=== PATIENT | female | born 1935 | race Caucasian/White ===

== ENCOUNTER → 2019-08-18 15:20 | Outpatient (CLI) | payer MEDICARE, SELFPAY ==
--- NOTE | ~2019-08-18 | XR_ITS ---
EXAMINATION: XR abdomen/kub 1V INDICATION: Left upper quadrant pain, history of cholecystectomy TECHNIQUE: Supine views of the abdomen were obtained on 2 radiographs. COMPARISON: 04/13/2016 FINDINGS: There is a moderate volume of left-sided colonic stool. No dilated loops of bowel are seen. There is dextrocurvature of the lumbar spine with moderate to severe lumbar spondylosis. Cholecystec monika clips are noted in the right upper quadrant. The visualized lung bases are clear. Internal stabi lization screws are present in the left femoral neck. IMPRESSION: 1. Constipation. Reviewed, dictated and finalized at location A. ASTRUCTURE DESIGN ENGINEER IMPRESSION: 1. Constipation.
== END ==
PROVIDERS: PCP Family Medicine; Visit Provider Physician Assistant
DX: R10.12 Left upper quadrant pain (principal); K59.00 Constipation, unspecified
CPT/HCPCS: 74018

== ENCOUNTER 2019-12-30 15:32 | Observation (INO) | payer MEDICARE, SELFPAY ==
--- NOTE | ~2019-12-30 | CT_ITS ---
EXAMINATION: CTA chest PE protocol EXAM DATE: 12/31/2019 17:15 INDICATION: Dyspnea on exertion. Shortness of breath, left anterior chest pain. TECHNIQUE: Spiral CTA of the chest (pulmonary arteries) was performed with 100 cc Omnipaque 350 intr avenous contrast injection. Images were acquired during the pulmonary arterial phase. Coronal maxi mum intensity projection 3D-reconstructions were created by the technologist on dedicated workstation . Axial, coronal and sagittal reformatted images were reviewed. The dose-length product (DLP) for t his examination was 144.86 mGy-cm. The exposure was tailored according to patient size (auto mA exp osure control), and iterative reconstruction (ASIR) was used as additional dose reduction technique. Comparison is made to prior examination from 03/27/2019. FINDINGS: Pulmonary arteries are well opacified and without intraluminal filling defects. No thora cic aortic dissection. Small amount of post infectious residua again noted in the right middle lobe medially. Stable 4 mm right lower lobe pleural-based nodule just below this. Some additional small po st infectious residua in the right middle lobe inferiorly with calcification. The lungs are otherwise clear. There is mild hyperinflation and emphysema. There are no pleural or pericardial effusions. Tracheob ronchial tree is patent. There is no mediastinal, hilar or axillary lymphadenopathy. There is no pneumothorax. Heart normal in size. There is mild to moderate coronary arterial calcification, ar terial sclerosis, mostly in the circumflex artery. There is moderate sliding gastroesophageal hiatal hernia. There is moderate thoracic spondylosis without osteoblastic or osteolytic lesions identified . Left shoulder replacement. IMPRESSION: 1. No pulmonary emboli or acute findings. 2. Scattered right-sided postinfectious residua. 3. Emphysema and hyperinflation. 4. Moderate hiatal hernia. Reviewed, dictated and finalized at location A.
--- NOTE | ~2019-12-30 | XR_ITS ---
EXAMINATION: XR chest 2V DATE: 12/30/2019 17:04 INDICATION: Shortness of breath, left anterior chest pain TECHNIQUE: PA and lateral views of the chest are obtained. COMPARISON: 10/14/2018 FINDINGS: The lungs are free of acute opacities. There is no pleural effusion or pneumothorax. The he art size is normal. There is a moderate-sized hiatal hernia. There is severe thoracic spondylosis. Th ere are changes of left total shoulder arthroplasty. There is an old fracture of the left eighth rib. Surgical clips in the right upper quadrant are likely from prior cholecystectomy. IMPRESSION: 1. No acute cardiopulmonary abnormality. 2. Moderate size hiatal hernia. Reviewed, dictated and finalized at location A.
[2019-12-30 15:41] VITALS: BP 148/90; PULSE 109; RESP 20; TEMP 36.1; O2SAT 90
--- NOTE | 2019-12-30 15:44 | ECG_ITS ---
Measurements Intervals [place] Rate: 80 P: 34 SD: 280 QRS: 59 QRSD: 79 T: 56 QT: 346 QTc: 400 Interpretive Statements SINUS RHYTHM WITH FIRST DEGREE AV BLOCK DELAYED PRECORDIAL R/S TRANSITION BASELINE ARTIFACT- I, III, AVL, AVF, V2 ABNORMAL ECG Electronically Signed On 12-30-2019 16:09:54 CDT by Bret Laughlin D.O.
[2019-12-30 15:52] LABS: Basophils Absolute Auto 0.1 K/mm3 (0.0-0.1); Basophils Percent Auto 0.8 % (0.2-1.2); Eosinophils Absolute Auto 0.1 K/mm3 (0-0.3); Eosinophils Percent Auto 1.8 % (0-4.4); Hematocrit 32.8 % (37.0-47.0); Hemoglobin 10.4 g/dL (12.0-15.0); Immature Granulocyte Absolute 0.02 K/mm3 (0.00-0.031); Immature Granulocyte Percent A 0.3 % (0-0.5); Lymphocytes Absolute Auto 1.11 K/mm3 (0.9-3.2); Lymphocytes Percent Auto 17.9 % (18.3-44.2); Mean Corpuscular HGB Conc 31.7 g/dl (32-36); Mean Corpuscular Hemoglobin 28.6 pg (26-34); Mean Corpuscular Volume 90.1 fl (80-100); Mean Platelet Volume 10.1 fl (7.4-10.4); Monocytes Absolute Auto 0.6 K/mm3 (0.1-0.6); Monocytes Percent Auto 9.8 % (2.6-8.5); Neutrophils Absolute Auto 4.3 K/mm3 (1.3-6.7); Neutrophils Percent Auto 69.4 % (45.5-73.1); Platelet Count Result 283 k/mm3 (150-375); Red Blood Count 3.64 M/mm3 (4.2-5.4); Red Cell Distribution Width 13.7 % (11.5-14.5); White Blood Count 6.2 K/mm3 (4.5-10.0)
[2019-12-30 16:03] LABS: Prothrombin Time 12.8 Seconds (11.1-14.7)
[2019-12-30 16:04] LABS: Partial Thromboplastin Time 26.6 SECONDS (22.3-36.8)
[2019-12-30 16:05] VITALS: PULSE 86
[2019-12-30 16:05] LABS: Blood Urea Nitrogen 38 mg/dL (7-17); Calcium 9.1 mg/dL (8.4-10.2); Carbon Dioxide 23 mmol/L (22-30); Chloride 103 mmol/L (98-107); Estimated Glomerular Filt Rate 48; Glucose 89 mg/dL (65-105); Potassium 4.4 mmol/L (3.4-5.0); Sodium 135 mmol/L (137-145)
[2019-12-30 16:16] LABS: Troponin I < 0.012 ng/mL (0.000-0.034)
--- NOTE | 2019-12-30 16:59 | ED.SOB ---
HPI - SOB/Dyspnea General Chief Complaint: Shortness of Breath/Dyspnea Stated Complaint: chest pain from pcp Time Seen by Provider: 12/30/19 16:04 Source: patient Mode of arrival: ambulatory Limitations: no limitations History of Present Illness HPI Narrative: This patient is a 84 year old female with multiple medical problems who presents for evaluation of chest pain and shortness of breath with exertion. Over the past 1 week, she noticed she developed pressure left chest , nonradiating with sob whenever she walks around. She denies diaphoresis, cough, fever, nausea or vomiting. She was seen in her PCP office today and she was referred to ER for suspected angina. She has been having intermittent left chest pain since April and she had a negative stress test at that time. Related Data Home Medications Medication Instructions Recorded Confirmed diltiazem HCl [Cartia XT] 180 mg PO DAILY 12/30/19 losartan 10 mg PO DAILY 12/30/19 paroxetine HCl 20 mg PO QAM 12/30/19 pravastatin 20 mg PO HS 12/30/19 Allergies Allergy/AdvReac Type Severity Reaction Status Date / Time clonidine Allergy Unknown GI upset Verified 09/23/19 10:22 codeine Allergy Unknown Vomiting Verified 09/23/19 10:22 morphine Allergy Unknown Vomiting Verified 09/23/19 10:22 Review of Systems Review of Systems: All systems reviewed & are unremarkable except as noted in HPI and below Constitutional: Constitutional: Denies chills, Denies fever(s) and Denies weakness Cardiovascular: Cardiovascular: Reports chest pain, Denies rapid heart rate and Denies radiating jaw, neck or arm pain Respiratory: Respiratory: Denies cough, Reports dyspnea and Denies wheezing PMFSH Social History Social History Smoking packs per day: 1 Smoking cigarettes per day: 20.0 Years smoked: 10 Smoking pack-years: 10.00 Smoking status: Former smoker Tobacco type: cigarettes Second hand tobacco smoke exposure: No Smoking end date: 07/09/1959 Alcohol intake: never Substance use: never Substance use type: does not use Gender identity (if verbalized by the patient): Female Exam Narrative: Exam Narrative: GENERAL: Well-appearing, well-nourished, and in no acute distress. HEAD: Normocephalic, atraumatic EYES: PERRLA and EOMI, conjunctiva clear without discharge THROAT:Mucous membranes moist, NECK: Supple, RESPIRATORY: No respiratory distress, Airway patent, Respirations non-labored, Clear to auscultation without rales, rhonchi or wheeze HEART: Regular rate and rhythm. No murmur heard. Normal peripheral pulses. ABDOMEN: Soft, nontender, nondistended, normal active bowel sounds. No masses. No rebound or guarding, No organomegaly. EXTREMITIES: No edema, normal strength with full range of motion. SKIN: Warm, dry, normal color without rash NEURO: Alert and oriented x3. CN 2-12 grossly intact. No focal deficits. PSYCH: Normal mood and affect. Course Consultations Consultation #1: I discussed case with Dr. Egan who agrees to consult with patient admitted to hospitalist Date: 12/30/19 Time: 17:46 Consultation #2: I Discussed case with Shoshana who accepts patient to hospitalist service Date: 12/30/19 Time: 18:06 Vital Signs Vital signs: Vital Signs Temperature 97.0 F L 12/30/19 15:41 Pulse Rate 109 H 12/30/19 15:41 Respiratory Rate 20 12/30/19 15:41 Blood Pressure 148/90 H 12/30/19 15:41 Pulse Oximetry 90 12/30/19 15:41 Temperature 97.0 F L 12/30/19 15:41 Pulse Rate 82 12/30/19 18:23 Respiratory Rate 17 12/30/19 18:23 Blood Pressure 158/78 H 12/30/19 17:13 Pulse Oximetry 96 12/30/19 18:23 MDM - SOB/Dyspnea Lab Data Attestation: I reviewed the patient's lab results. Result diagrams: 12/30/19 15:46 12/30/19 15:46 Labs: Lab Results 12/30/19 12/30/19 12/30/19 Range/Units 15:46 15:46 15:46 WBC 6.2 (4.5-10
[2019-12-30] MEDS: ASPIRIN 81 MG CHEWABLE TABLET 324 MG PO (17:12)
[2019-12-30 17:13] VITALS: BP 158/78; PULSE 81; RESP 20; O2SAT 100
[2019-12-30 18:23] VITALS: PULSE 82; RESP 17; O2SAT 96
[2019-12-30 19:04] LABS: Troponin I < 0.012 ng/mL (0.000-0.034)
[2019-12-30 20:00] VITALS: BP 122/82; PULSE 65; RESP 20; TEMP 36.6; O2SAT 96
--- NOTE | 2019-12-30 20:07 | ADMGEN ---
This patient, Selena Lua, was admitted to IMU Room 206-01. Patient/family oriented to hospital policies and general routines including ID bracelet, bed and alarms, visiting hours, pain management, procedures, bathroom and other care routines, personal items, smoking policy, room service/diet, and visiting hours. Valuables list has been completed. Information on how to activate the Rapid Response Team has been discussed. Patient/Family are encouraged to report perceived risks to care and to ask questions if they do not understand what they are told or what they should do.
[2019-12-30 20:10] VITALS: BMI 27.8
[2019-12-30 22:00] VITALS: PULSE 66
[2019-12-30 22:17] LABS: Troponin I < 0.012 ng/mL (0.000-0.034)
--- NOTE | 2019-12-30 22:25 | PM.IMHP ---
H&P: HPI History of Present Illness Chief complaint: angina/chest pain Narrative: Selena Lua is a 84 year old female who states that she has been having angina for several weeks now. She does have a history of having asthma and has been using her inhalers. She does not hear herself wheeze though. She has never been to a atmospheric drier tender. She has been to the heart care group in the past. But does not routinely see a cardiac cath lab manager. The patient had an exercise stress test on 03/25/2019 that she reports is negative. And also she has had a previous are cardiac catheterization a couple years ago that she states was negative. The patient stated that she gets short of breath and has chest pain upon exertion. When your she walks she does have chest pain and is short of breath. She said she does not have a pulse ox at home and has not been monitoring it. Sitting and resting resolves the discomfort. She has not had any history of congestive heart failure. She has no edema no fever no chills no cough. She has had intermittent chest pain on and off since April. Cardiac enzymes are negative tonight. 10.4 and 32.8 but she does have a history of chronic anemia. Acute cardiopulmonary abnormality and moderate size hiatal hernia. Was given aspirin in the emergency room. Date of service is 12/30/2019 she is not currently having any chest pain. She is being admitted for chest pain rule out acute coronary syndrome. Angina stable. Review of Systems Review of Systems: All systems reviewed & are unremarkable except as noted in HPI and below Constitutional: Constitutional: Reports as per HPI and Reports no additional constitutional complaints Eyes: Eyes: Reports as per HPI and Reports no additional eye complaints ENT: Reports system reviewed and no additional complaints, except as documented and Reports Normal hearing present Cardiovascular: Cardiovascular: Reports no additional cardiovascular complaints Respiratory: Respiratory: Reports no additional respiratory complaints and Reports no additional respiratory complaints Gastrointestinal: Gastrointestinal: Reports as per HPI and Reports no additional gastrointestinal complaints Musculoskeletal: Musculoskeletal: Reports no additional musculoskeletal complaints Integumentary/Breasts: Skin/Breast: Reports system reviewed and no additional complaints, except as docu and Reports as per HPI Neurologic: Reports system reviewed and no additional complaints, except as documented, Reports as per HPI and Reports Normal hearing present Psychiatric: Psychiatric: Reports no additional psychiatric complaints and Reports as per HPI Endocrine: Endocrine: Reports no additional endocrine complaints Hematologic/Lymphatic: Hematologic/Lymphatic: Reports no additional hematologic/lymphatic complaints Allergic/Immunologic: Allergic/Immunologic: Reports no additional allergic/immunologic complaints PMFSH Past Medical History Medical History (Updated 12/30/19 @ 22:44 by Shoshana Ander NP) Asthma Benign essential hypertension Chronic GERD Fracture of left hip requiring operative repair HTN (hypertension) with goal to be determined Hx of temporal arteritis Hyperlipidemia Surgical History Surgical History (Updated 12/30/19 @ 22:40 by Shoshana Andre NP) History of appendectomy History of carpal tunnel release Bilaterally History of cataract Bilateral History of cholecystectomy History of tonsillectomy History of total bilateral knee replacement History of total replacement of left shoulder joint Presence of left artificial knee joint Family History Family History Mother Hypertension Family history of cardiovascular disease Carcinoma of colon, Onset Age: 86 Acute myocardial infarction Family history of heart disease in male family member before age 55, Onset Age: 86 Patient's mother is , Onset Age: 86 Father Decea
[2019-12-30] MEDS: PRAVASTATIN SODIUM 20 MG TABLET PO (23:49)
[2019-12-31] VITALS (16 sets, daily range): BP systolic 95–155; BP diastolic 49–70; PULSE 54–88; RESP 16–20; TEMP 36.1–36.7; O2SAT 96–100
--- NOTE | 2019-12-31 | ECHO_ITS ---
Patient Info Name: Selena Lua Age: 84 years : 1935 Gender: Female Ht: 58 in Wt: 133 lbs BSA: 1.59 m2 HR: 62 bpm BP: 143 / 58 mmHg Heart Rhythm: Sinus Rhythm Technical Quality: Good Exam Date: 12/31/2019 10:07 AM Exam Location: [facility] Patient Status: Inpatient Admit Date: 12/30/2019 Staff Ordering Physician: Shoshana Andre NP Tool Lapper Hand: Alex Negrete RDCS Attending Provider: El Wang MD Referring Physician: Thai REYES; Exam Type: CA echo doppler color flow Study Info Indications R07.9 - Chest pain, unspecified Complete two-dimensional, color flow and Doppler transthoracic echocardiogram is performed. Strain analysis performed. History/Risk Factors Chest pain; shortness of breath, HTN, anemia. Summary 1. Normal left ventricular size with moderate concentric hypertrophy. Left ventricular systolic function is of lower end of normal, estimated ejection fraction 50-55%. Global longitudinal strain is -17%, mildly decreased, consistent with mild systolic dysfunction. She has grade 2 diastolic dysfunction present. 2. Left atrial chamber dimension is severely enlarged. 3. There is mild tricuspid valve regurgitation. 4. No pulmonary hypertension, estimated pulmonary arterial systolic pressure is 35 mmHg. 5. Normal sinus rhythm. Left Ventricle Left ventricular chamber dimension is normal. Left ventricular systolic function is normal, estimated at 50-55%. There is moderately increased left ventricular wall thickness. Left ventricular septal wall motion is normal. The left ventricular diastolic function is grade II diastolic dysfunction. Global longitudinal strain is mildly elevated at 17 %. Right Ventricle Right ventricular chamber dimension is normal. Right ventricular systolic function is normal. Left Atria Left atrial chamber dimension is severely enlarged. Right Atria Right atrial chamber dimension is normal. Aortic Valve The aortic valve is trileaflet. There is mild aortic valve sclerosis. There is no aortic valve stenosis. There is no aortic valve regurgitation. Pulmonic Valve The pulmonic valve is normal. There is no pulmonic valve stenosis. There is trace pulmonic regurgitation. Mitral Valve The mitral valve has calcified annulus. There is no mitral valve stenosis. There is no mitral valve regurgitation. Tricuspid Valve The tricuspid valve leaflets are normal. There is no significant tricuspid valve stenosis. There is mild tricuspid valve regurgitation. No pulmonary hypertension, estimated pulmonary arterial systolic pressure is 35 mmHg. Pericardium/Pleural The pericardium appears normal. There is no pericardial effusion. Inferior Vena Cava Normal inferior vena cava with >50% collapse upon inspiration consistent with Empty right atrial pressure, 5 mmHg. Aorta The aortic root size at the sinus of Valsalva is normal. The prox ascending aorta size is normal. Left Ventricular Outflow Tract Name Value Normal LVOT 2D LVOT Diameter 1.9 cm LVOT Doppler LVOT Peak Gradient 5 mmHg
[2019-12-31 05:19] LABS: Basophils Absolute Auto 0.1 K/mm3 (0.0-0.1); Basophils Percent Auto 1.1 % (0.2-1.2); Eosinophils Absolute Auto 0.2 K/mm3 (0-0.3); Eosinophils Percent Auto 4.6 % (0-4.4); Hematocrit 31.2 % (37.0-47.0); Immature Granulocyte Absolute 0.01 K/mm3 (0.00-0.031); Immature Granulocyte Percent A 0.2 % (0-0.5); Lymphocytes Absolute Auto 1.12 K/mm3 (0.9-3.2); Lymphocytes Percent Auto 24.8 % (18.3-44.2); Mean Corpuscular HGB Conc 32.1 g/dl (32-36); Mean Corpuscular Hemoglobin 28.4 pg (26-34); Mean Corpuscular Volume 88.6 fl (80-100); Monocytes Absolute Auto 0.5 K/mm3 (0.1-0.6); Monocytes Percent Auto 10.8 % (2.6-8.5); Neutrophils Absolute Auto 2.6 K/mm3 (1.3-6.7); Neutrophils Percent Auto 58.5 % (45.5-73.1); Platelet Count Result 266 k/mm3 (150-375); Red Blood Count 3.52 M/mm3 (4.2-5.4); Red Cell Distribution Width 13.6 % (11.5-14.5); White Blood Count 4.5 K/mm3 (4.5-10.0)
[2019-12-31 05:36] LABS: Alanine Aminotransferase 17 U/L (4-35); Albumin Level 3.6 g/dL (3.5-5.1); Alkaline Phosphatase 70 U/L (38-126); Aspartate Amino Transferase 27 U/L (14-36); Bilirubin,Total 0.2 mg/dL (0.2-1.3); Blood Urea Nitrogen 30 mg/dL (7-17); CRP < 0.5 mg/dL (<1.0); Calcium 8.9 mg/dL (8.4-10.2); Carbon Dioxide 26 mmol/L (22-30); Chloride 106 mmol/L (98-107); Estimated Glomerular Filt Rate 60; Glucose 85 mg/dL (65-105); Magnesium 2.3 mg/dL (1.6-2.3); Potassium 4.3 mmol/L (3.4-5.0); Sodium 136 mmol/L (137-145)
[2019-12-31] MEDS: PANTOPRAZOLE SOD SESQUIHYDRATE 20 MG TAB PO ×2 (08:31→17:10)
[2019-12-31] MEDS: PAROXETINE 20 MG TABLET PO (08:31)
[2019-12-31] MEDS: ASPIRIN 81 MG ENTERIC TABLET PO (08:31)
[2019-12-31] MEDS: LOSARTAN POTASSIUM 25 MG TABLET PO (08:31)
--- NOTE | 2019-12-31 08:40 | WPDCN ---
Assessment and Plan Assessment and plan (1) Chest pain: Code(s): R07.9 - Chest pain, unspecified Status: Acute Assessment and Plan: Has stable though frequent and progressive exertional anginal-type chest pain, negative stress test April 2019. I think she would benefit from cardiac catheterization for further evaluation. Already taking diltiazem an aspirin as well as a statin. Also has iron deficiency anemia which may represent occult GI bleeding could be a problem if the patient undergoes stenting requiring dual anti-platelet therapy for 12 months. Recommend medical therapy for CAD for now by changing diltiazem to metoprolol and adding a nitrate, GI evaluation hopefully tomorrow, perhaps cardiac catheterization on Sunday or as an outpatient next week depending on results of GI evaluation. (2) Iron deficiency anemia: Code(s): D50.9 - Iron deficiency anemia, unspecified Status: Acute Assessment and Plan: Anemia, low iron levels noted last year. Recheck iron levels Consider GI evaluation (3) Hypertension: Code(s): I10 - Essential (primary) hypertension Status: Acute Assessment and Plan: Blood pressure running mildly elevated (4) Hyperlipidemia: Code(s): E78.5 - Hyperlipidemia, unspecified Status: Chronic Assessment and Plan: Taking pravastatin. Check lipids in a.m.. HPI Data of Consult Date/Time: 12/31/19 08:40 Requesting Physician: El Wang MD Primary Care Provider: Easton Paulino MD Consult Narrative Narrative: Date of service: 12/31/2019 Selena Lua is a 84 year old female whom we were asked to see at the request of the hospitalist for advice and opinion regarding her chest discomfort in consultation. The patient has been having some exertional chest discomfort since last fall. She had a Lexiscan stress test done 04/2019 which showed normal perfusion, EF 72%. The chest discomfort has gradually progressed such that she has had chest discomfort daily when she walks her dog, does housework, makes her bed etc. she saw Dr. Paulino yesterday who recommended she go to the ER for evaluation. She describes this as ?just a pain? in the area under her left breast associated with shortness of breath. A couple of times when she was walking her dog it was intense and she had to bend over. It is nonpleuritic, non positional and nontender. She denies any nausea or radiation. No wheezing. In 2016 she had endoscopy by Dr. Ko for nausea which showed diverticulosis and internal hemorrhoids. She had an iron deficiency anemia with a low iron level noted in 2019. No obvious GI bleeding. She remains mildly anemic. Review of Systems Constitutional: Constitutional: Reports no additional constitutional complaints Eyes: Eyes: Reports no additional eye complaints ENT: Denies epistaxis Cardiovascular: Cardiovascular: Reports chest pain, Denies pedal edema, Denies leg edema, Denies lightheadedness and Denies palpitations Respiratory: Respiratory: Denies cough, Reports dyspnea on exertion and Denies wheezing Gastrointestinal: Gastrointestinal: Denies abdominal pain, Denies hematochezia, Denies heartburn, Denies nausea and Denies hematemesis Genitourinary: Genitourinary: Denies hematuria Musculoskeletal: Musculoskeletal: Reports arthralgias Integumentary/Breasts: Skin/Breast: Denies rash Neurologic: Denies confusion Psychiatric: Psychiatric: Denies anxiety and Denies depression [facility] Past Medical History Medical History Asthma Benign essential hypertension Chronic GERD Fracture of left hip requiring operative repair HTN (hypertension) with goal to be determined Hx of temporal arteritis Hyperlipidemia Surgical History Surgica
[2019-12-31] MEDS: METOPROLOL TARTRATE 25 MG TABLET PO ×2 (09:19→21:43)
--- NOTE | 2019-12-31 12:09 | WPDGICN ---
Assessment and Plan Assessment and plan (1) Anemia: Code(s): D64.9 - Anemia, unspecified Status: Acute Assessment and Plan: Patient has anemia for some time etiology unclear. No obvious GI blood loss described. Iron indices are somewhat uncertain. Her iron of 83, TIBC 367, 23% saturation with a ferritin 19. She had iron studies a year ago with an elevated ferritin. Current hemoglobin 10 macro 31 with an MCV of 88. There is some concern over etiology of anemia plan therefore is to for GI endoscopy prior to anticipated cardiac workup and catheterization of Sunday. Stool Hemoccult is advised in the interim. hematology is found followed patient in the past in has considered early myelodysplastic syndrome and ultimate follow up with their service may be required. (2) Chest pain: Code(s): R07.9 - Chest pain, unspecified Status: Acute Assessment and Plan: Patient has exertional chest pain suspicious for angina. Cardiology service is following at this time period is possible that anemia may contribute to this continue monitor hemoglobin closely. Currently felt to be stable hemoglobin. (3) [place] (dyspnea on exertion): Code(s): R06.00 - Dyspnea, unspecified Status: Acute GI Consult Note Consult date/time: 12/31/19 12:09 HPI: Selena Lua is a 84 year old female seen in evaluation at the request of Dr. Ramirez on cardiology service. Patient has a history of dyspnea on exertion with chest pain with exertion as well. She has a long history of anemia and because of anemia some concern over this contributing to her chest pain. Cardiology is service is recommended GI endoscopy to exclude organic disease of the GI tract prior to cardiac catheterization. Patient denies any obvious blood in her stools. She denies any nose bleeds or bruises. She has had anemia for some time. Seen by Dr. Katz in July and felt to potentially have early myelodysplastic syndrome. No obvious GI blood loss has been described. Review of Systems Review of Systems: All systems reviewed & are unremarkable except as noted in HPI and below PMFSH Past Medical History Medical History Asthma Benign essential hypertension Chronic GERD Fracture of left hip requiring operative repair HTN (hypertension) with goal to be determined Hx of temporal arteritis Hyperlipidemia Surgical History Surgical History History of appendectomy History of carpal tunnel release Bilaterally History of cataract Bilateral History of cholecystectomy History of tonsillectomy History of total bilateral knee replacement History of total replacement of left shoulder joint Presence of left artificial knee joint Family History Family History Mother Hypertension Family history of cardiovascular disease Carcinoma of colon, Onset Age: 86 Acute myocardial infarction Family history of heart disease in male family member before age 55, Onset Age: 86 Patient's mother is , Onset Age: 86 Father Family history of lung cancer, Onset Age: 78 Patient's father is , Onset Age: 78 Other Family history of arthritis Family history of malignant neoplasm Social History Social History Social History: Patient lives with her who has short-term memory problems due to the Parkinson's. The coming up on their 60th anniversary. They have 2 sons and 2 daughters together. Her 2 daughters are durable power deputy county attorney for healthcare. The patient desires to be a full code. 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 She smoked many years ago. No alcohol marijuana or illicit drugs. Smoking packs per day: 1 Smoking cigarettes per day: 20.0 Years smoked: 10 Smoking pack-years: 10.00 Smoking status: Form
--- NOTE | 2019-12-31 14:43 | PM.IMPN ---
Progress Note: A&P Assessment and Plan (1) Chest pain: Code(s): R07.9 - Chest pain, unspecified Status: Acute Assessment and Plan: Stable angina. Patient gets chest pain with exertion. She has had a negative cardiac catheterization and negative cardiac stress test in the past. Cardiology consulted ? cardiac catherization on sunday (2) HTN (hypertension) with goal to be determined: Code(s): I10 - Essential (primary) hypertension Status: Chronic Assessment and Plan: Continue with with losartan and Cardizem (3) HARDWICK (dyspnea on exertion): Code(s): R06.00 - Dyspnea, unspecified Status: Acute Assessment and Plan: Could be related to her asthma restarted on inhalers (4) Asthma: Code(s): J45.909 - Unspecified asthma, uncomplicated Status: Chronic Assessment and Plan: Continue with her albuterol and Symbicort inhaler. Patient may need to follow-up outpatient [employer] and have a PF T or of sleep apnea study. (5) Hyperlipidemia: Code(s): E78.5 - Hyperlipidemia, unspecified Status: Chronic Assessment and Plan: Continue with pravastatin (6) Chronic GERD: Code(s): K21.9 - Gastro-esophageal reflux disease without esophagitis Status: Acute Assessment and Plan: Continue pantoprazole (7) Depression: Code(s): F32.9 - Major depressive disorder, single episode, unspecified Status: Chronic Assessment and Plan: Continue with Paxil. (8) Raynaud's disease without gangrene: Code(s): I73.00 - Raynaud's syndrome without gangrene Status: Chronic (9) Osteopenia: Code(s): M85.80 - Other specified disorders of bone density and structure, unspecified site Status: Chronic Assessment and Plan: Continue with Fosamax. (10) Anemia: Code(s): D64.9 - Anemia, unspecified Status: Acute Assessment and Plan: Pt for EGD under GI for iron deficiency anaemia v chronic disease ? may be contributing to her SOB Subjective Date/time seen: 12/31/19 14:43 Interval history: 84 year old female who states that she has been having angina for several weeks now. She does have a history of having asthma and has been using her inhalers. Pt states she had a negative stress test last year. Complains of chest pain on exertion. Exam Const: General: cooperative, healthy appearing, comfortable, no acute distress, well developed, alert, awake and Physically active Nutritional Appearance: average body habitus and well nourished Orientation/consciousness: oriented to person, oriented to place, oriented to time and patient oriented x3 Limitations: no limitations Resp: Effort & Inspection: normal respiratory effort Auscultation: clear to auscultation bilaterally Percussion: percussion normal Cardio: Palpation: normal PMI Rate: regular rate Rhythm: regular rhythm Heart sounds: S1 normal heart sound present and S2 normal heart sound present Peripheral pulses: Peripheral pulses 2+ throughout Neuro: General: oriented to person, oriented to place, oriented to time and patient oriented x3 Cranial nerves: Yes Equal, round and reactive pupils present and Yes Normal hearing present Cognition (Neuro): normal cognition Speech: normal speech Gait exam (Neuro): Normal gait present Motor exam (neuro): 5/5 motor strength present throughout Sensory Exam: normal sensation Extrem: General: normal to inspection Right upper extremity: normal to inspection and shoulder/upper arm Left upper extremity: normal to inspection and shoulder/upper arm Right lower extremity: normal to inspection Left lower extremity: normal to inspection Objective Data Vital Signs Vital Signs: Vital Signs - 24 hr 12/30/19 15:41 12/30/19 16:05 12/30/19 17:13 Temperature 36.1 C L Pulse Rate 109 H 86 81 Respiratory Rate 20 20 Blood Pressure 148/90 H 158/78 H Pulse Oximetry 90 100 12/30/19 18:23 12/30/19
[2019-12-31] MEDS: PEG (High)/E-LYTE SOLN 4,000 ML BTL 4000 ML PO (14:46)
[2019-12-31] MEDS: PRAVASTATIN SODIUM 20 MG TABLET PO (21:43)
[2019-12-31] MEDS: ONDANSETRON INJ 4 MG/2 ML VIAL IV PUSH (21:48)
[2020-01-01] VITALS (19 sets, daily range): BP systolic 102–187; BP diastolic 55–105; PULSE 54–84; RESP 12–20; TEMP 35.9–36.9; O2SAT 97–100
[2020-01-01] MEDS: WITCH HAZEL 40 PADS 1 PAD TOPICAL (00:46)
[2020-01-01 05:22] LABS: Hematocrit 36.6 % (37.0-47.0); Hemoglobin 11.8 g/dL (12.0-15.0); Mean Corpuscular HGB Conc 32.2 g/dl (32-36); Mean Corpuscular Hemoglobin 28.5 pg (26-34); Mean Corpuscular Volume 88.4 fl (80-100); Platelet Count Result 299 k/mm3 (150-375); Red Blood Count 4.14 M/mm3 (4.2-5.4); Red Cell Distribution Width 13.4 % (11.5-14.5); White Blood Count 6.5 K/mm3 (4.5-10.0)
[2020-01-01 05:33] LABS: Blood Urea Nitrogen 26 mg/dL (7-17); Calcium 9.1 mg/dL (8.4-10.2); Carbon Dioxide 29 mmol/L (22-30); Chloride 99 mmol/L (98-107); Estimated Glomerular Filt Rate > 60; Glucose 90 mg/dL (65-105); Potassium 4.1 mmol/L (3.4-5.0); Sodium 132 mmol/L (137-145)
--- NOTE | 2020-01-01 08:31 | WPDANESEPPF ---
Anes - Initial Pre Proc Eval Procedure: Operation Date: 01/01/20 11:00 Proposed Procedures p Esophagogastroduodenoscopy & Colonoscopy - Domingo Ko MD Date/Time: 01/01/20 08:31 Surgeon: El Wang MD Pre Op Diagnosis: angina/chest pain Patient Data Age: 84 Gender: F Height: 1.47 m Weight: 60 kg Last Vital Signs Temp 36.7 C 01/01/20 08:00 Pulse 58 L 01/01/20 08:00 Resp 16 01/01/20 08:00 BP 148/80 H 01/01/20 08:00 Pulse Ox 98 01/01/20 08:00 Allergies Allergy/AdvReac Type Severity Reaction Status Date / Time clonidine Allergy Unknown GI upset Verified 09/23/19 10:22 codeine Allergy Unknown Vomiting Verified 09/23/19 10:22 morphine Allergy Unknown Vomiting Verified 09/23/19 10:22 Home Medications Medication Instructions Recorded Confirmed Type omeprazole 20 mg capsule,delayed 20 mg PO BID #180 cap 07/29/19 12/30/19 Rx release alendronate 70 mg tablet 70 mg PO WEEKLY #12 tablet 08/12/19 12/30/19 Rx aspirin 81 mg tablet,delayed 81 mg PO DAILY #1 tablet 08/12/19 12/30/19 Rx release Symbicort 160 mcg-4.5 See Rx Instructions .ROUTE 12/16/19 12/30/19 Rx mcg/actuation HFA aerosol inhaler .COMPLEX #22 gm NS albuterol sulfate 90 mcg/actuation See Rx Instructions .ROUTE 12/25/19 12/30/19 Rx aerosol inhaler .COMPLEX #18 gm diltiazem HCl [Cartia XT] 180 mg PO DAILY 12/30/19 12/30/19 History losartan 25 mg PO DAILY 12/30/19 12/30/19 History paroxetine HCl 20 mg PO QAM 12/30/19 12/30/19 History pravastatin 20 mg PO HS 12/30/19 12/30/19 History Laboratory Tests 01/01/20 01/01/20 04:48 04:48 WBC 6.5 K/mm3 K/mm3 (4.5-10.0) RBC 4.14 M/mm3 L M/mm3 (4.2-5.4) Hgb 11.8 g/dL L g/dL (12.0-15.0) Hct 36.6 % L % (37.0-47.0) MCV 88.4 fl fl (80-100) MCH 28.5 pg pg (26-34) MCHC 32.2 g/dl g/dl (32-36) RDW 13.4 % % (11.5-14.5) Plt Count 299 k/mm3 k/mm3 (150-375) MPV 10.0 fl fl (7.4-10.4) Sodium 132 mmol/L L mmol/L (137-145) Potassium 4.1 mmol/L mmol/L (3.4-5.0) Chloride 99 mmol/L mmol/L (98-107) Carbon Dioxide 29 mmol/L mmol/L (22-30) BUN 26 mg/dL H mg/dL (7-17) Creatinine 0.80 mg/dL mg/dL (0.7-1.0) Estim Creat Clear Calc Not Reportable Estimated GFR > 60 (59 - ) Glucose 90 mg/dL mg/dL (65-105) Calcium 9.1 mg/dL mg/dL (8.4-10.2) ECG: NSR rate 80, first-degree AV block, no acute ischemic changes Other Studies: CT showed emphysema, hyperinflation, moderate hiatal hernia Patient hx anesthesia problems: none Family hx anesthesia problems: none [facility] Past Medical History Medical History (Updated 01/01/20 @ 10:23 by Britton Yun MD) Anemia Asthma Benign essential hypertension Chronic GERD COPD (chronic obstructive pulmonary disease) Depression Fracture of left hip requiring operative repair HTN (hypertension) with goal to be determined Hx of temporal arteritis Hyperlipidemia Hypertension Lung mass Mild intermittent asthma without complication Osteopenia Pre-diabetes Surgical History Surgical History History of appendectomy History of carpal tunnel release Bilaterally History of cataract Bilateral History of cholecystectomy History of tonsillectomy History of total bilateral knee replacement History of total replacement of left shoulder joint Presence of left artificial knee joint Family History Family History Mother Hypertension Family history of cardiovascular disease Carcinoma of colon, Onset Age: 86 Acute myocardial infarction Family history of heart disease in male family member before age 55, Onset Age: 86 Patient's mother is , Onset Age: 86 Father Family history of lung cancer, Onset Age: 78 Patient's father is , Onset Age: 7
[2020-01-01] MEDS: METOPROLOL TARTRATE 25 MG TABLET PO ×2 (09:28→21:21)
[2020-01-01] MEDS: PAROXETINE 20 MG TABLET PO (09:29)
[2020-01-01] MEDS: ASPIRIN 81 MG ENTERIC TABLET PO (09:29)
[2020-01-01] MEDS: LOSARTAN POTASSIUM 25 MG TABLET PO (09:29)
[2020-01-01] MEDS: PANTOPRAZOLE SOD SESQUIHYDRATE 20 MG TAB PO ×2 (09:29→17:24)
[2020-01-01] MEDS: LACTATED RINGERS 1,000 ML 150 ML IV CONT (11:40)
--- NOTE | 2020-01-01 11:42 | PC.NURSE ---
1015- to GI lab via stretcher accompanied by TORSTEN
--- NOTE | 2020-01-01 12:47 | PC.NURSE ---
Returned to room egd/colonoscopy completed
--- NOTE | 2020-01-01 17:06 | PM.IMPN ---
Progress Note: A&P Assessment and Plan (1) Chest pain: Code(s): R07.9 - Chest pain, unspecified Status: Acute Assessment and Plan: Stable angina. Patient gets chest pain with exertion. She has had a negative cardiac catheterization and negative cardiac stress test in the past. Cardiology consulted ? cardiac catherization on sunday (2) HTN (hypertension) with goal to be determined: Code(s): I10 - Essential (primary) hypertension Status: Chronic Assessment and Plan: Continue with with losartan and Cardizem (3) HARDWICK (dyspnea on exertion): Code(s): R06.00 - Dyspnea, unspecified Status: Acute Assessment and Plan: Could be related to her asthma restarted on inhalers (4) Asthma: Code(s): J45.909 - Unspecified asthma, uncomplicated Status: Chronic Assessment and Plan: Continue with her albuterol and Symbicort inhaler. 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 (5) Hyperlipidemia: Code(s): E78.5 - Hyperlipidemia, unspecified Status: Chronic Assessment and Plan: Continue with pravastatin (6) Chronic GERD: Code(s): K21.9 - Gastro-esophageal reflux disease without esophagitis Status: Acute Assessment and Plan: Continue pantoprazole (7) Depression: Code(s): F32.9 - Major depressive disorder, single episode, unspecified Status: Chronic Assessment and Plan: Continue with Paxil. (8) Raynaud's disease without gangrene: Code(s): I73.00 - Raynaud's syndrome without gangrene Status: Chronic (9) Osteopenia: Code(s): M85.80 - Other specified disorders of bone density and structure, unspecified site Status: Chronic Assessment and Plan: Continue with Fosamax. (10) Anemia: Code(s): D64.9 - Anemia, unspecified Status: Acute Assessment and Plan: Sp scopes see results int hemorrhoids and diverticulosis without bleeding Subjective Date/time seen: 01/01/20 17:06 Interval history: 84 year old female who states that she has been having angina for several weeks now. She does have a history of having asthma and has been using her inhalers. Pt states she had a negative stress test last year. Complains of chest pain on exertion. Review of Systems Review of Systems: All systems reviewed & are unremarkable except as noted in HPI and below Constitutional: Constitutional: Reports as per HPI and Reports no additional constitutional complaints Eyes: Eyes: Reports as per HPI and Reports no additional eye complaints ENT: Reports system reviewed and no additional complaints, except as documented and Reports Normal hearing present Cardiovascular: Cardiovascular: Reports no additional cardiovascular complaints Respiratory: Respiratory: Reports no additional respiratory complaints and Reports no additional respiratory complaints Gastrointestinal: Gastrointestinal: Reports as per HPI and Reports no additional gastrointestinal complaints Musculoskeletal: Musculoskeletal: Reports no additional musculoskeletal complaints Integumentary/Breasts: Skin/Breast: Reports system reviewed and no additional complaints, except as docu and Reports as per HPI Neurologic: Reports system reviewed and no additional complaints, except as documented, Reports as per HPI and Reports Normal hearing present Psychiatric: Psychiatric: Reports no additional psychiatric complaints and Reports as per HPI Endocrine: Endocrine: Reports no additional endocrine complaints Hematologic/Lymphatic: Hematologic/Lymphatic: Reports no additional hematologic/lymphatic complaints Allergic/Immunologic: Allergic/Immunologic: Reports no additional allergic/immunologic complaints Exam Const: General: cooperative, healthy appearing, comfortable, no acute distress, well developed, alert, awake and Physically active Nutritional Appearance: average body [place]
--- NOTE | 2020-01-01 18:28 | PM.PNCARD ---
Progress Note: A&P Assessment and Plan (1) Chest pain: Code(s): R07.9 - Chest pain, unspecified Status: Acute Assessment and Plan: Pt has stable though frequent and progressive exertional anginal-type chest pain, which limits the patient's activity significantly. Negative stress test April 2019. I think she would benefit from cardiac catheterization for further evaluation. Already taking a statin and ASA. Diltiazem was changed to metoprolol and Imdur added. Reviewed cardiac catheterization, possible stenting, need for [facility]. Patient is eager to proceed. Will schedule for Sunday. (2) HARDWICK (dyspnea on exertion): Code(s): R06.00 - Dyspnea, unspecified Status: Acute Assessment and Plan: Associated with exertional chest tightness (3) Hypertension: Code(s): I10 - Essential (primary) hypertension Status: Acute Assessment and Plan: Improved (4) Anemia: Code(s): D64.9 - Anemia, unspecified Status: Acute Assessment and Plan: Mild, Stable, no active bleeding, cleared for DAPT if indicated Subjective Date/time seen: Follow-up for exertional chest pain 01/01/20 18:28 Date of service: 01/01/2020 Patient's GI evaluation showed diverticulosis and hemorrhoids, hiatal hernia, but no active bleeding, Dr. Ko feels she is okay for anticoagulation or DAPT. Patient is feeling well with no chest tightness or discomfort today, breathing okay with minor activity. Review of Systems Constitutional: Constitutional: Denies fatigue and Denies weakness Eyes: Eyes: Reports no additional eye complaints ENT: Denies dysphagia Cardiovascular: Cardiovascular: Denies chest pain, Denies pedal edema, Denies lightheadedness and Denies palpitations Respiratory: Respiratory: Denies chest congestion and Reports dyspnea on exertion Gastrointestinal: Gastrointestinal: Denies abdominal pain, Denies melena and Denies hematochezia Genitourinary: Genitourinary: Denies hematuria Musculoskeletal: Musculoskeletal: Reports no additional musculoskeletal complaints Neurologic: Denies confusion Psychiatric: Psychiatric: Denies confusion Exam Const: General: comfortable and no acute distress HENMT: Mouth: Yes moist mucous membranes Eyes: EOM: EOMs intact bilaterally Neck: Neck: supple and no JVD Resp: Effort & Inspection: normal respiratory effort Auscultation: clear to auscultation bilaterally Cardio: Rate: regular rate Rhythm: regular rhythm Heart sounds: no murmurs GI: Inspection: non-distended Neuro: Speech: normal speech Motor exam (neuro): Normal motor muscle tone present throughout Extrem: Right lower extremity: no edema Left lower extremity: no edema Psych: Mental Status: mental status grossly normal Affect: normal affect Objective Data Vital Signs Vital Signs: Vital Signs - 24 hr 12/31/19 20:00 12/31/19 20:05 12/31/19 20:57 Temperature 97.5 F L Pulse Rate 60 62 Respiratory Rate 16 Blood Pressure 151/70 H Pulse Oximetry 100 98 12/31/19 22:00 12/31/19 23:59 01/01/20 01:42 Temperature 97 F L Pulse Rate 57 L 61 68 Respiratory Rate 20 Blood Pressure 95/49 L Pulse Oximetry 100 01/01/20 04:00 01/01/20 04:25 01/01/20 05:44 Temperature 96.7 F L Pulse Rate 84 66 80 Respiratory Rate 16 Blood Pressure 187/62 H Pulse Oximetry 100 01/01/20 08:00 01/01/20 09:28 01/01/20 10:31 Temperature 98.1 F 98.5 F Pulse Rate 67 70 63 Respiratory Rate 16 20 Blood Pressure 148/80 H 160/105 H Pulse Oximetry 98 100 01/01/20 10:35 01/01/20 12:11 01/01/20 12:21 Temperature Pulse Rate 56 L 54 L Respiratory Rate 19 19 Blood Pressure 150/62 H 145/69 H 139/69 Pulse Oximetry 100 98 01/01/20 12:31 01/01/20 12:49 01/01/20 12:51 Temperature 97.7 F Pulse Rate 58 L 60 60 Respiratory Rate 12 16 Blood Pressure 150/69 H 167/60 H Pulse Oximetry 98 01/01/20 14:30 01/01/20 16:00 01/01/20 16
[2020-01-01] MEDS: PRAVASTATIN SODIUM 20 MG TABLET PO (21:21)
[2020-01-02] VITALS (19 sets, daily range): BP systolic 130–188; BP diastolic 53–80; PULSE 54–67; RESP 12–20; TEMP 35.9–36.6; O2SAT 91–100
[2020-01-02] MEDS: SODIUM CHLORIDE 0.9% IV 500 ML 100 ML IV CONT (08:02)
[2020-01-02] MEDS: LOSARTAN POTASSIUM 25 MG TABLET PO ×2 (08:02→14:57)
[2020-01-02] MEDS: ASPIRIN 81 MG ENTERIC TABLET PO (08:02)
[2020-01-02] MEDS: PAROXETINE 20 MG TABLET PO (08:02)
[2020-01-02] MEDS: METOPROLOL TARTRATE 25 MG TABLET PO (08:02)
[2020-01-02] MEDS: PANTOPRAZOLE SOD SESQUIHYDRATE 20 MG TAB PO (08:03)
--- NOTE | 2020-01-02 08:41 | WPDANESPN ---
Anes - Prog Note Post-Op Date/Time: 01/02/20 08:41 Cardiovascular status: normal Respiratory status: normal Airway patency: baseline Mental status: baseline Post-Op hydration status: normal Vital Signs: Last Vital Signs Temp 97 F L 01/02/20 08:00 Pulse 62 01/02/20 08:02 Resp 16 01/02/20 08:00 BP 162/59 H 01/02/20 08:00 Pulse Ox 99 01/02/20 08:00 I/O: Intake & Output 01/01/20 01/02/20 01/02/20 23:59 07:59 15:59 Intake Total 1080 500 Output Total 3 Balance 1080 497 Laboratory Tests 01/01/20 04:48 01/01/20 04:48 Post-procedural complaints: none Patient Feedback: Patient satisfied with anesthetic care.
--- NOTE | 2020-01-02 12:38 | WPDMODSED ---
Moderate Sedation Note-Pt Data Patient Data Allergies Allergy/AdvReac Type Severity Reaction Status Date / Time clonidine Allergy Unknown GI upset Verified 01/01/20 10:26 codeine Allergy Unknown Vomiting Verified 01/01/20 10:26 morphine Allergy Unknown Vomiting Verified 01/01/20 10:26 Home Medications Medication Instructions Recorded Confirmed Type omeprazole 20 mg capsule,delayed 20 mg PO BID #180 cap 07/29/19 12/30/19 Rx release alendronate 70 mg tablet 70 mg PO WEEKLY #12 tablet 08/12/19 12/30/19 Rx aspirin 81 mg tablet,delayed 81 mg PO DAILY #1 tablet 08/12/19 12/30/19 Rx release Symbicort 160 mcg-4.5 See Rx Instructions .ROUTE 12/16/19 12/30/19 Rx mcg/actuation HFA aerosol inhaler .COMPLEX #22 gm NS albuterol sulfate 90 mcg/actuation See Rx Instructions .ROUTE 12/25/19 12/30/19 Rx aerosol inhaler .COMPLEX #18 gm diltiazem HCl [Cartia XT] 180 mg PO DAILY 12/30/19 12/30/19 History losartan 25 mg PO DAILY 12/30/19 12/30/19 History paroxetine HCl 20 mg PO QAM 12/30/19 12/30/19 History pravastatin 20 mg PO HS 12/30/19 12/30/19 History Current Medications: Active Medications Albuterol (Proventil Hfa) 2 puff INHALATION Q4-6H PRN PRN Reason: Wheezing Alendronate Sodium (Fosamax) 70 mg PO Sa@0900 [facility] Aspirin (Aspirin Chewable) 81 mg PO DAILY@0800 [facility] Last Admin: 01/02/20 07:54 Dose: Not Given Documented by: Aspirin (Aspirin Ec) 81 mg PO DAILY [facility] Last Admin: 01/02/20 08:02 Dose: 81 mg Documented by: Budesonide/Formoterol Fumarate (Symbicort 160-4.5 Mcg (*Sp) Inhaler) 2 puff INHALATION Q12HRT [facility] Last Admin: 01/02/20 07:53 Dose: 2 puff Documented by: Hydrocortisone (Proctocream-Hc 2.5%) 1 applic RECTAL Q12HR [facility] Last Admin: 01/02/20 08:03 Dose: Not Given Documented by: Sodium Chloride (Normal Saline Iv) 500 mls @ 100 mls/hr IV CONT .Q5H [facility] Last Admin: 01/02/20 08:02 Dose: 100 mls/hr Documented by: Losartan Potassium (Cozaar) 25 mg PO DAILY [facility] Last Admin: 01/02/20 08:02 Dose: 25 mg Documented by: Metoprolol Tartrate (Lopressor) 25 mg PO Q12HR [facility] Last Admin: 01/02/20 08:02 Dose: 25 mg Documented by: Ondansetron HCl (Zofran Inj) 4 mg IV PUSH Q4H PRN PRN Reason: Nausea Last Admin: 12/31/19 21:48 Dose: 4 mg Documented by: Pantoprazole Sodium (Protonix) 20 mg PO BID [facility] Stop: 01/30/20 09:01 Last Admin: 01/02/20 08:03 Dose: 20 mg Documented by: Paroxetine HCl (Paxil) 20 mg PO QAM [facility] Last Admin: 01/02/20 08:02 Dose: 20 mg Documented by: Pravastatin Sodium (Pravastatin Sodium) 20 mg PO HS [facility] Last Admin: 01/01/20 21:21 Dose: 20 mg Documented by: Belia Sylvester (Tucks Pads) 1 pad TOPICAL PRN PRN PRN Reason: Perineal Discomfort Last Admin: 01/01/20 00:46 Dose: 1 pad Documented by: Sedation/Anesthesia: No previous sedation/anesthesia problems (including family history). [facility] Past Medical History Medical History Anemia Asthma Benign essential hypertension Chronic GERD COPD (chronic obstructive pulmonary disease) Depression Fracture of left hip requiring operative repair HTN (hypertension) with goal to be determined Hx of temporal arteritis Hyperlipidemia Hypertension Internal hemorrhoids Lung mass Mild intermittent asthma without complication Osteopenia Pre-diabetes Surgical History Surgical History History of appendectomy History of carpal tunnel release Bilaterally History of cataract Bilateral History of cholecystectomy History of tonsillectomy History of total bilateral knee replacement History of total replacement of left shoulder joint Presence of left artificial knee joint Family History Family History Mother Hypertension Family history of cardiovascular disease Carcinoma of colon, Onset Age: 86 Acute myocardial infarction Family history of heart
--- NOTE | 2020-01-02 12:39 | WPDHPUPDATE1 ---
History and Physical Update Update Date/Time: 01/02/20 12:39 History and Physical has been reviewed, including an updated exam of the patient. There are NO changes in the patient's condition. Risks, benefits, and alternatives have been discussed and questions answered. Patient agrees to proceed with procedure.
--- NOTE | 2020-01-02 12:39 | WPDCARDPROC ---
Cardiac Cath Procedure Note Date of procedure:: 01/02/20 Performing physician:: Joana Owusu MD Date of service: 01/02/2020 Indication:: chest pain Brief clinical history:: this is a 84-year-old female with past history of hypertension, anemia who was admitted to the hospital and was complaining of chest pain. She did have previous the a negative stress test for ischemia. The chest pain is exertional and due to continuing symptoms she was brought into [facility] laboratory assistant to define coronary anatomy. Procedure Procedure performed:: 1-Moderate sedation that started at 12:18 p.m.and ended at 12:35 p.m. for total duration 17 minutes using 2mg of Versed and 25mcg fentanyl. The registered nurse was minerva cosme. 2-Selective left and right coronary angiogram. 3-Left heart catheterization with measurement of LVEDP and measurement of gradient across aortic valve. 4-Right common femoral arterial angiogram. 5-Deployment of 6 Croatian Angio-Seal. Sedation/Medication given:: Moderate sedation. Access site:: Right common femoral artery. Estimated blood loss:: 10cc Procedure note:: After informed consent patient was brought in to [facility] analysis laboratory assistant with the was draped and prepped in usual manner. Moderate sedation was given and the right groin was infiltrated using 1% lidocaine. Five Croatian sheath was obtained using micropuncture needle and the modified Seldinger technique. Selective left coronary angiogram was done using JL4 catheter with the tip of the catheter placed in the left main coronary artery. Selective right coronary angiogram was done using JR4 catheter with the tip of the catheter placed to the right coronary artery. After that 5 Croatian pigtail catheter was advanced across the aortic valve into the left ventricle with measurement of LVEDP and measurement of gradient across aortic valve. Right common femoral arterial angiogram was done. Findings:: 1- left coronary artery is a large artery that divides into large LAD, large circumflex artery and large ramus. Left main is free of disease. 2- left anterior descending artery is a large artery that runs and wraps around the apex. It is large proximally however after it gives rise to the diagonal branch it is relatively small in caliber. the diagonal branch is larger and larger than the LAD and free of disease. Lad itself is free of disease. 3- left circumflex artery is a large artery have free of disease. Distally small OM branch. 4- right coronary artery is large artery and dominant and free of disease. 5- LVEDP was 15 mm Hg and no gradient across aortic valve. 6- opening arterial pressure was 160/80 and closing pressure [id number]. 7- right femoral artery angiogram shows no significant disease in the right common femoral artery. Conclusion:: 1- no coronary artery disease Assessment and Plan Additional Plan Continue risk factor modification for CAD.
--- NOTE | 2020-01-02 12:47 | SUR.PHASEII ---
BEGIN PHASE II RECOVERY. RETURNS VIA STRETCHER TO [facility] S/P [facility] W/ DR. MENDEZ. DENIES CP OR SOB. REVIEWED BEDREST ACTIVITY RESTRICTIONS W/ PT. R. GROIN SITE SOFT, NONTENDER. NO S/S BLEEDING OR HEMATOMA. ANGIOSEAL TO PUNCTURE SITE. WILL MONITOR.
--- NOTE | 2020-01-02 14:05 | SUR.PHASEII ---
HAS TOLERATED BEDREST WELL. R. GROIN SITE REMAINS UNCHANGED. BP HAS BEEN ELEVATED. DR. MENDEZ HERE AND NOTIFIED OF BP READINGS. ORDERS RECEIVED FOR MED.
--- NOTE | 2020-01-02 14:30 | SUR.PHASEII ---
REPORT CALLED TO CORA SARMIENTO IN IMU.
--- NOTE | 2020-01-02 14:35 | SUR.PHASEII ---
END PHASE II RECOVERY. RETURNED TO IMU 206 VIA STRETCHER. VOICES NO C/O. R. GROIN SITE REMAINS C/D/I. SITE IS SOFT, NONTENDER OR S/S BLEEDING OR HEMATOMA NOTED.
--- NOTE | 2020-01-02 14:41 | PM.DS ---
DS: Admitting Diagnosis Admitting Diagnosis Admitting Diagnosis: Chest pain, unspecified DS: Discharge Diagnosis Discharge Diagnosis (1) Chest pain: Code(s): R07.9 - Chest pain, unspecified Status: Acute Assessment and Plan: Stable angina. Patient gets chest pain with exertion. She has had a negative cardiac catheterization and negative cardiac stress test in the past. Pt had heart cath test here which was negative. (2) HTN (hypertension) with goal to be determined: Code(s): I10 - Essential (primary) hypertension Status: Chronic Assessment and Plan: Continue with with losartan and Cardizem (3) HARDWICK (dyspnea on exertion): Code(s): R06.00 - Dyspnea, unspecified Status: Acute Assessment and Plan: Could be related to her asthma restarted on inhalers (4) Asthma: Code(s): J45.909 - Unspecified asthma, uncomplicated Status: Chronic Assessment and Plan: Continue with her albuterol and Symbicort inhaler. 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 (5) Hyperlipidemia: Code(s): E78.5 - Hyperlipidemia, unspecified Status: Chronic Assessment and Plan: Continue with pravastatin (6) Chronic GERD: Code(s): K21.9 - Gastro-esophageal reflux disease without esophagitis Status: Acute Assessment and Plan: Continue pantoprazole (7) Depression: Code(s): F32.9 - Major depressive disorder, single episode, unspecified Status: Chronic Assessment and Plan: Continue with Paxil. (8) Raynaud's disease without gangrene: Code(s): I73.00 - Raynaud's syndrome without gangrene Status: Chronic (9) Osteopenia: Code(s): M85.80 - Other specified disorders of bone density and structure, unspecified site Status: Chronic Assessment and Plan: Continue with Fosamax. (10) Anemia: Code(s): D64.9 - Anemia, unspecified Status: Acute Assessment and Plan: Sp scopes see results int hemorrhoids and diverticulosis without bleeding. Pt to continue on rectal cream and tucks pads. DS: Summary Time Spent with Patient Time attestation: Total time spent providing and/or coordinating discharge services:40 minutes on day of discharge. Exam Const: General: cooperative, healthy appearing, comfortable, no acute distress, well developed, alert, awake and Physically active Nutritional Appearance: average body habitus and well nourished Orientation/consciousness: oriented to person, oriented to place, oriented to time and patient oriented x3 Limitations: no limitations Resp: Effort & Inspection: normal respiratory effort Auscultation: clear to auscultation bilaterally Percussion: percussion normal Cardio: Palpation: normal PMI Rate: regular rate Rhythm: regular rhythm Heart sounds: S1 normal heart sound present and S2 normal heart sound present Peripheral pulses: Peripheral pulses 2+ throughout Skin: General skin exam: normal color Lesions: no lesions Rashes: no rashes Trauma: no lacerations or abrasions Wounds: no wounds Hair: normal Nails: normal Neuro: General: oriented to person, oriented to place, oriented to time and patient oriented x3 Cranial nerves: Yes Equal, round and reactive pupils present and Yes Normal hearing present Cognition (Neuro): normal cognition Speech: normal speech Gait exam (Neuro): Normal gait present Motor exam (neuro): 5/5 motor strength present throughout Sensory Exam: normal sensation Extrem: General: normal to inspection Right upper extremity: normal to inspection and shoulder/upper arm Left upper extremity: normal to inspection and shoulder/upper arm Right lower extremity: normal to inspection Left lower extremity: normal to inspection Psych: Appearance: grossly normal Mental Status: mental status grossly normal Speech and movement: Normal speech and movement present Affect: normal aff
--- NOTE | 2020-01-02 16:53 | HOMEO2EVAL ---
Home Oxygen Evaluation RC: Home Oxygen (O2) Evaluation Start: 12/30/19 22:47 Freq: ONCE Status: Active Protocol: RPE Activity Type Activity Date Activity User E-Sign Co-Sign Detail Recorded Client Recorded Date Recorded By Document 01/02/20 16:35 LISANDRO [id number] 01/02/20 16:53 LISANDRO Document 01/02/20 16:40 LISANDRO [id number] 01/02/20 16:53 LISANDRO Document 01/02/20 16:45 LISANDRO [id number] 01/02/20 16:53 LISANDRO 01/02/20 01/02/20 01/02/20 16:35 16:40 16:45 Home O2 Evaluation Test Phase Resting Exercise Resting Oxygen Delivery Room Air Room Air Room Air Pulse Oximetry (90-100 %) 98 91 98 Ambulation Distance (feet) 400 Home Oxygen Evaluation Comments NO HOME O2 NEEDED Treatment Charges O2 Evaluation
--- NOTE | 2020-01-02 16:54 | PCRCNOTE ---
HOME O2 EVAL DONE, NO HOME O2 NEEDED AT THIS TIME, RN NOTIFIED.
== END 2020-01-02 17:31 | disposition home or self-care (01) ==
LOC: ANHED 18:11 → ANHIMU 12-31 10:27
PROVIDERS: Emergency Medicine; Internal Medicine Cardiovascular Disease; Internal Medicine Gastroenterology; Nurse Practitioner; Admitting Provider Family Medicine; Emergency Provider General Practice; PCP Family Medicine; Visit Provider Family Medicine
PROC: 0DJ08ZZ Inspection of Upper Intestinal Tract, Via Natural or Artificial Opening Endoscopic (ICD-10-PCS; CPT 43235; principal; 2020-01-01 11:00)
PROC: 4A023N7 Measurement of Cardiac Sampling and Pressure, Left Heart, Percutaneous Approach (ICD-10-PCS; CPT 93452; principal; 2020-01-02 11:30)
DX: I20.8 Other forms of angina pectoris (principal); D64.9 Anemia, unspecified; K21.9 Gastro-esophageal reflux disease without esophagitis; K44.9 Diaphragmatic hernia without obstruction or gangrene; Z12.11 Encounter for screening for malignant neoplasm of colon; K57.30 Diverticulosis of large intestine without perforation or abscess without bleeding; K64.8 Other hemorrhoids; I10 Essential (primary) hypertension; R06.00 Dyspnea, unspecified; J45.909 Unspecified asthma, uncomplicated; E78.5 Hyperlipidemia, unspecified; F32.9 Major depressive disorder, single episode, unspecified; I73.00 Raynaud's syndrome without gangrene; M85.80 Other specified disorders of bone density and structure, unspecified site; Z79.82 Long term (current) use of aspirin; Z79.899 Other long term (current) drug therapy; Z87.891 Personal history of nicotine dependence; Z96.612 Presence of left artificial shoulder joint; Z96.653 Presence of artificial knee joint, bilateral
CPT/HCPCS: 43235; G0105; 36415; 71046; 71275; 80048; 80053; 83735; 84443; 84484; 85025; 85027; 85610; 85730; 86140; 93005; 93306; 93458; 94618; 94640; 96374; 99285; A9270; C1760; C1887; C1894; G0269; G0378; J1644; J2250; J2405; J2704; J3010; J7040; J7120; Q9967

== ENCOUNTER 2020-01-07 11:25 | Outpatient (CLI) | payer MEDICARE, SELFPAY ==
[2020-01-07 11:47] LABS: Basophils Absolute Auto 0.1 K/mm3 (0.0-0.1); Basophils Percent Auto 0.9 % (0.2-1.2); Eosinophils Absolute Auto 0.2 K/mm3 (0-0.3); Eosinophils Percent Auto 3.1 % (0-4.4); Hemoglobin 10.2 g/dL (12.0-15.0); Immature Granulocyte Absolute 0.02 K/mm3 (0.00-0.031); Immature Granulocyte Percent A 0.3 % (0-0.5); Lymphocytes Absolute Auto 0.91 K/mm3 (0.9-3.2); Lymphocytes Percent Auto 15.8 % (18.3-44.2); Mean Corpuscular HGB Conc 31.9 g/dl (32-36); Mean Corpuscular Hemoglobin 28.9 pg (26-34); Mean Corpuscular Volume 90.7 fl (80-100); Mean Platelet Volume 9.8 fl (7.4-10.4); Monocytes Absolute Auto 0.6 K/mm3 (0.1-0.6); Monocytes Percent Auto 10.2 % (2.6-8.5); Neutrophils Percent Auto 69.7 % (45.5-73.1); Platelet Count Result 261 k/mm3 (150-375); Red Blood Count 3.53 M/mm3 (4.2-5.4); Red Cell Distribution Width 13.5 % (11.5-14.5); White Blood Count 5.8 K/mm3 (4.5-10.0)
[2020-01-07 15:08] LABS: Alanine Aminotransferase 16 U/L (4-35); Albumin Level 3.9 g/dL (3.5-5.1); Alkaline Phosphatase 76 U/L (38-126); Amylase 54 U/L (30-110); Aspartate Amino Transferase 23 U/L (14-36); Bilirubin,Total 0.4 mg/dL (0.2-1.3); Blood Urea Nitrogen 26 mg/dL (7-17); Calcium 8.9 mg/dL (8.4-10.2); Carbon Dioxide 25 mmol/L (22-30); Chloride 97 mmol/L (98-107); Estimated Glomerular Filt Rate 53; Glucose 109 mg/dL (65-105); Lipase 67 U/L (23-300); Potassium 4.3 mmol/L (3.4-5.0); Sodium 131 mmol/L (137-145)
[2020-01-07 15:37] LABS: Erythrocyte Sedimentation Rate 26 mm/hr (0-20)
[2020-01-07 16:24] LABS: Folic Acid > 20.0 ng/mL (2.76->20)
== END 2020-01-07 11:26 | disposition home or self-care (01) ==
PROVIDERS: Physician Assistant; PCP Family Medicine; Visit Provider Internal Medicine Hematology & Oncology
DX: R10.9 Unspecified abdominal pain (principal); R42 Dizziness and giddiness; R51 Headache; R53.83 Other fatigue; D89.1 Cryoglobulinemia
CPT/HCPCS: 36415; 80053; 82150; 82607; 82746; 83690; 85025; 85652

== ENCOUNTER 2020-02-03 06:58 | Day surgery (SDC) | payer MEDICARE, SELFPAY ==
[2020-02-02 15:58] VITALS: BMI 28.0
--- NOTE | ~2020-02-03 | BM_ITS ---
EXAMINATION: CCL bone marrow asp w bx diag DATE: 02/03/2020 09:10 INDICATION: Anemia. TECHNIQUE: A time-out was performed to verify the patient's name, date of , and procedure to b e performed. The procedure including the risks, benefits, and alternatives was discussed with the pat ient. Risks discussed included bleeding and infection. The patient understood the risks and agreed to proceed. The skin overlying the right ilium was prepped and draped in usual sterile fashion. Anest hetic was administered with 1% lidocaine subcutaneously. Moderate sedation was achieved with 1 mg Pastor sed IV and 50 mcg fentanyl IV. An 11 gauge needle was inserted into the ilium with fluoroscopic guid ance. Bone marrow was aspirated. An 8 gauge needle was then inserted into the ilium with fluoroscopic guidance. A core bone marrow biopsy was obtained. There were no immediate complications. Fluoroscopy exposure time was 0.0 minutes. The total number of images was 9. FINDINGS: Real-time fluoroscopy demonstrates a marker overlying the right posterior superior iliac sp ine. IMPRESSION: 1. Fluoro-guided bone marrow aspiration. 2. Fluoro-guided bone marrow core biopsy. Reviewed, dictated and finalized at location A.
[2020-02-03 07:29] LABS: Hematocrit 32.7 % (37.0-47.0); Hemoglobin 10.5 g/dL (12.0-15.0); Mean Corpuscular HGB Conc 32.1 g/dl (32-36); Mean Corpuscular Volume 90.3 fl (80-100); Platelet Count Result 275 k/mm3 (150-375); Red Blood Count 3.62 M/mm3 (4.2-5.4); White Blood Count 5.1 K/mm3 (4.5-10.0)
[2020-02-03 07:36] LABS: Prothrombin Time 13.3 Seconds (11.1-14.7)
[2020-02-03 07:53] VITALS: BP 105/87; PULSE 58; RESP 15; TEMP 35.6; O2SAT 98; BMI 28.0
--- NOTE | 2020-02-03 09:07 | WPDMODSED ---
Moderate Sedation Note-Pt Data Patient Data Diagnosis: Anemia. Present Complaint: Anemia. Procedure to be performed/Plan: Fluoro-guided bone marrow biopsy. Allergies Allergy/AdvReac Type Severity Reaction Status Date / Time clonidine Allergy Unknown GI upset Verified 01/01/20 10:26 codeine Allergy Unknown Vomiting Verified 01/01/20 10:26 morphine Allergy Unknown Vomiting Verified 01/01/20 10:26 Home Medications Medication Instructions Recorded Confirmed Type omeprazole 20 mg capsule,delayed 20 mg PO BID #180 cap 07/29/19 02/02/20 Rx release alendronate 70 mg tablet 70 mg PO WEEKLY #12 tablet 08/12/19 02/02/20 Rx diltiazem HCl [Cartia XT] 180 mg PO DAILY 12/30/19 02/02/20 History losartan 25 mg PO DAILY 12/30/19 02/02/20 History pravastatin 20 mg PO HS 12/30/19 02/02/20 History aspirin [Children's Aspirin] 81 mg PO DAILY@0800 30 Days #30 01/02/20 02/02/20 Rx tablet hydrocortisone 1 applic IA Q12HR #2.5 % 01/02/20 02/02/20 Rx witch kody [Preparation H (Witch 1 pad TOPICAL PRN PRN #30 ea 01/02/20 02/02/20 Rx Kody)] escitalopram oxalate 5 mg tablet 5 mg PO DAILY #30 tablet 01/29/20 02/02/20 Rx metoprolol tartrate 25 mg tablet 25 mg PO Q12HR #60 tablet 01/29/20 02/02/20 Rx albuterol sulfate 2 puff INHALATION Q4-6H PRN 02/02/20 02/02/20 History budesonide-formoterol [Symbicort] 2 puff INHALATION BID 02/02/20 02/02/20 History Sedation/Anesthesia: No previous sedation/anesthesia problems (including family history). [facility] Surgical History Surgical History History of appendectomy History of carpal tunnel release Bilaterally History of cataract Bilateral History of cholecystectomy History of tonsillectomy History of total bilateral knee replacement History of total replacement of left shoulder joint Presence of left artificial knee joint Family History Family History Mother Hypertension Family history of cardiovascular disease Carcinoma of colon, Onset Age: 86 Acute myocardial infarction Family history of heart disease in male family member before age 55, Onset Age: 86 Patient's mother is , Onset Age: 86 Father Family history of lung cancer, Onset Age: 78 Patient's father is , Onset Age: 78 Other Family history of arthritis Family history of malignant neoplasm Social History Social History Social History: Patient lives with her who has short-term memory problems due to the Parkinson's. The coming up on their 60th anniversary. They have 2 sons and 2 daughters together. Her 2 daughters are durable power assistant attorney general for healthcare. The patient desires to be a full code. 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 She smoked many years ago. No alcohol marijuana or illicit drugs. Smoking packs per day: 1 Smoking cigarettes per day: 20.0 Years smoked: 10 Smoking pack-years: 10.00 Smoking status: Never smoker Tobacco type: cigarettes Second hand tobacco smoke exposure: Yes Smoking end date: 07/09/1959 Alcohol intake: never Substance use: never Substance use type: does not use Living arrangements: alone Gender identity (if verbalized by the patient): Female Spiritual care concerns: No Mod Sed Physical Exam Physical Exam Pre Procedural Exam: Normal: Airway (Mallampati class II), Lungs, Heart Rate, Heart Rhythm and Abdomen Hours since solid foods: 12 Hours since liquid intake: 12 Internal Medicine - PN: Obj Da Vital Signs Vital Signs: Vital Signs - 24 hr 02/03/20 07:53 Temperature 35.6 C L Pulse Rate 58 L Respiratory Rate 15 Blood Pressure 105/87 Pulse Oximetry 98 Labs CBC & Chem 7: 02/03/20 07:21 Labs: Laboratory Results - last 24 hr 02/03/20 02/03/20 07:21 07:21 WBC 5.1 RBC 3.62 L Hgb 10.5 L Hct 32.7 L MCV 90.3 MCH 29
[2020-02-03 09:15] VITALS: BP 125/95; PULSE 61; RESP 11; O2SAT 98
[2020-02-03 09:30] VITALS: BP 143/54; PULSE 59; RESP 18; O2SAT 96
[2020-02-03 09:45] VITALS: BP 133/63; PULSE 67; RESP 16; O2SAT 99
[2020-02-03 10:00] VITALS: BP 133/84; PULSE 57; RESP 14; O2SAT 98
== END 2020-02-03 10:10 | disposition home or self-care (01) ==
PROVIDERS: PCP Family Medicine; Referring Provider Internal Medicine Hematology & Oncology; Visit Provider Radiology Diagnostic Radiology
DX: D64.9 Anemia, unspecified (principal); Z79.82 Long term (current) use of aspirin
CPT/HCPCS: 36415; 38222; 85027; 85610; 88184; 88185; 88305; 88311; 88313; 88342; 88365; J2250; J3010; J7040

== ENCOUNTER → 2020-03-16 11:12 | Outpatient (CLI) | payer MEDICARE, SELFPAY ==
--- NOTE | ~2020-03-16 | XR_ITS ---
XR ankle LT min 3V DATE: 03/16/2020 11:33 INDICATION: Left ankle pain following fall TECHNIQUE: 4 views COMPARISON: None FINDINGS: There is diffuse osteopenia. No fracture or dislocation of the ankle or disruption of the a nkle mortise. No periosteal reaction or bone destruction. Mild plantar calcaneal enthesopathy. There are degenerative changes at the tarsal bones. IMPRESSION: No fracture or dislocation of the ankle or disruption of the ankle mortise Osteopenia Degenerative changes Mild plantar calcaneal enthesopathy Reviewed, dictated and finalized at location A.
--- NOTE | ~2020-03-16 | XR_ITS ---
XR elbow RT min 3V DATE: 03/16/2020 11:33 INDICATION: Right elbow pain TECHNIQUE: 4 views COMPARISON: None FINDINGS: No fracture or dislocation, periosteal reaction or bone destruction. No elbow joint effusio n. 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 IMPRESSION: Degenerative change; no fracture or dislocation or joint effusion Reviewed, dictated and finalized at location A.
== END ==
PROVIDERS: PCP Family Medicine; Visit Provider Family Medicine
DX: M85.872 Other specified disorders of bone density and structure, left ankle and foot (principal); M77.32 Calcaneal spur, left foot
CPT/HCPCS: 73080; 73610

== ENCOUNTER 2020-05-05 14:01 | Outpatient (CLI) | payer MEDICARE, SELFPAY ==
[2020-05-05 14:21] LABS: Basophils Percent Auto 0.5 % (0.2-1.2); Eosinophils Absolute Auto 0.1 K/mm3 (0-0.3); Eosinophils Percent Auto 1.6 % (0-4.4); Hematocrit 36.7 % (37.0-47.0); Hemoglobin 11.5 g/dL (12.0-15.0); Immature Granulocyte Absolute 0.03 K/mm3 (0.00-0.031); Immature Granulocyte Percent A 0.4 % (0-0.5); Lymphocytes Absolute Auto 1.37 K/mm3 (0.9-3.2); Lymphocytes Percent Auto 18.2 % (18.3-44.2); Mean Corpuscular HGB Conc 31.3 g/dl (32-36); Mean Corpuscular Hemoglobin 29.3 pg (26-34); Mean Corpuscular Volume 93.6 fl (80-100); Mean Platelet Volume 9.9 fl (7.4-10.4); Monocytes Absolute Auto 0.7 K/mm3 (0.1-0.6); Monocytes Percent Auto 9.3 % (2.6-8.5); Neutrophils Absolute Auto 5.3 K/mm3 (1.3-6.7); Platelet Count Result 287 k/mm3 (150-375); Red Blood Count 3.92 M/mm3 (4.2-5.4); White Blood Count 7.5 K/mm3 (4.5-10.0)
[2020-05-05 16:29] LABS: Iron 148 ug/dL (37-170)
[2020-05-05 16:31] LABS: Anion Gap 9 mmol/L (8-16); Blood Urea Nitrogen 35 mg/dL (7-17); Calcium 10.2 mg/dL (8.4-10.2); Carbon Dioxide 29 mmol/L (22-30); Chloride 98 mmol/L (98-107); Estimated Glomerular Filt Rate 53; Glucose 89 mg/dL (65-105); Potassium 4.6 mmol/L (3.4-5.0); Sodium 136 mmol/L (137-145)
[2020-05-05 16:39] LABS: Percent Iron Saturation 40 % (20-50)
== END 2020-05-05 14:02 | disposition home or self-care (01) ==
LOC: ANHLAB 14:03
PROVIDERS: PCP Family Medicine; Visit Provider Internal Medicine Hematology & Oncology
DX: D64.9 Anemia, unspecified (principal)
CPT/HCPCS: 36415; 80048; 82728; 83540; 83550; 85025

== ENCOUNTER 2020-05-28 19:03 | Observation (INO) | payer MEDICARE, SELFPAY ==
[2020-05-28] VITALS (9 sets, daily range): BP systolic 105–166; BP diastolic 64–97; PULSE 69–83; RESP 13–17; TEMP 36.3–36.8; O2SAT 97–100; BMI 27.6
--- NOTE | ~2020-05-28 | XR_ITS ---
EXAMINATION: XR chest 1V portable DATE: 05/28/2020 19:57 INDICATION: Stroke with thinning with speech and language deficit. TECHNIQUE: frontal view of the chest was obtained. COMPARISON: Chest radiograph dated 12/30/[address] dated 12/31/2019 FINDINGS: The lungs remain clear with no focal airspace opacities, pulmonary edema, pleural effusion or pneumot horax. Gas and fluid within a moderate-sized hiatal hernia. Heart size is normal. Atherosclerotic aor ta. Left total shoulder arthroplasty. Mild thoracolumbar levoscoliosis with severe spondylosis IMPRESSION: 1. No acute cardiopulmonary disease. 2. Moderate-sized hiatal hernia. Reviewed, dictated and finalized at location . 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
--- NOTE | ~2020-05-28 | US_ITS ---
EXAMINATION: US carotid duplex BI DATE: 05/29/2020 13:24 INDICATION: Transient ischemic episode with speech and language deficit. TECHNIQUE: Grayscale, color Doppler, and pulsed Doppler images of the cervical carotid arteries were obtained. The degree of vessel stenosis is placed in one of the following categories: normal, <50%, 5 0-69%, >=70% but less than near-occlusion, near-occlusion, or total occlusion. Note that percent sten osis relative to normal distal artery lumen diameter is indirectly measured from velocity measurement s as described by Pierce, et al. Radiology 2003; 229:340-346. COMPARISON: None. FINDINGS: RIGHT: The right common carotid artery (CCA) peak systolic velocity (PSV) is 77 cm/s. The right internal car otid artery (ICA) PSV is 153 cm/s. The right ICA end-diastolic velocity (EDV) is 36 cm/s. The right I CA/CCA PSV ratio is 2.0. Grayscale and color Doppler images yield an estimate of 50-69% diameter redu ction from plaque in the ICA. The external carotid artery (ECA) PSV is 82 cm/s. There is antegrade fl ow in the right vertebral artery. LEFT: The left CCA PSV is 67 cm/s. The left ICA PSV is 108 cm/s. The left ICA EDV is 27 cm/s. The left ICA/ CCA PSV ratio is 1.6. Grayscale and color Doppler images yield an estimate of <50% diameter reduction from plaque in the ICA. The ECA PSV is 68 cm/s. There is antegrade flow in the left vertebral artery . IMPRESSION: 1. 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 2. <50% stenosis in the left internal carotid artery. Reviewed, dictated and finalized at location . 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
--- NOTE | ~2020-05-28 | MR_ITS ---
EXAMINATION: MR brain/brain stem wo con EXAM DATE: 05/29/2020 07:40 INDICATION: Slurred speech. TECHNIQUE: Magnetic resonance imaging (MRI) of the brain/brain stem obtained without contrast. Sagitt al T1, axial diffusion, gradient echo (T2*), T1, T2, FLAIR sequences obtained. There is no prior st udy for comparison. FINDINGS: There are no areas of restricted diffusion to suggest acute infarction. There is no acute hemorrhage seen on the T2*, a hemosiderin sensitive sequence. No intraparenchymal brain mass lesion. There is moderate periventricular and subcortical T2/FLAIR signal hyperintensity, nonspecific but pr obably related to small vessel ischemic disease (microangiopathy). There is moderate prominence of the sulci and ventricles related to cerebral atrophy. There are no extra-axial collections. Flow v oids are seen in the cerebral arteries on the T2-weighted sequences consistent with their expected pa tency. Patient has had bilateral ocular lens surgery. Soft tissue is unremarkable. IMPRESSION: 1. No acute intracranial findings. 2. Chronic age related findings. Reviewed, dictated and finalized at location A. CHOPPER
--- NOTE | ~2020-05-28 | CT_ITS ---
EXAMINATION: CT brain wo con DATE: 05/28/2020 19:50 INDICATION: Expressive aphasia. Left-sided headache. TECHNIQUE: Computed tomography (CT) of the head was performed without intravenous contrast. Sagittal and coronal reconstructions were performed. The mA was adjusted according to patient size. Iterative reconstruction technique was employed. The dose-length product was 605.33 mGy-cm. COMPARISON: head CT dated 10/03/2018 FINDINGS: No acute intracranial hemorrhage, acute infarction or abnormal extra axial fluid collection. There is moderate scattered white matter hypoattenuation consistent with chronic small vessel ischemic diseas e. Ventricles are normal and symmetric. No mass/mass effect. Changes of bilateral intraocular lens re placement. The orbits, paranasal sinuses and mastoid air cells are normal. IMPRESSION: 1. Stable appearance of moderate scattered white matter hypoattenuation consistent with chronic small vessel ischemic disease. No acute intracranial process. Reviewed, dictated and finalized at [facility]. 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 Stable appearance of moderate scattered white matter hypoattenuation consist ent with chronic small vessel ischemic disease. No acute intracranial process.
--- NOTE | 2020-05-28 19:12 | ECG_ITS ---
Measurements Intervals [place] Rate: 76 P: 69 MA: 222 QRS: 61 QRSD: 88 T: 53 QT: 380 QTc: 429 Interpretive Statements SINUS RHYTHM WITH FIRST DEGREE AV BLOCK MINIMAL Q WAVES- INF/LAT LEADS BASELINE ARTIFACT- V6 ABNORMAL ECG Electronically Signed On 05-29-2020 9:56:53 CORRECTIONAL COUNSELOR by Bret Laughlin D.O.
[2020-05-28 19:19] LABS: Glucose Point of Care 96 (65-105)
[2020-05-28 19:21] LABS: Basophils Absolute Auto 0.1 K/mm3 (0.0-0.1); Basophils Percent Auto 0.7 % (0.2-1.2); Eosinophils Absolute Auto 0.2 K/mm3 (0-0.3); Eosinophils Percent Auto 2.2 % (0-4.4); Hematocrit 35.3 % (37.0-47.0); Hemoglobin 11.5 g/dL (12.0-15.0); Immature Granulocyte Absolute 0.02 K/mm3 (0.00-0.031); Immature Granulocyte Percent A 0.3 % (0-0.5); Lymphocytes Absolute Auto 1.65 K/mm3 (0.9-3.2); Lymphocytes Percent Auto 23.7 % (18.3-44.2); Mean Corpuscular HGB Conc 32.6 g/dl (32-36); Mean Corpuscular Hemoglobin 30.6 pg (26-34); Mean Corpuscular Volume 93.9 fl (80-100); Mean Platelet Volume 9.9 fl (7.4-10.4); Monocytes Absolute Auto 0.9 K/mm3 (0.1-0.6); Monocytes Percent Auto 12.2 % (2.6-8.5); Neutrophils Absolute Auto 4.2 K/mm3 (1.3-6.7); Neutrophils Percent Auto 60.9 % (45.5-73.1); Platelet Count Result 274 k/mm3 (150-375); Red Blood Count 3.76 M/mm3 (4.2-5.4); Red Cell Distribution Width 13.5 % (11.5-14.5)
--- NOTE | 2020-05-28 19:22 | ED.NEUROSD ---
HPI - Neuro Symptoms/Deficit General Chief Complaint: Neuro Symptoms/Deficit Stated Complaint: period of difficulty speaking reinaatrichard 30 min Time Seen by Provider: 05/28/20 19:06 Source: RN notes reviewed History of Present Illness HPI Narrative: Patient presents emergency department from home for difficulty speaking. Patient states that approximately 6:30 PM tonight she was talking to her son when she had difficulty getting the words out that she wanted to say. She states that this episode lasted for approximately 10 minutes. She denies any other neurologic deficits with the symptoms she denies any numbness or tingling in the extremities weakness of the extremities facial droop states she feels back to normal at this time no previous history of TIAs states she is on a baby aspirin daily which she took this morning denies any fevers or chills chest pain shortness of breath Related Data Home Medications Medication Instructions Recorded Confirmed diltiazem HCl [Cartia XT] 180 mg PO DAILY 12/30/19 02/02/20 losartan 25 mg PO DAILY 12/30/19 02/02/20 pravastatin 20 mg PO HS 12/30/19 02/02/20 albuterol sulfate 2 puff INHALATION Q4-6H PRN 02/02/20 02/02/20 budesonide-formoterol [Symbicort] 2 puff INHALATION BID 02/02/20 02/02/20 calcium carbonate 500 mg calcium 500 mg PO DAILY 03/16/20 (1,250 mg) tablet ferrous sulfate 325 mg (65 mg 325 mg PO BID tablet 03/16/20 iron) tablet Allergies Allergy/AdvReac Type Severity Reaction Status Date / Time clonidine Allergy Unknown GI upset Verified 05/28/20 19:06 codeine Allergy Unknown Vomiting Verified 05/28/20 19:06 morphine Allergy Unknown Vomiting Verified 05/28/20 19:06 Review of Systems Review of Systems: Narrative: Gen.: Denies fevers or chills Eyes: Denies eye pain or visual change ENT: Denies congestion Respiratory: Denies shortness of breath or cough CV: Denies chest pain or palpitations GI: Denies abdominal pain nausea, emesis or diarrhea Musculoskeletal: Denies back pain or muscle pain Neuro: See HPI Skin: Denies rash Except as documented, all other systems reviewed and negative [facility] Past Medical History Medical History (Updated 05/28/20 @ 20:19 by Sha Camarena DO) Anemia Asthma Benign essential hypertension Chronic GERD COPD (chronic obstructive pulmonary disease) Depression Fracture of left hip requiring operative repair HTN (hypertension) with goal to be determined Hx of temporal arteritis Hyperlipidemia Hypertension Internal hemorrhoids Lung mass Mild intermittent asthma without complication Osteopenia Pre-diabetes Surgical History Surgical History History of appendectomy History of carpal tunnel release Bilaterally History of cataract Bilateral History of cholecystectomy History of tonsillectomy History of total bilateral knee replacement History of total replacement of left shoulder joint Presence of left artificial knee joint Family History Family History Mother Hypertension Family history of cardiovascular disease Carcinoma of colon, Onset Age: 86 Acute myocardial infarction Family history of heart disease in male family member before age 55, Onset Age: 86 Patient's mother is , Onset Age: 86 Father Family history of lung cancer, Onset Age: 78 Patient's father is , Onset Age: 78 Other Family history of arthritis Family history of malignant neoplasm Social History Social History Social History: Patient lives with her who has short-term memory problems due to the Parkinson's. The coming up on their 60th anniversary. They have 2 sons and 2 daughters together. Her 2 daughters are durable power estate planning attorney for healthcare. The patient desires to be a full code. 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 She smoked many years ag
[2020-05-28 19:31] LABS: INR 0.9; Prothrombin Time 13.2 Seconds (11.1-14.7)
[2020-05-28 19:32] LABS: Partial Thromboplastin Time 27.4 SECONDS (22.3-36.8)
[2020-05-28 19:33] LABS: Anion Gap 7 mmol/L (8-16); Blood Urea Nitrogen 41 mg/dL (7-17); Carbon Dioxide 28 mmol/L (22-30); Chloride 101 mmol/L (98-107); Estimated CRCL calculation 22 ml/min; Estimated Glomerular Filt Rate 36; Glucose 95 mg/dL (65-105); Potassium 4.3 mmol/L (3.4-5.0); Sodium 136 mmol/L (137-145)
[2020-05-28 19:45] LABS: Troponin I < 0.012 ng/mL (0.000-0.034)
[2020-05-28] MEDS: ASPIRIN 81 MG CHEWABLE TABLET 324 MG PO (20:15)
--- NOTE | 2020-05-28 21:00 | ADMGEN ---
This patient, Selena Lua, was admitted to Medical Room 341-01. Patient/family oriented to hospital policies and general routines including ID bracelet, bed and alarms, visiting hours, pain management, procedures, bathroom and other care routines, personal items, smoking policy, room service/diet, and visiting hours. Information on how to activate the Rapid Response Team has been discussed. Patient/Family are encouraged to report perceived risks to care and to ask questions if they do not understand what they are told or what they should do.
--- NOTE | 2020-05-28 21:21 | PM.IMHP ---
H&P: HPI History of Present Illness Date/Time: 05/28/20 21:21 Chief complaint: TIA Narrative: This is a pleasant 85-year-old female with known history of COPD, hyperlipidemia, hypertension who presented to the [facility] with a complaint of about 15 minutes of expressive aphasia. She describes that around 6:30 p.m. she was talking to her son when she was attempting to say the word [place] but simply could not get it out. She then could not get out any other words for approximately 10-15 minutes. Associated symptoms included a mild left frontal headache although she denies any facial droop, difficulty swallowing, seizure-like symptoms, passing out, numbness, tingling, visual disturbances, or focal weakness. After the episode was over she states that she still felt weird although she could speak appropriately. She denies any past history of stroke-like symptoms. She denies any recent fever, chills, nausea, vomiting, headache, blurry vision, double vision, chest pain, shortness of breath, cough, abdominal pain, dysuria, hematuria, diarrhea, rectal bleeding, or leg redness/pain. the patient was evaluated emergency room and CT brain was unremarkable for any acute pathology. Routine labs demonstrated mild acute renal injury. We been asked to admit the patient to the hospital for observation for her stroke-like symptoms and possible TIA. Review of Systems Review of Systems: All systems reviewed & are unremarkable except as noted in HPI and below PMFSH Past Medical History Medical History Anemia Asthma Benign essential hypertension Chronic GERD COPD (chronic obstructive pulmonary disease) Depression Fracture of left hip requiring operative repair HTN (hypertension) with goal to be determined Hx of temporal arteritis Hyperlipidemia Hypertension Internal hemorrhoids Lung mass Mild intermittent asthma without complication Osteopenia Pre-diabetes Surgical History Surgical History History of appendectomy History of carpal tunnel release Bilaterally History of cataract Bilateral History of cholecystectomy History of tonsillectomy History of total bilateral knee replacement History of total replacement of left shoulder joint Presence of left artificial knee joint Family History Family History Mother Hypertension Family history of cardiovascular disease Carcinoma of colon, Onset Age: 86 Acute myocardial infarction Family history of heart disease in male family member before age 55, Onset Age: 86 Patient's mother is , Onset Age: 86 Father Family history of lung cancer, Onset Age: 78 Patient's father is , Onset Age: 78 Other Family history of arthritis Family history of malignant neoplasm Social History Social History Social History: Patient lives with her who has short-term memory problems due to the Parkinson's. The coming up on their 60th anniversary. They have 2 sons and 2 daughters together. Her 2 daughters are durable power employment attorney for healthcare. The patient desires to be a full code. 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 She smoked many years ago. No alcohol marijuana or illicit drugs. Smoking packs per day: 1 Smoking cigarettes per day: 20.0 Years smoked: 10 Smoking pack-years: 10.00 Smoking status: Former smoker Tobacco type: cigarettes Second hand tobacco smoke exposure: Yes Smoking end date: 07/09/1959 Alcohol intake: never Substance use: never Substance use type: does not use Gender identity (if verbalized by the patient): Female Sexual Orientation (if Verbalized by the Patient): Straight or Heterosexual Spiritual care concerns: No Meds Home Medications and Allergies Home Medications Medic
[2020-05-28 23:35] LABS: Troponin I < 0.012 ng/mL (0.000-0.034)
[2020-05-29] VITALS: PULSE 66
--- NOTE | 2020-05-29 | ECHO_ITS ---
Patient Info Name: Selena Lua Age: 85 years : 1935 Gender: Female Ht: 60 in Wt: 141 lbs BSA: 1.67 m2 HR: 73 bpm BP: 140 / 95 mmHg Heart Rhythm: Sinus Rhythm Technical Quality: Good Exam Date: 05/29/2020 9:09 AM Exam Location: [facility] Pulmonary Exam Room: 341 Patient Status: Outpatient Admit Date: 05/28/2020 Staff Ordering Physician: Jaden Rivera MD Box Annealer: Mayra Chavez RDCS Attending Provider: Jaden Rivera MD Referring Physician: Miguel LOPEZ; Exam Type: CA echo doppler w bubble study Study Info Indications - expressive aphasia Complete two-dimensional, color flow and Doppler transthoracic echocardiogram is performed with agitated saline. Contrast/Agitated Saline Contrast/Ag. Saline: Agitated Saline Amount: 20.00 ml History/Risk Factors Coronary Artery Disease (CAD) Yes Congestive Heart Failure (CHF): Hx CHF Prior Interventions CABG: Yes Summary 1. Patient has prior CABG. 2. There is moderate concentric increased left ventricular wall thickness. 3. Left ventricular systolic function is normal, estimated at 60-65%. 4. Left atrial chamber dimension is moderately enlarged. 5. Agitated saline contrast injection demonstrates no evidence of intracardiac shunt. Left Ventricle Left ventricular chamber dimension is normal. Left ventricular systolic function is normal, estimated at 60-65%. There is moderate concentric increased left ventricular wall thickness. The left ventricular diastolic function is grade II diastolic dysfunction. Right Ventricle Right ventricular chamber dimension is normal. Left Atria Left atrial chamber dimension is moderately enlarged. Right Atria Right atrial chamber dimension is normal. Atrial Septum Intact interatrial septum visualized by agitated saline imaging. Aortic Valve The aortic valve is normal. Pulmonic Valve The pulmonic valve is normal. Mitral Valve The mitral valve has normal leaflets. The mitral valve annulus is mildly calcified. Tricuspid Valve The tricuspid valve leaflets are normal. Pericardium/Pleural The pericardium appears normal. Aorta The aortic root size at the sinus of Valsalva is normal. Left Ventricular Outflow Tract Name Value Normal LVOT 2D LVOT Diameter 2.0 cm LVOT Doppler LVOT Peak Gradient 5 mmHg LVOT Mean Gradient 3 mmHg LVOT VTI 26 cm LVOT VTI/AV VTI Ratio 0.8 LVOT Stroke Volume 83 ml LVOT CO 16.4 l/min LVOT CI 9.8 l/min/m2 Pulmonic Valve Name Value Normal PV Doppler PV Peak Gradient 4 mmHg PV Regurgitat
[2020-05-29 02:20] LABS: Basophils Absolute Auto 0.1 K/mm3 (0.0-0.1); Basophils Percent Auto 0.9 % (0.2-1.2); Eosinophils Absolute Auto 0.2 K/mm3 (0-0.3); Eosinophils Percent Auto 3.2 % (0-4.4); Hematocrit 33.2 % (37.0-47.0); Hemoglobin 10.9 g/dL (12.0-15.0); Immature Granulocyte Absolute 0.02 K/mm3 (0.00-0.031); Immature Granulocyte Percent A 0.3 % (0-0.5); Lymphocytes Absolute Auto 1.83 K/mm3 (0.9-3.2); Lymphocytes Percent Auto 27.6 % (18.3-44.2); Mean Corpuscular HGB Conc 32.8 g/dl (32-36); Mean Corpuscular Hemoglobin 30.2 pg (26-34); Mean Platelet Volume 10.1 fl (7.4-10.4); Monocytes Absolute Auto 0.7 K/mm3 (0.1-0.6); Monocytes Percent Auto 10.4 % (2.6-8.5); Neutrophils Absolute Auto 3.8 K/mm3 (1.3-6.7); Neutrophils Percent Auto 57.6 % (45.5-73.1); Platelet Count Result 233 k/mm3 (150-375); Red Blood Count 3.61 M/mm3 (4.2-5.4); Red Cell Distribution Width 13.4 % (11.5-14.5); White Blood Count 6.6 K/mm3 (4.5-10.0)
[2020-05-29 02:32] LABS: Anion Gap 6 mmol/L (8-16); Blood Urea Nitrogen 36 mg/dL (7-17); Carbon Dioxide 27 mmol/L (22-30); Chloride 105 mmol/L (98-107); Cholesterol 181 mg/dL (0-200); Estimated CRCL calculation 29 ml/min; Estimated Glomerular Filt Rate 47; Glucose 94 mg/dL (65-105); HDL Direct 84 mg/dL; Potassium 4.1 mmol/L (3.4-5.0); Sodium 138 mmol/L (137-145); Triglycerides 63 mg/dL (<150)
[2020-05-29 02:43] LABS: LDL Cholesterol Direct 72 mg/dL
[2020-05-29 02:44] LABS: Troponin I < 0.012 ng/mL (0.000-0.034)
[2020-05-29 04:12] VITALS: PULSE 70
[2020-05-29 04:51] VITALS: BP 166/76; PULSE 66; RESP 14; TEMP 36.2; O2SAT 98
--- NOTE | 2020-05-29 07:00 | PC.NURSE ---
Radiology here to transport pt via wheelchair for MRI. Off floor.
[2020-05-29 08:00] VITALS: PULSE 78
[2020-05-29] MEDS: ASPIRIN 325 MG ENTERIC TABLET PO (09:19)
[2020-05-29 09:20] VITALS: PULSE 72
[2020-05-29] MEDS: METOPROLOL TARTRATE 25 MG TABLET PO (09:20)
[2020-05-29] MEDS: LORATADINE 10 MG TABLET PO (09:20)
[2020-05-29] MEDS: FERROUS SULFATE 324 MG TABLET PO (09:20)
[2020-05-29] MEDS: dilTIAZem HCL CD 180 MG CAP.ER.24H PO (09:20)
[2020-05-29] MEDS: ESCITALOPRAM OXALATE 5 MG TABLET PO (09:20)
[2020-05-29] MEDS: ALENDRONATE SODIUM 70 MG TABLET PO (09:20)
[2020-05-29] MEDS: DOCUSATE SODIUM 100 MG CAPSULE PO (09:20)
[2020-05-29] MEDS: LOSARTAN POTASSIUM 25 MG TABLET PO (11:01)
[2020-05-29] MEDS: CALCIUM CARBONATE (OSCAL) 500 MG TABLET PO (11:01)
[2020-05-29 12:00] VITALS: PULSE 86
--- NOTE | 2020-05-29 12:52 | PM.DS ---
DS: Admitting Diagnosis Admitting Diagnosis Admitting Diagnosis: TIA DS: Discharge Diagnosis Discharge Diagnosis (1) Expressive aphasia: Code(s): R47.01 - Aphasia Status: Resolved Assessment and Plan: r/o TIA. ABDC2 score 4 - Intermediate risk. Pt is stable for discharge, see CT head, echo and US carotids reports, nil acute findings. Pt appears better no aphasia back to her self. Requested follow up with neurology pt mentions some pain in her left eye for months ? TIC. Pt to take ASA 325 mg po qdaily. (2) Acute renal insufficiency: Code(s): N28.9 - Disorder of kidney and ureter, unspecified Status: Resolved Assessment and Plan: Resolved with light hydration overnite. (3) COPD (chronic obstructive pulmonary disease): Qualifiers: COPD type: unspecified COPD Qualified Code(s): J44.9 - Chronic obstructive pulmonary disease, unspecified Code(s): J44.9 - Chronic obstructive pulmonary disease, unspecified Status: Chronic Assessment and Plan: Continue bronchodilators. (4) Chronic anemia: Code(s): D64.9 - Anemia, unspecified Status: Chronic Assessment and Plan: Likely anemia of chronic disease. (5) Hypertension: Qualifiers: Hypertension type: unspecified Qualified Code(s): I10 - Essential (primary) hypertension Code(s): I10 - Essential (primary) hypertension Status: Chronic Assessment and Plan: Stable. Continue Bp medications (6) Hyperlipidemia: Qualifiers: Hyperlipidemia type: unspecified Qualified Code(s): E78.5 - Hyperlipidemia, unspecified Code(s): E78.5 - Hyperlipidemia, unspecified Status: Chronic Assessment and Plan: Continue statin therapy. DS: Summary Time Spent with Patient Time attestation: Total time spent providing and/or coordinating discharge services:40 minutes on day of dischrage Exam Const: General: cooperative, healthy appearing, no acute distress, alert and awake Nutritional Appearance: well nourished Orientation/consciousness: patient oriented x3 Resp: Effort & Inspection: normal respiratory effort Auscultation: clear to auscultation bilaterally Cardio: Rate: regular rate Rhythm: regular rhythm Heart sounds: no murmurs GI: Inspection: normal to inspection Auscultation: normal bowel sounds Skin: General skin exam: normal color and no rashes or lesions noted Neuro: General: patient oriented x3 Cranial nerves: Yes CN's II-XII intact bilaterally and Yes Equal, round and reactive pupils present Speech: normal speech Motor exam (neuro): 5/5 motor strength present throughout Sensory Exam: normal sensation Extrem: General: normal to inspection and edema bilateral Psych: Mental Status: mental status grossly normal Affect: normal affect DS: Data Data Completed and Pending Labs on day of discharge: Labs from last 24 hours 05/29/20 05/29/20 05/28/20 02:13 02:13 23:06 WBC 6.6 RBC 3.61 L Hgb 10.9 L Hct 33.2 L MCV 92.0 MCH 30.2 MCHC 32.8 RDW 13.4 Plt Count 233 MPV 10.1 Immature Gran % (Auto) 0.3 Neut % (Auto) 57.6 Lymph % (Auto) 27.6 [place] % (Auto) 10.4 H Eos % (Auto) 3.2 Baso % (Auto) 0.9 Lymph # (Auto) 1.83 [place] # (Auto) 0.7 H Eos # (Auto) 0.2 Baso # (Auto) 0.1 Abs Immat Gran (auto) 0.02 Absolute Neuts (auto) 3.8 Absolute Nucleated RBC 0.0 Nucleated RBC % 0.0 PT INR APTT Sodium 138 Potassium 4.1 Chloride 105 Carbon Dioxide 27 Anion Gap 6 L BUN 36 H Creatinine 1.10 H Estim Creat Clear Calc 29 Estimated GFR 47 L Glucose 94 POC Capillary Glucose Calcium 9.0 Troponin I < 0.012 < 0.012 Triglycerides 63 Cholesterol 181 LDL Cholesterol Direct 72 HDL Direct 84 05/28/20 05/28/20 05/28/20 19:16 19:16 19:16 WBC 7.0 RBC 3.76 L Hgb 11.5 L Hct 35.3 L MCV 93.9
== END 2020-05-29 15:50 | disposition home or self-care (01) ==
LOC: ANHED 20:19 → ANH3MED 05-29 08:22
PROVIDERS: Admitting Provider Family Medicine; Emergency Provider Emergency Medicine; PCP Family Medicine; Visit Provider Family Medicine
DX: R47.01 Aphasia (principal); N28.9 Disorder of kidney and ureter, unspecified; J44.9 Chronic obstructive pulmonary disease, unspecified; E78.5 Hyperlipidemia, unspecified; I10 Essential (primary) hypertension; K21.9 Gastro-esophageal reflux disease without esophagitis; D64.9 Anemia, unspecified; Z96.653 Presence of artificial knee joint, bilateral; Z96.612 Presence of left artificial shoulder joint; Z87.891 Personal history of nicotine dependence; Z95.1 Presence of aortocoronary bypass graft
CPT/HCPCS: 36415; 70450; 70551; 71045; 80048; 80061; 82948; 84484; 85025; 85610; 85730; 93005; 93306; 93880; 96375; 99285; A9270; G0378

== ENCOUNTER 2020-11-08 14:31 | Outpatient (CLI) | payer MEDICARE, SELFPAY ==
[2020-11-08 14:48] LABS: Basophils Absolute Auto 0.1 K/mm3 (0.0-0.1); Basophils Percent Auto 0.7 % (0.2-1.2); Eosinophils Absolute Auto 0.2 K/mm3 (0-0.3); Eosinophils Percent Auto 2.2 % (0-4.4); Hemoglobin 10.4 g/dL (12.0-15.0); Immature Granulocyte Absolute 0.02 K/mm3 (0.00-0.031); Immature Granulocyte Percent A 0.3 % (0-0.5); Lymphocytes Absolute Auto 1.25 K/mm3 (0.9-3.2); Lymphocytes Percent Auto 18.6 % (18.3-44.2); Mean Corpuscular HGB Conc 32.5 g/dl (32-36); Mean Corpuscular Hemoglobin 30.2 pg (26-34); Mean Platelet Volume 9.8 fl (7.4-10.4); Monocytes Absolute Auto 0.7 K/mm3 (0.1-0.6); Monocytes Percent Auto 10.1 % (2.6-8.5); Neutrophils Absolute Auto 4.6 K/mm3 (1.3-6.7); Neutrophils Percent Auto 68.1 % (45.5-73.1); Platelet Count Result 292 k/mm3 (150-375); Red Blood Count 3.44 M/mm3 (4.2-5.4); Red Cell Distribution Width 13.2 % (11.5-14.5); White Blood Count 6.7 K/mm3 (4.5-10.0)
[2020-11-08 16:43] LABS: Anion Gap 2 mmol/L (8-16); Blood Urea Nitrogen 26 mg/dL (7-17); Carbon Dioxide 28 mmol/L (22-30); Chloride 104 mmol/L (98-107); Estimated Glomerular Filt Rate 53; Glucose 86 mg/dL (65-105); Iron 89 ug/dL (37-170); Potassium 4.4 mmol/L (3.4-5.0); Sodium 134 mmol/L (137-145)
[2020-11-08 16:53] LABS: Percent Iron Saturation 31 % (20-50)
== END 2020-11-08 14:32 | disposition home or self-care (01) ==
PROVIDERS: PCP Family Medicine; Visit Provider Internal Medicine Hematology & Oncology
DX: D64.9 Anemia, unspecified (principal)
CPT/HCPCS: 36415; 80048; 82728; 83540; 83550; 85025

== ENCOUNTER 2021-05-23 10:21 | Emergency (ER) | payer MEDICARE, SELFPAY ==
--- NOTE | ~2021-05-23 | CT_ITS ---
EXAMINATION: CT brain wo con EXAM DATE: 05/23/2021 11:43 INDICATION: Fall, head injury. TECHNIQUE: Spiral CT of the head was performed without contrast. Axial, coronal and sagittal images were reviewed. The dose-length product (DLP) for this examination was 605.33 mGy-cm. The exposure w as tailored according to patient size, and iterative reconstruction (ASIR) was used as additional dos e reduction technique. Comparison is made to prior examination from 05/28/2020. FINDINGS: There is tiny focus of acute subarachnoid hemorrhage overlying the right frontal lobe, find ing indicated on axial image 40. Location is consistent with posttraumatic etiology. There is small f rontal scalp contusion without underlying fracture. There is moderate microangiopathy and cerebral at rophy. No brain mass, evidence of acute infarction, extra-axial collection or obstructive hydrocephal us. Mastoid air cells are well aerated. Bilateral cataract surgery. IMPRESSION: 1. Tiny focus right frontal acute posttraumatic subarachnoid hemorrhage. 2. Frontal scalp contusion without underlying fracture. Reviewed, dictated and finalized at location B. RN
--- NOTE | ~2021-05-23 | CT_ITS ---
EXAMINATION: CT facial & cervical spine wo EXAM DATE: 05/23/2021 11:43 INDICATION: Fall. Head injury. TECHNIQUE: Spiral CT of the facial bones was acquired in the axial plane. Coronal reformatted images were also reviewed. Spiral CT of the cervical spine was performed without contrast. Axial images we re reviewed. Coronal and sagittal reformatted images were also reviewed. The dose-length product (DL P) for this examination was 261.80 mGy-cm. The exposure was tailored according to patient size, and iterative reconstruction (ASIR) was used as additional dose reduction technique. Comparison is made t o prior examination from 09/17/2018. FINDINGS: FACIAL CT: There are no displaced acute nasal bone fractures. The mandible, sinuses and orbits are i ntact. The orbits, globes and extraocular muscles are unremarkable. The visualized sinuses and ma stoid air cells are well aerated. Small frontal scalp contusion/hematoma. No underlying fracture. CERVICAL CT: There is no evidence of acute cervical fracture. The odontoid process is intact. Pre-d ens space is normal. Prevertebral soft tissue is normal. There are no soft tissue abnormalities gonzalez ntified. There is no disc space widening or traumatic vertebral body subluxation suspected. Advance d cervical spondylosis. A detailed level by level evaluation of spondylosis can be added as addendum if requested. IMPRESSION: No acute facial or cervical fracture. Small frontal scalp contusion/hematoma. Reviewed, dictated and finalized at location B. RN IMPRESSION: No acute facial or cervical fracture. Small frontal scalp contusion /hematoma.
[2021-05-23 10:30] VITALS: BP 125/83; PULSE 71; RESP 14; TEMP 36.3; O2SAT 100
--- NOTE | 2021-05-23 10:37 | ED.FALL ---
HPI - Fall General Chief Complaint: Fall Stated Complaint: FALL, NOSE DEFORMITY, FACE HEMATOMA Time Seen by Provider: 05/23/21 10:37 Source: patient, EMS and RN notes reviewed Mode of arrival: EMS Limitations: no limitations History of Present Illness HPI Narrative: Patient tripped while walking her dog on the sidewalk and fell flat on her face. No loss of consciousness, complaining of facial pain. Patient on aspirin MD complaint: fall Related Data Home Medications Medication Instructions Recorded Confirmed albuterol sulfate 2 puff INHALATION Q4-6H PRN 02/02/20 04/22/21 calcium carbonate 500 mg calcium 650 mg PO DAILY 03/16/20 04/22/21 (1,250 mg) tablet ferrous sulfate 325 mg (65 mg 325 mg PO BID tablet 03/16/20 04/22/21 iron) tablet cetirizine 10 mg PO DAILY 05/28/20 04/22/21 docusate sodium [Colace] 100 mg PO DAILY 05/28/20 04/22/21 atorvastatin 40 mg tablet 40 mg PO DAILY 09/14/20 04/22/21 Allergies Allergy/AdvReac Type Severity Reaction Status Date / Time clonidine Allergy Unknown GI upset Verified 05/23/21 10:43 codeine Allergy Unknown Vomiting Verified 05/23/21 10:43 morphine Allergy Unknown Vomiting Verified 05/23/21 10:43 Review of Systems Review of Systems: CONSTITUTIONAL: Denies fever, chills, or sweats. EYES: Denies visual changes, redness, or discharge. ENT: Denies rhinorrhea, congestion, sore throat, or otalgia. CARDIOVASCULAR: Denies chest pain, palpitations, or edema. RESPIRATORY: Denies cough or dyspnea. GASTROINTESTINAL: Denies abdominal pain, nausea, vomiting, or diarrhea. GENITOURINARY: Denies dysuria or hematuria. SKIN: Denies rash or itching. MUSCULOSKELETAL: Denies back pain, joint pain, or myalgia. NEUROLOGIC: Denies headache, numbness, or weakness. PSYCHIATRIC: Denies anxiety or depression. [facility] Past Medical History Medical History Anemia Asthma Benign essential hypertension Bilateral hip bursitis Carotid stenosis, right Chronic GERD COPD (chronic obstructive pulmonary disease) Depression Fracture of left hip requiring operative repair HTN (hypertension) with goal to be determined Hx of temporal arteritis Hyperlipidemia Hypertension Internal hemorrhoids Lung mass Mild intermittent asthma without complication Osteopenia Pre-diabetes Surgical History Surgical History History of appendectomy History of carpal tunnel release Bilaterally History of cataract Bilateral History of cholecystectomy History of tonsillectomy History of total bilateral knee replacement History of total replacement of left shoulder joint Presence of left artificial knee joint Total knee replacement status Family History Family History Mother Hypertension Family history of cardiovascular disease Carcinoma of colon, Onset Age: 86 Acute myocardial infarction Family history of heart disease in male family member before age 55, Onset Age: 86 Patient's mother is , Onset Age: 86 Father Family history of lung cancer, Onset Age: 78 Patient's father is , Onset Age: 78 Other Family history of arthritis Family history of malignant neoplasm Social History Social History Social History: Patient lives with her who has short-term memory problems due to the Parkinson's. The coming up on their 60th anniversary. They have 2 sons and 2 daughters together. Her 2 daughters are durable power real estate attorney for healthcare. The patient desires to be a full code. 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 She smoked many years ago. No alcohol marijuana or illicit drugs. Smoking packs per day: 1 Smoking cigarettes per day: 20.0 Years smoked: 10 Smoking pack-years: 10.00 Smoking status: Former smoker Tobacco type: cigarettes Second hand tobacco smoke exposure
--- NOTE | 2021-05-23 11:36 | ECG_ITS ---
Measurements Intervals [place] Rate: 66 P: 75 GA: 222 QRS: 65 QRSD: 86 T: 60 QT: 397 QTc: 417 Interpretive Statements SINUS RHYTHM WITH FIRST DEGREE AV BLOCK LEFT VENTRICULAR HYPERTROPHY AND ST-T CHANGE MINIMAL Q WAVES- ANTEROLAT/INF LEADS BASELINE ARTIFACT- I, II, III, V6 ABNORMAL ECG Electronically Signed On 05-23-2021 12:52:18 WORKFORCE MANAGER by Bret Laughlin D.O.
[2021-05-23 12:00] VITALS: BP 140/80; PULSE 74; RESP 18; O2SAT 100
[2021-05-23 15:00] VITALS: BP 146/69; PULSE 70; RESP 14; O2SAT 94
--- NOTE | 2021-05-23 15:38 | PC.NURSE ---
made contact with [facility] to transfer pt to [facility] per dr. jones do to a brain bleed. [facility] is already on the property and is ready to take pt to [facility]
== END 2021-05-23 15:44 | disposition short-term general hospital (02) ==
PROVIDERS: Emergency Provider Emergency Medicine; PCP Family Medicine
DX: S06.6X0A Traumatic subarachnoid hemorrhage without loss of consciousness, initial encounter (principal); D64.9 Anemia, unspecified; J44.9 Chronic obstructive pulmonary disease, unspecified; I10 Essential (primary) hypertension; I65.21 Occlusion and stenosis of right carotid artery; K21.9 Gastro-esophageal reflux disease without esophagitis; E78.5 Hyperlipidemia, unspecified; J45.20 Mild intermittent asthma, uncomplicated; M85.80 Other specified disorders of bone density and structure, unspecified site; R73.03 Prediabetes; Z98.42 Cataract extraction status, left eye; Z98.41 Cataract extraction status, right eye; Z96.653 Presence of artificial knee joint, bilateral; Z96.612 Presence of left artificial shoulder joint; Z87.891 Personal history of nicotine dependence; I44.0 Atrioventricular block, first degree; I51.7 Cardiomegaly; W01.0XXA Fall on same level from slipping, tripping and stumbling without subsequent striking against object, initial encounter
CPT/HCPCS: 70450; 70486; 72125; 93005; 99291

== ENCOUNTER 2021-06-19 14:02 | Emergency (ER) | payer MEDICARE, SELFPAY ==
--- NOTE | ~2021-06-19 | XR_ITS ---
EXAMINATION: XR lumbar spine 2-3V EXAM DATE: 06/19/2021 17:32 INDICATION: Back pain and sciatica. TECHNIQUE: Lumber spine frontal, lateral, lateral L5-S1 projections for interpretation. There is no prior study for comparison. FINDINGS: Severe disc disease at all lumbar levels. Severe mid and lower lumbar facet arthropathy. T here is moderate lumbar levoscoliosis. Mild diffuse loss of vertebral body height. Evaluation of the sacrum and transverse processes is somewhat limited due to overlying bowel gas. Left hip gamma nails. IMPRESSION: 1. Severe lumbar spondylosis. 2. Moderate levoscoliosis. 3. No acute findings. Reviewed, dictated and finalized at location A. L PRODUCTS II ASSEMBLER
--- NOTE | ~2021-06-19 | XR_ITS ---
EXAMINATION: XR hip RT 2V w AP pelvis EXAM DATE: 06/19/2021 16:42 INDICATION: Fell in may, pain started in rt hip x2wks ago . TECHNIQUE: Right hip frontal, 'frog leg' projections for interpretation. Frontal projection pelvis. Comparison is made to prior examination from 11/03/2020. FINDINGS: Smooth right hip femoral head contour, no radiographic evidence of avascular necrosis. The re are no acute fractures or dislocations identified. There is no subcutaneous gas. Lumbar spondylo sis. Phleboliths. Left hip gamma nails. There is moderate left, mild to moderate right primary osteo arthritis. IMPRESSION: Moderate left, mild to moderate right hip osteoarthritis. No acute findings. Reviewed, dictated and finalized at location A. L BURNISHER
[2021-06-19 14:55] VITALS: BP 152/69; PULSE 69; RESP 16; TEMP 36.4; O2SAT 98
[2021-06-19 17:42] VITALS: BP 140/86; PULSE 72; RESP 15; O2SAT 97
--- NOTE | 2021-06-19 18:30 | ED.BACK ---
HPI - Back Pain/Injury General Chief Complaint: Back Pain/Injury Stated Complaint: hip pain s/p fall 05/23 Time Seen by Provider: 06/19/21 16:22 History of Present Illness HPI Narrative: Patient is an 86-year-old female who presents ER with right-sided back pain. Progressing over the last 2 weeks. Cramping in nature. Worse if she stands up and walks. No pain when she is sitting resting. She has tried ibuprofen 4 mg twice a day last week without improvement. Occasionally radiates into her right anterior leg. No saddle anesthesia or difficulty with urination/defecation. No fevers or chills or sweats. No focal weakness in her legs. Patient recently sustained subdural hemorrhage several weeks ago. She is recovered well from that. Related Data Home Medications Medication Instructions Recorded Confirmed albuterol sulfate 2 puff INHALATION Q4-6H PRN 02/02/20 04/22/21 calcium carbonate 500 mg calcium 650 mg PO DAILY 03/16/20 04/22/21 (1,250 mg) tablet ferrous sulfate 325 mg (65 mg 325 mg PO BID tablet 03/16/20 04/22/21 iron) tablet cetirizine 10 mg PO DAILY 05/28/20 04/22/21 docusate sodium [Colace] 100 mg PO DAILY 05/28/20 04/22/21 atorvastatin 40 mg tablet 40 mg PO DAILY 09/14/20 04/22/21 Allergies Allergy/AdvReac Type Severity Reaction Status Date / Time clonidine Allergy Unknown GI upset Verified 05/23/21 10:43 codeine Allergy Unknown Vomiting Verified 05/23/21 10:43 morphine Allergy Unknown Vomiting Verified 05/23/21 10:43 Review of Systems Review of Systems: All systems reviewed & are unremarkable except as noted in HPI and below Constitutional: Constitutional: Denies chills, Denies fever(s) and Denies weakness Respiratory: Respiratory: Denies cough and Denies dyspnea Gastrointestinal: Gastrointestinal: Denies abdominal pain, Denies constipation, Denies nausea and Denies vomiting Genitourinary: Genitourinary: Denies nocturia, Denies dysuria and Denies urinary incontinence Musculoskeletal: Musculoskeletal: Reports back pain, Denies joint swelling and Denies muscle cramps Neurologic: Denies focal weakness and Denies numbness PMF Past Medical History Medical History Anemia Asthma Benign essential hypertension Bilateral hip bursitis Carotid stenosis, right Chronic GERD COPD (chronic obstructive pulmonary disease) Depression Fracture of left hip requiring operative repair HTN (hypertension) with goal to be determined Hx of temporal arteritis Hyperlipidemia Hypertension Internal hemorrhoids Lung mass Mild intermittent asthma without complication Osteopenia Pre-diabetes Surgical History Surgical History History of appendectomy History of carpal tunnel release Bilaterally History of cataract Bilateral History of cholecystectomy History of tonsillectomy History of total bilateral knee replacement History of total replacement of left shoulder joint Presence of left artificial knee joint Total knee replacement status Family History Family History Mother Hypertension Family history of cardiovascular disease Carcinoma of colon, Onset Age: 86 Acute myocardial infarction Family history of heart disease in male family member before age 55, Onset Age: 86 Patient's mother is , Onset Age: 86 Father Family history of lung cancer, Onset Age: 78 Patient's father is , Onset Age: 78 Other Family history of arthritis Family history of malignant neoplasm Social History Social History Social History: Patient lives with her who has short-term memory problems due to the Parkinson's. The coming up on their 60th anniversary. They have 2 sons and 2 daughters together. Her 2 daughters are durable power subcontracts manager for healthcare. The patient cherrie
== END 2021-06-19 19:21 | disposition home or self-care (01) ==
PROVIDERS: Emergency Provider Emergency Medicine; PCP Family Medicine
DX: S39.012A Strain of muscle, fascia and tendon of lower back, initial encounter (principal); I10 Essential (primary) hypertension; J44.9 Chronic obstructive pulmonary disease, unspecified; J45.20 Mild intermittent asthma, uncomplicated; I65.21 Occlusion and stenosis of right carotid artery; E78.5 Hyperlipidemia, unspecified; M85.80 Other specified disorders of bone density and structure, unspecified site; R73.03 Prediabetes; Z98.42 Cataract extraction status, left eye; Z98.41 Cataract extraction status, right eye; Z96.653 Presence of artificial knee joint, bilateral; Z96.612 Presence of left artificial shoulder joint; Z87.891 Personal history of nicotine dependence; M47.816 Spondylosis without myelopathy or radiculopathy, lumbar region; M16.11 Unilateral primary osteoarthritis, right hip; W19.XXXA Unspecified fall, initial encounter
CPT/HCPCS: 72100; 73502; 99284

== ENCOUNTER 2021-07-12 10:25 | Outpatient (CLI) | payer MEDICARE, SELFPAY ==
[2021-07-12 10:47] LABS: Basophils Absolute Auto 0.1 K/mm3 (0.0-0.1); Basophils Percent Auto 1.2 % (0.2-1.2); Eosinophils Absolute Auto 0.2 K/mm3 (0-0.3); Eosinophils Percent Auto 2.9 % (0-4.4); Hematocrit 36.6 % (37.0-47.0); Hemoglobin 11.3 g/dL (12.0-15.0); Immature Granulocyte Absolute 0.01 K/mm3 (0.00-0.031); Immature Granulocyte Percent A 0.2 % (0-0.5); Lymphocytes Absolute Auto 0.82 K/mm3 (0.9-3.2); Lymphocytes Percent Auto 15.9 % (18.3-44.2); Mean Corpuscular HGB Conc 30.9 g/dl (32-36); Mean Corpuscular Hemoglobin 30.8 pg (26-34); Mean Corpuscular Volume 99.7 fl (80-100); Mean Platelet Volume 10.3 fl (7.4-10.4); Monocytes Absolute Auto 0.6 K/mm3 (0.1-0.6); Monocytes Percent Auto 10.6 % (2.6-8.5); Neutrophils Absolute Auto 3.6 K/mm3 (1.3-6.7); Neutrophils Percent Auto 69.2 % (45.5-73.1); Platelet Count Result 286 k/mm3 (150-375); Red Blood Count 3.67 M/mm3 (4.2-5.4); Red Cell Distribution Width 13.5 % (11.5-14.5); White Blood Count 5.2 K/mm3 (4.5-10.0)
[2021-07-12 10:51] LABS: Blood Urea Nitrogen 25 mg/dL (8-26); Carbon Dioxide 24 mmol/L (22-30); Chloride 106 mmol/L (98-109); Estimated Glomerular Filt Rate 47; Glucose 118 mg/dL (70-105); Potassium 4.3 mmol/L (3.5-4.9); Sodium 139 mmol/L (138-146)
[2021-07-12 12:07] LABS: Iron 95 ug/dL (37-170)
[2021-07-12 12:10] LABS: Alanine Aminotransferase 18 U/L (4-35); Albumin Level 4.4 g/dL (3.5-5.1); Alkaline Phosphatase 79 U/L (38-126); Anion Gap 10 mmol/L (8-16); Aspartate Amino Transferase 30 U/L (14-36); Bilirubin,Total 0.5 mg/dL (0.2-1.3); Blood Urea Nitrogen 24 mg/dL (7-17); Calcium 9.2 mg/dL (8.4-10.2); Carbon Dioxide 22 mmol/L (22-30); Chloride 105 mmol/L (98-107); Estimated Glomerular Filt Rate 47; Glucose 118 mg/dL (65-110); Potassium 4.4 mmol/L (3.4-5.0); Sodium 137 mmol/L (137-145)
[2021-07-12 12:18] LABS: Percent Iron Saturation 33 % (20-50)
== END 2021-07-12 10:26 | disposition home or self-care (01) ==
PROVIDERS: PCP Family Medicine; Visit Provider Internal Medicine Hematology & Oncology
DX: D64.9 Anemia, unspecified (principal)
CPT/HCPCS: 36415; 80053; 82607; 82728; 83540; 83550; 85025

== ENCOUNTER → 2021-07-13 13:39 | Outpatient (CLI) | payer MEDICARE, SELFPAY ==
--- NOTE | ~2021-07-13 | MM_ITS ---
EXAMINATION: MM screening chi BI w [place] HISTORY: Screening mammogram TECHNIQUE: Craniocaudal and mediolateral oblique 3-D tomosynthesis images were obtained and synthetic 2-D images were generated. CAD analysis was submitted and interpreted. COMPARISON: No prior mammogram is available for comparison at this institution. BREAST PARENCHYMAL COMPOSITION: There are scattered areas of fibroglandular density. FINDINGS: RIGHT BREAST: There are grouped calcifications in the posterior third of the upper inner quadrant of the breast 9 cm from the nipple. LEFT BREAST: There are grouped calcifications in the posterior third of the upper outer quadrant of t he breast 9.5 cm from the nipple. IMPRESSION: 1. Bilateral indeterminate calcifications. 2. Magnification views are recommended. BI-RADS Category 0: Incomplete: Needs additional imaging evaluation. Reviewed, dictated and finalized at location A. CH TROUBLE SHOOTER
== END ==
PROVIDERS: PCP Family Medicine; Visit Provider Obstetrics & Gynecology
DX: Z12.31 Encounter for screening mammogram for malignant neoplasm of breast (principal); R92.8 Other abnormal and inconclusive findings on diagnostic imaging of breast
CPT/HCPCS: 77063; 77067

== ENCOUNTER → 2021-08-09 09:52 | Outpatient (CLI) | payer MEDICARE, SELFPAY ==
--- NOTE | ~2021-08-09 | MM_ITS ---
EXAMINATION: MM diagnostic mammo BI HISTORY: Follow-up breast calcifications TECHNIQUE: Additional 3-D tomosynthesis images of the breasts were performed and synthetic 2-D images were generated. CAD analysis was submitted and interpreted. COMPARISON: 07/13/2021 BREAST PARENCHYMAL COMPOSITION: Breast composed of scattered areas of fibroglandular density. FINDINGS: There are clustered calcifications in the upper inner quadrant of the right breast and uppe r outer quadrant of the left breast which are indeterminate. There are no suspicious masses or rené ectural distortion. IMPRESSION: 1. Bilateral clustered indeterminate breast calcifications. 2. Bilateral stereotactic biopsy recommended. BI-RADS category 4, suspicious findings. Reviewed, dictated and finalized at location A. TRIC METER READER
== END ==
PROVIDERS: PCP Family Medicine; Visit Provider Obstetrics & Gynecology
DX: R92.8 Other abnormal and inconclusive findings on diagnostic imaging of breast (principal)
CPT/HCPCS: 77066

== ENCOUNTER 2021-11-23 10:51 | Outpatient (CLI) | payer MEDICARE, SELFPAY ==
--- NOTE | ~2021-11-23 | XR_ITS ---
XR chest 2V 11/23/2021 11:20 Indication: Chronic cough Procedure: 2 view chest Comparison: Comparison to multiple prior studies sequentially, with oldest reviewed study dated 07/2017. Findings: Heart size normal. Large hiatal hernia. There is atherosclerosis of the aorta. No focal air space disease, pulmonary edema, pleural effusion or suspected pneumothorax. There is a left shoulder arthroplasty. Impression: 1: No acute cardiopulmonary disease. 2: Large hiatal hernia. Reviewed, dictated and finalized at location A. Impression: 1: No acute cardiopulmonary disease. 2: Large hiatal hernia.
== END 2021-11-23 10:52 | disposition home or self-care (01) ==
PROVIDERS: PCP Family Medicine; Visit Provider Nurse Practitioner Family
DX: R05.3 Chronic cough (principal); R10.11 Right upper quadrant pain; K44.9 Diaphragmatic hernia without obstruction or gangrene
CPT/HCPCS: 71046

== ENCOUNTER 2021-11-26 10:09 | Emergency (ER) | payer MEDICARE, SELFPAY ==
[2021-11-26] VITALS (19 sets, daily range): BP systolic 144–173; BP diastolic 67–87; PULSE 61–124; RESP 16–18; O2SAT 87–100
--- NOTE | ~2021-11-26 | CT_ITS ---
EXAMINATION: CT abdomen pelvis w con DATE: 11/26/2021 12:18 INDICATION: Right hip and flank pain. TECHNIQUE: Computed tomography (CT) of the abdomen and pelvis was performed with 75 mL Omnipaque-300 intravenous contrast. Automated exposure control and iterative reconstruction technique were employed . The dose-length product was 330.12 mGy-cm. COMPARISON: None FINDINGS: Mild bibasilar atelectasis. Calcified right middle lobe nodules consistent with old granulomatous dis ease. Small fat-containing masslike hernia at the posterior right lung base. Heart size is normal. Ao rtic valve and dense mitral annular calcific location. No pericardial or pleural effusion. Large slid ing-type hiatal hernia. Cholecystectomy clips the gallbladder fossa. Slightly caudal to the cholecyst ectomy clips is a likely dropped gallstone. Liver, spleen, pancreas, bilateral adrenal glands are nor mal. <5 mm low-attenuation cysts at both kidneys. There is moderate colonic diverticulosis with a sig moid predominance. There is no adjacent inflammatory change to suggest diverticulitis. Small bowel a nd appendix are normal. Bladder, atrophic uterus and bilateral adnexa are unremarkable. No free intra peritoneal gas or fluid. No pathologically enlarged abdominal or pelvic lymphadenopathy. Mild lumbar levoscoliosis with severe lumbar and lower thoracic spondylosis. Lag screw fixation of an old healed subcapital fracture of the proximal left femur. Fatty atrophy of the bilateral gluteus medius and min imus muscle bellies suggesting tears of the respective tendons. Moderate left and mild right hip oste oarthritis. IMPRESSION: 1. No acute intra-abdominal/pelvic process. 2. Large sliding-type hiatal hernia. 3. Diverticulosis. Reviewed, dictated and finalized at location A.
--- NOTE | ~2021-11-26 | XR_ITS ---
EXAMINATION: XR hip RT 2V w AP pelvis DATE: 11/26/2021 11:00 INDICATION: Right hip pain TECHNIQUE: Anteroposterior view of the pelvis and anteroposterior and frog-leg lateral views of the r ight hip were obtained. COMPARISON: None. FINDINGS: Old likely subcapital fracture of the proximal left femur which is fixed with 3 cannulated lag screws in near-anatomic alignment. Partially visualized lower portion of a lumbar levoscoliosis with severe spondylosis. No acute fracture. Asymmetric mild to moderate joint space narrowing at the left hip. R ight hip joint space appears relatively preserved. Mild bilateral sacroiliac osteoarthritis. IMPRESSION: 1. No acute osseous abnormality. 2. Old internally fixed left femoral neck fracture with likely secondary mild to moderate left hip os teoarthritis. 3. Severe lumbar spondylosis. Reviewed, dictated and finalized at location A. IMPRESSION: 1. No acute osseous abnormality. 2. Old internally fixed left femoral neck fracture with likely secondary mild t o moderate left hip osteoarthritis. 3. Severe lumbar spondylosis.
[2021-11-26 11:36] LABS: Basophils Percent Auto 0.8 % (0.2-1.2); Eosinophils Absolute Auto 0.1 K/mm3 (0-0.3); Hematocrit 34.5 % (37.0-47.0); Hemoglobin 10.9 g/dL (12.0-15.0); Immature Granulocyte Absolute 0.01 K/mm3 (0.00-0.031); Immature Granulocyte Percent A 0.2 % (0-0.5); Lymphocytes Absolute Auto 0.67 K/mm3 (0.9-3.2); Lymphocytes Percent Auto 13.2 % (18.3-44.2); Mean Corpuscular HGB Conc 31.6 g/dl (32-36); Mean Corpuscular Hemoglobin 30.1 pg (26-34); Mean Corpuscular Volume 95.3 fl (80-100); Monocytes Absolute Auto 0.4 K/mm3 (0.1-0.6); Monocytes Percent Auto 8.3 % (2.6-8.5); Neutrophils Absolute Auto 3.8 K/mm3 (1.3-6.7); Neutrophils Percent Auto 75.5 % (45.5-73.1); Platelet Count Result 247 k/mm3 (150-375); Red Blood Count 3.62 M/mm3 (4.2-5.4); Red Cell Distribution Width 13.5 % (11.5-14.5); White Blood Count 5.1 K/mm3 (4.5-10.0)
[2021-11-26 11:47] LABS: Alanine Aminotransferase 14 U/L (6-35); Albumin Level 3.9 g/dL (3.5-5.1); Alkaline Phosphatase 80 U/L (38-126); Anion Gap 6 mmol/L (8-16); Aspartate Amino Transferase 33 U/L (14-36); Bilirubin,Total 0.4 mg/dL (0.2-1.3); Blood Urea Nitrogen 20 mg/dL (7-17); Calcium 8.8 mg/dL (8.4-10.2); Carbon Dioxide 25 mmol/L (22-30); Chloride 102 mmol/L (98-107); Estimated Glomerular Filt Rate > 60; Glucose 93 mg/dL (65-110); Potassium 4.5 mmol/L (3.4-5.0); Sodium 133 mmol/L (137-145)
[2021-11-26 11:48] LABS: Lactic Acid Reflex 0.9 mmol/L (0.7-2.0)
--- NOTE | 2021-11-26 13:02 | ED.GENADULT ---
HPI - General Adult General Chief complaint: Extremity Injury, Lower Stated complaint: Right Hip Pain Time Seen by Provider: 11/26/21 10:22 Source: patient Mode of arrival: ambulatory Limitations: no limitations History of Present Illness HPI narrative: 86-year-old female presenting to the emergency department for evaluation of right hip pain. Patient denies any falls or injuries. Patient states the pain is improved with rest and is worsened with ambulation. Patient states the right hip pain was similar to her left hip pain when she did have a fracture. Patient denies any pain with urination. Patient denies any nausea vomiting or diarrhea. Related Data Home Medications Medication Instructions Recorded Confirmed calcium carbonate 500 mg calcium 650 mg PO DAILY 03/16/20 11/30/21 (1,250 mg) tablet (Calcium 500) ferrous sulfate 325 mg (65 mg 325 mg PO BID 03/16/20 11/30/21 iron) tablet (Feosol) docusate sodium 100 mg capsule 100 mg PO DAILY 05/28/20 11/30/21 (Colace) atorvastatin 40 mg tablet 40 mg PO DAILY 09/14/20 11/30/21 albuterol sulfate 90 mcg/actuation inhalation 11/26/21 11/30/21 aerosol inhaler omeprazole 40 mg capsule,delayed 40 mg PO DAILY 11/30/21 11/30/21 release Allergies Allergy/AdvReac Type Severity Reaction Status Date / Time clonidine Allergy Unknown GI upset Verified 11/30/21 11:24 codeine Allergy Unknown Vomiting Verified 11/30/21 11:24 morphine Allergy Unknown Vomiting Verified 11/30/21 11:24 Review of Systems Review of Systems: CONSTITUTIONAL: Denies fever, chills, or sweats. EYES: Denies visual changes, redness, or discharge. ENT: Denies rhinorrhea, congestion, sore throat, or otalgia. CARDIOVASCULAR: Denies chest pain, palpitations, or edema. RESPIRATORY: Denies cough or dyspnea. GASTROINTESTINAL: Denies abdominal pain, nausea, vomiting, or diarrhea. GENITOURINARY: Denies dysuria or hematuria. SKIN: Denies rash or itching. MUSCULOSKELETAL: Right hip pain NEUROLOGIC: Denies headache, numbness, or weakness. [facility] Past Medical History Medical History (Updated 11/30/21 @ 12:18 by Judi Rodas PA-C) Anemia Asthma Benign essential hypertension Bilateral hip bursitis Carotid stenosis, right Chronic cough Chronic GERD COPD (chronic obstructive pulmonary disease) Depression Fracture of left hip requiring operative repair HTN (hypertension) with goal to be determined Hx of temporal arteritis Hyperlipidemia Hypertension Internal hemorrhoids Lung mass Mild intermittent asthma without complication Osteopenia Pre-diabetes Surgical History Surgical History History of appendectomy History of carpal tunnel release Bilaterally History of cataract Bilateral History of cholecystectomy History of tonsillectomy History of total bilateral knee replacement History of total replacement of left shoulder joint Presence of left artificial knee joint Total knee replacement status Family History Family History Mother Hypertension Family history of cardiovascular disease Carcinoma of colon, Onset Age: 86 Acute myocardial infarction Family history of heart disease in male family member before age 55, Onset Age: 86 Patient's mother is , Onset Age: 86 Father Family history of lung cancer, Onset Age: 78 Patient's father is , Onset Age: 78 Other Family history of arthritis Family history of malignant neoplasm Social History Social History Social History: Patient lives with her who has short-term memory problems due to the Parkinson's. The coming up on their 60th anniversary. They have 2 sons and 2 daughters together. Her 2 daughters are durable power criminal defense attorney for healthcare. The patient desires to be a full code. 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 She smoked many y
[2021-11-26 13:30] LABS: Appearance Urine Clear (Clear); Bilirubin Urine Negative (Negative); Blood Urine Negative (Negative); Color Urine Yellow (Yellow); Glucose Urine UA Negative (Negative); Ketones Urine Negative (Negative); Leukocyte Esterase Ur Negative LEU/UL (Negative); Nitrate Urine Negative (Negative); Protein Urine Negative (Negative); Urobilinogen Urine 0.2 mg/dL (<2.0)
[2021-11-26 13:37] LABS: Add Urine Microscopic? NO
== END 2021-11-26 13:56 | disposition home or self-care (01) ==
PROVIDERS: Emergency Provider Emergency Medicine; PCP Family Medicine
DX: M25.551 Pain in right hip (principal); I10 Essential (primary) hypertension; J44.9 Chronic obstructive pulmonary disease, unspecified; J45.20 Mild intermittent asthma, uncomplicated; I65.21 Occlusion and stenosis of right carotid artery; E78.5 Hyperlipidemia, unspecified; D64.9 Anemia, unspecified; K21.9 Gastro-esophageal reflux disease without esophagitis; M85.80 Other specified disorders of bone density and structure, unspecified site; R73.03 Prediabetes; Z98.42 Cataract extraction status, left eye; Z98.41 Cataract extraction status, right eye; Z96.653 Presence of artificial knee joint, bilateral; Z96.612 Presence of left artificial shoulder joint; Z87.891 Personal history of nicotine dependence; M47.816 Spondylosis without myelopathy or radiculopathy, lumbar region; K44.9 Diaphragmatic hernia without obstruction or gangrene; K57.90 Diverticulosis of intestine, part unspecified, without perforation or abscess without bleeding
CPT/HCPCS: 36415; 73502; 74177; 80053; 81003; 83605; 85025; 99284; Q9967

== ENCOUNTER 2021-12-10 11:29 | Outpatient (CLI) | payer MEDICARE, SELFPAY ==
--- NOTE | ~2021-12-10 | MR_ITS ---
EXAMINATION: MR hip RT wo con DATE: 12/10/2021 12:46 INDICATION: Right hip pain. TECHNIQUE: Magnetic resonance imaging (MRI) of the right hip was performed without intravenous contra st. COMPARISON: Right hip radiographs 11/26/21, pelvis MRI 05/09/2012 FINDINGS: Bones/cartilage: There is an old healed subcapital fracture of left femoral neck with internal fixation with 2 screws. There is thoracolumbar levoscoliosis and severe spondylosis. There is mild osteoarthritis of the hip s. Labrum: There is a tear of the right acetabular labrum. Fluid: There is a right hip joint effusion. There is moderate bilateral trochanteric bursitis, right worse t martinez left. Soft tissues: There are chronic complete tears of right gluteus minimus and gluteus medius tendons. There are chron ic partial tears of left gluteus minimus and gluteus medius tendons. There is severe fatty atrophy of right gluteus minimus and gluteus medius muscle bellies. There is moderate fatty atrophy of left glu teus minimus and gluteus medius muscle bellies. There are chronic partial tears of the hamstring orig ins bilaterally. The iliopsoas tendons are normal. IMPRESSION: 1. Mild osteoarthritis of the hips. 2. Tear of right acetabular labrum. 3. Right hip joint effusion. 4. Chronic complete tears of right gluteus minimus and gluteus medius tendons with severe fatty atrop hy of the muscle bellies. 5. Moderate bilateral trochanteric bursitis. Reviewed, dictated and finalized at location A. IMPRESSION: 1. Mild osteoarthritis of the hips. 2. Tear of right acetabular labrum. 3. Right hip joint effusion. 4. Chronic complete tears of right gluteus minimus and gluteus medius tendons w ith severe fatty atrophy of the muscle bellies. 5. Moderate bilateral trochanteric bursitis.
== END 2021-12-10 11:30 | disposition home or self-care (01) ==
PROVIDERS: PCP Family Medicine; Visit Provider Nurse Practitioner Family
DX: M16.0 Bilateral primary osteoarthritis of hip (principal); M25.451 Effusion, right hip; M71.551 Other bursitis, not elsewhere classified, right hip
CPT/HCPCS: 73721

== ENCOUNTER 2021-12-26 08:21 | Outpatient (CLI) | payer MEDICARE, SELFPAY ==
--- NOTE | ~2021-12-26 | CT_ITS ---
EXAMINATION: CT diagnostic chest wo con DATE: 12/26/2021 08:43 INDICATION: Chronic cough TECHNIQUE: Computed tomography (CT) of the chest was performed without intravenous contrast. The dose -length product (DLP) was 120.86 mGy-cm. Automated exposure control and iterative reconstruction tech [employer] were employed. COMPARISON: 12/31/2019 FINDINGS: There is mild emphysema. The lungs are free of acute opacities. There is no pleural effusio n or pneumothorax. There are scattered calcified at the noncalcified nodules throughout the lungs whi ch are stable, consistent with old granulomatous disease. There is a large hiatal hernia. The heart s ize is normal. There is calcified coronary artery atherosclerosis. No pathologically enlarged thoraci c lymph nodes are identified. There is a small posterior diaphragmatic hernia on the right containing fat. There is severe thoracic spondylosis. IMPRESSION: 1. Mild emphysema. 2. Large hiatal hernia. Reviewed, dictated and finalized at location A.
--- NOTE | 2021-12-26 13:43 | WPDPFTINT ---
PFT Procedure Performed PFT Procedure Performed Spirometry with Pre/Post Bronchodilator Plethysmography (Lung Vol) Diffusing Cap (DLCO) Flow Vol Loop PFT Interpretation Lung volumes were measured with the body plethysmography method. Lung volumes are unremarkable. Spirometry showed normal expiratory flow rates and a normal FEV1 to FVC ratio of 68%. Following administration of a bronchodilator there was no significant change in the expiratory flow rates. Lung diffusion capacity is mildly reduced at 61% predicted. The flow volume loop is unremarkable. In comparison to previous study in 2018, the post bronchodilator measurements of FVC and FEV1 are now lower by approximately 0.35-0.40 L each. Lung diffusion capacity is also lower by approximately 12%. Impression: Spirometry and lung volumes within normal range. Mild reduction in lung diffusion capacity.
== END 2021-12-26 08:22 | disposition home or self-care (01) ==
PROVIDERS: PCP Family Medicine; Visit Provider Physician Assistant
DX: R05.3 Chronic cough (principal); R06.00 Dyspnea, unspecified; J43.9 Emphysema, unspecified; K44.9 Diaphragmatic hernia without obstruction or gangrene
CPT/HCPCS: 71250; 94060; 94726; 94729

== ENCOUNTER → 2022-01-23 08:02 | Outpatient (CLI) | payer MEDICARE, SELFPAY ==
--- NOTE | ~2022-01-23 | US_ITS ---
US abdomen limited INDICATION: Right upper quadrant pain PROCEDURE: Realtime right upper abdominal ultrasound. COMPARISON: No prior studies for comparison. FINDINGS: The pancreas is normal without focal mass or pancreatic ductal dilation. Liver echotexture is normal without focal mass or intrahepatic biliary dilatation. There is normal directional flow i n the portal vein. Gallbladder is surgically absent. Common bile duct measures 7 mm. No sonographic Velarde's sign. IMPRESSION: 1: Unremarkable limited abdominal ultrasound postcholecystectomy. Reviewed, dictated and finalized at location A.
== END ==
PROVIDERS: PCP Family Medicine; Visit Provider Family Medicine
DX: R10.11 Right upper quadrant pain (principal)
CPT/HCPCS: 76705

== ENCOUNTER 2022-07-23 08:10 | Emergency (ER) | payer MEDICARE, SELFPAY ==
--- NOTE | ~2022-07-23 | XR_ITS ---
XR hip LT 2V w AP pelvis DATE: 07/23/2022 08:55 INDICATION: Fall 2 days ago. Left hip is giving out TECHNIQUE: AP pelvis. AP and lateral views of left hip. COMPARISON: None FINDINGS: Levoscoliosis and multilevel prominent degenerative disc disease of the lumbar spine. The pubic symphysis and sacroiliac joints are intact. No pelvic fracture or bone destruction is detec idris. Surgical there are 3 lag screws extending through the intertrochanteric area and femoral neck into th e femoral head for old left subcapital femoral neck fracture. No recent fracture or dislocation is de tected. IMPRESSION: Status post ORIF left subcapital femoral neck fracture Levoscoliosis and multilevel degenerative disc disease of the lumbar spine Reviewed, dictated and finalized at location A. [facility]
--- NOTE | ~2022-07-23 | XR_ITS ---
XR knee LT 3V DATE: 07/23/2022 08:55 INDICATION: Fall. Left leg pain. TECHNIQUE: [place], AP and lateral views COMPARISON: October 13, 2018 left knee FINDINGS: Status post left knee arthroplasty. No recent fracture or dislocation or joint effusion is detected. There is diffuse osteopenia. IMPRESSION: Left knee arthroplasty No fracture or dislocation is detected Osteopenia Reviewed, dictated and finalized at location A. 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
--- NOTE | 2022-07-23 08:14 | ED.LOWEXIN ---
HPI - Extremity Injury (Lower) General Chief Complaint: Extremity Injury, Lower Stated Complaint: FALL/KNEE/LEG INJURY Time Seen by Provider: 07/23/22 08:15 Source: patient, family and RN notes reviewed History of Present Illness HPI Narrative: Patient is an 87-year-old female who presents to Urgent Care with her son with complaints of left knee and hip pain after a fall on Sunday. Patient states she went down on her left knee while at the grocery store, tripping over the rug. Patient denies hitting her head or any loss of consciousness. States that she has had a bilateral knee replacement. States that the hip did not initially hurt but that is now her main complaint. Patient has been taking ibuprofen. States her pain is exacerbated on ambulation and weight-bearing. Patient denies pain at rest. No other acute complaints. No acute distress noted. Patient aware of the plan of care. Some parts of this dictation were generated by voice recognition software and may contain typographical and/or grammatical inaccuracies. Related Data Home Medications Medication Instructions Recorded Confirmed calcium carbonate 500 mg calcium 650 mg PO DAILY 03/16/20 07/23/22 (1,250 mg) tablet (Calcium 500) ferrous sulfate 325 mg (65 mg 325 mg PO BID 03/16/20 07/23/22 iron) tablet (Feosol) atorvastatin 40 mg tablet 40 mg PO DAILY 09/14/20 07/23/22 albuterol sulfate 90 mcg/actuation 90 mcg inhalation Q4-6H PRN 11/26/21 07/23/22 aerosol inhaler Shortness Of Breath ascorbate calcium (vitamin C) 500 500 mg PO DAILY 07/23/22 07/23/22 mg capsule cholecalciferol (vitamin D3) 25 25 mcg PO DAILY 07/23/22 07/23/22 mcg (1,000 unit) capsule (Vitamin D3) multivitamin with minerals 1 tablet PO DAILY 07/23/22 07/23/22 (Hair,Skin and Nails tablet) sodium di- and 1 tablet PO DAILY 07/23/22 07/23/22 monophosphate-potassium phos monobasic 250 mg tablet (Phosphorous) Allergies Allergy/AdvReac Type Severity Reaction Status Date / Time clonidine Allergy Unknown GI upset Verified 07/23/22 08:20 codeine Allergy Unknown Vomiting Verified 07/23/22 08:20 morphine Allergy Unknown Vomiting Verified 07/23/22 08:20 Review of Systems Review of Systems: CONSTITUTIONAL: Denies fever, chills, or sweats. EYES: Denies visual changes, redness, or discharge. ENT: Denies rhinorrhea, congestion, sore throat, or otalgia. CARDIOVASCULAR: Denies chest pain, palpitations, or edema. RESPIRATORY: Denies cough or dyspnea. GASTROINTESTINAL: Denies abdominal pain, nausea, vomiting, or diarrhea. GENITOURINARY: Denies dysuria or hematuria. SKIN: Denies rash or itching. MUSCULOSKELETAL: Reports of left knee pain and left hip pain NEUROLOGIC: Denies headache, numbness, or weakness. All other systems reviewed are negative, except as documented in HPI. [facility] Past Medical History Medical History Anemia Asthma Benign essential hypertension Bilateral hip bursitis Bursitis of right hip Carotid stenosis, right Chronic cough Chronic GERD COPD (chronic obstructive pulmonary disease) Depression Fracture of left hip requiring operative repair HTN (hypertension) with goal to be determined Hx of temporal arteritis Hyperlipidemia Hypertension 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 Internal hemorrhoids Lung mass Mild intermittent asthma without complication Osteopenia Pre-diabetes Trochanteric bursitis, right hip Surgical History Surgical History History of appendectomy History of carpal tunnel release Bilaterally History of cataract Bilateral History of cholecystectomy History of tonsillectomy History of total bilateral knee replacement History of total replacement of left shoulder joint Presence of left artificial knee joint Total knee replacement status Family History Family History (Reviewed 06/14/22 @ 14:19 by Mark Sears
[2022-07-23 08:55] VITALS: BP 160/76; PULSE 73; RESP 16; O2SAT 100
--- NOTE | 2022-07-23 10:40 | PC.NURSE ---
[id number] pt transferred with standby assist from wheelchair to bathroom-walks with assistance.
== END 2022-07-23 09:37 | disposition home or self-care (01) ==
PROVIDERS: Emergency Provider Nurse Practitioner Family; PCP Family Medicine
DX: M25.552 Pain in left hip (principal); M25.562 Pain in left knee; Z87.891 Personal history of nicotine dependence; J45.909 Unspecified asthma, uncomplicated; I65.21 Occlusion and stenosis of right carotid artery; K21.9 Gastro-esophageal reflux disease without esophagitis; E78.5 Hyperlipidemia, unspecified; M85.80 Other specified disorders of bone density and structure, unspecified site; R73.03 Prediabetes; Z96.653 Presence of artificial knee joint, bilateral; Z96.612 Presence of left artificial shoulder joint; D64.9 Anemia, unspecified
CPT/HCPCS: 73502; 73562; 99214; G0463

== ENCOUNTER → 2022-07-26 11:19 | Outpatient (CLI) | payer MEDICARE, SELFPAY ==
--- NOTE | ~2022-07-26 | MR_ITS ---
MRI of the left hip Clinical history: Pain Technique: Coronal T1-weighted, T2-weighted, and proton-density fat-sat images, and axial T1-weighted and proton-density fat-sat images were acquired through the pelvis. Coronal T2-weighted images and c oronal, axial, and sagittal proton-density fat-sat images were acquired through the left hip. Findings: No acute fracture identified. Orthopedic screws are present traversing the left femoral nec k. Aside from local signal distortion, no significant marrow signal abnormality identified in the pro ximal femora or visualized pelvic bones. Bilateral hip and SI joint spaces are preserved. Right hip j oint effusion present. No significant left hip joint effusion. There is probable degenerative tearing of the anterior and superior aspects of the left acetabular la perico. Visualized musculature about the pelvis and left hip is unremarkable. No muscle atrophy or edema seen . No evidence for bursitis. No soft tissue mass or fluid collection identified. IMPRESSION: No fracture. Degenerative tearing of the anterior superior aspects of the left acetabular labrum. Orthopedic screws traversing the femoral neck. Correlate with surgical history. Reviewed, dictated and finalized at location . 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 Degenerative tearing of the anterior superior aspects of the left acetabular la perico. Orthopedic screws traversing the femoral neck. Correlate with surgical history.
== END ==
PROVIDERS: PCP Family Medicine; Visit Provider Family Medicine
DX: M25.552 Pain in left hip (principal)
CPT/HCPCS: 73721

== ENCOUNTER → 2022-10-03 13:46 | Outpatient (CLI) | payer MEDICARE, SELFPAY ==
--- NOTE | ~2022-10-03 | MR_ITS ---
MRI of the lumbar spine Clinical History: Radiculopathy Technique: Axial T2-weighted images, and sagittal T1-weighted, T2-weighted, and T2 fat-sat images wer e acquired. Findings: There is levoscoliosis of the lumbar spine. No acute fracture seen. 5 mm anterolisthesis of L4 over L5 present. Minimal grade 1 retrolisthesis of L2 over L3, and of L3 over L4 are present. No suspicious bone marrow signal abnormality seen. At L1-L2, there is advanced degenerative disc narrowing with mild disc bulge and facet arthropathy. N o spinal canal stenosis. There is severe right neural foraminal narrowing. Left neural foramen preser luiza. At L2-L3, there is severe degenerative disc narrowing with diffuse disc bulge and mild facet arthropa thy. No brina spinal canal stenosis. There is severe right neural foraminal narrowing and mild left n eural foraminal narrowing. At L3-L4, there is severe degenerative disc narrowing with diffuse disc bulge and facet arthropathy. There is left lateral recess stenosis. There is moderate to severe bilateral neural foraminal narrowi ng. At L4-L5, there is disc bulge and facet arthropathy. No spinal canal stenosis. There is severe left n eural foraminal narrowing. Right neural foramen preserved. At L5-S1, there is disc bulge and facet arthropathy. No brina spinal canal stenosis. There is moderat e to severe bilateral neural foraminal narrowing. Paravertebral soft tissues are unremarkable. Impression: Moderate to severe degenerative spondylosis, as detailed above, with multilevel advanced neural tae inal narrowing. Left lateral recess stenosis present at L3-L4. 5 mm anterolisthesis of L4 over L5. Minimal grade 1 retrolisthesis of L2 over L3, and of L3 over L4. Levoscoliosis. Reviewed, dictated and finalized at [facility]. Impression: Moderate to severe degenerative spondylosis, as detailed above, with multilevel advanced neural foraminal narrowing. Left lateral recess stenosis present at L 3-L4. 5 mm anterolisthesis of L4 over L5. Minimal grade 1 retrolisthesis of L2 over L3, and of L3 over L4. Levoscoliosis.
== END ==
PROVIDERS: PCP Family Medicine; Visit Provider Nurse Practitioner Family
DX: M47.26 Other spondylosis with radiculopathy, lumbar region (principal)
CPT/HCPCS: 72148

== ENCOUNTER → 2023-01-23 10:23 | Outpatient (CLI) | payer MEDICARE, SELFPAY ==
--- NOTE | ~2023-01-23 | CT_ITS ---
EXAMINATION: CT brain wo con DATE: 01/23/2023 10:40 INDICATION: Traumatic injury to head; patient fell approximately 2 weeks ago and struck head.. Expres sive aphasia. History of TIA, subarachnoid hemorrhage. TECHNIQUE: Computed tomography (CT) of the head was performed without intravenous contrast. The mA wa s adjusted according to patient size. Iterative reconstruction technique was employed. Exam dose: 59 9.57 mGy-cm total exam DLP. COMPARISON: 05/23/2021 CT brain 05/29/2020 MRI brain/brainstem 05/28/2020 CT brain FINDINGS: There are prominent bilateral carotid siphon internal carotid artery calcifications. There is nonspecific diminished attenuation of the cerebral white matter, likely due to chronic small vesse l ischemic changes. No intracranial mass lesion or hemorrhage or recent cerebrovascular accident is evident. No midline shift or mass effect. No subdural or epidural hematoma. No fracture or bone destruction of the cranial vault. The mastoid air cells and included paranasal si nuses are normally developed and aerated. IMPRESSION: Cerebral atherosclerosis and chronic small vessel ischemic changes of the cerebral white matter No acute intracranial finding or significant change since recent CT head examinations of 05/23/2021 1 07/28/2019 Reviewed, dictated and finalized at Location A. Reviewed, dictated and finalized at location L. IMPRESSION: Cerebral atherosclerosis and chronic small vessel ischemic changes of the cerebral white matter No acute intracranial finding or significant change since recent CT head examin ations of 05/23/2021 05/28/2020
== END ==
PROVIDERS: PCP Family Medicine; Visit Provider Physician Assistant
DX: I67.2 Cerebral atherosclerosis (principal); R47.01 Aphasia
CPT/HCPCS: 70450

== ENCOUNTER 2023-03-19 10:53 | Observation (INO) | payer MEDICARE, SELFPAY ==
[2023-03-19] VITALS (28 sets, daily range): BP systolic 106–155; BP diastolic 43–94; PULSE 61–72; RESP 11–27; TEMP 36.6–37.1; O2SAT 70–100; BMI 24.9
--- NOTE | ~2023-03-19 | MR_ITS ---
EXAMINATION: MR brain/brain stem wo/w con DATE: 03/20/2023 09:02 INDICATION: Dizziness. Transient ischemic attack. TECHNIQUE: Magnetic resonance imaging (MRI) of the brain and brainstem was performed without and with 11 mL MultiHance intravenous contrast. COMPARISON: Head CT 03/19/2023, brain MRI 05/29/2020 FINDINGS: There are scattered areas of nonspecific increased T2-weighted signal intensity in the cere bral white matter. There is no intracranial hemorrhage, acute infarction, or abnormal intracranial ma ss lesion. The ventricles are normal in size. The paranasal sinuses are clear. There are likely gardner es of ocular lens replacement surgeries. The mastoid air cells are normal. IMPRESSION: 1. Extensive nonspecific cerebral white matter disease, which likely represents chronic small vessel ischemic disease, stable from 05/29/2020. Reviewed, dictated and finalized at location A.
--- NOTE | ~2023-03-19 | CT_ITS ---
EXAMINATION: CT brain wo con DATE: 03/19/2023 14:35 INDICATION: Dizziness. TECHNIQUE: Computed tomography (CT) of the head was performed without intravenous contrast. The mA wa s adjusted according to patient size. Iterative reconstruction technique was employed. The dose-lengt h product was 529.67 mGy-cm. COMPARISON: Head CT 01/23/2023 FINDINGS: There are scattered areas of low attenuation in the cerebral white matter. There is no intr acranial hemorrhage, acute infarction, or abnormal intracranial mass lesion. The ventricles are maggie l in size. The paranasal sinuses are clear. The mastoid air cells are normal. There are likely change s of ocular lens replacement surgeries. IMPRESSION: 1. Stable extensive nonspecific cerebral white matter disease, which likely represents chronic small vessel ischemic disease. Reviewed, dictated and finalized at location A. IMPRESSION: 1. Stable extensive nonspecific cerebral white matter disease, which likely rep resents chronic small vessel ischemic disease.
--- NOTE | ~2023-03-19 | CT_ITS ---
EXAMINATION: CTA brain carotid DATE: 03/19/2023 17:31 INDICATION: CVA TECHNIQUE: Computed tomographic angiography (CTA) of the head and neck was performed withwith 100 mL Omnipaque-350 intravenous contrast. Automated exposure control and iterative reconstruction technique were employed. The dose-length product was 969.83 mGy-cm. Maximum intensity projection and volume re ndered 3D-reconstructions were created by the technologist on a separate workstation. COMPARISON: CT brain, same date. FINDINGS: CTA HEAD: No large vessel occlusion, aneurysm, high flow vascular malformation, nidus or extravasation. Calcifi cation in the bilateral carotid siphons without significant stenosis. CTA NECK: Aortic arch and proximal great vessels: Bovine arch with moderate calcification. Right common carotid, carotid bifurcation, and internal carotid artery: Calcified and noncalcified pl aque at the bifurcation.There is 53% stenosis of the proximal right internal carotid artery relative to normal distal artery lumen diameter (NASCET criteria). Left common carotid, carotid bifurcation, and internal carotid artery: Calcified plaque at the bifurc ation.There is 0% stenosis of the proximal left internal carotid artery relative to normal distal art milton lumen diameter (NASCET criteria). Vertebral arteries: No significant plaque or stenosis. Other findings: Cervical spondylosis. IMPRESSION: No large vessel occlusion. Mild (53%) stenosis at the right carotid bifurcation (NASCET criteria). Aerated secretions in the left sphenoid sinus may represent acute sinusitis in the appropriate clinic al context. Reviewed, dictated and finalized at location K. IMPRESSION: No large vessel occlusion. Mild (53%) stenosis at the right carotid bifurcation (NASCET criteria). Aerated secretions in the left sphenoid sinus may represent acute sinusitis in the appropriate clinical context.
--- NOTE | ~2023-03-19 | XR_ITS ---
EXAMINATION: XR chest 2V DATE: 03/19/2023 14:30 INDICATION: Dizziness. Weakness. TECHNIQUE: Frontal and lateral views of the chest were obtained. COMPARISON: Chest 2 views 11/23/2021, chest CT 12/26/2021 FINDINGS: There is no pneumonia, pleural effusion, or pneumothorax. The heart size is normal. There i s a large hiatal hernia. There is a left shoulder arthroplasty. There is mild chronic anterior wedgin g of multiple vertebral bodies. IMPRESSION: 1. Large hiatal hernia. Reviewed, dictated and finalized at location A. IMPRESSION: 1. Large hiatal hernia.
--- NOTE | 2023-03-19 11:50 | ECG_ITS ---
Measurements Intervals [place] Rate: 60 P: 90 WI: 295 QRS: 68 QRSD: 87 T: 66 QT: 408 QTc: 410 Interpretive Statements SINUS RHYTHM WITH FIRST DEGREE AV BLOCK BASELINE ARTIFACT- I, II, III, AVR, AVL, AVF, V2-V3 BORDERLINE ECG COMPARED TO ECG 05/23/2021 10:33:20 NO SIGNIFICANT CHANGES Electronically Signed On 03-19-2023 13:20:14 CDT by Bret Laughlin D.O.
[2023-03-19 13:29] LABS: Basophils Percent Auto 0.6 % (0.2-1.2); Eosinophils Absolute Auto 0.1 K/mm3 (0-0.3); Eosinophils Percent Auto 2.2 % (0-4.4); Hematocrit 32.1 % (37.0-47.0); Hemoglobin 10.2 g/dL (12.0-15.0); Immature Granulocyte Absolute 0.02 K/mm3 (0.00-0.031); Immature Granulocyte Percent A 0.4 % (0-0.5); Lymphocytes Absolute Auto 0.91 K/mm3 (0.9-3.2); Mean Corpuscular HGB Conc 31.8 g/dl (32-36); Mean Corpuscular Hemoglobin 29.9 pg (26-34); Mean Corpuscular Volume 94.1 fl (80-100); Mean Platelet Volume 10.6 fl (7.4-10.4); Monocytes Absolute Auto 0.6 K/mm3 (0.1-0.6); Monocytes Percent Auto 11.6 % (2.6-8.5); Neutrophils Absolute Auto 3.7 K/mm3 (1.3-6.7); Neutrophils Percent Auto 68.2 % (45.5-73.1); Platelet Count Result 239 k/mm3 (150-375); Red Blood Count 3.41 M/mm3 (4.2-5.4); Red Cell Distribution Width 12.9 % (11.5-14.5); White Blood Count 5.4 K/mm3 (4.5-10.0)
[2023-03-19 13:42] LABS: Alanine Aminotransferase 18 U/L (6-35); Albumin Level 3.7 g/dL (3.5-5.1); Alkaline Phosphatase 76 U/L (38-126); Anion Gap 8 mmol/L (8-16); Aspartate Amino Transferase 24 U/L (14-36); Bilirubin,Total 0.5 mg/dL (0.2-1.3); Blood Urea Nitrogen 37 mg/dL (7-17); Calcium 8.9 mg/dL (8.4-10.2); Carbon Dioxide 24 mmol/L (22-30); Chloride 101 mmol/L (98-107); Estimated Glomerular Filt Rate 47; Glucose 96 mg/dL (65-110); Sodium 133 mmol/L (137-145)
--- NOTE | 2023-03-19 13:56 | ED.DIZZY ---
HPI - Dizziness General Chief Complaint: Dizziness Stated Complaint: dizziness Time Seen by Provider: 03/19/23 13:55 Source: patient and family Mode of arrival: ambulatory Limitations: no limitations History of Present Illness HPI Narrative: 87 years old white female woke up this morning feeling not right, little dizzy without any nausea or vomiting, went to turn her car on and could not figure it out. Patient drive her car daily, today could not start the engine. She denies any numbness, tingling or weakness. Feeling unsteady. She is on aspirin 324 mg once a day. Related Data Home Medications Medication Instructions Recorded Confirmed calcium carbonate 500 mg calcium 650 mg PO DAILY 03/16/20 01/19/23 (1,250 mg) tablet (Calcium 500) ferrous sulfate 325 mg (65 mg 325 mg PO BID 03/16/20 01/19/23 iron) tablet (Feosol) atorvastatin 40 mg tablet 40 mg PO DAILY 09/14/20 01/19/23 ascorbate calcium (vitamin C) 500 500 mg PO DAILY 07/23/22 01/19/23 mg capsule cholecalciferol (vitamin D3) 25 25 mcg PO DAILY 07/23/22 01/19/23 mcg (1,000 unit) capsule (Vitamin D3) multivitamin with minerals 1 tablet PO DAILY 07/23/22 01/19/23 (Hair,Skin and Nails tablet) sodium di- and 1 tablet PO DAILY 07/23/22 01/19/23 monophosphate-potassium phos monobasic 250 mg tablet (Phosphorous) Allergies Allergy/AdvReac Type Severity Reaction Status Date / Time clonidine Allergy Unknown GI upset Verified 01/19/23 16:00 codeine Allergy Unknown Vomiting Verified 01/19/23 16:00 morphine Allergy Unknown Vomiting Verified 01/19/23 16:00 Review of Systems Review of Systems: All systems reviewed & are unremarkable except as noted in HPI and below PMFSH Past Medical History Medical History Anemia Arthritis of left hip Asthma Benign essential hypertension Bilateral hip bursitis Bursitis of right hip Carotid stenosis, right Chronic cough Chronic GERD COPD (chronic obstructive pulmonary disease) Degenerative arthritis of left foot Depression Fracture of left hip requiring operative repair HTN (hypertension) with goal to be determined Hx of temporal arteritis Hyperlipidemia Hypertension 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 Internal hemorrhoids Lumbosacral spondylosis with radiculopathy Lung mass Mild intermittent asthma without complication Osteopenia Pre-diabetes Traumatic arthritis of left hip Trochanteric bursitis, right hip Surgical History Surgical History History of appendectomy History of carpal tunnel release Bilaterally History of cataract Bilateral History of cholecystectomy History of tonsillectomy History of total bilateral knee replacement History of total replacement of left shoulder joint Presence of left artificial knee joint Total knee replacement status Family History Family History Mother Hypertension Family history of cardiovascular disease Carcinoma of colon, Onset Age: 86 Acute myocardial infarction Family history of heart disease in male family member before age 55, Onset Age: 86 Patient's mother is , Onset Age: 86 Father Family history of lung cancer, Onset Age: 78 Patient's father is , Onset Age: 78 Other Family history of arthritis Family history of malignant neoplasm Social History Social History Social History: Patient lives with her who has short-term memory problems due to the Parkinson's. The coming up on their 60th anniversary. They have 2 sons and 2 daughters together. Her 2 daughters are durable power ip attorney for healthcare. The patient desires to be a full code. 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 She smoked many years ago. No alcohol marijuana or illicit drugs. Smoking packs per day: 1 Smoking ciga
[2023-03-19 14:32] LABS: Prothrombin Time 13.8 Seconds (11.1-14.7)
[2023-03-19 14:33] LABS: Partial Thromboplastin Time 26.9 SECONDS (22.3-36.8)
[2023-03-19 14:37] LABS: Troponin I < 0.012 ng/mL (0.000-0.034)
--- NOTE | 2023-03-19 18:15 | PC.NURSE ---
1807-REPORT TO TORSTEN MEDRANO ON [facility].
--- NOTE | 2023-03-19 18:24 | PM.IMHP ---
H&P: HPI History of Present Illness Date/Time: 03/19/23 18:00 Chief Complaint: Dizziness. Narrative: This is a very pleasant 87-year-old female with history of TIA, right carotid artery disease, hypertension, hyperlipidemia, chronic kidney disease, and anemia who presented to the emergency department via private vehicle from home for evaluation of dizziness. The patient provides the following history. She ?just felt off? when she got up this morning. She was a bit dizzy but not significantly so and she has difficulties describing the dizziness. She started doing some chores at the house but she seemed distracted and was frequently forgetting what she was supposed to be doing. Later on in the morning she went out to run an errand and when she sat in the car she could not remember how to turn it on. She then phoned her daughter who brought her in for evaluation. Her symptoms seem to have resolved and she feels just fine. She reports having history of TIA many years ago and thinks she may have had one in January at which time she was having difficulties getting out the words that she wanted to say for brief period of time. She denies vision changes, facial droop, difficulty speaking and swallowing, focal weakness, and paresthesias. She also denies chest pain, palpitations, sensations of racing heart. She has no known history of atrial fibrillation. Blood pressures have been stable since arrival. She is in a sinus rhythm. CTA of the head and neck showed no large vessel occlusion and mild stenosis at the right carotid bifurcation (53%). She is being admitted in this setting for close monitoring and neurology consultation. Review of Systems Review of Systems: Twelve systems were reviewed and are negative except for as per HPI. 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 Internal hemorrhoids Lumbosacral spondylosis with radiculopathy Lung mass Mild intermittent asthma without complication Osteopenia Pre-diabetes Traumatic arthritis of left hip Trochanteric bursitis, right hip Surgical History Surgical History History of appendectomy History of carpal tunnel release Bilaterally History of cataract Bilateral History of cholecystectomy History of tonsillectomy History of total bilateral knee replacement History of total replacement of left shoulder joint Presence of left artificial knee joint Total knee replacement status Family History Family History Mother Hypertension Family history of cardiovascular disease Carcinoma of colon, Onset Age: 86 Acute myocardial infarction Family history of heart disease in male family member before age 55, Onset Age: 86 Patient's mother is , Onset Age: 86 Father Family history of lung cancer, Onset Age: 78 Patient's father is , Onset Age: 78 Other Family history of arthritis Family history of malignant neoplasm Social History Social History (Updated 03/24/23 @ 16:02 by Elin Wisdom PA-C) Social History: Code status: Full code. Smoking packs per day: 1 Smoking cigarettes per day: 20.0 Years smoked: 10 Smoking pack-years: 10.00 Smoking status: Former smoker Tobacco type: cigarettes Second hand tobacco smoke exposure: Yes Alcohol intake: never Substance use: never Substance use type: does not use La
--- NOTE | 2023-03-19 18:43 | ADMGEN ---
This patient, Selena Lua, was admitted to Medical Room 258-01. Patient/family oriented to hospital policies and general routines including ID bracelet, bed and alarms, visiting hours, pain management, procedures, bathroom and other care routines, personal items, smoking policy, room service/diet, and visiting hours. Information on how to activate the Rapid Response Team has been discussed. Patient/Family are encouraged to report perceived risks to care and to ask questions if they do not understand what they are told or what they should do.
[2023-03-20] VITALS (13 sets, daily range): BP systolic 116–183; BP diastolic 56–85; PULSE 57–80; RESP 16–18; TEMP 36.2–36.9; O2SAT 94–100
--- NOTE | 2023-03-20 | ECHO_ITS ---
Patient Info Name: Selena Lua Age: 87 years : 1935 Gender: Female Ht: 59 in Wt: 123 lbs BSA: 1.54 m2 HR: 64 bpm BP: 183 / 76 mmHg Heart Rhythm: Sinus Arrhythmia Technical Quality: Good Exam Date: 03/20/2023 2:23 PM Exam Location: [facility] Patient Status: Outpatient Admit Date: 03/19/2023 Staff Ordering Physician: Elin Wisdom PA-C Architectural Practice Manager: Az Rubio RDCS Attending Provider: Tom Morris MD Referring Physician: Alyx MEEKS; Exam Type: CA echo doppler color flow Study Info Indications - TIA, HTN Complete two-dimensional, color flow and Doppler transthoracic echocardiogram is performed. History/Risk Factors Coronary Artery Disease (CAD) Yes Congestive Heart Failure (CHF): Hx CHF Prior Interventions CABG: Yes Summary 1. Complete two-dimensional, color flow and Doppler transthoracic echocardiogram is performed. 2. Patient has prior CABG. 3. Left ventricular chamber dimension is normal. 4. Left ventricular systolic function is normal, estimated at 60-65%. 5. There is mildly increased left ventricular wall thickness. 6. The left ventricular diastolic function is grade I diastolic dysfunction. 7. Right ventricular chamber dimension is moderately enlarged. 8. Right ventricular systolic function is normal. 9. Left atrial chamber dimension is moderately enlarged. 10. Right atrial chamber dimension is severely enlarged. 11. The mitral valve annulus is severely calcified. 12. The mitral valve has thickened leaflets. 13. There is trace mitral valve regurgitation. 14. There is mild tricuspid valve regurgitation. Left Ventricle Left ventricular chamber dimension is normal. Left ventricular systolic function is normal, estimated at 60-65%. There is mildly increased left ventricular wall thickness. The left ventricular diastolic function is grade I diastolic dysfunction. Right Ventricle Right ventricular chamber dimension is moderately enlarged. Right ventricular systolic function is normal. Left Atria Left atrial chamber dimension is moderately enlarged. Right Atria Right atrial chamber dimension is severely enlarged. Atrial Septum Intact interatrial septum visualized by color flow imaging. Aortic Valve The aortic valve is trileaflet. There is moderate aortic valve sclerosis. There is no aortic valve stenosis. There is no aortic valve regurgitation. Pulmonic Valve The pulmonic valve is not well visualized. There is trace pulmonic regurgitation. Mitral Valve The mitral valve has thickened leaflets. There is trace mitral valve regurgitation. The mitral valve annulus is severely calcified. Tricuspid Valve There is mild tricuspid valve regurgitation. Pericardium/Pleural There is no pericardial effusion. Inferior Vena Cava Normal inferior vena cava with >50% collapse upon inspiration consistent with normal right atrial pressure, 3 mmHg. Aorta The aortic root size at the sinus of Valsalva is normal. Left Ventricular Outflow Tract Name Value Normal LVOT 2D LVOT Diameter 1.9 cm LVOT Doppler LVOT Peak Gradient 7 mmHg LVOT Mean Gradient 5 mmHg LVOT VTI
[2023-03-20 06:09] LABS: Anion Gap 6 mmol/L (8-16); Blood Urea Nitrogen 24 mg/dL (7-17); Carbon Dioxide 25 mmol/L (22-30); Chloride 103 mmol/L (98-107); Cholesterol 178 mg/dL (0-200); Estimated Glomerular Filt Rate > 60; Glucose 84 mg/dL (65-110); HDL Direct 83 mg/dL; Magnesium 2.1 mg/dL (1.6-2.3); Potassium 3.8 mmol/L (3.4-5.0); Sodium 134 mmol/L (137-145); Triglycerides 52 mg/dL (<150)
[2023-03-20 06:20] LABS: LDL Cholesterol Direct 69 mg/dL
[2023-03-20] MEDS: FLUTICASONE/SALMETEROL 115-21 MCG INHALER 1 PUFF 2 PUFF INHALATION ×2 (08:09→19:38)
[2023-03-20] MEDS: POTASSIUM PHOS/SODIUM PHOS 250 MG TABLET PO (10:03)
[2023-03-20] MEDS: ASPIRIN 325 MG ENTERIC TABLET PO (10:04)
[2023-03-20] MEDS: LOSARTAN POTASSIUM 25 MG TABLET PO (10:04)
[2023-03-20] MEDS: FERROUS SULFATE 325 MG TABLET DR BY MOUTH ×2 (10:04→17:46)
[2023-03-20] MEDS: THERAPEUTIC MULTIVITAMINS/MINERALS TAB (*BKC) 1 TABLET PO (10:04)
[2023-03-20] MEDS: ESCITALOPRAM OXALATE 5 MG TABLET PO (10:04)
[2023-03-20] MEDS: ATORVASTATIN 40 MG TABLET PO (10:05)
[2023-03-20] MEDS: CALCIUM CARBONATE (OSCAL) 500 MG TABLET PO (10:05)
[2023-03-20] MEDS: ASCORBIC ACID 500 MG TABLET PO (10:05)
[2023-03-20] MEDS: dilTIAZem HCL CD 180 MG CAP.24HR PO (10:05)
[2023-03-20] MEDS: CHOLECALCIFEROL 1,000 UNITS TABLET 1000 UNITS PO (10:05)
--- NOTE | 2023-03-20 11:02 | PM.IMPN ---
Progress Note: A&P Assessment and Plan (1) Transient ischemic attack: Code(s): G45.9 - Transient cerebral ischemic attack, unspecified Status: Acute (2) Right-sided carotid artery disease: Code(s): I77.9 - Disorder of arteries and arterioles, unspecified Status: Acute (3) Hypertension: Qualifiers: Hypertension type: unspecified Qualified Code(s): I10 - Essential (primary) hypertension Code(s): I10 - Essential (primary) hypertension Status: Chronic (4) Hyperlipidemia: Qualifiers: Hyperlipidemia type: unspecified Qualified Code(s): E78.5 - Hyperlipidemia, unspecified Code(s): E78.5 - Hyperlipidemia, unspecified Status: Chronic Plan The patient presented to the emergency department for evaluation of several symptoms which concern her for possible stroke including dizziness and forgetting how to do daily activities as per HPI. Labs, imaging, EKG, and all reports were personally reviewed. Brain CT and CT of the head and neck did not show any acute findings. Mild stenosis (53%) noted at the right carotid bifurcation. She is on atorvastatin 40 mg daily as well as aspirin 324 mg daily. She denies palpitations and irregular heart rate and has no known history of atrial fibrillation. However she will be monitor on telemetry and it may be prudent to send her home on event monitor given the fact that this will be her 3rd TIA, and 2nd in less than 3 months. Continue neurologic checks. Echocardiogram ordered. Neurology was consulted by the ED physician and their input is appreciated. Blood pressures have been stable. Her antihypertensives will be resumed. The rest of her home medications will be reviewed and resumed as appropriate. Subjective Date/time seen: 03/20/23 11:02 Interval history: no new complaints no neuro issues this am Exam Narrative: General: Well-developed elderly female appearing a bit younger than her stated age sitting up in bed. Weight: 56 kg. BMI: 24.9. HEENT: Wearing corrective lenses. PERRL, EOMI. Sclera anicteric. Oral mucosa moist. Oropharynx clear. Neck: Supple. No obvious carotid bruits. Respiratory: Lungs are clear to auscultation bilaterally. Cardiovascular: Regular rate and rhythm with S1-S2. Occasional ectopy. Gastrointestinal: Abdomen is soft, nontender, and nondistended with positive bowel sounds. Skin: Warm and dry. No rash or lesions on limited exam. Extremities: No cyanosis, clubbing, or edema. Radial and pedal pulses intact. Neurological: Alert and oriented. Cranial nerves 2-12 are grossly intact. Speech is clear. No facial asymmetry. No pronator drift. Normal [id number] and rapid alternating movements. Strength 5/5 in upper and lower extremities. Hand cribbing setter and foot pushes equal bilaterally. Psychiatric: Pleasant and cooperative with normal mood and affect. Judgment and insight intact. Objective Data Vital Signs Vital Signs: Vital Signs - 24 hr 03/19/23 11:45 03/19/23 14:42 03/19/23 14:47 Temperature 97.9 F Pulse Rate 61 61 63 Respiratory Rate 17 14 Blood Pressure 147/65 H 114/94 H Pulse Oximetry 100 100 Oxygen Delivery Room Air 03/19/23 14:48 03/19/23 14:50 03/19/23 14:52 Temperature Pulse Rate 63 68 69 Respiratory Rate 18 16 12 Blood Pressure 133/71 124/90 140/65 Pulse Oximetry 100 90 100 Oxygen Delivery 03/19/23 14:40 03/19/23 14:41 03/19/23 14:45 Temperature Pulse Rate 64 63 65 Respiratory Rate 18 16 14 Blood Pressure 114/94 H Pulse Oximetry 99 100 98 Oxygen Delivery 03/19/23 14:49 03/19/23 14:50 03/19/23 14:52 Temperature Pulse Rate 66 68 69 Respiratory Rate 18 16 11 L Blood Pressure 133/71 124/90 140/65 Pulse Oximetry 82 L 100 Oxygen Delivery 03/19/23 15:00 03/19/23 15:01 03/19/23 15:15 Temperature Pulse Rate 62 63 61 Respiratory Rate 13 27 H 16 Blood Pressure 122/78 Pulse Oximetry 87 L 94 Oxygen Delivery 03/19/23 15
--- NOTE | 2023-03-20 11:59 | WPDNEURCNPN ---
Assessment and Plan Assessment and plan (1) Brain TIA: Code(s): G45.9 - Transient cerebral ischemic attack, unspecified Status: Acute Plan 1 question TIA versus transient global amnesia or the early precursor of dementia. Plan is to obtain the EEG surface echocardiogram and B12 folate level further recommendations according Consult date: 03/20/23 HPI: Selena Lua is a 87 year old female admitted to the hospital through the emergency room with information that she woke up in the morning feeling not right and somewhat dizzy she went to turn her car on and could not figure it out though she drives her car daily but she was unable to start the engine she did not have any other associated symptomatology she has been taking aspirin 324 mg daily in addition to atorvastatin 40 mg daily and she is allergic to clonidine codeine and morphine, in the past she has ongoing history of hypertension, right-sided carotid stenosis, COPD, depression, history of temporal arteritis, she has history of years smoked 10 but never alcohol intake initial exam in the emergency room was grossly nonfocal, and vital signs were normal, initial lab CBC was normal with hemoglobin 10.2 her BUN was 37 with creatinine 1.10 otherwise labs was normal she was found to have large hiatal hernia on x-ray of the chest but EKG was normal without any atrial fibrillation she was admitted to the hospital stroke scale of 1 subsequently MRI of the brain was done which revealed extensive nonspecific cerebral white matter disease but no hydrocephalus no bleed on initial CT scan of the head also CTA documented only mild stenosis of the right carotid bifurcation. 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 Internal hemorrhoids Lumbosacral spondylosis with radiculopathy Lung mass Mild intermittent asthma without complication Osteopenia Pre-diabetes Traumatic arthritis of left hip Trochanteric bursitis, right hip Surgical History Surgical History History of appendectomy History of carpal tunnel release Bilaterally History of cataract Bilateral History of cholecystectomy History of tonsillectomy History of total bilateral knee replacement History of total replacement of left shoulder joint Presence of left artificial knee joint Total knee replacement status Family History Family History Mother Hypertension Family history of cardiovascular disease Carcinoma of colon, Onset Age: 86 Acute myocardial infarction Family history of heart disease in male family member before age 55, Onset Age: 86 Patient's mother is , Onset Age: 86 Father Family history of lung cancer, Onset Age: 78 Patient's father is , Onset Age: 78 Other Family history of arthritis Family history of malignant neoplasm Social History Social History Social History: Patient lives with her who has short-term memory problems due to the Parkinson's. The coming up on their 60th anniversary. They have 2 sons and 2 daughters together. Her 2 daughters are durable power carton machine operator for healthcare. The patient desires to be a full code. 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 She smoked many years ago. No alcohol marijuana
--- NOTE | 2023-03-20 13:12 | PC.NURSE ---
On 03/20/23, the student, [Salima Mena], provided care and completed [facility] documentation on this patient. I have reviewed the student's documentation and agree with the findings.
[2023-03-20 13:45] LABS: Folic Acid 18.8 ng/mL (2.76->20)
[2023-03-21] VITALS: PULSE 74
[2023-03-21 04:00] VITALS: PULSE 58
[2023-03-21 05:14] VITALS: BP 142/62; PULSE 65; RESP 18; TEMP 36.3; O2SAT 100
[2023-03-21 08:00] VITALS: PULSE 72
[2023-03-21 09:15] VITALS: BP 138/57; PULSE 78; O2SAT 99
[2023-03-21] MEDS: ASCORBIC ACID 500 MG TABLET PO (09:18)
[2023-03-21] MEDS: POTASSIUM PHOS/SODIUM PHOS 250 MG TABLET PO (09:18)
[2023-03-21] MEDS: LOSARTAN POTASSIUM 25 MG TABLET PO (09:18)
[2023-03-21] MEDS: ASPIRIN 325 MG ENTERIC TABLET PO (09:19)
[2023-03-21] MEDS: ATORVASTATIN 40 MG TABLET PO (09:19)
[2023-03-21] MEDS: ESCITALOPRAM OXALATE 5 MG TABLET PO (09:19)
[2023-03-21] MEDS: dilTIAZem HCL CD 180 MG CAP.24HR PO (09:19)
[2023-03-21] MEDS: CHOLECALCIFEROL 1,000 UNITS TABLET 1000 UNITS PO (09:19)
[2023-03-21] MEDS: CALCIUM CARBONATE (OSCAL) 500 MG TABLET PO (09:19)
[2023-03-21] MEDS: FERROUS SULFATE 325 MG TABLET DR BY MOUTH (09:20)
[2023-03-21] MEDS: THERAPEUTIC MULTIVITAMINS/MINERALS TAB (*BKC) 1 TABLET PO (09:20)
--- NOTE | 2023-03-21 10:21 | PM.DS ---
DS: Admitting Diagnosis Discharge Date 03/21/2023 Admitting Diagnosis TIA DS: Discharge Diagnosis Discharge Diagnosis (1) Transient ischemic attack: Code(s): G45.9 - Transient cerebral ischemic attack, unspecified Status: Acute DS: Summary Hospital Course Hospital Course: Patient admitted with TIA. Symptoms resolved. Brain MRI negative for any acute findings. Echocardiogram:? 1. Complete two-dimensional, color flow and Doppler transthoracic echocardiogram is performed. ? 2. Patient has prior CABG. ? 3. Left ventricular chamber dimension is normal. ? 4. Left ventricular systolic function is normal, estimated at 60-65%. ? 5. There is mildly increased left ventricular wall thickness. ? 6. The left ventricular diastolic function is grade I diastolic dysfunction. ? 7. Right ventricular chamber dimension is moderately enlarged. ? 8. Right ventricular systolic function is normal. ? 9. Left atrial chamber dimension is moderately enlarged. ? 10. Right atrial chamber dimension is severely enlarged. ? 11. The mitral valve annulus is severely calcified. ? 12. The mitral valve has thickened leaflets. ? 13. There is trace mitral valve regurgitation. ? 14. There is mild tricuspid valve regurgitation. Neurology was consulted. Patient underwent EGD. Currently asymptomatic and is being discharged home Time Spent with Patient Time attestation: Total time spent providing and/or coordinating discharge services: DS: Data Data Completed and Pending Labs on day of discharge: Labs from last 24 hours 03/20/23 05:21 Vitamin B12 419.0 Folate 18.8 Discharge Plan Discharge Consulting providers: Emily Hutchins Discharging Clinician: Duglas Sifuentes Anticipated Discharge Date/Time: 03/21/23 10:19 Patient Disposition: Home, Self-Care Activity: no preference Diet: heart healthy Patient Instructions: Antibiotic Form, Transient Ischemic Attack (DC), Pain Management (DC), Carotid Artery Disease (DC) Stand Alone Forms: General Discharge Information Follow-up/Referrals: Easton Paulino MD [Primary Care Provider] - Discharge Medications: Continued Phosphorous 250 mg Tablet 1 tablet PO DAILY Hair,Skin and Nails Tablet 1 tablet PO DAILY cholecalciferol (vitamin D3) [Vitamin D3] 25 mcg (1,000 unit) Capsule 25 mcg PO DAILY ascorbate calcium (vitamin C) 500 mg Capsule 282 mg PO DAILY atorvastatin 40 mg tablet 40 mg PO DAILY ferrous sulfate [Feosol] 325 mg (65 mg iron) tablet 325 mg PO BID calcium carbonate [Calcium 500] 500 mg calcium (1,250 mg) tablet 500 mg PO DAILY (DME) inhalational spacing device Spacer See Rx Instructions .Route Qty: 1 0RF Rx Instructions: As directed losartan 25 mg tablet 25 mg PO DAILY escitalopram oxalate 5 mg tablet 5 mg PO DAILY aspirin 325 mg Tablet,Delayed Release (Dr/Ec) 325 mg PO QAM Qty: 60 0RF diltiazem HCl [Cartia XT] 180 mg capsule,extended release 24hr 180 mg PO DAILY Qty: 90 1RF Rx Instructions: Take 1 capsule by mouth once daily budesonide-formoterol [Symbicort] 160-4.5 mcg/actuation HFA aerosol inhaler See Rx Instructions .ROUTE .COMPLEX Qty: 22 2RF Dose Instruction: INHALE 2 PUFFS BY MOUTH TWICE DAILY IN THE MORNING AND IN THE EVENING Rx Instructions: INHALE 2 PUFFS BY MOUTH TWICE DAILY IN THE MORNING AND IN THE EVENING albuterol sulfate 90 mcg/actuation HFA aerosol inhaler 90 mcg INHALATION Q4-6H PRN (Reason: Shortness Of Breath) Qty: 8.5 3RF Other Ambulatory Orders: CA cardiac event monitor (Routine) Timeframe: 1 Month Location: Determined by Patient Ordered By: Duglas Sifuentes Date of admission: 03/19/23 16:38 Primary Care Provider: Easton Paulino Admitting Provider: Tom Morris Attending physician on admission: Duglas Sifuentes Condition: Stable
[2023-03-21 10:41] VITALS: PULSE 70; RESP 18
[2023-03-21] MEDS: FLUTICASONE/SALMETEROL 115-21 MCG INHALER 1 PUFF 2 PUFF INHALATION (10:41)
--- NOTE | 2023-03-21 11:57 | P.NEURO_ITS ---
Neurology EEG Report General Information Date of Study: 03/21/23 TEST eeg DIAGNOSIS Transient amnesia rule out the possibility of seizures CONDITION OF RECORDING awake drowsy and sleep EEG NUMBER [id number] CLINICAL HISTORY history of transient amnesia with no other focal neurological deficit EEG DESCRIPTION basic resting occipital frequency consists of low-voltage to medium voltage 8 to 9 hertz per 2nd alpha mixed with low voltage 15 to 18 hertz per 2nd beta. Low-voltage beta activity seen diffusely admixed with waxing and waning posterior alpha rhythm. Normal wagner posterior gradient is noted. Bilateral symmetrical sleep activity seen with symmetrical sleep spindles as well. Multiple movement artifacts are noted intermittently. Hyperventilation not done. Photic stimulation not done. Non paroxysmal. Nonfocal. Nonlateralizi ng. IMPRESSION Normal record
== END 2023-03-21 11:50 | disposition home or self-care (01) ==
LOC: ANHED 16:35 → ANH2MED 17:28
PROVIDERS: Emergency Medicine; Physician Assistant; Psychiatry & Neurology Neurology; Admitting Provider Internal Medicine; Emergency Provider Emergency Medicine; PCP Family Medicine; Visit Provider Hospitalist
DX: G45.9 Transient cerebral ischemic attack, unspecified (principal); I77.9 Disorder of arteries and arterioles, unspecified; I12.9 Hypertensive chronic kidney disease with stage 1 through stage 4 chronic kidney disease, or unspecified chronic kidney disease; N18.9 Chronic kidney disease, unspecified; D63.1 Anemia in chronic kidney disease; K21.9 Gastro-esophageal reflux disease without esophagitis; F32.A Depression, unspecified; E78.5 Hyperlipidemia, unspecified; I25.10 Atherosclerotic heart disease of native coronary artery without angina pectoris; I07.1 Rheumatic tricuspid insufficiency; Z95.1 Presence of aortocoronary bypass graft; R73.03 Prediabetes; I44.0 Atrioventricular block, first degree; K44.9 Diaphragmatic hernia without obstruction or gangrene; R90.82 White matter disease, unspecified; J44.9 Chronic obstructive pulmonary disease, unspecified; M85.80 Other specified disorders of bone density and structure, unspecified site; Z96.653 Presence of artificial knee joint, bilateral; Z86.73 Personal history of transient ischemic attack (TIA), and cerebral infarction without residual deficits; Z87.891 Personal history of nicotine dependence; Z79.51 Long term (current) use of inhaled steroids; Z79.82 Long term (current) use of aspirin; Z79.899 Other long term (current) drug therapy; Z82.49 Family history of ischemic heart disease and other diseases of the circulatory system; Z82.61 Family history of arthritis; R79.89 Other specified abnormal findings of blood chemistry
CPT/HCPCS: 36415; 70450; 70496; 70498; 70553; 71046; 80048; 80053; 80061; 82607; 82746; 83735; 84484; 85025; 85610; 85730; 93005; 93306; 94640; 99285; A9270; A9577; G0378; Q9967

== ENCOUNTER → 2023-04-18 09:42 | Outpatient (CLI) | payer MEDICARE, SELFPAY ==
--- NOTE | ~2023-04-18 | US_ITS ---
US abdomen limited INDICATION: Right upper quadrant pain. PROCEDURE: Realtime right upper abdominal ultrasound. COMPARISON: Ultrasound dated 01/23/2022 FINDINGS: The pancreas is normal without focal mass or pancreatic ductal dilation. There is hepatomeg jose. No focal hepatic mass. There is normal directional flow in the portal vein. Gallbladder is surgically absent. Common bile duct measures 3 mm. No sonographic Velarde's sign. IMPRESSION: 1: Hepatomegaly. Reviewed, dictated and finalized at location B. IMPRESSION: 1: Hepatomegaly.
== END ==
PROVIDERS: PCP Family Medicine; Visit Provider Physician Assistant
DX: R16.0 Hepatomegaly, not elsewhere classified (principal); R10.11 Right upper quadrant pain
CPT/HCPCS: 76705

== ENCOUNTER 2023-05-09 12:35 | Outpatient (CLI) | payer MEDICARE, SELFPAY ==
--- NOTE | 2023-05-09 17:40 | WPDSIXMINUTE ---
Six Minute Walk Procedure Procedure Performed Pulmonary Stress Test (6 min walk) Six Minute Walk Six Minute Walk: This is a 6 minute walk test. The test was performed and interpreted in accordance with the 2014 ERS/ATS task force guidelines. Of note the patient walked with a walking aid for her hip. Findings: The patient's resting room air oxygen saturation measured by pulse oximetry was 97% and heart rate was 70 bpm. Patient ambulated for 183 meters and oxygen saturation remained 95 to 98%. Heart rate at the end of the study was 92 bpm. The patient did not qualify for supplemental oxygen at rest or with ambulation. There are no prior studies for comparison.
== END 2023-05-09 12:36 | disposition home or self-care (01) ==
PROVIDERS: PCP Family Medicine; Visit Provider Internal Medicine Critical Care Medicine
DX: J44.9 Chronic obstructive pulmonary disease, unspecified (principal)
CPT/HCPCS: 94618

== ENCOUNTER 2023-06-19 06:16 | Outpatient (CLI) | payer MEDICARE, SELFPAY ==
--- NOTE | 2023-07-16 11:41 | WPDSLEEPSTUD ---
Sleep Study Date of Study: 06/19/23 Ordering Provider: Lilliam Mares MD Interpreting Physician: Lilliam Mares MD Sleep Study Type: Polysomnogram Height: 1.5 m Weight: 56.699 kg Body Mass Index: 25.2 Neck Circumference (inches): 13 Pandora: 2 Reason for Sleep Study Right ventricular enlargement Sleep History Selena Lua is an 88-year-old woman with right ventricular enlargement on echocardiogram. She frequently has trouble sleeping when she has a cold. She never wakes up gasping for breath during the night. She never has breathing problems at night. She never sweats excessively at night. She never notices her heart pounding or beating irregularly during the night. She rarely falls asleep during the day. She rarely falls asleep involuntarily, never falls asleep while driving. She never experiences loss of muscle tone with strong emotion. She never feels paralyzed on waking or falling asleep. She never experiences vivid dreams upon waking or falling asleep. She never feels afraid of going to sleep. She occasionally has nightmares. She frequently recalls her dreams. She never has thoughts racing through her mind. She occasionally feels sad or depressed. She rarely feels anxiety. She never notices parts of her body jerk. She never kicks during the night. She never feels crawling or aching feelings in her legs. She never feels leg pain at night. She never has morning jaw pain, and never grinds her teeth at night. She frequently feels bothered by pain during the day, is never awakened by pain during the night. She frequently wakes up feeling stiff in the morning, rarely wakes feeling sore or achy in the morning. She frequently awakens with pain in her neck, spine, or joints. Normal bedtime is between 9:00 p.m. and 10:00 p.m., falling asleep in a very short period of time, waking 3-4 times at night just long enough to go to the bathroom and then returns to sleep easily. This occurs every 2-3 hours. She wakes in the morning between 5:00 a.m. and 6:00 a.m..She reports getting 8-9 of sleep per night. Habits:??Tobacco: never smoker Caffeine: 2 diet Cokes and 1 tea per day. Alcohol: none Recreational substances: none [facility] Past Medical History Medical History Anemia Arthritis of left hip Asthma Benign essential hypertension Bilateral hip bursitis Bursitis of right hip Carotid stenosis, right Chronic cough Chronic GERD COPD (chronic obstructive pulmonary disease) Degenerative arthritis of left foot Depression Fracture of left hip requiring operative repair HTN (hypertension) with goal to be determined Hx of temporal arteritis Hyperlipidemia Hypertension 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 Internal hemorrhoids Lumbosacral spondylosis with radiculopathy Lung mass Mild intermittent asthma without complication Osteopenia Pre-diabetes Traumatic arthritis of left hip Trochanteric bursitis, right hip Surgical History Surgical History History of appendectomy History of carpal tunnel release Bilaterally History of cataract Bilateral History of cholecystectomy History of tonsillectomy History of total bilateral knee replacement History of total replacement of left shoulder joint Presence of left artificial knee joint Total knee replacement status Family History Family History Mother Hypertension Family history of cardiovascular disease Carcinoma of colon, Onset Age: 88 Acute myocardial infarction Family history of heart disease in male family member before age 55, Onset Age: 86 Patient's mother is , Onset Age: 86 Father Family history of lung cancer, Onset Age: 78 Patient's father is , Onset Age: 78 Other Family history of arthritis Family history of malignant neoplasm S
[2023-07-16 11:50] VITALS: BMI 25.2
== END 2023-06-20 08:25 | disposition home or self-care (01) ==
LOC: ANHCSM 06:16
PROVIDERS: PCP Family Medicine; Visit Provider Internal Medicine Critical Care Medicine
DX: J44.89 Other specified chronic obstructive pulmonary disease (principal); I51.7 Cardiomegaly; R06.83 Snoring
CPT/HCPCS: 95810

== ENCOUNTER 2023-07-01 00:01 | Emergency (ER) | payer MEDICARE, SELFPAY ==
[2023-06-30 23:59] VITALS: BP 142/61; PULSE 77; RESP 14; TEMP 36.7; O2SAT 99
[2023-07-01] VITALS (39 sets, daily range): BP systolic 111–142; BP diastolic 57–98; PULSE 72–102; RESP 10–24; O2SAT 93–99
--- NOTE | ~2023-07-01 | CT_ITS ---
EXAMINATION: CT cervical spine wo con DATE: 07/01/2023 01:32 INDICATION: Fall. Struck head. Left forehead contusion. Dizziness. Neck pain. Headache for 3 weeks. TECHNIQUE: Computed tomography (CT) of the cervical spine was performed without intravenous contrast. Automated exposure control and iterative reconstruction technique were employed. Exam dose: 605.33 mGy-cm total exam DLP. COMPARISON: 05/23/2021 CT facial bones and cervical spine FINDINGS: There is chronic reversal of cervical curvature, also present on 05/23/2021. There is chron ic approximately 3 mm anterolisthesis at C3-4. Again noted is severe degenerative disc disease at C4-5 and C5-6 with mild associated C5-6 retrolisth esis.. Moderately severe degenerative disc disease and mild anterolisthesis is again noted at C6-7 and C7-T1 . There is fusion at the C3-4 apophyseal joints and severe degenerative change at the remainder of the cervical apophyseal joints. IMPRESSION: Chronic reversal of cervical curvature and severe cervical spondylosis No fracture or dislocation or locked facet No significant change since 05/23/2021 Reviewed, dictated and finalized at [facility]. Reviewed, dictated and finalized at location A. Y GRINDER IMPRESSION: Chronic reversal of cervical curvature and severe cervical spondyl osis No fracture or dislocation or locked facet No significant change since 05/23/2021
--- NOTE | ~2023-07-01 | CT_ITS ---
EXAMINATION: CT brain wo con DATE: 07/01/2023 01:32 INDICATION: Fall, dizziness. Struck head. Left forehead contusion. Neck pain. Headache for 3 weeks. TECHNIQUE: Computed tomography (CT) of the paranasal sinuses was performed without contrast. Iterativ e reconstruction technique was employed. Exam dose: 605.33 mGy-cm total exam DLP. COMPARISON: 03/20/2023 MR brain 03/19/2023 CTA brain and carotid 03/19/2023 CT brain FINDINGS: Prominent bilateral carotid siphon internal carotid artery calcifications. Patchy nonspecific diminished attenuation cerebral white matter, likely due to chronic small vessel i schemic changes. Moderate cerebral and cerebellar atrophy. No intracranial mass lesion or hemorrhage, midline shift or mass effect is detected. No subdural or e pidural hematoma is detected. The paranasal sinuses and mastoid air cells are normally developed and aerated. No fracture or bone destruction of the cranial vault. IMPRESSION: No skull fracture or acute intracranial finding Cerebral atherosclerosis, chronic small vessel ischemic changes Reviewed, dictated and finalized at [facility]. Reviewed, dictated and finalized at location A. CARGO MOVER
--- NOTE | ~2023-07-01 | XR_ITS ---
XR chest 1V portable DATE: 07/01/2023 05:46 INDICATION: Syncope TECHNIQUE: Portable AP chest on 06/27/2023 at 0459 hours COMPARISON: 03/19/2023 PA and lateral chest FINDINGS: Cardiomegaly. Thoracic aortic calcification. Bilateral hyperinflation. Minimal atelectasis is suggested at the lung bases. The lungs otherwise dangelo ear clear. No pleural effusion or pulmonary vascular congestion or pneumothorax is detected. Left glenohumeral joint replacement. Diffuse osteopenia. Mild thoracic scoliosis, degenerative spurri ng of the thoracic spine. IMPRESSION: Cardiomegaly, aortic atherosclerosis Minimal atelectasis at the lung bases Reviewed, dictated and finalized at location A. TCH BOX TENDER
--- NOTE | 2023-07-01 03:53 | ECG_ITS ---
Measurements Intervals [place] Rate: 81 P: 99 MI: 235 QRS: 71 QRSD: 84 T: 71 QT: 367 QTc: 427 Interpretive Statements SINUS RHYTHM WITH FIRST DEGREE AV BLOCK COMPARED TO ECG 03/19/2023 11:54:25 NO SIGNIFICANT CHANGES Electronically Signed On 07-01-2023 17:04:25 RADIO MAINTAINER by Autumn Egan M.D.
[2023-07-01 04:24] LABS: Basophils Absolute Auto 0.1 K/mm3 (0.0-0.1); Basophils Percent Auto 0.6 % (0.2-1.2); Eosinophils Absolute Auto 0.1 K/mm3 (0-0.3); Eosinophils Percent Auto 1.2 % (0-4.4); Hematocrit 36.3 % (37.0-47.0); Hemoglobin 11.2 g/dL (12.0-15.0); Immature Granulocyte Absolute 0.06 K/mm3 (0.00-0.031); Immature Granulocyte Percent A 0.6 % (0-0.5); Lymphocytes Absolute Auto 0.83 K/mm3 (0.9-3.2); Lymphocytes Percent Auto 7.6 % (18.3-44.2); Mean Corpuscular HGB Conc 30.9 g/dl (32-36); Mean Corpuscular Hemoglobin 29.6 pg (26-34); Mean Corpuscular Volume 95.8 fl (80-100); Mean Platelet Volume 11.2 fl (7.4-10.4); Monocytes Absolute Auto 0.8 K/mm3 (0.1-0.6); Monocytes Percent Auto 7.5 % (2.6-8.5); Neutrophils Percent Auto 82.5 % (45.5-73.1); Platelet Count Result 268 k/mm3 (150-375); Red Blood Count 3.79 M/mm3 (4.2-5.4); Red Cell Distribution Width 12.9 % (11.5-14.5); White Blood Count 10.9 K/mm3 (4.5-10.0)
--- NOTE | 2023-07-01 04:27 | ED.GENADULT ---
HPI - General Adult General Chief complaint: Dizziness Stated complaint: DIZZINESS, FALL, HEAD PAIN Time Seen by Provider: 07/01/23 04:25 History of Present Illness HPI narrative: Patient is an 88-year-old female who presents emergency department this evening status post a fall at home. Patient states that overnight she has been having some nausea and diarrhea causing her to go to the bathroom multiple times. She also complains of a headache for the past 2-3 days. Patient states that she was sitting in the toilet and when she got up she got lightheaded and ended up falling and hitting the left side of her head against the bathtub. Patient denies any loss of consciousness and states that she remembers the event. She was able to get back up but didn't want to get back up since she was lightheaded so she crawled to the bedroom. patient denies any dizziness or room spinning sensation. Patient denies any chest pain, shortness of breath, nausea, vomiting, abdominal pain, dysuria, hematuria, constipation, diarrhea, melena, hematochezia, fevers or chills. Patient also denies blurry visions, focal weakness, numbness and or tingling. There are no other modifying, alleviating, or precipitating factors at this time. Related Data Home Medications Medication Instructions Recorded Confirmed calcium carbonate 500 mg calcium 500 mg PO DAILY 03/16/20 06/04/23 (1,250 mg) tablet (Calcium 500) ferrous sulfate 325 mg (65 mg 325 mg PO BID 03/16/20 06/04/23 iron) tablet (Feosol) atorvastatin 40 mg tablet 40 mg PO DAILY 09/14/20 06/04/23 ascorbate calcium (vitamin C) 500 282 mg PO DAILY 07/23/22 06/04/23 mg capsule cholecalciferol (vitamin D3) 25 25 mcg PO DAILY 07/23/22 06/04/23 mcg (1,000 unit) capsule (Vitamin D3) multivitamin with minerals 1 tablet PO DAILY 07/23/22 06/04/23 (Hair,Skin and Nails tablet) sodium di- and 1 tablet PO DAILY 07/23/22 06/04/23 monophosphate-potassium phos monobasic 250 mg tablet (Phosphorous) losartan 25 mg tablet 25 mg PO DAILY 03/19/23 06/04/23 Allergies Allergy/AdvReac Type Severity Reaction Status Date / Time clonidine Allergy Unknown GI upset Verified 06/04/23 14:55 codeine Allergy Unknown Vomiting Verified 06/04/23 14:55 morphine Allergy Unknown Vomiting Verified 06/04/23 14:55 Review of Systems Review of Systems: All systems are reviewed and are negative unless stated otherwise in the HPI. [facility] Past Medical History Medical History Anemia Arthritis of left hip Asthma Benign essential hypertension Bilateral hip bursitis Bursitis of right hip Carotid stenosis, right Chronic cough Chronic GERD COPD (chronic obstructive pulmonary disease) Degenerative arthritis of left foot Depression Fracture of left hip requiring operative repair HTN (hypertension) with goal to be determined Hx of temporal arteritis Hyperlipidemia Hypertension 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 Internal hemorrhoids Lumbosacral spondylosis with radiculopathy Lung mass Mild intermittent asthma without complication Osteopenia Pre-diabetes Traumatic arthritis of left hip Trochanteric bursitis, right hip Surgical History Surgical History History of appendectomy History of carpal tunnel release Bilaterally History of cataract Bilateral History of cholecystectomy History of tonsillectomy History of total bilateral knee replacement History of total replacement of left shoulder joint Presence of left artificial knee joint Total knee replacement status Family History Family History Mother Hypertension Family history of cardiovascular disease Carcinoma of colon, Onset Age: 88 Acute myocardial infarction Family history of heart disease in male family member before age 55, Onset Age: 88 Patient's m
[2023-07-01 04:31] LABS: Alanine Aminotransferase 19 U/L (6-35); Albumin Level 4.1 g/dL (3.5-5.1); Alkaline Phosphatase 87 U/L (38-126); Anion Gap 12 mmol/L (8-16); Aspartate Amino Transferase 28 U/L (14-36); Bilirubin,Total 0.5 mg/dL (0.2-1.3); Blood Urea Nitrogen 27 mg/dL (7-17); Calcium 9.4 mg/dL (8.4-10.2); Carbon Dioxide 21 mmol/L (22-30); Chloride 99 mmol/L (98-107); Estimated Glomerular Filt Rate 59; Glucose 118 mg/dL (65-110); Potassium 3.8 mmol/L (3.4-5.0); Sodium 132 mmol/L (137-145)
[2023-07-01 04:43] LABS: Magnesium 2.1 mg/dL (1.6-2.3)
[2023-07-01 04:56] LABS: Troponin I < 0.012 ng/mL (0.000-0.034)
[2023-07-01 06:06] LABS: Appearance Urine Clear (Clear); Bilirubin Urine Negative (Negative); Blood Urine Negative (Negative); Color Urine Yellow (Yellow); Glucose Urine UA Negative (Negative); Ketones Urine Trace mg/dL (Negative); Leukocyte Esterase Ur Negative LEU/UL (Negative); Nitrate Urine Negative (Negative); Protein Urine Negative (Negative); Specific Grav Ur 1.015 (1.001-1.035)
[2023-07-01 06:32] LABS: Add Urine Microscopic? NO
[2023-07-01 06:36] LABS: Influenza A QL RT-PCR Negative (Negative); Influenza B QL RT-PCR Negative (Negative); SARS-CoV-2 RNA PCR Negative (Negative)
[2023-07-01] MEDS: SODIUM CHLORIDE 0.9% IV 1,000 ML 500 ML IV CONT (06:47)
== END 2023-07-01 08:58 | disposition home or self-care (01) ==
PROVIDERS: Emergency Provider Emergency Medicine; PCP Family Medicine
DX: E86.0 Dehydration (principal); R19.7 Diarrhea, unspecified; W18.30XA Fall on same level, unspecified, initial encounter; I10 Essential (primary) hypertension; E78.5 Hyperlipidemia, unspecified; Z87.891 Personal history of nicotine dependence; Z20.822 Contact with and (suspected) exposure to COVID-19
CPT/HCPCS: 36415; 70450; 71045; 72125; 80053; 81003; 83735; 84484; 85025; 87636; 93005; 96360; 96361; 99284; J7030

== ENCOUNTER 2023-11-13 09:05 | Outpatient (CLI) | payer MEDICARE, SELFPAY ==
--- NOTE | ~2023-11-13 | XR_ITS ---
Clinical Indication: Cough PA and lateral views of the chest: Comparison: 07/01/2023 Findings: The lungs are clear, without evidence of focal consolidation or pleural effusion. Cardiome diastinal silhouette is within normal limits. Stable left shoulder arthroplasty. Moderate to large hi atal hernia present. Impression: Clear lungs. Possible COPD. Moderate to large hiatal hernia. Reviewed, dictated and finalized at location . Impression: Clear lungs. Possible COPD. Moderate to large hiatal hernia.
== END 2023-11-13 09:06 ==
LOC: MICIMG 09:07
PROVIDERS: PCP Family Medicine; Visit Provider Physician Assistant
DX: K44.9 Diaphragmatic hernia without obstruction or gangrene (principal); R05.9 Cough, unspecified
CPT/HCPCS: 71046

== ENCOUNTER 2024-01-30 14:28 | Emergency (ER) | payer MEDICARE, SELFPAY ==
--- NOTE | ~2024-01-30 | CT_ITS ---
EXAMINATION: CT brain wo con DATE: 01/30/2024 14:59 INDICATION: Dizziness TECHNIQUE: Computed tomography (CT) of the head was performed without intravenous contrast. The dose- length product was 529.67 mGy-cm. Automated exposure control and iterative reconstruction technique w ere employed. COMPARISON: None FINDINGS: Generalized atrophy. There are scattered moderate periventricular and subcortical white mat ter changes, most likely related to small vessel ischemic disease (microangiopathy). No acute intracr anial hemorrhage, infarction, mass or mass effect. No ventriculomegaly or midline shift. Basilar cist erns are patent. IMPRESSION: 1. No acute intracranial abnormality. Reviewed, dictated and finalized at location B.
[2024-01-30 14:26] VITALS: BP 125/57; PULSE 64; RESP 18; TEMP 36.6; O2SAT 94
--- NOTE | 2024-01-30 14:28 | ECG_ITS ---
Test Date: 2024-01-30 14:28:46 Measurements Intervals [place] Rate: 65 P: 102 NH: 265 QRS: 65 QRSD: 91 T: 92 QT: 407 QTc: 425 Interpretive Statements SINUS RHYTHM WITH FIRST DEGREE AV BLOCK MINIMAL Q WAVES- INF/LAT LEADS ST-T WAVE ABNORMALITY IN HIGH LATERAL LEADS- CONSIDER ISCHEMIA BASELINE ARTIFACT- I, II, III, AVR, AVL, AVF, V1 ABNORMAL ECG No previous ECG available for comparison Electronically Signed On 01-31-2024 13:00:31 CDT by Bret Laughlin D.O.
[2024-01-30 14:30] VITALS: BP 125/57; PULSE 65; RESP 17; O2SAT 94
--- NOTE | 2024-01-30 14:42 | PC.NURSE ---
1420 - STEMI over head paged 1420 - Niharika 1421 - Dr Figueroa notified left 1429 - Stemi Cancelled
[2024-01-30] MEDS: MECLIZINE HCL 25 MG TABLET PO (14:44)
[2024-01-30 14:45] VITALS: BP 123/53; PULSE 62; RESP 18; O2SAT 97
[2024-01-30 14:50] LABS: Basophils Percent Auto 0.7 % (0.2-1.2); Eosinophils Absolute Auto 0.2 K/mm3 (0-0.3); Eosinophils Percent Auto 3.5 % (0-4.4); Hematocrit 31.9 % (37.0-47.0); Hemoglobin 10.4 g/dL (12.0-15.0); Immature Granulocyte Absolute 0.02 K/mm3 (0.00-0.031); Immature Granulocyte Percent A 0.4 % (0-0.5); Lymphocytes Absolute Auto 1.34 K/mm3 (0.9-3.2); Mean Corpuscular HGB Conc 32.6 g/dl (32-36); Mean Corpuscular Volume 95.2 fl (80-100); Mean Platelet Volume 10.1 fl (7.4-10.4); Monocytes Absolute Auto 0.6 K/mm3 (0.1-0.6); Neutrophils Absolute Auto 3.2 K/mm3 (1.3-6.7); Neutrophils Percent Auto 59.4 % (45.5-73.1); Platelet Count Result 231 k/mm3 (150-375); Red Blood Count 3.35 M/mm3 (4.2-5.4); Red Cell Distribution Width 13.6 % (11.5-14.5); White Blood Count 5.4 K/mm3 (4.5-10.0)
[2024-01-30 14:59] LABS: Prothrombin Time 13.4 Seconds (11.1-14.7)
[2024-01-30 15:00] LABS: Partial Thromboplastin Time 24.3 Seconds (22.3-36.8)
[2024-01-30 15:08] LABS: Alanine Aminotransferase 16 U/L (6-35); Albumin Level 3.9 g/dL (3.5-5.1); Alkaline Phosphatase 65 U/L (38-126); Anion Gap 8 mmol/L (4-12); Aspartate Amino Transferase 22 U/L (14-36); Bilirubin,Total 0.6 mg/dL (0.2-1.3); Blood Urea Nitrogen 28 mg/dL (7-17); Calcium 9.3 mg/dL (8.4-10.2); Carbon Dioxide 24 mmol/L (22-30); Chloride 96 mmol/L (98-107); Estimated Glomerular Filt Rate 53; Glucose 117 mg/dL (65-110); Potassium 3.8 mmol/L (3.4-5.0); Sodium 128 mmol/L (137-145)
--- NOTE | 2024-01-30 15:55 | ED.DIZZY ---
HPI - Dizziness General Chief Complaint: Dizziness Stated Complaint: STEMI Time Seen by Provider: 01/30/24 14:34 History of Present Illness HPI Narrative: Pt presents with complaint of dizziness and nausea since early this morning. Pt has no HERNANDEZ or focal neuro symptoms. Pt says she is more dizzy when she moves her head and it resolves when she is still. Pt denies CP or SOB. Related Data Home Medications Medication Instructions Recorded Confirmed calcium carbonate (Calcium 500) 500 mg PO DAILY 03/16/20 01/15/24 ferrous sulfate 325 mg (65 mg 325 mg PO BID 03/16/20 01/15/24 iron) tablet (Feosol) atorvastatin 40 mg tablet 40 mg PO DAILY 09/14/20 01/15/24 ascorbate calcium (vitamin C) 500 282 mg PO DAILY 07/23/22 01/15/24 mg capsule cholecalciferol (vitamin D3) 25 25 mcg PO DAILY 07/23/22 01/15/24 mcg (1,000 unit) capsule (Vitamin D3) multivitamin with minerals 1 tablet PO DAILY 07/23/22 01/15/24 (Hair,Skin and Nails tablet) sodium di- and 1 tablet PO DAILY 07/23/22 01/15/24 monophosphate-potassium phos monobasic 250 mg tablet (Phosphorous) aspirin 81 mg chewable tablet 81 mg PO DAILY 01/15/24 01/15/24 Allergies Allergy/AdvReac Type Severity Reaction Status Date / Time clonidine Allergy Unknown GI upset Verified 01/15/24 11:27 codeine Allergy Unknown Vomiting Verified 01/15/24 11:27 morphine Allergy Unknown Vomiting Verified 01/15/24 11:27 Review of Systems Review of Systems: All systems reviewed & are unremarkable except as noted in HPI and below PMFSH Past Medical History Medical History (Updated 01/30/24 @ 16:21 by Deondre Coleman III, DO) Anemia Arthritis of left hip Asthma Benign essential hypertension Bilateral hip bursitis Bursitis of right hip Carotid stenosis, right Chronic cough Chronic GERD COPD (chronic obstructive pulmonary disease) Degenerative arthritis of left foot Depression DJD of shoulder Fracture of left hip requiring operative repair HTN (hypertension) with goal to be determined Hx of temporal arteritis Hyperlipidemia Hypertension 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 Internal hemorrhoids Lumbosacral spondylosis with radiculopathy Lung mass Mild intermittent asthma without complication Osteopenia Pre-diabetes Right shoulder pain Traumatic arthritis of left hip Trochanteric bursitis, left hip Trochanteric bursitis, right hip Surgical History Surgical History History of appendectomy History of carpal tunnel release Bilaterally History of cataract Bilateral History of cholecystectomy History of tonsillectomy History of total bilateral knee replacement History of total replacement of left shoulder joint Presence of left artificial knee joint Total knee replacement status Family History Family History Mother Hypertension Family history of cardiovascular disease Carcinoma of colon, Onset Age: 88 Acute myocardial infarction Family history of heart disease in male family member before age 55, Onset Age: 86 Patient's mother is , Onset Age: 86 Father Family history of lung cancer, Onset Age: 78 Patient's father is , Onset Age: 78 Other Family history of arthritis Family history of malignant neoplasm Social History Social History Social History: Code status: Full code. Smoking packs per day: 1 Smoking cigarettes per day: 20.0 Years smoked: 10 Smoking pack-years: 10.00 Smoking status: Former smoker Tobacco type: cigarettes Second hand tobacco smoke exposure: Yes Alcohol intake: never Substance use: never Substance use type: does not use Lack of Transportation: No Lack of Food: Never True Current Housing: I Have Housing Concerned About Future Housing: No Difficulty Paying Gas/Electric Bills: No
[2024-01-30 16:00] VITALS: BP 116/63; PULSE 65; RESP 18; O2SAT 97
[2024-01-30] MEDS: ONDANSETRON INJ 4 MG/2 ML VIAL IV PUSH (16:29)
[2024-01-30 17:00] VITALS: BP 125/66; PULSE 83; RESP 19; TEMP 36.6; O2SAT 100
== END 2024-01-30 17:07 | disposition home or self-care (01) ==
PROVIDERS: Emergency Provider Emergency Medicine; PCP Family Medicine
DX: R42 Dizziness and giddiness (principal); I10 Essential (primary) hypertension; J45.20 Mild intermittent asthma, uncomplicated; J44.9 Chronic obstructive pulmonary disease, unspecified; R73.03 Prediabetes; E78.5 Hyperlipidemia, unspecified; D64.9 Anemia, unspecified; K21.9 Gastro-esophageal reflux disease without esophagitis; M19.072 Primary osteoarthritis, left ankle and foot; M19.019 Primary osteoarthritis, unspecified shoulder; M16.12 Unilateral primary osteoarthritis, left hip; M85.80 Other specified disorders of bone density and structure, unspecified site; Z96.653 Presence of artificial knee joint, bilateral; Z96.612 Presence of left artificial shoulder joint; Z87.891 Personal history of nicotine dependence; Z98.42 Cataract extraction status, left eye; Z98.41 Cataract extraction status, right eye; Z90.49 Acquired absence of other specified parts of digestive tract; Z79.82 Long term (current) use of aspirin; Z79.899 Other long term (current) drug therapy
CPT/HCPCS: 36415; 70450; 80053; 85025; 85610; 85730; 93005; 96374; 99284; A9270; J1644; J2405

== ENCOUNTER 2024-03-19 14:24 | Outpatient (CLI) | payer MEDICARE, SELFPAY ==
--- NOTE | ~2024-03-19 | XR_ITS ---
XR foot LT 2V Ordering provider: Tameka Gomez PA-C History: . M79.672 - Pain in left foot . Comparison: August 23, 2022 FINDINGS: BONES: No acute fracture or dislocation. Calcaneus spur. JOINT SPACES: Narrowing of the distal interphalangeal joints. Narrowing of the joints between the miguel icular bone and the cuneiform bones. No tarsal coalition. SOFT TISSUES: Normal. IMPRESSION: No acute osseous abnormality left foot. Osteoarthritic changes multiple joints. Reviewed, dictated and finalized at location A.
== END 2024-03-19 14:25 | disposition home or self-care (01) ==
PROVIDERS: PCP Orthopaedic Surgery; Visit Provider Family Medicine
DX: M19.072 Primary osteoarthritis, left ankle and foot (principal)
CPT/HCPCS: 73620

== ENCOUNTER 2024-08-27 10:43 | Outpatient (CLI) | payer MEDICARE, SELFPAY ==
--- NOTE | ~2024-08-27 | CT_ITS ---
CT head without contrast Indication: Dizziness and giddiness COMPARISON: 01/30/2024 Technique: Serial scans were obtained through the brain without the administration of contrast. Dose reduction technique was used on this scan by utilizing automated exposure control and iterative recon struction technique. The dose-length product (DLP) was 529.67 mGy-cm. Findings: There is no evidence of intracranial hemorrhage, mass lesion, or acute infarct. The ventri cles and subarachnoid spaces are dilated, consistent with mild to moderate atrophy. Low attenuation regions are seen within the periventricular white matter bilaterally, likely representing changes fro m chronic microvascular ischemic disease. There is no evidence of edema, mass effect or midline shif t. The visualized paranasal sinuses and mastoid air cells are clear. Impression: No intracranial hemorrhage, mass, or acute infarct. Atrophy and chronic white matter changes, as above. Reviewed, dictated and finalized at location . TING WORKER Impression: No intracranial hemorrhage, mass, or acute infarct. Atrophy and chronic white matter changes, as above.
--- OUTSIDE RECORDS SUMMARY | 2024-08-27 10:54 | XMS_ITS | Encounter Summary ---
Author Organization [facility] Address 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
--- OUTSIDE RECORDS SUMMARY | 2024-08-27 10:54 | XMS_ITS | Patient Health Summary ---
Author Organization [facility] Address [address] [place] [address] Care Team Providers Care Clay Structure Builder And Servicer Name Role Phone Easton Paulino MD Primary Care Provider [phone] Note from [facility],non-owned Affiliates and Associated Physician Practices is amultiple site organization consisting of ambulatory clinics and hospital sitesin [place], [place], [place] and [place]. This disclosure is being madepursuant to the Care Everywhere program and may not contain all information available regarding this patient. Last updated 18.[facility] Allergies * Clonidine(Vomiting) * Codeine(Vomiting) * Morphine(Vomiting) Social History Tobacco Use Types Packs/Day Years Used Date Smoking Tobacco: Former Smokeless Tobacco: Never Alcohol Use Standard Drinks/Week Comments Not Currently 0 (1 standard drink = 0.6 oz pur e alcohol) Sex and Gender Information Value Date Recorded Sex Assigned at Not on file Gender Identity Not on file Sexual Orientation Not on file Last Filed Vital Signs Vital Sign Reading Time Taken Comments Blood Pressure 167/84 05/23/2021 4:43 PM ISSUING OPERATOR Pulse 79 05/23/2021 4:43 PM ISSUING OPERATOR Temperature 37.2 C (98.9 F) 05/23/2021 4:43 PM ISSUING OPERATOR Respiratory Rate 13 05/23/2021 4:43 PM ISSUING OPERATOR Oxygen Saturation 98% 05/23/2021 4:43 PM ISSUING OPERATOR Inhaled Oxygen Concentration - - Weight 63 kg (138 lb 14.2 oz) 05/23/2021 4:43 PM ISSUING OPERATOR Height 147.3 cm (4' 10 ) 05/23/2021 4:43 PM ISSUING OPERATOR Body Mass Index 29.03 05/23/2021 4:43 PM ISSUING OPERATOR Procedures * CT HEAD WO CONTRAST(Performed 05/23/2021) Performed for SAH (subarachnoid hemorrhage) (HCC) * BASIC METABOLIC PANEL (CALCIUM TOTAL)(Performed 05/23/2021) * PTT [facility](Performed 05/23/2021) * PT-INR [facility](Performed 05/23/2021) * CBC W AUTO DIFFERENTIAL(Performed 05/23/2021) * FLOW CYTOMETRY BONE MARROW(Performed 02/03/2020) Performed for Anemia, unspecified * BONE MARROW BIOPSY (STL)(Performed 02/03/2020) Performed for Illness, unspecified Results * CT HEAD NON CONTRAST - intracranial hemorrhage (05/23/2021 7:40 PM ISSUING OPERATOR) Anatomical Region Laterality Modality Head Computed Tomogra phy 05/24/2021 7:54 AM ISSUING OPERATOR Impressions 05/24/2021 6:12 PM ISSUING OPERATOR IMPRESSION: 1.Trace subarachnoid hemorrhage in the right precentral sulcus, grossly unchanged from prior. 2.No evidence mass effect or midline shift. 3.Frontal scalp/forehead soft tissue swelling. Dictated by Donavon Landers D.O. ([employer]) This report was approved by Donavon Landers on 05/24/2021 2:16 PM . I, Dr. SALOME HENDERSON have personally reviewed and interpreted this examination/study. This report was electronically signed by SALOME HENDERSON on 05/24/2021 6:12 PM . Narrative 05/24/2021 6:[address] HEAD WO CONTRAST EXAMINATION: Computed tomography (CT) of the head without contrast DATE: 05/23/2021 7:40 PM HISTORY: I60.9: SAH (subarachnoid hemorrhage) TECHNIQUE: CT of the head was performed without contrast according to standard protocol. COMPARISON: Comparison is made with an outside institution, [facility] from 05/23/2021 at 11:30 AM FINDINGS: There is trace subarachnoid hemorrhage in the right precentral sulcus, (series 7, image 32; series 4, image 11), grossly unchanged from prior. There is mild cerebral and cerebellar volume loss with associated ex vacuo ventricular dilatation. The basilar cisterns are patent. No mass effect or midline shift is seen. The liriano-white matter differentiation is normal. Periventricular white matter hypoattenuation is indicative of chronic small vessel ischemic disease. There is vascular calcification of the carotid siphons. Other than bilateral cataract extractions, the orbits appear normal. There is mild mucosal thickening in the ethmoid air cells. The mastoid air cells are clear. Small soft tissue swelling/hematoma along the anterior frontal scalp and forehead. Age-indeterminate fracture deformity of the nasal septum. The nasal septum is deviated to the right with a septal spur in contact with the bases of the left inferior turbinate. Procedure Note Salome Henderson MD - 05/24/2021 CT HEAD WO CONTRAST EXAMINATION: Computed tomography (CT) of the head without contrast DATE: 05/23/2021 7:40 PM HISTORY: I60.9: SAH (subarachnoid hemorrhage) TECHNIQUE: CT of the head was performed without contrast according to standard protocol. COMPARISON: Comparison is made with an outside institution, [facility] from 05/23/2021 at 11:30 AM FINDINGS: There is trace subarachnoid hemorrhage in the right precentral sulcus, (series 7, image 32; series 4, image 11), grossly unchanged from prior. There is mild cerebral and cerebellar volume loss with associated exvacuo ventricular dilatation. The basilar cisterns are patent. No mass effector midline shift is seen. The liriano-white matter differentiation is normal. Periventricular white matter hypoattenuation is indicative of chronic small vessel ischemic disease. There is vascular calcification of the carotid siphons. Other than bilateral cataract extractions, the orbits appear normal. There is mild mucosal thickening in the ethmoid aircells. The mastoid air cells are clear. Small soft tissue swelling/hematomaalong the anterior frontal scalp and forehead. Age-indeterminate fracture deformity of the nasal septum. The nasal septum is deviated to the right with a septal spur in contact with the bases of the left inferior turbinate. IMPRESSION: 1.Trace subarachnoid hemorrhage in the right precentral sulcus, grossly unchanged from prior. 2.No evidence mass effect or midline shift. 3.Frontal scalp/forehead soft tissue swelling. Dictated by Donavon Landers D.O. ([employer]) This report was approved by Donavon Landers on 05/24/2021 2:16 PM . I, Dr. SALOME HENDERSON have personally reviewed and interpreted this examination/study. This report was electronically signed by SALOME HENDERSON on 05/24/2021 6:12 PM . Gigi Do MD CT ORDERABLES * PTT [facility] (05/23/2021 6:13 PM ISSUING OPERATOR) APTT 26.9 23.0 - 38.4 Seconds 05/23/2021 6:34 PM ISSUING OPERATOR [facility] [employer] Comment:Suggested therapeuti c range for full dose I.V. unfractionated heparin therapy for venous thromboembolism is 71 to 109 seconds. Blood BLOOD SPECIMEN / Unknown Venipuncture / Unknown 05/23/2021 6:13 PM ISSUING OPERATOR 05/23/2021 6:17 PM ISSUING OPERATOR Gigi Do MD LAB - COAGULATION ORDERABLES Performing Organization Address City/[facility]/ZIP Co de Phone Number [address] [address], [facility] [phone] * PT-INR [facility] (05/23/2021 6:13 PM ISSUING OPERATOR) PT 13.4 12.1 - 14.8 Seconds 05/23/2021 6:33 PM ISSUING OPERATOR [facility] INR 1.1 See Comment 05/23/2021 6:33 PM ISSUING OPERATOR [facility] Comment:The suggested therap eutic range for standard coumadin (warfarin) therapy is an INR of 2.0-3.0. For high-risk patients (Mechanical Mitral Valve Prosthesis, etc.), the suggested prophylactic therapeutic range is an INR of 2.5-3.5. Blood BLOOD SPECIMEN / Unknown Venipuncture / Unknown 05/23/2021 6:13 PM ISSUING OPERATOR 05/23/2021 6:17 PM ISSUING OPERATOR Gigi Do MD LAB - COAGULATION ORDERABLES Performing Organization Address City/[facility]/ZIP Co de Phone Number [address] [address], [place] [phone] * (ABNORMAL) CBC W AUTO DIFFERENTIAL (05/23/2021 6:13 PM [facility]) WBC 6.3 3.5 - 10.5 10 3/uL 05/23/2021 6:33 PM [facility] RBC 3.59(L) 3.80 - 5.20 10 6/uL 05/23/2021 6:33 PM [facility] Hemoglobin 10.8(L) 12.0 - 15.6 g/dL 05/23/2021 6:33 PM [facility] Hematocrit 33.5(L) 35.0 - 45.0 % 05/23/2021 6:33 PM [facility] MCV 93.3 80.7 - 98.3 fL 05/23/2021 6:33 PM [facility] MCH 30.1 26.7 - 34.0 pg 05/23/2021 6:33 PM [facility] MCHC 32.2 30.8 - 35.9 g/dL 05/23/2021 6:33 PM [facility] Platelet Count 258 150 - 400 10 3/uL 05/23/2021 6:33 PM [facility] RDW-SD 45.9 36.0 - 50.0 fL 05/23/2021 6:33 PM [facility] RDW-CV 13.3 11.2 - 14.8 % 05/23/2021 6:33 PM [facility] MPV 10.4 9.4 - 12.9 fL 05/23/2021 6:33 PM [facility] nRBC Absolute 0.00 0 10 3/uL 05/23/2021 6:33 PM [facility] nRBC Auto 0.0 0 /100 WBC 05/23/2021 6:33 PM [facility] Neutrophils % 71.8(H) 35.0 - 70.0 % 05/23/2021 6:33 PM [facility] Lymphocytes % 16.4(L) 20.0 - 43.0 % 05/23/2021 6:33 PM [facility] Monocytes % 9.3 5.0 - 13.0 % 05/23/2021 6:33 PM [facility] Eosinophils % 1.7 0.0 - 6.0 % 05/23/2021 6:33 PM [facility] Basophil % 0.5 0.0 - 2.0 % 05/23/2021 6:33 PM [facility] Neutrophils Absolute 4.6 1.6 - 7.0 10 3/uL 05/23/2021 6:33 PM [facility] Lymphocyte Absolute 1.0(L) 1.1 - 3.9 10 3/uL 05/23/2021 6:33 PM [facility] Monocytes Absolute 0.59 0.26 - 1.07 10 3/uL 05/23/2021 6:33 PM [facility] Eosinophils Absolute 0.11 0.00 - 0.47 10 3/uL 05/23/2021 6:33 PM [facility] Basophils Absolute 0.03 0.00 - 0.08 10 3/uL 05/23/2021 6:33 PM [facility] Immature Granulocytes % 0.3 0.0 - 1.0 % 05/23/2021 6:33 PM [facility] Immature Granulocytes Absolute 0.02 05/23/2021 6:33 PM [facility] Blood BLOOD SPECIMEN / Unknown Venipuncture / Unknown 05/23/2021 6:13 PM ISSUING OPERATOR 05/23/2021 6:24 PM [facility] Gigi Do MD LAB - HEMATOLOGY ORDERABLES Performing Organization Address City/State/RUST Co de Phone Number [facility] [address] [place] [address], [facility] [phone] * (ABNORMAL) BASIC METABOLIC PANEL (CALCIUM TOTAL) (05/23/2021 6:13 PM ISSUING OPERATOR) BUN 18 7 - 26 mg/dL 05/23/2021 6:51 PM [facility] Creatinine 0.87 0.56 - 0.96 mg/dL 05/23/2021 6:51 PM [facility] Sodium 144 136 - 145 mmol/L 05/23/2021 6:51 PM [facility] Potassium 4.1 3.5 - 4.5 mmol/L 05/23/2021 6:51 PM [facility] Chloride 110(H) 98 - 107 mmol/L 05/23/2021 6:51 PM [facility] CO2 23 22 - 29 mmol/L 05/23/2021 6:51 PM [facility] Glucose 86 70 - 115 mg/dL 05/23/2021 6:51 PM [facility] Calcium 9.4 8.4 - 10.2 mg/dL 05/23/2021 6:51 PM [facility] Anion Gap 15 8 - 18 05/23/2021 6:51 PM [facility] BUN/Creatinine Ratio 21 7 - 23 05/23/2021 6:51 PM [facility] Osmolality Calculated 299 270 - 300 mOsm/kg 05/23/2021 6:51 PM [facility] eGFR by CKD-EPI 61(L) >=90 mL/min/1.7 3 m2 05/23/2021 6:51 PM [facility] Blood BLOOD SPECIMEN / Unknown Venipuncture / Unknown 05/23/2021 6:13 PM ISSUING OPERATOR 05/23/2021 6:24 PM ISSUING OPERATOR Gigi Do MD LAB - CHEMISTRY O RDERABLES [facility] [address] [place] [address], [facility] [phone] * FLOW CYTOMETRY BONE MARROW (02/03/2020 9:00 AM CDT) Case Report Flow Cytometry Case: [id number] Authorizing Provider: Alex Iniguez MD Collected: 02/03/2020 09:00 AM Ordering Location: [facility] Care Pathology Lab Received: 02/03/2020 11:33 AM Pathologist: Tracey Hopper Mai, DO Specimen: Bone Marrow 02/03/2020 5:50 PM CDT [facility] Final Diagnosis Bone marrow, flow cytometric immunophenotypic analysis: - Small population of myeloid blasts (0.4%) and immature monocytes (1.6%). - Small population of immature B cells (0.7%). - See interpretation. 02/03/2020 5:50 PM CDT [facility] Flow Cytometry Interpretation The bone marrow specimen has a viability of 100%. The lymphocyte, dim CD45, monocyte, and granulocyte steel are normal in relative proportion. Within the lymphocyte gate, there is no monotypic B-cell population identified (kappa: lambda ratio = 1.2:1). There is no expanded T-cell population seen. By CD33/34, 0.4% of all events analyzed are myeloid blasts. Additionally, the monocyte gate demonstrates a CD34 population that comprises 1.6% of events suggestive of an immature monocyte population. Further study of myeloid markers on this monocyte population demonstrate there is progression to maturity. A population of immature B cells expressing CD19/CD34 are also present comprising 0.7% of events. A bone marrow aspirate smear prepared from the flow cytometry specimen is reviewed for quality control purposes. The bone marrow aspirate specimen shows no evidence of involvement by non-Hodgkin lymphoma but there are populations of immature cells (both myeloid and lymphoid) warranting correlation with morphologic findings on the bone marrow biopsy and relevant cytogenetic/molecu lar studies for further classification. 02/03/2020 5:50 PM [facility] Flow Cytometry Results Differential Result Comment Flow Cell Count /uL 69,000 Total Viability % 100.0 Lymphocytes % 17 Dim CD45 Region % 3 Monocytes % 12 Granulocytes % 67 02/03/2020 5:50 PM [facility] Reason for test Anemia, unspecified 285.9 history of diabetes, cryoglobulinemia and normocytic normochromic anemia. 02/03/2020 5:50 PM [facility] Client Specimen ID # [id number] 02/03/2020 5:50 PM [facility] Number of markers 19 were performed. A-2 Flow CD10 A-3 Flow CD13 A-5 Flow CD20 A-11 Flow CD2 A-13 Flow CD14 A-16 Flow CD117 A-17 Flow CD11b A-18 Flow CD11c A-1 Flow CD5 A-4 Flow CD19 A-6 Flow CD33 A-7 Flow CD34 A-8 Flow CD45 A-12 Flow CD7 A-14 Flow CD56 A-15 Flow CD64 A-9 [place]+CD19+ A-10 Lambda+CD19+ A-19 Flow HLA-DR 02/03/2020 5:50 PM [facility] Disclaimer Test performed at [facility], [address] [place], [place], [address]. *The established laboratory minimum viability is 70%. Values below the minimum may result in the failure to find an abnormal population of cells. This test was developed and its performance characteristics determined by the Flow Cytometry Laboratory. It has not been cleared by the [place] Food and Drug Administration (FDA). The FDA has determined that such clearance or approval is not necessary. This test is used for clinical purposes. It should not be regarded as investigational or for research. This laboratory is regulated under the Clinical Laboratory Improvement Amendments of 1998 (CLIA) as a qualified to perform high complexity clinical testing. 02/03/2020 5:50 PM CDT [facility] Embedded Images 0 5:50 PM CDT [facility] Pathology/Cytolo gy BONE MARROW SPECIMEN / Unknown 02/03/2020 9:00 AM CDT 02/03/2020 11:33 AM CDT Alex Iniguez MD LAB - PATHOLOGY/CYTO LOGY ORDERABLES [facility]. [address] [phone] * BONE MARROW BIOPSY (STL) (02/03/2020 8:30 AM CDT) Case Report Bone Marrow Patholog y Report Case: [id number] Authorizing Provider: Alex Iniguez MD Collected: 02/03/2020 08:30 AM Ordering Location: [facility] Pathology Lab Received: 02/05/2020 08:26 AM Pathologist: Tracey Hopper Mai, DO Specimens: A) - Bone Marrow Clot, OSC: [id number] B) - Bone Marrow Core, OSC: [id number] 02/07/2020 3:57 PM CDT [facility] Final Diagnosis Bone marrow, aspirate, clot section, and core biopsy: - Normocellular marrow with maturing trilineage hematopoiesis. - No morphologic evidence of lymphoma or high-grade myeloid neoplasm. - See description. 02/07/2020 3:57 PM CDT [facility] Comment Overall, the bone marrow specimen is normocellular for age with maturing trilineage hematopoiesis and no morphologic evidence of lymphoma, a high-grade myeloid neoplasm, or significant dyspoiesis. Concurrent flow cytometry ([id number]) shows a small population of myeloid blasts (0.4%), immature monocytes (1.6%) and a small population of immature B cells (0.7%). While these low-level values are not significant in isolation, all three together raise the question of a left-shift in bone marrow maturation. The normocellular nature of the core biopsy argues against a myeloproliferative or myeloproliferative/my elodysplastic process. The aspirates are suboptimal for morphologic evaluation but do not show overt dysplasia. To identify a reactive cause stimulating the marrow, immunoperoxidase and in situ hybridization studies for CMV, HSV and EBV were performed; all are negative. CD34, TDT and PAX-5 immunostains do not show increased immaturity. The findings are nonspecific but there is no morphologic evidence of a high-grade myeloid neoplasm, lymphoma or marrow effacing process. Correlation with clinical findings and relevant cytogenetic/molecular testing is required. 02/07/2020 3:57 PM [facility] Bone Marrow Aspirate Differential count (200 cells): 0% blasts, 76.5% maturing myeloid precursors, 9% erythroid progenitors, 2.5% monocytes, 1% eosinophils, 11% lymphocytes, 0% plasma cells. Specimen quality: suboptimal, aspiculate and hemodilute. Spicules: absent. Trilineage Hematopoiesis: erythroids and myeloids present; rare smudged nuclei which might represent stripped megakaryocyte nuclei. Myeloid:Erythroid ratio: 8.9:1, however this may not be financial representative due to the hemodilute nature of the sample. Myeloid Maturation: normal. Erythroid Maturation: few to assess, but appears normal. Megakaryocyte morphology: too few to adequately assess. Storage iron (by special stain): not evaluable due to lack of spicules. Sideroblastic iron (by special stain): no ring sideroblasts but this may not be financial representative due to the paucity of erythroid precursors. 02/07/2020 3:57 PM [facility] Bone Marrow Core Biopsy and Clot Section Description Specimen quality: adequate. Cellularity: patchy, 20-40% Trilineage Hematopoiesis: present. Myeloid to Erythroid ratio: normal. Myeloid maturation and localization: normal. Erythroid maturation and localization: normal. Megakaryocyte number: normal. Megakaryocyte distribution: normal. Lymphoid aggregates: absent. Bone trabeculae: normal. Blood vessels: normal. Core storage iron (by special stain): absent (decalcified). Clot section marrow particles: rare, minute. Clot section morphology: predominantly blood with some admixed marrow elements Immunohistochemical stains and in situ hybridization are performed on the core biopsy in the [facility] Department of Pathology, with appropriately reactive controls, and demonstrate the following: CD34: no increase in blasts (less than 5% of marrow cellularity). CD117: highlights scattered mast cells. E-cadherin: highlights focal immature erythroid precursors. PAX5 and Tdt: negative. CMV: negative. HSV1/2: negative. NARCISO by THOMAS: negative 02/07/2020 3:57 PM [facility] Flow Cytometry Summary Concurrent flow cytometry ([id number]) shows small population of myeloid blasts (0.4%), immature monocytes (1.6%) and a small population of immature B cells (0.7%). 02/07/2020 3:57 PM [facility] Clinical History 02/07/2020 3:57 PM [facility] Materials Received Received are 3 blocks (A1, A2, B1) and 16 slide(s) labeled [id number] along with a copy of the outside pathology report. [place] [address]. All original materials are returned to the referring institution, along with a copy of our final report. 02/07/2020 3:57 PM [facility] Disclaimer The performance characteristics of all immunohistochemical and indirect immunofluorescence stains (if any) cited in this report were determined by the Histopathology Laboratory of [facility] [place] [facility]. Some of these tests were developed by our own laboratory and have not been cleared or approved by the US Food and Drug Administration. The FDA does not require this test to go through premarket FDA review. These tests are used for clinical purposes. They should not be regarded as investigational or for research. This laboratory is certified under the Clinical Laboratory Improvement Amendments (CLIA) as qualified to perform high complexity clinical laboratory testing. This case has been personally reviewed and interpreted by the attending (teaching) pathologist. 02/07/2020 3:57 PM CDT [facility] Embedded Images 02/07/2020 3:57 PM CDT [facility] Pathology/Cytology BONE MARROW SPECIMEN / Unknown 02/03/2020 8:30 AM CDT 02/05/2020 8:26 AM CDT Miscellaneous samples (specimen) BONE MARROW SPECIMEN / Unknown 02/03/2020 8:30 AM CDT 02/05/2020 8:28 AM CDT Alex Iniguez MD LAB - PATHOLOGY/CYTO LOGY ORDERABLES Performing Organization Address [facility]/State/[place] Co de Phone Number [facility] [address] [phone] Care Teams Clay Structure Builder And Servicer Relationship Specialty Start Date End Date Easton Paulino MD [address] [place] [address] PCP - General 09/27/18
--- OUTSIDE RECORDS SUMMARY | 2024-08-27 10:54 | XMS_ITS | Encounter Summary ---
Author Organization [facility] Address 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
--- OUTSIDE RECORDS SUMMARY | 2024-08-27 10:54 | XMS_ITS | Encounter Summary ---
Author Organization [facility] Address 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
--- OUTSIDE RECORDS SUMMARY | 2024-08-27 10:54 | XMS_ITS | Encounter Summary ---
Author Organization [facility] Address 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
--- OUTSIDE RECORDS SUMMARY | 2024-08-27 10:54 | XMS_ITS | Clinical Summary ---
Author Organization [facility] Address [address] [place] [address] Care Team Providers Care Negative Stripper Name Role Phone Easton Paulino MD Primary Care Provider [phone] Source Comments [facility],non-owned Affiliates and Associated Physician Practices is amultiple site organization consisting of ambulatory clinics and hospital sitesin [place], [place], [place] and [place]. This disclosure is being madepursuant to the Care Everywhere program and may not contain all information available regarding this patient. Last updated 18.[facility] [employer] Allergies Active Allergy Reactions Criticality Noted Date Comments Clonidine Vomiting 05/23/2021 Codeine Vomiting 05/23/2021 Morphine Vomiting 05/23/2021 Social History Tobacco Use Types Packs/Day Years [...] Comments Blood Pressure 167/84 05/23/2021 4:43 PM CLINICAL REVIEWER Pulse 79 05/23/2021 4:43 PM CLINICAL REVIEWER Temperature 37.2 C (98.9 F) 05/23/2021 4:43 PM CLINICAL REVIEWER Respiratory Rate 13 05/23/2021 4:43 PM CLINICAL REVIEWER Oxygen Saturation 98% 05/23/2021 4:43 PM CLINICAL REVIEWER Inhaled Oxygen Concentration - - Weight 63 kg (138 lb 14.2 oz) 05/23/2021 4:43 PM CLINICAL REVIEWER Height 147.3 cm (4' 10 ) 05/23/2021 4:43 PM CLINICAL REVIEWER Body Mass Index 29.03 05/23/2021 4:43 PM CLINICAL REVIEWER Plan of Treatment Health Maintenance Due Date Last Done Comments BONE DENSITY TESTING 1937 DTAP/TDAP/TD VACCINES (1 - Tdap) 1956 PNEUMOCOCCAL VACCINE 50+ (1 of 1 - PCV) 1987 ZOSTER VACCINE (1 of 2) 1987 Respiratory Syncytial Virus (RSV) Vaccine Pt: or over 60 yrs (1 - 1-dose 75+ series) 2012 COVID-19 VACCINE (1 - 2023-2 5 season) 2024 INFLUENZA VACCINE (#1) 2024 DEPRESSION SCREENING 07/09/2024 MEDICARE AWV CALENDAR YEAR 2024 HEPATITIS B VACCINE Aged Out No longe r eligible based on patient's age to complete this topic HIB VACCINE Aged Out No longer eligi ble based on patient's age to complete this topic HPV VACCINE Aged Out No longer eligi ble based on patient's age to complete this topic MENINGOCOCCAL (Group B) VACCINE Aged Out No longer eligible based on patient's age to complete this topic MENINGOCOCCAL VACCINE Aged Out No carin lisa eligible based on patient's age to complete this topic Care Teams Negative Stripper Relationship Specialty Start Date End Date Easton Paulino MD [address] [place], [place] [id number] PCP - General 09/27/18
--- OUTSIDE RECORDS SUMMARY | 2024-08-27 10:54 | XMS_ITS | Encounter Summary ---
Author Organization [facility] Address [address] [place] [address] Care Team Providers Care Environmental Protection Specialist Name Role Phone Easton Paulino MD Primary Care Provider Encounter Details Date Type Department Care Team (Late st Contact Info) Description 12/21/1999 Outpatient Historical [address] [address] Preeti Lopez MD NO ADDRESS ON FILE Social History Tobacco Use Types Packs/Day Years Used Date Smoking Tobacco: Never Assessed Comments Unknown Sex and Gender Information Value Date Recorded Sex Assigned at Not on file Legal Sex Female 3:28 AM HORSE RACE TIMER Gender Identity Not on file Sexual Orientation Not on file documented as of this encounter Plan of Treatment Not on file documented as of this encounter Visit Diagnoses Not on filedocumented in this encounter Care Teams Environmental Protection Specialist Relationship Specialty Start Date End Date Easton Paulino MD [address] [facility] 120 [place] [address] PCP - General Family Practice 12/24/18 documented as of this encounter
--- OUTSIDE RECORDS SUMMARY | 2024-08-27 10:54 | XMS_ITS | Referral Summary ---
Author Organization [facility] Address [address] [place] [address] Care Team Providers Care Oil Well Cable Tool Driller Name Role Phone Easton Paulino MD Primary Care Provider [phone] Source Comments [facility] Affiliates and Associated Physician Practices is amultiple site organization consisting of ambulatory clinics and hospital sitesin [place], [place], [place] and [place]. This disclosure is being madepursuant to the Care Everywhere program and may not contain all informatio navailable regarding this patient. Last updated 18.[facility] [employer] Allergies Active Allergy Reactions Criticality Noted Date [...] Comments Blood Pressure 167/84 05/23/2021 4:43 PM BANANA GRADER Pulse 79 05/23/2021 4:43 PM BANANA GRADER Temperature 37.2 C (98.9 F) 05/23/2021 4:43 PM BANANA GRADER Respiratory Rate 13 05/23/2021 4:43 PM BANANA GRADER Oxygen Saturation 98% 05/23/2021 4:43 PM BANANA GRADER Inhaled Oxygen Concentration - - Weight 63 kg (138 lb 14.2 oz) 05/23/2021 4:43 PM BANANA GRADER Height 147.3 cm (4' 10 ) 05/23/2021 4:43 PM BANANA GRADER Body Mass Index 29.03 05/23/2021 4:43 PM BANANA GRADER Plan of Treatment Not on file Care Teams Oil Well Cable Tool Driller Relationship Specialty Start Date End Date Easton Paulino MD [address] [place] [address] PCP - General 09/27/18
--- OUTSIDE RECORDS SUMMARY | 2024-08-27 10:54 | XMS_ITS | Encounter Summary ---
Author Organization [facility] Address [address] [place] [address] Care Team Providers Care Pneumatic Riveter Name Role Phone Easton Paulino MD Primary Care Provider Encounter Details Date Type Department Care Team (Late st Contact Info) Description 01/10/2006 Outpatient Historical [address] [address] Preeti Lopez MD NO ADDRESS ON FILE Social History Tobacco Use Types Packs/Day Years Used Date Smoking Tobacco: Never Assessed Comments Unknown Sex and Gender Information Value Date Recorded Sex Assigned at Not on file Legal Sex Female 3:28 AM MANAGER ADMINISTRATIVE Gender Identity Not on file Sexual Orientation Not on file documented as of this encounter Plan of Treatment Not on file documented as of this encounter Visit Diagnoses Not on filedocumented in this encounter Care Teams Pneumatic Riveter Relationship Specialty Start Date End Date Easton Paulino MD [address] [facility] 120 [place] [address] PCP - General Family Practice 12/24/18 documented as of this encounter
--- OUTSIDE RECORDS SUMMARY | 2024-08-27 10:54 | XMS_ITS | Encounter Summary ---
Author Organization [facility] Address [address] [place] [address] Care Team Providers Care Surgical Manager Name Role Phone Easton Paulino MD Primary Care Provider Encounter Details Date Type Department Care Team (Late st Contact Info) Description 05/06/2007 Outpatient Historical [address] [address] Preeti Lopez MD NO ADDRESS ON FILE Social History Tobacco Use Types Packs/Day Years Used Date Smoking Tobacco: Never Assessed Comments Unknown Sex and Gender Information Value Date Recorded Sex Assigned at Not on file Legal Sex Female 3:28 AM EQUIPMENT SPECIALIST Gender Identity Not on file Sexual Orientation Not on file documented as of this encounter Plan of Treatment Not on file documented as of this encounter Visit Diagnoses Not on filedocumented in this encounter Care Teams Surgical Manager Relationship Specialty Start Date End Date Easton Paulino MD [address] [facility] [address] [place] [address] PCP - General Family Practice 12/24/18 documented as of this encounter
--- OUTSIDE RECORDS SUMMARY | 2024-08-27 10:55 | XMS_ITS | Encounter Summary ---
Author Organization [facility] Address [address] Attn: Epic Prelude ADT [place] [address] Care Team Providers Care Agriscience Teacher Name Role Phone Easton Paulino MD Primary Care Provider Encounter Details Date Type Department Care Team (Late st Contact Info) Description 06/16/1992 Outpatient Historical Preeti Lopez MD NO ADDRESS ON FILE Social History Tobacco Use Types Packs/Day Years Used Date Smoking Tobacco: Never Assessed Comments Unknown Sex and Gender Information Value Date Recorded Sex Assigned at Not on file Legal Sex Female 3:28 AM MANUFACTURING LABORER Gender Identity Not on file Sexual Orientation Not on file documented as of this encounter Plan of Treatment Not on file documented as of this encounter Visit Diagnoses Not on filedocumented in this encounter Care Teams Agriscience Teacher Relationship Specialty Start Date End Date Easton Paulino MD [address] [place] [address] [place] [address] PCP - General Family Practice 12/24/18 documented as of this encounter
--- OUTSIDE RECORDS SUMMARY | 2024-08-27 10:55 | XMS_ITS | Encounter Summary ---
Author Organization [facility] Address [address] [facility] Attn: Epic Prelude ADT [place] [address] Care Team Providers Care Trimmer Sorter Name Role Phone Easton Paulino MD Primary Care Provider Encounter Details Date Type Department Care Team (Late st Contact Info) Description 11/20/1990 Outpatient Historical Preeti Lopez MD NO ADDRESS ON FILE Social History Tobacco Use Types Packs/Day Years Used Date Smoking Tobacco: Never Assessed Comments Unknown Sex and Gender Information Value Date Recorded Sex Assigned at Not on file Legal Sex Female 3:28 AM MORTGAGE LOAN CLOSER Gender Identity Not on file Sexual Orientation Not on file documented as of this encounter Plan of Treatment Not on file documented as of this encounter Visit Diagnoses Not on filedocumented in this encounter Care Teams Trimmer Sorter Relationship Specialty Start Date End Date Easton Paulino MD [address] [facility] [address] [place] [address] PCP - General Family Practice 12/24/18 documented as of this encounter
--- OUTSIDE RECORDS SUMMARY | 2024-08-27 10:55 | XMS_ITS | Clinical Summary ---
Author Organization [facility] Address [address] [place] [address] Care Team Providers Care Rn Nursery Name Role Phone Easton Paulino MD Primary Care Provider Allergies Active Allergy Reactions Criticality Noted Date Comments Acetaminophen Nausea and Vomiting Medium 07/17/2019 Clonidine Bradycardia,Other (S ee Comments) Medium 06/18/2008 Codeine Nausea and Vomiting Low 06/18/2008 Reaction: Nausea, , Hydrocodone Nausea and Vomiting Low 07/17/2019 Morphine Nausea and Vomiting Low 12/25/2018 Oxycodone Nausea and Vomiting Low 07/17/2019 Tramadol Nausea and Vomiting Low 07/17/2019 Medications ALBUTEROL INHALATION Take by inhalation. Active aspirin (BABY ASPIRIN) 81 mg Oral Chew Take 81 mg by mouth daily. Active losartan potassium (LOSARTAN ORAL) Take 10 mg by mouth. Active multivitamins with minerals (Hair,Skin and Nails) Tablet take 1 tablet by oral route 2 times every day with food 11/07/2011 Active escitalopram oxalate (LEXAPRO) 5 mg tablet Take 5 mg by mouth daily. Active Symbicort 160-4.5 mcg/actuation HFA Aerosol Inhaler INHALE 2 PUFFS BY MOUTH TWICE DAILY IN THE MORNING AND IN THE EVENING 05/05/2020 Active ferrous sulfate 325 mg (65 mg iron) tablet Take by mouth. Active calcium as carbonate 1,625 mg (650 mg elemental) tablet Take 1 Tablet by mouth. Active nystatin (MYCOSTATIN) 100,000 unit/mL suspension 04/22/2021 Active alendronate (FOSAMAX) 70 mg tablet Take 70 mg by mouth every 7 days. empty stomach before other meds,with 8oz of water, stay upright 30 min Active Active Problems Problem Noted Date Diagnosed Date Chronic anemia 07/12/2021 Menopausal and postmenopausal disorder 1 Temporal arteritis Cryoglobulinemia Hypercholesteremia Diabetes mellitus type 2 in nonobese Family History Medical History Relation Name Comments Lung Cancer Father Colon Cancer Mother Heart Attack Mother Relation Name Status Comments Father Mother Social History Tobacco Use Types Packs/Day Years Used Date Smoking Tobacco: Former Cigarettes 0.5 10 0 [birth year]/11/1949 - 08/11/1959 Smokeless Tobacco: Never Alcohol Use Standard Drinks/Week Comments No 0 (1 standard drink = 0.6 oz pur e alcohol) Comments No Sex and Gender Information Value Date Recorded Sex Assigned at Not on file Legal Sex Female 3:28 AM END TRIMMER Gender Identity Not on file Sexual Orientation Not on file Occupation Industry Job Start Date Job End Date Not on file Not on file Not on file Not on file Last Filed Vital Signs Vital Sign Reading Time Taken Comments Blood Pressure 113/65 07/12/2021 11:00 AM END TRIMMER Pulse 80 07/12/2021 11:00 AM END TRIMMER Temperature 36.7 C (98.1 F) 07/12/2021 11:00 AM END TRIMMER Respiratory Rate - - Oxygen Saturation 96% 07/12/2021 11:00 AM END TRIMMER Inhaled Oxygen Concentration - - Weight 61 kg (134 lb 8 oz) 07/12/2021 11:[address] Height 152.4 cm (5') 07/12/2021 11:00 AM END TRIMMER Body Mass Index 26.27 07/12/2021 11:00 AM END TRIMMER Plan of Treatment Health Maintenance Due Date Last Done Comments DIABETES ANNUAL FOOT EXAM 1955 DIABETES ANNUAL RETINAL EXAM 1955 DIABETES HBA1C Q 6 MONTHS 1955 DIABETES MICROALBUMIN ANNUAL SCREEN 1955 LDL CHOLESTEROL ANNUAL 1955 DTAP/TDAP/TD VACCINES (1 - Tdap) 1956 PNEUMOCOCCAL VACCINE 65+ YEA RS (1 of 2 - PCV) 1956 ZOSTER VACCINE (1 of 2) 1987 RSV VACCINE (60+ or ) (1 - 1-dose 75+ series) 2012 INFLUENZA VACCINE (#1) 2024 OSTEOPOROSIS SCREENING Completed 07/23/2008, [address] [place] [address] [facility] [address] [place] [address] [facility] [address] Advance Directives For more information, please contact: [phone] Documents on File Type Date Recorded Patient Upper Cutter Out Expl anation Advance Directive POA 02/13/2019 2:23 PM Ad najera Directive POA Advance Directive Living Will 02/13/2019 2:23 PM Advance Directive Living Will Care Teams Rn Nursery Relationship Specialty Start Date End Date Easton Paulino MD [address] [facility] 120 [place] [address] PCP - General Family Practice 12/24/18
--- OUTSIDE RECORDS SUMMARY | 2024-08-27 10:55 | XMS_ITS | Encounter Summary ---
Author Organization [facility] Address [address] [facility] Attn: Epic Prelude ADT [place] [address] Care Team Providers Care Resident Athletic Trainer Name Role Phone Easton Paulino MD Primary Care Provider Encounter Details Date Type Department Care Team (Late st Contact Info) Description 07/25/1991 Outpatient Historical Preeti Lopez MD NO ADDRESS ON FILE Social History Tobacco Use Types Packs/Day Years Used Date Smoking Tobacco: Never Assessed Comments Unknown Sex and Gender Information Value Date Recorded Sex Assigned at Not on file Legal Sex Female 3:28 AM ACIDIZER HELPER Gender Identity Not on file Sexual Orientation Not on file documented as of this encounter Plan of Treatment Not on file documented as of this encounter Visit Diagnoses Not on filedocumented in this encounter Care Teams Resident Athletic Trainer Relationship Specialty Start Date End Date Easton Paulino MD [address] [facility] [address] [place] [address] PCP - General Family Practice 12/24/18 documented as of this encounter
--- OUTSIDE RECORDS SUMMARY | 2024-08-27 10:55 | XMS_ITS | Encounter Summary ---
Author Organization [facility] Address [address] [place] [address] Care Team Providers Care Clinical Nursing Instructor Name Role Phone Easton Paulino MD Primary Care Provider [phone] Encounter Details Date Type Department Care Team (Late st Contact Info) Description 02/04/1998 Outpatient Historical [address] [address] Preeti Lopez MD NO ADDRESS ON FILE Social History Tobacco Use Types Packs/Day Years Used Date Smoking Tobacco: Never Assessed Comments Unknown Sex and Gender Information Value Date Recorded Sex Assigned at Not on file Legal Sex Female 3:28 AM WORD PROCESSING SUPERVISOR Gender Identity Not on file Sexual Orientation Not on file documented as of this encounter Plan of Treatment Not on file documented as of this encounter Visit Diagnoses Not on filedocumented in this encounter Care Teams Clinical Nursing Instructor Relationship Specialty Start Date End Date Easton Paulino MD [address] [facility] [address] [place] [address] PCP - General Family Practice 12/24/18 documented as of this encounter
--- OUTSIDE RECORDS SUMMARY | 2024-08-27 10:55 | XMS_ITS | Encounter Summary ---
Author Organization [facility] Address [address] [place] [address] Care Team Providers Care Insurance Account Assistant Name Role Phone Easton Paulino MD Primary Care Provider [phone] Encounter Details Date Type Department Care Team (Late st Contact Info) Description 02/05/2020 Lab Requisition [facility] Care Pathology Lab [address] [place] [address] Alex Iniguez MD [address] [address] Illness, unspecified Social History Tobacco Use Types Packs/Day Years Used Date Smoking Tobacco: Never Assessed Sex and Gender Information Value Date Recorded Sex Assigned at Not on file Gender Identity Not on file Sexual Orientation Not on file documented as of this encounter Plan of Treatment Not on file documented as of this encounter Procedures Procedure Name Priority Date/Time Associated Diagnosis Comments BONE MARROW BIOPSY (STL) Routine 02/03/2020 8:30 AM CDT Illness, unspecified documented in this encounter Results * BONE MARROW BIOPSY (STL) (02/03/2020 8:30 AM CDT) Case Report Bone Marrow Patholog y Report Case: [id number] Authorizing Provider: Alex Iniguez MD Collected: 02/03/2020 08:30 AM Ordering Location: [facility] Pathology Lab Received: 02/05/2020 08:26 AM Pathologist: Tracey Hopper Mai, DO Specimens: A) - Bone Marrow Clot, OSC: [id number] B) - Bone Marrow Core, OSC: [id number] 02/07/2020 3:57 PM [facility] PATHOLOGY LAB Final Diagnosis Bone marrow, aspirate, clot section, and core biopsy: - Normocellular marrow with maturing trilineage hematopoiesis. - No morphologic evidence of lymphoma or high-grade myeloid neoplasm. - See description. 02/07/2020 3:57 PM [facility] PATHOLOGY LAB Comment Overall, the bone marrow specimen is normocellular for age with maturing trilineage hematopoiesis and no morphologic evidence of lymphoma, a high-grade myeloid neoplasm, or significant dyspoiesis. Concurrent flow cytometry ([id number]) shows a small population of myeloid blasts [...] cytogenetic/molecular testing is required. 02/07/2020 3:57 PM [facility] PATHOLOGY LAB Bone Marrow Aspirate Differential count (200 cells): 0% blasts, 76.5% maturing myeloid precursors, 9% erythroid progenitors, 2.5% monocytes, 1% eosinophils, 11% lymphocytes, 0% plasma cells. Specimen quality: suboptimal, aspiculate and hemodilute. Spicules: absent. Trilineage Hematopoiesis: erythroids and myeloids present; rare smudged nuclei which might represent stripped megakaryocyte nuclei. Myeloid:Erythroid ratio: 8.9:1, however this may not be business services representative due to the hemodilute nature of the sample. Myeloid Maturation: normal. Erythroid Maturation: few to assess, but appears normal. Megakaryocyte morphology: too few to adequately assess. Storage iron (by special stain): not evaluable due to lack of spicules. Sideroblastic iron (by special stain): no ring sideroblasts but this may not be business services representative due to the paucity of erythroid precursors. 02/07/2020 3:57 PM [facility] PATHOLOGY LAB Bone Marrow Core Biopsy and [...] performed on the core biopsy in the [facility] Department of Pathology, with appropriately reactive controls, and demonstrate the following: CD34: no increase in blasts (less than 5% of marrow cellularity). CD117: highlights scattered mast cells. E-cadherin: highlights focal immature erythroid precursors. PAX5 and Tdt: negative. CMV: negative. HSV1/2: negative. NARCISO by THOMAS: negative 02/07/2020 3:57 PM [facility] PATHOLOGY LAB Flow Cytometry Summary Concurrent flow cytometry ([id number]) shows small population of myeloid blasts (0.4%), immature monocytes (1.6%) and a small population of immature B cells (0.7%). 02/07/2020 3:57 PM [facility] PATHOLOGY LAB Clinical History 02/07/2020 3:57 PM [facility] PATHOLOGY LAB Materials Received Received are 3 blocks (A1, A2, B1) and 16 slide(s) labeled [id number] along with a copy of the outside pathology report. [place] [address]. All original materials are returned to the referring institution, along with a copy of our final report. 02/07/2020 3:57 PM [facility] PATHOLOGY LAB Disclaimer The performance characteristics of all immunohistochemical and indirect immunofluorescence stains (if any) cited in this report were determined by the Histopathology Laboratory of [facility]. Some of these tests were developed by [...] attending (teaching) pathologist. 02/07/2020 3:57 PM CDT [facility] PATHOLOGY LAB Embedded Images 02/07/2020 3:57 PM CDT [facility] PATHOLOGY LAB Pathology/Cytology BONE MARROW SPECIMEN / Unknown 02/03/2020 8:30 AM CDT 02/05/2020 8:26 AM CDT Miscellaneous samples (specimen) BONE MARROW SPECIMEN / Unknown 02/03/2020 8:30 AM CDT 02/05/2020 8:28 AM CDT Alex Iniguez MD LAB - PATHOLOGY/CYTO LOGY ORDERABLES Performing Organization Address City/State/[facility] Co de Phone Number [facility] PATHOLOGY LAB [address] [phone] documented in this encounter Visit Diagnoses Diagnosis Illness, unspecified documented in this encounter Care Teams Insurance Account Assistant Relationship Specialty Start Date End Date Easton Paulino MD [address] [place] [address] PCP - General 09/27/18 documented as of this encounter
--- OUTSIDE RECORDS SUMMARY | 2024-08-27 10:55 | XMS_ITS | Encounter Summary ---
Author Organization [facility] Address [address] [facility] [place] [address] Care Team Providers Care Gut Cleaner Name Role Phone Easton Paulino MD Primary Care Provider [phone] Encounter Details Date Type Department Care Team (Late st Contact Info) Description 02/03/2020 Lab Requisition [facility] Pathology Lab [address] [place] [address] Alex Iniguez MD [address] [address] Anemia, unspecified Social History Tobacco Use Types Packs/Day Years Used Date Smoking Tobacco: Never Assessed Sex and Gender Information Value Date Recorded Sex Assigned at Not on file Gender Identity Not on file Sexual Orientation Not on file documented as of this encounter Plan of Treatment Not on file documented as of this encounter Procedures Procedure Name Priority Date/Time Associated Diagnosis Comments FLOW CYTOMETRY BONE MARROW Routine 02/03/2020 9:00 AM CDT Anemia, unspecified documented in this encounter Results * FLOW CYTOMETRY BONE MARROW (02/03/2020 9:00 AM CDT) Case Report Flow Cytometry Case: [id number] Authorizing Provider: Alex Iniguez MD Collected: 02/03/2020 09:00 AM Ordering Location: [facility] Pathology Lab Received: 02/03/2020 11:33 AM Pathologist: Tracey Hopper Mai, DO Specimen: Bone Marrow 02/03/2020 5:50 PM CDT [facility] PATHOLOGY LAB Final Diagnosis Bone marrow, flow cytometric immunophenotypic analysis: - Small population of myeloid blasts (0.4%) and immature monocytes (1.6%). - Small population of immature B cells (0.7%). - See interpretation. 02/03/2020 5:50 PM [facility] PATHOLOGY LAB Flow Cytometry Interpretation The bone [...] the flow cytometry specimen is reviewed for air quality engineer purposes. The bone marrow aspirate specimen shows no evidence of involvement by non-Hodgkin lymphoma but there are populations of immature cells (both myeloid and lymphoid) warranting correlation with morphologic findings on the bone marrow biopsy and relevant cytogenetic/molecu lar studies for further classification. 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 02/03/2020 5:50 PM [facility] PATHOLOGY LAB Client Specimen ID # [id number] 02/03/2020 5:50 PM [facility] PATHOLOGY LAB Number of markers 19 were performed. A-2 Flow CD10 A-3 Flow CD13 A-5 Flow CD20 A-11 Flow CD2 A-13 Flow CD14 A-16 Flow CD117 A-17 Flow CD11b A-18 Flow CD11c A-1 Flow CD5 A-4 Flow CD19 A-6 Flow CD33 A-7 Flow CD34 A-8 Flow CD45 A-12 Flow CD7 A-14 Flow CD56 A-15 Flow CD64 A-9 [place]+CD19+ A-10 Lambda+CD19+ A-19 Flow HLA-DR 02/03/2020 5:50 PM CDT [facility] PATH[facility] Disclaimer Test performed at [facility], [address] [place], [place], [address]. *The established laboratory minimum viability is 70%. [...] complexity clinical testing. 02/03/2020 5:50 PM CDT [facility] PATH[facility] Embedded Images 0 5:50 PM CDT [facility] Pathology/Cytolo gy BONE MARROW SPECIMEN / Unknown 02/03/2020 9:00 AM CDT 02/03/2020 11:33 AM CDT Alex Iniguez MD LAB - PATHOLOGY/CYTO LOGY ORDERABLES Performing Organization Address City/State/[facility] Co de Phone Number [facility] PATH[facility] [address] [facility] [phone] documented in this encounter Visit Diagnoses Diagnosis Anemia, unspecified documented in this encounter Care Teams Gut Cleaner Relationship Specialty Start Date End Date Easton Paulino MD [address] [place] [address] PCP - General 09/27/18 documented as of this encounter
--- OUTSIDE RECORDS SUMMARY | 2024-08-27 10:55 | XMS_ITS | Clinical Summary ---
Author Organization [facility] Address [address] [place] [address] Care Team Providers Care Foil Operator Name Role Phone Easton Paulino MD Primary Care Provider [phone] Social History Tobacco Use Types Packs/Day Years Used Date Smoking Tobacco: Never Assessed Comments Unknown Sex and Gender Information Value Date Recorded Sex Assigned at Not on file Legal Sex Female 10:36 AM CARD DECORATOR Gender Identity Not on file Sexual Orientation Not on file Plan of Treatment Health Maintenance Due Date Last Done Comments DTaP, Tdap and Td Vaccines ( 1 - Tdap) 1954 Annual Medicare Wellness Visit 2002 RSV Immunization or 60+ Years (1 - 1-dose 75+ series) 2012 Pneumococcal Vaccine: 65+ Years (2 of 2 - PPSV23 or PCV20) 03/26/2019 03/26/2018, 04/01/2017, 03/13/2016 COVID-19 Vaccine (2023-2 5 season) 2024 Influenza Adult (#1) 2024 03/07/2019, 03/26/2018 Zoster Vaccines Completed 08/23/2019, 05/02/2019 Meningococcal B Vaccine Aged Out No l onger eligible based on patient's age to complete this topic Meningococcal Vaccine Aged Out No carin lisa eligible based on patient's age to complete this topic RSV Immunizations Under 20 Months Aged Out No longer eligible b ased on patient's age to [place] [address] [place] [address] [facility] Care Teams Foil Operator Relationship Specialty Start Date End Date Easton Paulino MD [address] [place] [address] PCP - General FAMILY PRACTICE 06/30/20
[2024-08-27 11:40] LABS: Basophils Absolute Auto 0.1 K/mm3 (0.0-0.1); Basophils Percent Auto 0.5 % (0.2-1.2); Eosinophils Absolute Auto 0.1 K/mm3 (0-0.3); Eosinophils Percent Auto 0.6 % (0-4.4); Hematocrit 34.3 % (37.0-47.0); Immature Granulocyte Absolute 0.05 K/mm3 (0.00-0.031); Immature Granulocyte Percent A 0.5 % (0-0.5); Lymphocytes Absolute Auto 0.99 K/mm3 (0.9-3.2); Lymphocytes Percent Auto 10.6 % (18.3-44.2); Mean Corpuscular HGB Conc 32.1 g/dl (32-36); Mean Corpuscular Hemoglobin 30.2 pg (26-34); Mean Corpuscular Volume 94.2 fl (80-100); Mean Platelet Volume 10.5 fl (7.4-10.4); Monocytes Absolute Auto 0.7 K/mm3 (0.1-0.6); Monocytes Percent Auto 7.9 % (2.6-8.5); Neutrophils Absolute Auto 7.5 K/mm3 (1.3-6.7); Neutrophils Percent Auto 79.9 % (45.5-73.1); Platelet Count Result 281 k/mm3 (150-375); Red Blood Count 3.64 M/mm3 (4.2-5.4); Red Cell Distribution Width 12.5 % (11.5-14.5); White Blood Count 9.4 K/mm3 (4.5-10.0)
[2024-08-27 11:47] LABS: Add Urine Microscopic? YES; Appearance Urine Clear (Clear); Bacteria Urine None Seen /hpf; Bilirubin Urine Negative (Negative); Blood Urine Negative (Negative); Color Urine Yellow (Yellow); Glucose Urine UA Negative (Negative); Ketones Urine Negative (Negative); Leukocyte Esterase Ur 2+ LEU/UL (Negative); Nitrate Urine Negative (Negative); Protein Urine Trace mg/dL (Negative); RBC Urine 0-2 /hpf (0-2); Specific Grav Ur 1.013 (1.001-1.035); Squamous Epithelial Cell Urine Occasional /hpf (Few)
[2024-08-27 11:53] LABS: Alanine Aminotransferase 20 U/L (6-35); Albumin Level 4.2 g/dL (3.5-5.1); Alkaline Phosphatase 92 U/L (38-126); Anion Gap 12 mmol/L (4-12); Aspartate Amino Transferase 26 U/L (14-36); Bilirubin,Total 0.8 mg/dL (0.2-1.3); Blood Urea Nitrogen 21 mg/dL (7-17); Calcium 9.5 mg/dL (8.4-10.2); Carbon Dioxide 25 mmol/L (22-30); Chloride 95 mmol/L (98-107); Estimated Glomerular Filt Rate > 60; Glucose 85 mg/dL (65-110); Potassium 4.4 mmol/L (3.4-5.0); Sodium 132 mmol/L (137-145)
== END 2024-08-27 10:44 | disposition home or self-care (01) ==
PROVIDERS: PCP Family Medicine; Visit Provider Family Medicine
DX: N39.0 Urinary tract infection, site not specified (principal); I10 Essential (primary) hypertension; M43.06 Spondylolysis, lumbar region; R42 Dizziness and giddiness
CPT/HCPCS: 36415; 70450; 80053; 81001; 85025; 87086

== ENCOUNTER 2024-11-07 01:07 | Day surgery (SDC) | payer MEDICARE, SELFPAY ==
[2024-11-05 11:09] VITALS: BMI 21.5
--- OUTSIDE RECORDS SUMMARY | 2024-11-07 01:11 | XMS_ITS | Encounter Summary ---
Author Organization [facility] Address [address] [place] [address] Care Team Providers Care Box Order Person Name Role Phone Easton Paulino MD Primary Care Provider Encounter Details Date Type Department Care Team (Late st Contact Info) Description 03/17/1999 Outpatient Historical [address] [address] Preeti Lopez MD NO ADDRESS ON FILE Social History Tobacco Use Types Packs/Day Years Used Date Smoking Tobacco: Never Assessed Comments Unknown Sex and Gender Information Value Date Recorded Sex Assigned at Not on file Legal Sex Female 3:28 AM DREDGE OR BARGE SHORE HAND Gender Identity Not on file Sexual Orientation Not on file documented as of this encounter Plan of Treatment Not on file documented as of this encounter Visit Diagnoses Not on filedocumented in this encounter Care Teams Box Order Person Relationship Specialty Start Date End Date Easton Paulino MD [address] [facility] [address] [place] [address] PCP - General Family Practice 12/24/18 documented as of this encounter
--- OUTSIDE RECORDS SUMMARY | 2024-11-07 01:11 | XMS_ITS | Encounter Summary ---
Author Organization [facility] Address [address] [facility] Attn: Epic Prelude ADT MICHELLE MOLINA [address] Care Team Providers Care Rehabilitation Nurse Name Role Phone Easton Paulino MD Primary Care Provider [phone] Encounter Details Date Type Department Care Team (Late st Contact Info) Description 07/25/1991 Outpatient Historical Preeti Lopez MD NO ADDRESS ON FILE Social History Tobacco Use Types Packs/Day Years Used Date Smoking Tobacco: Never Assessed Comments Unknown Sex and Gender Information Value Date Recorded Sex Assigned at Not on file Legal Sex Female 3:28 AM LICENSING COORDINATOR Gender Identity Not on file Sexual Orientation Not on file documented as of this encounter Plan of Treatment Not on file documented as of this encounter Visit Diagnoses Not on filedocumented in this encounter Care Teams Rehabilitation Nurse Relationship Specialty Start Date End Date Easton Paulino MD [address] [place] [address] [place] [phone] PCP - General Family Practice 12/24/18 documented as of this encounter
--- OUTSIDE RECORDS SUMMARY | 2024-11-07 01:11 | XMS_ITS | Encounter Summary ---
Author Organization [facility] Address [address] [facility] [place] [address] Care Team Providers Care Print Graphic Designer Name Role Phone Easton Paulino MD Primary Care Provider [phone] Encounter Details Date Type Department Care Team (Late st Contact Info) Description 02/05/2020 Lab Requisition [facility] Pathology Lab [address] [place] [address] Alex Iniguez MD [address] [address] Illness, unspecified Social History Tobacco Use Types Packs/Day Years Used Date Smoking Tobacco: Never Assessed Comments Unknown Sex and Gender Information Value Date Recorded Sex Assigned at Not on file Legal Sex Female 5:18 AM AUTH SPECIALIST Gender Identity Not on file Sexual [...] Report Bone Marrow Patholog y Report Case: [id number] Authorizing Provider: Alex Iniguez MD Collected: 02/03/2020 08:30 AM Ordering Location: [facility] Pathology Lab Received: 02/05/2020 08:26 AM Pathologist: Tracey Hopper Mai, DO Specimens: A) - Bone Marrow Clot, OSC: [id number] B) - Bone Marrow Core, OSC: [id number] 02/07/2020 3:57 PM [facility] PATHOLOGY LAB Final Diagnosis Bone marrow, aspirate, clot section, and core biopsy: - Normocellular marrow with maturing trilineage hematopoiesis. - No morphologic evidence of lymphoma or high-grade myeloid neoplasm. - See description. 02/07/2020 3:57 PM [facility] PATHOLOGY LAB Comment Overall, the bone marrow specimen is normocellular for age with maturing trilineage hematopoiesis and no morphologic evidence of lymphoma, a high-grade myeloid neoplasm, or significant dyspoiesis. Concurrent flow cytometry ([id number]) shows a small population of myeloid blasts [...] cytogenetic/molecular testing is required. 02/07/2020 3:57 PM [facility] PATHOLOGY LAB Bone Marrow Aspirate Differential count (200 cells): 0% blasts, 76.5% maturing myeloid precursors, 9% erythroid progenitors, 2.5% monocytes, 1% eosinophils, 11% lymphocytes, 0% plasma cells. Specimen quality: suboptimal, aspiculate and hemodilute. Spicules: absent. Trilineage Hematopoiesis: erythroids and myeloids present; rare smudged nuclei which might represent stripped megakaryocyte nuclei. Myeloid:Erythroid ratio: 8.9:1, however this may not be access services representative due to the hemodilute nature of the sample. Myeloid Maturation: normal. Erythroid Maturation: few to assess, but appears normal. Megakaryocyte morphology: too few to adequately assess. Storage iron (by special stain): not evaluable due to lack of spicules. Sideroblastic iron (by special stain): no ring sideroblasts but this may not be access services representative due to the paucity of erythroid precursors. 02/07/2020 3:57 PM [facility] PATHOLOGY LAB Bone Marrow Core [...] performed on the core biopsy in the [facility] Department of Pathology, with appropriately reactive controls, and demonstrate the following: CD34: no increase in blasts (less than 5% of marrow cellularity). CD117: highlights scattered mast cells. E-cadherin: highlights focal immature erythroid precursors. PAX5 and Tdt: negative. CMV: negative. HSV1/2: negative. NARCISO by THOMAS: negative 02/07/2020 3:57 PM [facility] PATHOLOGY LAB Flow Cytometry Summary Concurrent flow cytometry ([id number]) shows small population of myeloid blasts (0.4%), immature monocytes (1.6%) and a small population of immature B cells (0.7%). 02/07/2020 3:57 PM [facility] PATHOLOGY LAB Clinical History 02/07/2020 3:57 PM [facility] PATHOLOGY LAB Materials Received Received are 3 blocks (A1, A2, B1) and 16 slide(s) labeled [id number] along with a copy of the outside pathology report. [place] [address]. All original materials are returned to the referring institution, along with a copy of our final report. 02/07/2020 3:57 PM [facility] PATHOLOGY LAB Disclaimer The performance characteristics of all immunohistochemical and indirect immunofluorescence stains (if any) cited in this report were determined by the Histopathology Laboratory of [facility]. Some of these tests were developed [...] attending (teaching) pathologist. 02/07/2020 3:57 PM CDT [facility] PATH[facility] Embedded Images 02/07/2020 3:57 PM CDT [facility] PATH[facility] Pathology/Cytology BONE MARROW SPECIMEN / Unknown 02/03/2020 8:30 AM CDT 02/05/2020 8:26 AM CDT Miscellaneous samples (specimen) BONE MARROW SPECIMEN / Unknown 02/03/2020 8:30 AM CDT 02/05/2020 8:28 AM CDT Alex Iniguez MD LAB - PATHOLOGY/CYTOLOGY ORDER ANURAG Final Result [facility] [address] [phone] documented in this encounter Visit Diagnoses Diagnosis Illness, unspecified documented in this encounter Care Teams Print Graphic Designer Relationship Specialty Start Date End Date Easton Paulino MD [address] [place] [address] PCP - General 09/27/18 documented as of this encounter
--- OUTSIDE RECORDS SUMMARY | 2024-11-07 01:11 | XMS_ITS | Encounter Summary ---
Author Organization [facility] Address [address] [place] [address] Care Team Providers Care Mortarman Name Role Phone Easton Paulino MD Primary Care Provider Encounter Details Date Type Department Care Team (Late st Contact Info) Description 01/05/2003 Outpatient Historical [address] [address] Preeti Lopez MD NO ADDRESS ON FILE Social History Tobacco Use Types Packs/Day Years Used Date Smoking Tobacco: Never Assessed Comments Unknown Sex and Gender Information Value Date Recorded Sex Assigned at Not on file Legal Sex Female 3:28 AM UNCLAIMED PROPERTY MANAGER Gender Identity Not on file Sexual Orientation Not on file documented as of this encounter Plan of Treatment Not on file documented as of this encounter Visit Diagnoses Not on filedocumented in this encounter Care Teams Mortarman Relationship Specialty Start Date End Date Easton Paulino MD [address] [facility] [address] [place] [address] PCP - General Family Practice 12/24/18 documented as of this encounter
--- OUTSIDE RECORDS SUMMARY | 2024-11-07 01:11 | XMS_ITS | Encounter Summary ---
Author Organization [facility] Address [address] [place] [address] Care Team Providers Care Django Developer Name Role Phone Easton Paulino MD Primary Care Provider Encounter Details Date Type Department Care Team (Late st Contact Info) Description 05/06/2007 Outpatient Historical [address] [address] Preeti Lopez MD NO ADDRESS ON FILE Social History Tobacco Use Types Packs/Day Years Used Date Smoking Tobacco: Never Assessed Comments Unknown Sex and Gender Information Value Date Recorded Sex Assigned at Not on file Legal Sex Female 3:28 AM MECHANICAL DRAWING TEACHER Gender Identity Not on file Sexual Orientation Not on file documented as of this encounter Plan of Treatment Not on file documented as of this encounter Visit Diagnoses Not on filedocumented in this encounter Care Teams Django Developer Relationship Specialty Start Date End Date Easton Paulino MD [address] [facility] [address] [place] [address] PCP - General Family Practice 12/24/18 documented as of this encounter
--- OUTSIDE RECORDS SUMMARY | 2024-11-07 01:11 | XMS_ITS | Encounter Summary ---
Author Organization [facility] Address [address] [place] [address] Care Team Providers Care Shuttler Name Role Phone Easton Paulino MD Primary Care Provider Encounter Details Date Type Department Care Team (Late st Contact Info) Description 09/02/2001 Outpatient Historical [address] [address] Preeti Lopez MD NO ADDRESS ON FILE Social History Tobacco Use Types Packs/Day Years Used Date Smoking Tobacco: Never Assessed Comments Unknown Sex and Gender Information Value Date Recorded Sex Assigned at Not on file Legal Sex Female 3:28 AM CHIEF EXECUTIVE OR MANAGING DIRECTOR Gender Identity Not on file Sexual Orientation Not on file documented as of this encounter Plan of Treatment Not on file documented as of this encounter Visit Diagnoses Not on filedocumented in this encounter Care Teams Shuttler Relationship Specialty Start Date End Date Easton Paulino MD [address] [facility] [address] [place] [address] PCP - General Family Practice 12/24/18 documented as of this encounter
--- OUTSIDE RECORDS SUMMARY | 2024-11-07 01:11 | XMS_ITS | Encounter Summary ---
Author Organization [facility] Address [address] [facility] [place] [address] Care Team Providers Care Esthetician Makeup Artist Name Role Phone Easton Paulino MD Primary Care Provider [phone] Encounter Details Date Type Department Care Team (Late st Contact Info) Description 02/03/2020 Lab Requisition [facility] [place] [facility] Pathology Lab [address] [place] [address] Alex Iniguez MD [address] [facility] [address] [place] [id number] Anemia, unspecified Social History Tobacco Use Types Packs/Day Years Used Date Smoking Tobacco: Never Assessed Comments Unknown Sex and Gender Information Value Date Recorded Sex Assigned at Not on file Legal Sex Female 5:18 AM TRANSMISSION OPERATOR Gender Identity Not on file Sexual Orientation [...] AM CDT) Case Report Flow Cytometry Case: [id number] Authorizing Provider: Alex Iniguez MD Collected: 02/03/2020 09:00 AM Ordering Location: [facility] [place] [facility] Pathology Lab Received: 02/03/2020 11:33 AM Pathologist: Tracey Hopper Mai, DO Specimen: Bone Marrow 02/03/2020 5:50 PM [facility] Final Diagnosis Bone marrow, flow cytometric immunophenotypic analysis: - Small population of myeloid blasts (0.4%) and immature monocytes (1.6%). - Small population of immature B cells (0.7%). - See interpretation. 02/03/2020 5:50 PM [facility] Flow Cytometry Interpretation The bone [...] the flow cytometry specimen is reviewed for water quality assistant purposes. The bone marrow aspirate specimen shows no evidence of involvement by non-Hodgkin lymphoma but there are populations of immature cells (both myeloid and lymphoid) warranting correlation with morphologic findings on the bone marrow biopsy and relevant cytogenetic/molecu lar studies for further classification. 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 02/03/2020 5:50 PM [facility] Client Specimen ID # [id number] 02/03/2020 5:50 PM [facility] Number of markers 19 were performed. A-2 Flow CD10 A-3 Flow CD13 A-5 Flow CD20 A-11 Flow CD2 A-13 Flow CD14 A-16 Flow CD117 A-17 Flow CD11b A-18 Flow CD11c A-1 Flow CD5 A-4 Flow CD19 A-6 Flow CD33 A-7 Flow CD34 A-8 Flow CD45 A-12 Flow CD7 A-14 Flow CD56 A-15 Flow CD64 A-9 Bancroft+CD19+ A-10 Lambda+CD19+ A-19 Flow HLA-DR 02/03/2020 5:50 PM CDT [facility] Disclaimer Test performed at [facility], [address] [place], [place], [address]. *The established laboratory minimum viability is 70%. [...] complexity clinical testing. 02/03/2020 5:50 PM CDT [facility] Embedded Images 0 5:50 PM CDT [facility] Pathology/Cytolo gy BONE MARROW SPECIMEN / Unknown 02/03/2020 9:00 AM CDT 02/03/2020 11:33 AM CDT us Alex Iniguez MD LAB - PATHOLOGY/CYTOLOGY ORDER ANURAG Final Result [facility]. [address] [phone] documented in this encounter Visit Diagnoses Diagnosis Anemia, unspecified documented in this encounter Care Teams Esthetician Makeup Artist Relationship Specialty Start Date End Date Easton Paulino MD [address] [place] [address] PCP - General 09/27/18 documented as of this encounter
--- OUTSIDE RECORDS SUMMARY | 2024-11-07 01:11 | XMS_ITS | Encounter Summary ---
Author Organization [facility] Address 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
--- OUTSIDE RECORDS SUMMARY | 2024-11-07 01:11 | XMS_ITS | Encounter Summary ---
Author Organization [facility] Address [address] [place] [address] Care Team Providers Care Nursing Services Manager Name Role Phone Easton Paulino MD Primary Care Provider Encounter Details Date Type Department Care Team (Late st Contact Info) Description 11/05/[address] [facility] Medical Group Cardiology [address] [place] [address] Hugo Fan MD [address] [address] Social History Tobacco Use Types Packs/Day Years Used Date Smoking Tobacco: Former Cigarettes Smokeless Tobacco: Never Comments:Smoking History Pac ks/day: 1 Packs Alcohol Use Standard Drinks/Week Comments No 0 (1 standard drink = 0.6 oz pur e alcohol) AUDIT-C Answer Date Recorded Q1: How often do you have a drink containing alc ohol? Never 10/05/2021 Average Number of Drinks Not on file 022 Frequency of Binge Drinking Not on file 09/08 Comments Unknown Sex and Gender Information Value Date Recorded Sex Assigned at Not on file Legal Sex Female 4:57 PM ILLUMINATOR Gender Identity Female 10/31/2023 12:45 PM CDT Sexual Orientation Not on file documented as of this encounter Miscellaneous Notes * Telephone Encounter - Cathie Nolasco MA - 11/05/2024 5:05 PM CDT Patient needs to be seen. LM on pharmacy VM. * Telephone Encounter - Jacqueline Mullen - 11/05/2024 2:56 PM CDT [facility] requesting a refill for atorvastatin (LIPITOR) 40 mg with 90day supply. [facility]. Thank you. Contact: documented in this encounter Plan of Treatment Not on file documented as of this encounter Visit Diagnoses Not on filedocumented in this encounter Care Teams Nursing Services Manager Relationship Specialty Start Date End Date Easton Paulino MD [address] [facility] [address] [place] [address] PCP - General Family Medicine 04/15/19 documented as of this encounter
--- OUTSIDE RECORDS SUMMARY | 2024-11-07 01:11 | XMS_ITS | Encounter Summary ---
Author Organization [facility] Address [address] [place] [address] Care Team Providers Care Fish Grader Name Role Phone Easton Paulino MD Primary Care Provider [phone] Encounter Details Date Type Department Care Team (Late st Contact Info) Description 12/21/1999 Outpatient Historical [address] [address] Preeti Lopez MD NO ADDRESS ON FILE Social History Tobacco Use Types Packs/Day Years Used Date Smoking Tobacco: Never Assessed Comments Unknown Sex and Gender Information Value Date Recorded Sex Assigned at Not on file Legal Sex Female 3:28 AM ELECTRICAL AND RADIO MOCK UP MECHANIC Gender Identity Not on file Sexual Orientation Not on file documented as of this encounter Plan of Treatment Not on file documented as of this encounter Visit Diagnoses Not on filedocumented in this encounter Care Teams Fish Grader Relationship Specialty Start Date End Date Easton Paulino MD [address] [facility] [address] [place] [address] PCP - General Family Practice 12/24/18 documented as of this encounter
--- OUTSIDE RECORDS SUMMARY | 2024-11-07 01:11 | XMS_ITS | Encounter Summary ---
Author Organization [facility] Address [address] [place] [address] Care Team Providers Care Frame Cleaner Name Role Phone Easton Paulino MD Primary Care Provider [phone] Encounter Details Date Type Department Care Team (Late st Contact Info) Description 08/30/2000 Outpatient Historical [address] [address] Preeti Lopez MD NO ADDRESS ON FILE Social History Tobacco Use Types Packs/Day Years Used Date Smoking Tobacco: Never Assessed Comments Unknown Sex and Gender Information Value Date Recorded Sex Assigned at Not on file Legal Sex Female 3:28 AM SOAKER HIDES Gender Identity Not on file Sexual Orientation Not on file documented as of this encounter Plan of Treatment Not on file documented as of this encounter Visit Diagnoses Not on filedocumented in this encounter Care Teams Frame Cleaner Relationship Specialty Start Date End Date Easton Paulino MD [address] [facility] [address] [place] [address] PCP - General Family Practice 12/24/18 documented as of this encounter
--- OUTSIDE RECORDS SUMMARY | 2024-11-07 01:11 | XMS_ITS | Encounter Summary ---
Author Organization [facility] Address 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
--- OUTSIDE RECORDS SUMMARY | 2024-11-07 01:11 | XMS_ITS | Clinical Summary ---
Author Organization [facility] Address [address] [place] [address] Care Team Providers Care Rn Progressive Care Unit Name Role Phone Easton Paulino MD Primary Care Provider [phone] Source Comments [facility] Affiliates and Associated Physician Practices is amultiple site organization consisting of ambulatory clinics and hospital sitesin [place], [place], [place] and [place]. This disclosure is being madepursuant to the Care Everywhere program and may not contain all information available regarding this patient. Last updated 18.[facility] Allergies Active Allergy Reactions Criticality Noted Date Comments Clonidine Vomiting 05/23/2021 Codeine Vomiting 05/23/2021 Morphine Vomiting 05/23/2021 Social History Tobacco Use Types Packs/Day Years Used Date Smoking Tobacco: Former Smokeless Tobacco: Never Alcohol Use Standard Drinks/Week Comments Not Currently 0 (1 standard drink = 0.6 oz pur e alcohol) Comments Unknown Sex and Gender Information Value Date Recorded Sex Assigned at Not on file Legal Sex Female 5:18 AM WASTEWATER TREATMENT OPERATOR Gender Identity Not on file Sexual Orientation Not on file Last Filed Vital Signs Vital Sign Reading Time Taken Comments Blood Pressure 167/84 05/23/2021 4:43 PM WASTEWATER TREATMENT OPERATOR Pulse 79 05/23/2021 4:43 PM WASTEWATER TREATMENT OPERATOR Temperature 37.2 C (98.9 F) 05/23/2021 4:43 PM WASTEWATER TREATMENT OPERATOR Respiratory Rate 13 05/23/2021 4:43 PM WASTEWATER TREATMENT OPERATOR Oxygen Saturation 98% 05/23/2021 4:43 PM WASTEWATER TREATMENT OPERATOR Inhaled Oxygen Concentration - - Weight 63 kg (138 lb 14.2 oz) 05/23/2021 4:43 PM WASTEWATER TREATMENT OPERATOR Height 147.3 cm (4' 10 ) 05/23/2021 4:43 PM WASTEWATER TREATMENT OPERATOR Body Mass Index 29.03 05/23/2021 4:43 PM WASTEWATER TREATMENT OPERATOR Plan of Treatment Health Maintenance Due Date Last Done Comments BONE DENSITY TESTING 1937 DTAP/TDAP/TD VACCINES (1 - Tdap) 1956 PNEUMOCOCCAL VACCINE 50+ (1 of 1 - PCV) 1987 ZOSTER VACCINE (1 of 2) 1987 Respiratory Syncytial Virus (RSV) Vaccine Pt: or over 60 yrs (1 - 1-dose 75+ series) 2012 COVID-19 VACCINE ( - 2023-2 5 season) 2024 DEPRESSION SCREENING 07/09/2024 INFLUENZA VACCINE (Season Ended) 2025 HEPATITIS B VACCINE Aged Out No longe r eligible based on patient's age to complete this topic HIB VACCINE Aged Out No longer eligi ble based on patient's age to complete this topic HPV VACCINE Aged Out No longer eligi ble based on patient's age to complete this topic MENINGOCOCCAL (Group B) VACC INE SHARED DECISION-MAKING Aged Out No longer eligibl e based on patient's age to complete this topic MENINGOCOCCAL GROUPS A/C/Y/W VACCINE Aged Out No longer eligible b ased on patient's age to complete this topic [place] [address] [facility] [place] [phone] [facility] MANAGED MEDICARE ADV Care Teams Rn Progressive Care Unit Relationship Specialty Start Date End Date Easton Paulino MD [address] [place] [address] PCP - General 09/27/18
--- OUTSIDE RECORDS SUMMARY | 2024-11-07 01:11 | XMS_ITS | Encounter Summary ---
Author Organization [facility] Address 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
--- OUTSIDE RECORDS SUMMARY | 2024-11-07 01:11 | XMS_ITS | Encounter Summary ---
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
--- OUTSIDE RECORDS SUMMARY | 2024-11-07 01:11 | XMS_ITS | Encounter Summary ---
Author Organization [facility] Address [address] [place] [address] Care Team Providers Care Tug Master Name Role Phone Easton Paulino MD Primary Care Provider Encounter Details Date Type Department Care Team (Late st Contact Info) Description 01/20/2004 Outpatient Historical [address] [address] Preeti Lopez MD NO ADDRESS ON FILE Social History Tobacco Use Types Packs/Day Years Used Date Smoking Tobacco: Never Assessed Comments Unknown Sex and Gender Information Value Date Recorded Sex Assigned at Not on file Legal Sex Female 3:28 AM SATURATOR OPERATOR Gender Identity Not on file Sexual Orientation Not on file documented as of this encounter Plan of Treatment Not on file documented as of this encounter Visit Diagnoses Not on filedocumented in this encounter Care Teams Tug Master Relationship Specialty Start Date End Date Easton Paulino MD [address] [facility] [address] [place] [address] PCP - General Family Practice 12/24/18 documented as of this encounter
--- OUTSIDE RECORDS SUMMARY | 2024-11-07 01:11 | XMS_ITS | Encounter Summary ---
Author Organization [facility] Address [address] [facility] Attn: Epic Prelude ADT [place]HELLE [place] [address] Care Team Providers Care Pressurised Container Filler Name Role Phone Easton Paulino MD Primary [...] on file Legal Sex Female 3:28 AM AIR ANALYST Gender Identity Not on file Sexual Orientation Not on file documented as of this encounter Plan of Treatment Not on file documented as of this encounter Visit Diagnoses Not on filedocumented in this encounter Care Teams Pressurised Container Filler Relationship Specialty Start Date End Date Easton Paulino MD [address] [place] [address] [place] [address] PCP - General Family Practice 12/24/18 documented as of this encounter
--- OUTSIDE RECORDS SUMMARY | 2024-11-07 01:12 | XMS_ITS | Clinical Summary ---
Author Organization [facility] [address] Address [address] [place] [address] Care Team Providers Care Roof Tile Layer Name Role Phone Easton Paulino MD Primary Care Provider Allergies Active Allergy Reactions Criticality Noted Date Comments Acetaminophen Nausea And Vomiting Low 07/17/2019 Clonidine Other (See comments),Unknown,Vomit ing Medium 06/18/2008 peewee Other reaction(s): Bradycardia Codeine Nausea And Vomiting,Vomiting Low 06/18/2008 Reaction: Nausea, , Hydrocodone Nausea And Vomiting Low 07/17/2019 Morphine Nausea And Vomiting,Vomiting Low 12/25/2018 Oxycodone Nausea And Vomiting Low 07/17/2019 Tramadol Nausea And Vomiting Low 07/17/2019 Medications budesonide-formoterol (SYMBICORT) 160-4.5 mcg/actuation inhaler inhale 2 puff by inhalation route 2 times every day in the morning and evening 0 11/07/19 12 Active albuterol HFA (PROAIR HFA) 90 mcg/actuation inhaler inhale 2 puff by inhalation route every 4 - 6 hours as needed 0 11/07/19 12 Active cetirizine 10 mg capsule Take by mouth Active calcium carbonate (OS-JS) 650 mg calcium (1,625 mg) tablet Take 1 tablet (1,625 mg total) by mouth daily Active ferrous sulfate 325 mg (65 mg of elemental iron) tabletIndications:Iron Deficiency Anemia Take 1 tablet (325 mg total) by mouth daily with dinner Active escitalopram (LEXAPRO) 5 mg tablet Take 1 tablet (5 mg total) by mouth daily 05/05/20 20 Active aspirin 325 mg enteric coated tablet Take 1 tablet (325 mg total) by mouth daily 07/21/19 21 Active ascorbic acid (VITAMIN C ORAL) Take by mouth Active potassium phosphate, monobasic, (K-PHOS) 500 mg (3.6 mmol of phosphorus) tablet Take 1 tablet (500 mg total) by mouth 2 (two) times a day Active omeprazole (PriLOSEC) 40 mg capsule 12/23/19 22 Active cholecalciferol (VITAMIN D-3) 1,000 unit capsule Take 1 capsule (1,000 Units total) by mouth daily Active atorvastatin (LIPITOR) 40 mg tabletIndications:Steno sis of right carotid artery,H/O TIA (transient ischemic attack) and stroke,Pure hypercholesterolemia Take 1 tablet by mouth once daily 90 tablet 3 09/24/19 24 Active methylPREDNISolone (MEDROL DOSEPACK) 4 mg Dosepack 11/06/19 24 Active predniSONE (DELTASONE) 10 mg tablet 11/13/19 24 Active DILT-XR 180 mg 24 hr capsule Take 1 capsule by mouth once daily 90 capsule 09/09/19 25 Active Active Problems Problem Noted Date Diagnosed Date Carotid disease, bilateral 10/29/2023 Overview (10/29/2023): 50-69% right ICA Assessment & Plan (10/29/2023 1:41 PM CDT): Bilateral carotid stenosis less than 50%. Recently patient has had TIA symptoms but has not followed up in the hospital and has no recent CT is of the head and neck. Was seen at [facility] unsure what timeframe. Seen with Dr. Kip Ramos. Plan: Obtain the most recent CT scan of the head and neck at [facility] follow up in the next 2 weeks CTA of the carotids. 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 My concern is she has had multiple episodes confirmed by her son which consist of confusion, disorientation and difficulty with speech. She has never gone to the hospital during any of these events. We discussed at length that if this is a TIA from a symptomatic moderate stenosis in the right carotid this would need intervention. I think best to get an MRI of the brain as well as a consultation with Neurology. We will follow up in the office following this. Assessment & Plan (10/26/2022 12:53 PM CDT): Bilateral enter carotid artery stenosis with no recent unilateral neurological deficits, slurred speech or amaurosis fugax. She remains compliant with medications. Denies any other concerns or complaints. Plan: Follow-up in 1 year with carotid duplex Assessment & Plan (10/05/2022 1:03 PM CDT): Possible moderate right internal carotid artery stenosis. Continue ASA statin therapy in good blood pressure control. Carotid duplex ordered for further evaluation. 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 Assessment & Plan (10/05/2022 1:03 PM CDT): Stable continue Lipitor 40 mg. Neuropathy 11/22/2013 Overview (10/11/2016): Neuropathy Arthralgia 11/22/2013 Overview (10/13/2016): Joint pain Asthma 11/22/2013 Overview (10/13/2016): Asthma Hypoferremia 09/11/2012 Overview (10/11/2016): Low iron Osteopenia 09/11/2012 Overview (10/12/2016): Osteopenia Essential hypertension 09/11/2012 Overview (10/13/2016): Hypertension Assessment & Plan (11/29/2023 1:10 PM CDT): Stable continue diltiazem 180 mg. Assessment & Plan (10/05/2022 1:04 PM CDT): Stable continue losartan 25 mg. Shoulder pain 09/11/2012 Overview (10/14/2016): Left shoulder pain Menopausal and postmenopausal disorder 1 Resolved Problems Problem Noted Date Diagnosed Date Resolved Date Hypercholesteremia 10/04/2022 4 TIA (transient ischemic attack) 07/21/2020 07/21/2020 Encounters Date Type Department Care Team Description 11/05/2024 Telephone [facility] Card[facility] [address] [place] [address] Hugo Fan MD from Last 3 Months Surgical History Surgery Date Site/Laterality Comments TOTAL KNEE ARTHROPLASTY 07/09/2011 - 07/08/2012 right TKR CATARACT EXTRACTION 07/09/2009 - 07/08/2010 Cataract extraction APPENDECTOMY 07/09/1949 - 07/08/1950 Appendectomy TONSILLECTOMY 07/09/1943 - 07/08/1944 tonsillectomy TOTAL SHOULDER REPLACEMENT CARPAL TUNNEL RELEASE OTHER SURGICAL HISTORY 07/09/2014 - 07/08/2015 temporal artery bypass CHOLECYSTECTOMY FEMUR FRACTURE SURGERY 07/09/2018 - 07/08/2019 BREAST BIOPSY 10/05/2021 Right Medical History Medical History Date Comments Hypertension Hypertension Hx Other Medical Diabetes Type I I Hx Other Medical Raynaud's Hx Other Medical Temporal Arteri tis Asthma Asthma Hx Other Medical Coronary Artery Disease (min nonobstructive) Hyperlipidemia Acid indigestion Anemia Cataracts, bilateral Arthritis Diverticulosis Cryoglobulinemia with anemia, Dr Leida Katz Hemorrhoids TIA (transient ischemic attack) 05/2020 Carotid disease, bilateral 10/29/2023 50-69 % right ICA Heart disease Generalized headaches Depression Osteoporosis Family History Medical History Relation Name Comments Lung cancer Father Cancer, lung; C ause of : Cancer, lung/Cancer -lung; Cause of : Cancer -lung Other Grandchild 2 Alive and well; has JRA Colon cancer Mother Cancer, colon; Coronary artery disease Mother Tacho nary artery disease; Cause of : Coronary artery disease Heart attack Mother Myocardial Infa rction; Cause of : Myocardial Infarction Stomach cancer Mother Relation Name Status Comments Father (Age 78) Grandchild 1 Alive Grandchild 2 Mother (Age 84) Social History Tobacco Use Types Packs/Day Years Used Date Smoking Tobacco: Former Cigarettes Smokeless Tobacco: Never Tobacco Cessation:Counseling Given: Not Answered Comments:Smoking History Packs/day: 1 Packs Alcohol Use Standard Drinks/Week Comments [...] on file Legal Sex Female 4:57 PM [employer]N [employer] Gender Identity Female 10/31/2023 12:45 PM CDT Sexual Orientation Not on file Obstetrics History Last Filed Vital Signs Vital Sign Reading Time Taken Comments Blood Pressure 114/50 12/13/2023 10:34 AM CDT Pulse 73 12/13/2023 10:34 AM CDT Temperature - - Respiratory Rate - - Oxygen Saturation 96% 12/13/2023 10:34 AM CDT Inhaled Oxygen Concentration - - Weight 56.7 kg (125 lb) 12/13/2023 10:34 AM CDT Height 149.9 cm (4' 11 ) 12/13/2023 10:34 AM CDT Body Mass Index 25.25 12/13/2023 10:34 AM CDT Plan of Treatment Health Maintenance Due Date Last Done Comments Albumin Creatinine Ratio, Urine 1937 Depression Screening 1937 Fall Risk Assessment 1937 Hemoglobin A1C 1937 Dilated Eye Exam 1937 Foot Exam 1937 DTaP/Tdap/Td Vaccine (1 - Tdap) 1948 Hepatitis B Screening 1955 Zoster Vaccine (1 of 2) 1987 Well Visit 65+ 2002 Pneumococcal vaccine 65+ (2 of 2 - PPSV23) 05/21/2018 03/26/2018, 04/01/2017, 03/13/2016 Lipid Panel 06/17/2022 06/17/2021, 07/27/2020 eGFR 06/17/2022 06/17/2021, 07/27/2020 Influenza Vaccine (Season Ended) 2025 03/07/2019, 03/26/2018, 04/01/2017, Additional history exists Procedures Procedure Name Priority Date/Time Associated Diagnosis Comments COMPREHENSIVE METABOLIC PANEL Routine 06/17/2021 10:31 AM [employer]N [employer]DER LIPID PANEL Routine 06/17/2021 10:31 AM CORN SHREDDER from Last 3 Months or Most Recently Relevant to Health Maintenance Results * Lipid panel (06/17/2021 10:31 AM CORN SHREDDER) Cholesterol 164 100 - 199 mg/dL [facility] - 01 Triglycerides 69 0 - 149 mg/dL [facility] - 01 HDL Cholesterol 83 >39 mg/dL [facility] - 01 VLDL 13 5 - 40 mg/dL [facility] - 01 LDL, calculated 68 0 - 99 mg/dL [facility] - 01 06/17/2021 10:3 1 AM CORN SHREDDER 06/17/2021 Narrative [facility] - 06/19/2021 8:08 AM CORN SHREDDER Performed at: 01 - [address] [id number] Radio Interference Trouble Shooter: Barry Quintanilla PhD, Phone: [phone] us Autumn Egan MD LAB BLOOD ORDERABLES Final Result [facility] - 01 * (ABNORMAL) Comprehensive metabolic panel (06/17/2021 10:31 AM CORN SHREDDER) [facility] Glucose 91 65 - 99 mg/dL [facility] - 01 BUN 24 8 - 27 mg/dL [facility] - 01 Creatinine, Serum 1.10(H) 0.57 - 1.00 mg/dL [facility] - 01 eGFR If NonAfricn Am 46(L) >59 mL/min/1. 73 [facility] - 01 eGFR If Africn Am 53(L) >59 mL/min/1. 73 [facility] - 01 Comment: In accordance with recommendations from the NKF-ASN Task force, [facility] is in the process of updating its eGFR calculation to the 2020 CKD-EPI creatinine equation that estimates kidney function without a race variable. BUN/creat ratio 22 12 - 28 [facility] - 01 Sodium 141 134 - 144 mmol/L [facility] - 01 Potassium, sr 4.7 3.5 - 5.2 mmol/L [facility] - 01 Chloride 106 96 - 106 mmol/L [facility] - 01 CO2 21 20 - 29 mmol/L [facility] - 01 Calcium 9.7 8.7 - 10.3 mg/dL [facility] - 01 Protein, sr 6.2 6.0 - 8.5 g/dL [facility] - 01 Albumin 4.1 3.6 - 4.6 g/dL [facility] - 01 Globulin, Total 2.1 1.5 - 4.5 g/dL [facility] - 01 A/G Ratio 2.0 1.2 - 2.2 [facility] - 01 Bilirubin, Total 0.4 0.0 - 1.2 mg/dL [facility] - 01 Alk phos 81 44 - 121 IU/L [facility] - 01 Comment:Please note refere nce interval change AST 17 0 - 40 IU/L [facility] - 01 ALT 13 0 - 32 IU/L [facility] - 01 06/17/2021 10:3 1 AM [employer]N SH[employer]DER 06/17/2021 Narrative [facility] - 06/19/2021 8:08 AM CORN SHREDDER Performed at: 01 - [facility] [address] [id number] Radio Interference Trouble Shooter: Barry Quintanilla PhD, Phone: [phone] Specimen Comment: A courtesy copy of this report has been sent to Family Practice us Autumn Egan MD LAB BLOOD ORDERABLES Final Result [facility] - 01 from Last 3 Months or Most Recently Relevant to Health Maintenance [place] [address] [facility] Address: [facility] [address] [place] [address] [place] [address] [facility] MEDICARE [employer] [facility] Address: [address] [address] [place] [address] [place] [address] [facility] MEDICARE [employer] [facility] Address: [address] [address] [place] [address] Care Teams Roof Tile Layer Relationship Specialty Start Date End Date Easton Paulino MD [address] [facility] [address] [place] [address] PCP - General Family Medicine 04/15/19
--- OUTSIDE RECORDS SUMMARY | 2024-11-07 01:12 | XMS_ITS | Continuity of Care Document ---
Author Organization [facility] Address [address] [place] [address] [address] [place] [address] Phone Care Team Providers Care System Support Specialist Name Role Phone Alex Rivers PT Unavailable Unavailable Procedures Procedure Date Therapeutic Activities Neuromuscular Re-Ed Therapeutic Activities Neuromuscular Re-Ed Therapeutic Exercise Therapeutic Activities Neuromuscular Re-Ed Therapeutic Exercise Therapeutic Activities Neuromuscular Re-Ed Therapeutic Exercise Doc neg elder mal no plan PT Evaluation Low Complexity Therapeutic Activities Neuromuscular Re-Ed Therapeutic Exercise Neuromuscular Re-Ed Therapeutic Activities Therapeutic Activities Neuromuscular Re-Ed Therapeutic Activities Neuromuscular Re-Ed Therapeutic Activities Neuromuscular Re-Ed Therapeutic Activities Therapeutic Exercise Neuromuscular Re-Ed Therapeutic Exercise Neuromuscular Re-Ed Therapeutic Activities Therapeutic Exercise Neuromuscular Re-Ed Therapeutic Activities Therapeutic Activities Neuromuscular Re-Ed Therapeutic Exercise PT Evaluation Low Complexity Therapeutic Activities Neuromuscular Re-Ed Therapeutic Exercise Therapeutic Activities Neuromuscular Re-Ed Therapeutic Exercise Therapeutic Activities Neuromuscular Re-Ed Therapeutic Exercise Therapeutic Activities Neuromuscular Re-Ed Therapeutic Exercise Therapeutic Activities Neuromuscular Re-Ed Therapeutic Exercise Therapeutic Activities Neuromuscular Re-Ed Therapeutic Exercise Therapeutic Activities Neuromuscular Re-Ed Therapeutic Exercise Therapeutic Activities Neuromuscular Re-Ed Therapeutic Exercise Therapeutic Activities Neuromuscular Re-Ed Therapeutic Exercise Therapeutic Activities Neuromuscular Re-Ed Therapeutic Exercise Therapeutic Activities Neuromuscular Re-Ed Therapeutic Exercise Therapeutic Activities Neuromuscular Re-Ed Therapeutic Exercise Therapeutic Activities Neuromuscular Re-Ed Therapeutic Exercise Therapeutic Activities Neuromuscular Re-Ed Therapeutic Exercise Therapeutic Activities Neuromuscular Re-Ed PT Evaluation High Complexity 9 Therapeutic Activities Neuromuscular Re-Ed Advance Directives Directive Yes / No Effective Date File Name No Information Encounters Encounter Description Practice Location Reason(s) For Visit Diagnoses Date Provider Providers Copied on Encounter [facility] [facility] [address], [place], [place], [address], [place] tel:[phone] [place] No Information 2 Tita Johnson. . Referring Provider: Lito Jerry, [address], [place], [address]. [facility] [facility] [address], [place], [place], [address], [place] tel:[phone] [place] No Information Dec-2 0-202 2 Tita Alex. . Referring Provider: Lito Jerry, [address] [place] [address] [address], [place], [address]. [facility], [address] [facility], [place], [place], [address], [place] tel:[phone] [place] No Information Dec-1 5-202 2 Tita Alex. . Referring Provider: Lito Jerry, [address] [place] [address] [address], [place], [address]. [facility], [address] [facility] [address], [place], [place], [address], [place] tel:[phone] [place] No Information Dec-1 3-202 2 Tita Alex. . Referring Provider: Lito Jerry, [address] [place] [address] [address], [place], [address]. [facility], [address], [place], [place], [address], [place] tel:[phone] [place] No Information Dec-0 8-202 2 Modglin Dallas. . Referring Provider: Lito Jerry, [address] [place] [address] [address], [place], [address]. [facility], [address], [place], [place], [address], [place] tel:[phone] [place] No Information Sawyer-0 4-202 1 Makacacia Luke. . Referring Provider: Lito Jerry, [address] [place] [address] [address], [place], [address]. [facility], [address] [facility], [place], [place], [address], [place] tel:[phone] [place] No Information Sawyer-0 2-202 1 [place] Luke. . Referring Provider: Lito Jerry, [address] [place] [address] [address], [place], [address]. [facility], [address] [facility], [place], [place], [address], [place] tel:[phone] [place] No Information May-2 7-202 1 [place] Luke. . Referring Provider: Lito Jerry, [address] [place] [address] [address], [place], [address]. [facility] [address] [facility] [address], [place], [place], [address], tel:[phone] [place] No Information 1 Makler Luke. . Referring Provider: Lito Jerry, [address] [place] [address] [address], [place], [address]. [facility], [address], [place], [place], [address], [place] tel:[phone] [place] No Information 0 1 Makler Luke. . Referring Provider: Lito Jerry, [address] [place] [address] [address], [place], [address]. [facility] [address] [facility] [address], [place], [place], [address], tel:[phone] [place] No Information 1 Makler Luke. . Referring Provider: Lito Jerry [address] [place] [address] [address], [place], [address]. [facility] [address] [facility] [address], [place], [place], [address], tel:[phone] [place] No Information 1 Makler Luke. . Referring Provider: Lito Jerry [address] [place] [address] [address], [place], [address]. [facility] [address] [facility] [address], [place], [place], [address], tel:[phone] [place] No Information - 1 Makler Luke. . Referring Provider: Lito Jerry [address] [place] [address] [address], [place], [address]. [facility] [address], [place], [place], [address], tel:[phone] [place] No Information 0 6- 1 Makler Luke. . Referring Provider: Lito Jerry [address] [place] [address] [address], [place], [address]. [facility], [address] [facility], [place], [place], [address], [place] tel:[phone] [place] Personal history of (healed) traumatic fracturePrese nce of left artificial knee jointTrochant andrzej bursitis, right hip Sawyer-0 5 9 [place], [place], [place]. Referring Provider: Lito Jerry [address] [place] [address] [address], [place], [address]. [facility], [address] [facility], [place], [place], [address], [place] tel:[phone] [place] Personal history of (healed) traumatic fracturePrese nce of left artificial knee jointTrochant andrzej bursitis, right hip Sawyre-0 3-201 9 [place], [place], [place]. Referring Provider: Lito Jerry [address] [place] [address] [address], [place], [address]. [facility], [address] [facility] [address], [place], [place], [address], [place] tel:[phone] [place] Personal history of (healed) traumatic fracturePrese nce of left artificial knee jointTrochant andrzej bursitis, right hip 9 Sanjuana Watson. . Referring Provider: Liot Jerry [address] [place] [address] [address], [place], [address]. [facility], [address], [place], [place], [address], [place] tel:[phone] [place] Personal history of (healed) traumatic fracturePrese nce of left artificial knee jointTrochant andrzej bursitis, right hip 0 9 Harrison Johnson. [address] [facility], [address], [place], [address], [place]. tel:[phone] Referring Provider: Lito Jerry [address] [place] [address] [address], [place], [address]. [facility], [address] [facility], [place], [place], [address], [place] tel:[phone] [place] Personal history of (healed) traumatic fracturePrese nce of left artificial knee jointTrochant adnrzej bursitis, right hip 9 Harrison Alex. [address] [facility], [address], [place], [address], [place]. tel:[phone] Referring Provider: Lito Jerry [address] [place] [address] [address], [place], [address]. [facility], [address] [facility], [place], [place], [address], tel:[phone] [place] Personal history of (healed) traumatic fracturePrese nce of left artificial knee jointTrochant andrzej bursitis, right hip 9 Sanjuana Watson. . Referring Provider: Lito Jerry [address] [place] [address] [address], [place], [address]. [facility], [address] [facility] [address], [place], [place], [address], tel:[phone] [place] Personal history of (healed) traumatic fracturePrese nce of left artificial knee jointTrochant andrzej bursitis, right hip 9 [place], [place]. Referring Provider: Lito Jerry [address] [place] [address] [address], [place], [address]. [facility], [address] [facility] [address], [place], [place], [address], [place] tel:[phone] [place] Personal history of (healed) traumatic fracturePrese nce of left artificial knee jointTrochant andrzej bursitis, right hip 0 9 [place], [place]. Referring Provider: Lito Jerry [address] [place] [address] [address], [place], [address]. [facility] [address], [place], [place], [address], [place] tel:[phone] [place] Personal history of (healed) traumatic fracturePrese nce of left artificial knee jointTrochant andrzej bursitis, right hip 9 [facility]. [place], [place]. Referring Provider: Lito Jerry [address] [place] [address] [address], [place], [address]. [facility], [address] [facility] [address], [place], [place], [address], tel:[phone] [place] Personal history of (healed) traumatic fracturePrese nce of left artificial knee jointTrochant andrzej bursitis, right hip May-1 6-201 9 Sanjuana Watson. . Referring Provider: Lito Jerry [address] [place] [address] [address], [place], [address]. [facility], [address], [place], [place], [address], tel:[phone] [place] Personal history of (healed) traumatic fracturePrese nce of left artificial knee jointTrochant andrzej bursitis, right hip May-1 3-201 9 [place], [place]. Referring Provider: Lito Jerry [address] [place] [address] [address], [place], [address]. [facility], [address], [place], [place], [address], tel:[phone] [place] Personal history of (healed) traumatic fracturePrese nce of left artificial knee jointTrochant andrzej bursitis, right hip May-1 0-201 9 [place]. Referring Provider: Lito Jerry [address] [place] [address] [address], [place], [address]. [facility], [address], [place], [place], [address], [place] tel:[phone] [place] Personal history of (healed) traumatic fracturePrese nce of left artificial knee jointTrochant andrzej bursitis, right hip May-0 8-201 9 Ayaz Catalan. . Referring Provider: Lito Jerry [address] [place] [address] [address], [place], [address]. [facility], [address] [facility], [place], [place], [address], [place] tel:[phone] [place] Personal history of (healed) traumatic fracturePrese nce of left artificial knee jointTrochant andrzej bursitis, right hip May-0 6-201 9 [place], [place]. Referring Provider: Lito Jerry, [address], [place], [address]. [facility], [address], [place], [place], [address], [place] tel:[phone] [place] Personal history of (healed) traumatic fracturePrese nce of left artificial knee jointTrochant andrzej bursitis, right hip 9 [place], [place]. Referring Provider: Lito Jerry [address], [place], [address]. Family History Family Member Type Diagnosis Age At Onset No Information Payers Payer name Insurance type Covered republican ID Heavena deememe(s) AARP Medicare Complete 16 [id number] Social History Type Description Quantity Date Captured Comments Sex Female Smoking Status No Information Chief Complaint And Reason For Visit No Information Reason For Referral Reason For Referral No Information History Of Present Illness Encounter Date Complaint History Of Prese nt Illness No Information Functional Status Date Functional Assessmen t No Information Instructions Date Instruction Additional Infor mation Giving encouragement to exercise Related to Overweight Giving encouragement to exercise Related to Overweight Giving encouragement to exercise Related to Overweight Giving encouragement to exercise Related to Overweight Assessments Type Assessment Date No Information Patient Care Teams Name Effective Dates (start - stop) Status Members No Information
--- OUTSIDE RECORDS SUMMARY | 2024-11-07 01:12 | XMS_ITS | Clinical Summary ---
Author Organization [facility] Address [address] [place] [address] Care Team Providers Care Metalworker Name Role Phone Easton Paulino MD Primary Care Provider [phone] Social History Tobacco Use Types Packs/Day Years Used Date Smoking Tobacco: Never Assessed Comments Unknown Sex and Gender Information Value Date Recorded Sex Assigned at Not on file Legal Sex Female 10:36 AM DIRECTOR OF OPERATIONS FOR THERAPY Gender Identity Not on file Sexual Orientation Not on file Plan of Treatment Health Maintenance Due Date Last Done Comments DTaP, Tdap and Td Vaccines ( 1 - Tdap) 1954 Annual Medicare Wellness Visit 2002 RSV Immunization or 60+ Years (1 - 1-dose 75+ series) 2012 Pneumococcal Vaccine: 50+ Years (2 of 2 - PPSV23) 03/26/2019 03/26/2018, 04/01/2017, 03/13/2016 COVID-19 Vaccine (2023-2 5 season) 2024 Zoster Vaccines Completed 08/23/2019, 05/02/2019 Meningococcal B Vaccine Aged Out No l onger eligible based on patient's age to complete this topic Meningococcal Vaccine Aged Out No carin lisa eligible based on patient's age to complete this topic RSV Immunizations Under 20 Months Aged Out No longer eligible b ased on patient's age to complete this topic Insurance [facility] Care Teams Metalworker Relationship Specialty Start Date End Date Easton Paulino MD [address] [place] [id number] PCP - General FAMILY PRACTICE 06/30/20
--- OUTSIDE RECORDS SUMMARY | 2024-11-07 01:12 | XMS_ITS | Referral Summary ---
Author Organization [facility] [address] [facility] [address] Address [address] [place] [address] Care Team Providers Care Manager Subway Name Role Phone Easton Paulino MD Primary Care Provider Encounters Date Type Department Care Team Description 11/05/2024 Telephone [facility] Cardiology [address] [place] [address] Hugo Fan MD from Last 3 Months Allergies Active Allergy Reactions Criticality Noted Date [...] the head and neck. Was seen at [facility] unsure what timeframe. Seen with Dr. Kip Ramos. Plan: Obtain the most recent CT scan of the head and neck at [facility] follow up in the next 2 weeks [...] 4 TIA (transient ischemic attack) 07/21/2020 07/21/2020 Social History Tobacco Use Types Packs/Day Years [...] on file Legal Sex Female 4:57 PM GROUP LEADER SEMICONDUCTOR TESTING Gender Identity Female 10/31/2023 12:45 PM CDT Sexual Orientation Not on file Last Filed [...] 12/13/2023 10:34 AM CDT Plan of Treatment Not on file Procedures Procedure Name Priority Date/Time Associated Diagnosis Comments COMPREHENSIVE METABOLIC PANEL Routine 06/17/2021 10:31 AM GROUP LEADER SEMICONDUCTOR TESTING LIPID PANEL Routine 06/17/2021 10:31 AM GROUP LEADER SEMICONDUCTOR TESTING from Last 3 Months or Most Recently Relevant to Health Maintenance Results * Lipid panel (06/17/2021 10:31 AM GROUP LEADER SEMICONDUCTOR TESTING) [facility] Cholesterol 164 100 - 199 mg/dL [facility] - 01 Triglycerides 69 0 - 149 mg/dL [facility] - 01 HDL Cholesterol 83 >39 mg/dL [facility] - 01 VLDL 13 5 - 40 mg/dL [facility] - 01 LDL, calculated 68 0 - 99 mg/dL [facility] - 01 06/17/2021 10:3 1 AM GROUP LEADER SEMICONDUCTOR TESTING 06/17/2021 Narrative [facility] - 06/19/2021 8:08 AM GROUP LEADER SEMICONDUCTOR TESTING Performed at: [address] [place] [address], [place] [id number] Car Installations Supervisor: Barry Quintanilla PhD, Phone: [phone] us Autumn Egan MD LAB BLOOD ORDERABLES Final Result [facility] - * (ABNORMAL) Comprehensive metabolic panel (06/17/2021 10:31 AM GROUP LEADER SEMICONDUCTOR TESTING) Glucose 91 65 - 99 mg/dL [facility] - 01 BUN 24 8 - 27 mg/dL [facility] - 01 Creatinine, Serum 1.10(H) 0.57 - 1.00 mg/dL [facility] - 01 eGFR If NonAfricn Am 46(L) >59 mL/min/1. 73 [facility] - 01 eGFR If Africn Am 53(L) >59 mL/min/1. 73 [facility] - 01 Comment: In accordance with recommendations from the NKF-ASN Task force, [facility] is in the process of updating its [...] [facility] - 01 06/17/2021 10:3 1 AM GROUP LEADER SEMICONDUCTOR TESTING 06/17/2021 Narrative [facility] - 06/19/2021 8:08 AM GROUP LEADER SEMICONDUCTOR TESTING Performed at: 01 - [facility] [address] [id number] Car Installations Supervisor: Barry Quintanilla PhD, Phone: [phone] Specimen Comment: A courtesy copy of this report has been sent to Family Practice us Autumn Egan MD LAB BLOOD ORDERABLES Final Result [facility] - 01 from Last 3 Months or Most Recently Relevant to Health Maintenance [place] [address] [place] [address] [facility] [place] [address] [facility] [place] [address] [facility] [place] [address] Care Teams Manager Subway Relationship Specialty Start Date End Date Easton Paulino MD [address] [facility] [address] [place] [address] PCP - General Family Medicine 04/15/19
--- OUTSIDE RECORDS SUMMARY | 2024-11-07 01:12 | XMS_ITS | Clinical Summary ---
Author Organization [facility] Address [address] [place] [address] Care Team Providers Care Sales And Marketing Specialist Name Role Phone Easton Paulino MD Primary Care Provider [phone] Allergies Active Allergy Reactions Criticality Noted Date [...] on file Legal Sex Female 3:28 AM STUDENT LIFE DEAN Gender Identity Not on file Sexual Orientation Not on file Occupation Industry Job Start Date Job End Date Not on file Not on file Not on file Not on file Last Filed Vital Signs Vital Sign Reading Time Taken Comments Blood Pressure 113/65 07/12/2021 11:00 AM STUDENT LIFE DEAN Pulse 80 07/12/2021 11:00 AM STUDENT LIFE DEAN Temperature 36.7 C (98.1 F) 07/12/2021 11:00 AM STUDENT LIFE DEAN Respiratory Rate - - Oxygen Saturation 96% 07/12/2021 11:00 AM STUDENT LIFE DEAN Inhaled Oxygen Concentration - - Weight 61 kg (134 lb 8 oz) 07/12/2021 11:[address] Height 152.4 cm (5') 07/12/2021 11:00 AM STUDENT LIFE DEAN Body Mass Index 26.27 07/12/2021 11:00 AM STUDENT LIFE DEAN Plan of Treatment Health Maintenance Due Date Last Done Comments DIABETES ANNUAL FOOT EXAM 1955 DIABETES ANNUAL RETINAL EXAM 1955 DIABETES HBA1C Q 6 MONTHS 1955 DIABETES MICROALBUMIN ANNUAL SCREEN 1955 LDL CHOLESTEROL ANNUAL 1955 DTAP/TDAP/TD VACCINES (1 - Tdap) 1956 PNEUMOCOCCAL VACCINE 50+ YEA RS (1 of 2 - PCV) 1956 ZOSTER VACCINE (1 of 2) 1987 RSV VACCINE (60+ or ) (1 - 1-dose 75+ series) 2012 OSTEOPOROSIS SCREENING 07/23/2013 07/23/2008, 2002 INFLUENZA VACCINE (#1) [address] [place] [address] [facility] [id number] [place], [place] [address] [place] [id number] Advance Directives For more information, please contact: [phone] Documents on File Type Date Recorded Patient Senior Sustainability Advisor Expl anation Advance Directive POA 02/13/2019 2:23 PM Ad najera Directive POA Advance Directive Living Will 02/13/2019 2:23 PM Advance Directive Living Will Care Teams Sales And Marketing Specialist Relationship Specialty Start Date End Date Easton Paulino MD [address] [facility] [address] [place] [address] PCP - General Family Practice 12/24/18
--- OUTSIDE RECORDS SUMMARY | 2024-11-07 01:12 | XMS_ITS | Continuity of Care Document ---
Author Organization [facility] Address [address] [place] [address] Phone Care Team Providers Care Lyft Driver Name Role Phone Kingsley Concepcion Unavailable Unavailable Procedures Procedure Date Office/outpatient Visit, [facility] Advance Directives Directive Yes / No Effective Date File Name No Information Encounters Encounter Description Practice Location Reason(s) For Visit Diagnoses Date Provider Providers Copied on Encounter Office/outpat ient Visit, [facility], [address], [place], [place], [address], [place] tel:[phone] [facility] [place] No Information [address] Jamey Wynn. [address], [place], [address], [place]. tel:[phone] Family History Family Member Type Diagnosis Age At Onset No Information Payers Payer name Insurance type Covered libertarian ID Authoriza tion(s) [employer] Mdcr Adv CI [id number] Social History Type Description Quantity Date Captured Comments Sex Female Smoking Status No Information Chief Complaint And Reason For Visit No Information Reason For Referral Reason For Referral No Information History Of Present Illness Encounter Date Complaint History Of Prese nt Illness No Information Functional Status Date Functional Assessmen t No Information Instructions Date Instruction Additional Infor mation No Information Assessments Type Assessment Date No Information Patient Care Teams Name Effective Dates (start - stop) Status Members No Information
--- OUTSIDE RECORDS SUMMARY | 2024-11-07 01:12 | XMS_ITS | CONTINUITY OF CARE DOCUMENT ---
Author Name kirk bradley Address Unknown Organization [facility] Address [address] [facility] [address] [place] [address] Phone [phone] Care Team Providers Care Rn Intake Name Role Phone JENNIFER MARTIN MD Unavailable [phone] INSURANCE PROVIDERS Payer name Policy type / Coverage type [place] red democrat ID UHC MEDICARE COMPLETE HMO Other [id number]
[2024-11-07 09:31] VITALS: BP 135/68; PULSE 75; TEMP 35.9; O2SAT 100
[2024-11-07] MEDS: LACTATED RINGERS 1,000 ML 150 ML IV CONT (09:50)
--- NOTE | 2024-11-07 10:12 | WPDANESEPPF ---
Anes - Initial Pre Proc Eval Procedure: Operation Date: 11/07/24 10:30 Proposed Procedures p Esophagogastroduodenoscopy - Thomas Alejandre MD Date/Time: 11/07/24 10:12 Surgeon: Thomas Alejandre MD Pre Op Diagnosis: Anemia, Epigastric pain Patient Data Age: 89 Gender: F Height: 1.52 m Weight: 50.1 kg Last Vital Signs Temp 96.6 F L 11/07/24 09:31 Pulse 75 11/07/24 09:31 BP 135/68 11/07/24 09:31 Pulse Ox 100 11/07/24 09:31 O2 Del Method Room Air 11/07/24 09:31 Allergies Allergy/AdvReac Type Severity Reaction Status Date / Time clonidine Allergy Unknown GI upset Verified 11/07/24 09:28 codeine Allergy Unknown Vomiting Verified 11/07/24 09:28 morphine Allergy Unknown Vomiting Verified 11/07/24 09:28 Home Medications ?Medication ?Instructions ?Recorded ?Confirmed ?Type calcium carbonate (Calcium 500) 500 mg PO DAILY 03/16/20 11/07/24 History ferrous sulfate 325 mg (65 mg 325 mg PO BID 03/16/20 11/07/24 History iron) tablet (Feosol) diltiazem HCl 180 mg 180 mg PO DAILY #90 caps 08/06/20 11/07/24 Rx capsule,extended release 24 hr (Cartia XT) atorvastatin 40 mg tablet 40 mg PO DAILY 09/14/20 11/07/24 History inhalational spacing device #1 ea 03/14/22 11/05/24 Rx ascorbate calcium (vitamin C) 500 282 mg PO DAILY 07/23/22 11/07/24 History mg capsule cholecalciferol (vitamin D3) 25 25 mcg PO DAILY 07/23/22 11/07/24 History mcg (1,000 unit) capsule (Vitamin D3) multivitamin with minerals 1 tablet PO DAILY 07/23/22 11/07/24 History (Hair,Skin and Nails tablet) aspirin 81 mg chewable tablet 81 mg PO DAILY 01/15/24 11/07/24 History albuterol sulfate 90 mcg/actuation 90 mcg inhalation Q4-6H PRN 07/07/24 11/07/24 Rx aerosol inhaler Shortness Of Breath #8.5 grams escitalopram oxalate 5 mg tablet 5 mg PO DAILY #90 tabs 07/07/24 11/07/24 Rx alendronate 70 mg tablet 70 mg PO WEEKLY #12 tabs 09/24/24 11/05/24 Rx omeprazole 40 mg capsule,delayed 40 mg PO BID 6 weeks #84 caps 10/14/24 11/07/24 Rx release tramadol 50 mg tablet 50 mg PO Q8H PRN pain #30 tabs 10/14/24 11/05/24 Rx Symbicort 160 mcg-4.5 See Rx Instructions .Route 10/19/24 11/07/24 Rx mcg/actuation HFA aerosol inhaler .COMPLEX #11 grams (budesonide-formoterol) Patient hx anesthesia problems: none Family hx anesthesia problems: none Results Review: All pre-operative results and documents have been reviewed as part of the pre-operative evaluation. 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 Arthritis of left hip Trochanteric bursitis, right hip 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 Bursitis of right hip Chronic cough Bilateral hip bursitis Carotid stenosis, right Internal hemorrhoids COPD (chronic obstructive pulmonary disease) Hypertension Anemia HTN (hypertension) with goal to be determined Fracture of left hip requiring operative repair Asthma Hyperlipidemia Benign essential hypertension Depression Chronic GERD Hx of temporal arteritis Lung mass Mild intermittent asthma without complication Osteopenia Pre-diabetes Surgical History Surgical History Total knee replacement status History of appendectomy History of carpal tunnel release Bilaterally History of cataract Bilateral History of tonsillectomy History of cholecystectomy History of total bilateral knee replacement History of total replacement of left shoulder joint Presence of left artificial knee joint Family History Family History Mother Hypertension Family history of cardiovascular disease Carcinoma of colon, Onset Age: 88 Acute myocardial infarction Family history of heart disease in male family member before age 55, Onset Age: 86 Patient's mother is , Onset Age: 86 Father Family history of lung cancer, Onset Age: 78 Patient's father is , Onset Age: 78 Other Family history of arthritis Family history of malignant neoplasm Social History Social History Social History: Code status: Full code. Smoking packs per day: 1 Smoking cigarettes per day: 20.0 Years smoked: 10 Smoking pack-years: 10.00 Smoking status: Never smoker Tobacco type: cigarettes Second hand tobacco smoke exposure: Yes Alcohol intake: never Substance use: never Substance use type: does not use Lack of Transportation: No Lack of Food: Never True Current Housing: I Have Housing Concerned About Future Housing: No Difficulty Paying Gas/Electric Bills: No Difficulty Paying for Meds: No Currently Unemployed: No Education: Don't Know Difficulty w/ Childcare or Family Care: No Living arrangements: alone Occupation/Education: retired Spiritual care concerns: No Anes - Eval Final PreProcedure Day of Procedure 11/07/24 10:12 Patient weight: thin Lungs: normal air movement Airway: Mallampati scale class II Neurological: alert and oriented Last oral intake: >/= 8 hours ASA classification: III Emergent: no Anesthetic plan: proceed Anesthesia type and monitoring: general GIVS and standard monitoring Results Review: All pre-operative results and documents have been reviewed as part of the pre-operative evaluation. Pt w epigastric pain, complicated hx reviewed. Pt overall can walk 1 fos w no cp or sob. Informed Consent: The patient's anesthetic plan and its attendant risks and benefits were discussed with the patient/family/POA. Questions were solicited and answers provided to the satisfaction of the patient/family/POA.
--- NOTE | 2024-11-07 10:32 | P.HP_ITS ---
H&P: HPI History of Present Illness Date/Time: 11/07/24 10:32 Chief Complaint: Epigastric pain-nausea Narrative: the patient has been suffering from nausea for several years, recently exacerbated. She also takes significant amounts of ibuprofen for arthritis. In addition, she suffers from chronic heartburn, currently controlled with high- dose omeprazole, 40 mg b.i.d.. She is now referred for EGD. Review of Systems Review of Systems: All systems reviewed & are unremarkable except as noted in HPI and below PMFSH Past Medical History Medical History Lumbar spondylolysis Left foot pain Lumbar back pain with radiculopathy affecting left lower extremity Trochanteric bursitis, left hip DJD of shoulder Right shoulder pain 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 Arthritis of left hip Trochanteric bursitis, right hip 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 Bursitis of right hip Chronic cough Bilateral hip bursitis Carotid stenosis, right Internal hemorrhoids COPD (chronic obstructive pulmonary disease) Hypertension Anemia HTN (hypertension) with goal to be determined Fracture of left hip requiring operative repair Asthma Hyperlipidemia Benign essential hypertension Depression Chronic GERD Hx of temporal arteritis Lung mass Mild intermittent asthma without complication Osteopenia Pre-diabetes Surgical History Surgical History Total knee replacement status History of appendectomy History of carpal tunnel release Bilaterally History of cataract Bilateral History of tonsillectomy History of cholecystectomy History of total bilateral knee replacement History of total replacement of left shoulder joint Presence of left artificial knee joint Family History Family History Mother Hypertension Family history of cardiovascular disease Carcinoma of colon, Onset Age: 88 Acute myocardial infarction Family history of heart disease in male family member before age 55, Onset Age: 86 Patient's mother is , Onset Age: 86 Father Family history of lung cancer, Onset Age: 78 Patient's father is , Onset Age: 78 Other Family history of arthritis Family history of malignant neoplasm Social History Social History Social History: Code status: Full code. Smoking packs per day: 1 Smoking cigarettes per day: 20.0 Years smoked: 10 Smoking pack-years: 10.00 Smoking status: Never smoker Tobacco type: cigarettes Second hand tobacco smoke exposure: Yes Alcohol intake: never Substance use: never Substance use type: does not use Lack of Transportation: No Lack of Food: Never True Current Housing: I Have Housing Concerned About Future Housing: No Difficulty Paying Gas/Electric Bills: No Difficulty Paying for Meds: No Currently Unemployed: No Education: Don't Know Difficulty w/ Childcare or Family Care: No Living arrangements: alone Occupation/Education: retired Spiritual care concerns: No Meds Home Medications and Allergies Home Medications ?Medication ?Instructions ?Recorded ?Confirmed ?Type calcium carbonate (Calcium 500) 500 mg PO DAILY 03/16/20 11/07/24 History ferrous sulfate 325 mg (65 mg 325 mg PO BID 03/16/20 11/07/24 History iron) tablet (Feosol) diltiazem HCl 180 mg 180 mg PO DAILY #90 caps 08/06/20 11/07/24 Rx capsule,extended release 24 hr (Cartia XT) atorvastatin 40 mg tablet 40 mg PO DAILY 09/14/20 11/07/24 History inhalational spacing device #1 ea 03/14/22 11/05/24 Rx ascorbate calcium (vitamin C) 500 282 mg PO DAILY 07/23/22 11/07/24 History mg capsule cholecalciferol (vitamin D3) 25 25 mcg PO DAILY 07/23/22 11/07/24 History mcg (1,000 unit) capsule (Vitamin D3) multivitamin with minerals 1 tablet PO DAILY 07/23/22 11/07/24 History (Hair,Skin and Nails tablet) aspirin 81 mg chewable tablet 81 mg PO DAILY 01/15/24 11/07/24 History albuterol sulfate 90 mcg/actuation 90 mcg inhalation Q4-6H PRN 07/07/24 11/07/24 Rx aerosol inhaler Shortness Of Breath #8.5 grams escitalopram oxalate 5 mg tablet 5 mg PO DAILY #90 tabs 07/07/24 11/07/24 Rx alendronate 70 mg tablet 70 mg PO WEEKLY #12 tabs 09/24/24 11/05/24 Rx omeprazole 40 mg capsule,delayed 40 mg PO BID 6 weeks #84 caps 10/14/24 11/07/24 Rx release tramadol 50 mg tablet 50 mg PO Q8H PRN pain #30 tabs 10/14/24 11/05/24 Rx Symbicort 160 mcg-4.5 See Rx Instructions .Route 10/19/24 11/07/24 Rx mcg/actuation HFA aerosol inhaler .COMPLEX #11 grams (budesonide-formoterol) Allergies Allergy/AdvReac Type Severity Reaction Status Date / Time clonidine Allergy Unknown GI upset Verified 11/07/24 09:28 codeine Allergy Unknown Vomiting Verified 11/07/24 09:28 morphine Allergy Unknown Vomiting Verified 11/07/24 09:28 Vital Signs Vital Signs - 24 hr 11/07/24 09:31 Temperature 96.6 F L Pulse Rate 75 Blood Pressure 135/68 Pulse Oximetry 100 Oxygen Delivery Room Air Exam Const: General: cooperative and healthy appearing Resp: Effort & Inspection: normal respiratory effort and able to speak in complete sentences Auscultation: clear to auscultation bilaterally Cardio: Rate: regular rate Rhythm: regular rhythm GI: Inspection: normal to inspection GI Palp: No No hepatosplenomegaly present Auscultation: normal bowel sounds Rectal Exam: deferred Skin: General skin exam: normal color Psych: Appearance: grossly normal Mental Status: mental status grossly normal Assessment and Plan Assessment and plan (1) Chronic GERD: Code(s): K21.9 - Gastro-esophageal reflux disease without esophagitis Status: Acute Assessment and Plan: The patient is deemed a good candidate for the procedure. Consent signed. Will proceed.
[2024-11-07 10:54] VITALS: BP 130/71; PULSE 67; RESP 17; O2SAT 100
[2024-11-07 11:04] VITALS: BP 143/70; PULSE 65; RESP 15; O2SAT 100
[2024-11-07 11:14] VITALS: BP 145/69; PULSE 66; RESP 20; O2SAT 100
== END 2024-11-07 11:15 | disposition home or self-care (01) ==
PROVIDERS: PCP Family Medicine; Visit Provider Internal Medicine Gastroenterology
PROC: 0DJ08ZZ Inspection of Upper Intestinal Tract, Via Natural or Artificial Opening Endoscopic (ICD-10-PCS; CPT 43239; principal; 2024-11-07 10:30)
DX: K29.50 Unspecified chronic gastritis without bleeding (principal); K44.9 Diaphragmatic hernia without obstruction or gangrene; K21.9 Gastro-esophageal reflux disease without esophagitis; K31.89 Other diseases of stomach and duodenum; D64.9 Anemia, unspecified; E78.5 Hyperlipidemia, unspecified; I10 Essential (primary) hypertension; R73.03 Prediabetes; J44.9 Chronic obstructive pulmonary disease, unspecified; F32.A Depression, unspecified; M43.06 Spondylolysis, lumbar region; M19.019 Primary osteoarthritis, unspecified shoulder; M19.072 Primary osteoarthritis, left ankle and foot; M16.12 Unilateral primary osteoarthritis, left hip; R05.3 Chronic cough; I65.21 Occlusion and stenosis of right carotid artery; Z79.82 Long term (current) use of aspirin; Z79.51 Long term (current) use of inhaled steroids; Z79.83 Long term (current) use of bisphosphonates; Z79.891 Long term (current) use of opiate analgesic; Z98.890 Other specified postprocedural states; Z90.49 Acquired absence of other specified parts of digestive tract; Z80.0 Family history of malignant neoplasm of digestive organs; Z80.1 Family history of malignant neoplasm of trachea, bronchus and lung; Z82.49 Family history of ischemic heart disease and other diseases of the circulatory system
CPT/HCPCS: 43239; 88305; J2003; J2704; J7120

== ENCOUNTER 2024-12-05 22:26 | Inpatient (IN) | payer MEDICARE, SELFPAY ==
--- NOTE | ~2024-12-05 | MR_ITS ---
MRI of the brain Clinical History: Vertigo Technique: Axial and sagittal T1-weighted images were acquired. These were followed by axial T2-weigh idris, diffusion weighted, gradient, and FLAIR images. Following intravenous administration of 10 cc Mu ltiHance gadolinium, T1-weighted fat-sat imaging was performed in the axial and coronal planes. Findings: No acute infarct, intracranial hemorrhage, or mass lesion seen. There are extensive chronic white matter changes in the periventricular white matter bilaterally. Ventricles and subarachnoid spaces are mildly dilated. Orbits are unremarkable. Paranasal sinuses and mastoid air cells are clear. Major intracranial flow voids are grossly intact. Sagittal midline structures are intact. No abnormal postcontrast enhancement identified. IMPRESSION: No acute infarct, intracranial hemorrhage, or mass lesion. Advanced chronic microvascular ischemic changes and mild generalized atrophy. Reviewed, dictated and finalized at [facility].
--- NOTE | ~2024-12-05 | CT_ITS ---
CT brain wo con Ordering provider: Ila Sarah PA-C History: 89 years Female with . dizzines, n/v, pinto . Comparison: August 27, 2024 Technique: CT of the head without contrast. Radiation reduction technique utilized. The dose-length p roduct was 605.33 mGy-cm. FINDINGS: BRAIN PARENCHYMA AND CSF SPACES: Mild leukoaraiosis and diffuse cortical atrophy. Mild atheromatous d isease. No midline shift, mass effect or hemorrhage. The brain parenchyma and CSF spaces are otherwi se normal. Partial empty sella turcica. VISUALIZED PARANASAL SINUSES: Well aerated. MASTOIDS: Well aerated. BONES: Chronic fracture of the anterior and posterior C1 arch which is unchanged from previous examin ation. Otherwise, The bones appear intact. uNerupted tooth is seen in the right upper jaw. SOFT TISSUES: Visualized nasopharynx is normal. Superficial soft tissues are normal. IMPRESSION: No acute intracranial findings. Chronic fracture of the anterior and posterior arch of C1 unchanged from previous examinations. Reviewed, dictated and finalized at location A. IMPRESSION: No acute intracranial findings. Chronic fracture of the anterior and posterior arch of C1 unchanged from previo us examinations.
--- NOTE | ~2024-12-05 | MR_ITS ---
MRA NECK History: Right ICA stenosis Technique: 3D time of flight MRA of the neck is performed. Findings: Both vertebral arteries are patent and show antegrade flow and appear normal. Right and lef t common carotid arteries and the right and left cervical internal carotid arteries and external antoine tid arteries are patent. Suggestion of approximately 50% stenosis at the proximal right internal antoine tid artery %. The proximal right internal carotid artery demonstrates 50% stenosis relative to the no rmal distal artery lumen diameter. The proximal left internal carotid artery demonstrates 0% stenosis relative to the normal distal artery lumen diameter. Impression: Suggestion of approximately 50% stenosis proximal right internal carotid artery. Reviewed, dictated and finalized at location M. Impression: Suggestion of approximately 50% stenosis proximal right internal carotid artery .
--- NOTE | ~2024-12-05 | MR_ITS ---
MRA HEAD History: Aneurysm Technique: 3D time of flight MRA of the head is performed. Findings: The right and left distal vertebral arteries and the basilar and posterior cerebral arterie s are normal. Right and left distal internal carotid arteries and anterior and middle cerebral arteri es are normal. There is no aneurysm, stenosis, or occlusion. Impression: No occlusion, stenosis, or aneurysm. Reviewed, dictated and finalized at location . Impression: No occlusion, stenosis, or aneurysm.
--- NOTE | ~2024-12-05 | CT_ITS ---
EXAMINATION: CTA brain carotid DATE: 12/06/2024 6:05 CDT INDICATION: Uncontrolled dizziness with hypertension. TECHNIQUE: Computed tomographic angiography (CTA) of the head was performed without and with 100 mL O mnipaque-350 intravenous contrast. CTA of the neck was performed with intravenous contrast. The dose- length product was 751.39 mGy-cm. Maximum intensity projection and volume rendered 3D-reconstructions were created by the technologist on a separate workstation. COMPARISON: CTA brain dated 03/19/2023. FINDINGS: HEAD CTA: No evidence for acute occlusion or significant stenosis. Possible small 2 mm aneurysm versu s infundibulum arising from right paraclinoid internal carotid artery. Vertebral arteries are codomin ant. NECK CTA: Lung apices are unremarkable. There is atherosclerosis of the carotid arteries, more so on the right. Vertebral arteries within normal limits. There is a chronic fracture deformity of the ante rior and posterior arch of C1, without significant change from most recent studies. There is 56% stenosis of the proximal right internal carotid artery relative to normal distal artery lumen diameter (NASCET criteria). There is less than 20% stenosis of the proximal left internal carot id artery relative to normal distal artery lumen diameter. IMPRESSION: 1. 56% stenosis of the proximal right internal carotid artery relative to normal distal artery lumen diameter (NASCET criteria). 2. Less than 20% stenosis of the proximal left internal carotid artery relative to normal distal sherif ry lumen diameter. 3: Possible small 2 mm aneurysm versus infundibulum arising from right paraclinoid ICA. 4: Stable fracture deformities of the anterior and posterior arch of C1, partially visualized on prio r examination dated 08/27/2024. Reviewed, dictated and finalized at location A. IMPRESSION: 1. 56% stenosis of the proximal right internal carotid artery relative to maggie l distal artery lumen diameter (NASCET criteria). 2. Less than 20% stenosis of the proximal left internal carotid artery relative to normal distal artery lumen diameter. 3: Possible small 2 mm aneurysm versus infundibulum arising from right paraclin oid ICA. 4: Stable fracture deformities of the anterior and posterior arch of C1, partia llstacey visualized on prior examination dated 08/27/2024.
--- NOTE | ~2024-12-05 | CT_ITS ---
EXAMINATION: CT abdomen pelvis wo con DATE: 12/06/2024 02:05 INDICATION: Abdomen pain. Persistent nausea and vomiting. TECHNIQUE: Computed tomography (CT) of the abdomen and pelvis was performed with 100 cc Omnipaque 350 intravenous contrast. The dose-length product was 302.20 mGy-cm. Automated exposure control and iter ative reconstruction technique were employed. COMPARISON: CT dated 11/26/2021. FINDINGS: There is left lower lobe airspace disease, consistent with pneumonia. Large hiatal hernia. There is left lower lobe airspace disease, consistent with pneumonia. Eventration of the right diaphr agm posteriorly. The liver, spleen, pancreas, adrenal glands and kidneys are unremarkable. Gallbladde r not identified, likely surgically absent. There is hepatomegaly. Nonobstructive bowel gas pattern. No free air or free fluid. There is atherosclerosis of the aorta without evidence for aneurysm. Sever e lumbar spondylosis. There is levoscoliosis. There are 3 dynamic compression screws transfixing the left femoral neck. IMPRESSION: 1. Left lower lobe pneumonia. 2: Large hiatal hernia. 3: Hepatomegaly. Reviewed, dictated and finalized at location A.
[2024-12-05 22:29] VITALS: BP 154/86; PULSE 71; RESP 17; TEMP 37.2; O2SAT 98
[2024-12-05 22:34] LABS: Glucose Point of Care 278 mg/dl (65-105)
--- OUTSIDE RECORDS SUMMARY | 2024-12-05 22:52 | XMS_ITS | Encounter Summary ---
Author Organization [facility] Address 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
--- OUTSIDE RECORDS SUMMARY | 2024-12-05 22:52 | XMS_ITS | Clinical Summary ---
Author Organization [facility] [address] Address [address] [place] [address] Care Team Providers Care Business Systems Administrator Name Role Phone Easton Paulino MD Primary [...] day in the morning and evening 0 012 Active albuterol HFA (PROAIR HFA) 90 mcg/actuation inhaler inhale 2 puff by inhalation route every 4 - 6 hours as needed 0 012 Active cetirizine 10 mg capsule Take by [...] tablet (5 mg total) by mouth daily 020 Active aspirin 325 mg enteric coated tablet Take 1 tablet (325 mg total) by mouth daily 021 Active ascorbic acid (VITAMIN C ORAL) Take by mouth Active potassium phosphate, monobasic, (K-PHOS) 500 mg (3.6 mmol of phosphorus) tablet Take 1 tablet (500 mg total) by mouth 2 (two) times a day Active omeprazole (PriLOSEC) 40 mg capsule 022 Active cholecalciferol (VITAMIN D-3) 1,000 unit capsule Take 1 capsule (1,000 Units total) by mouth daily Active atorvastatin (LIPITOR) 40 mg tabletIndications:Sten osis of right carotid artery,H/O TIA (transient ischemic attack) and stroke,Pure hypercholesterolemia Take 1 tablet by mouth once daily 90 tablet 3 024 Active methylPREDNISolone (MEDROL DOSEPACK) 4 mg Dosepack 024 Active predniSONE (DELTASONE) 10 mg tablet 024 Active DILT-XR 180 mg 24 hr capsule Take 1 capsule by mouth once daily 90 capsule 025 Active DILT-XR 180 mg 24 hr capsule Take 1 capsule by mouth once daily 90 capsule 025 12/05 Discontinued Active Problems Problem Noted Date Diagnosed Date Carotid disease, bilateral 10/29/2023 Overview (10/29/2023): 50-69% right ICA Assessment & Plan (10/29/2023 1:41 PM CDT): Bilateral carotid stenosis less than 50%. Recently patient has had TIA symptoms but has not followed up in the hospital and has no recent CT is of the head and neck. Was seen at [facility] unsure what timeframe. Seen with Dr. Kip Ramos. Plan: Obtain the most recent CT scan of the head and neck at [facility] follow up in the next 2 [...] Type Department Care Team Description 11/05/2024 Telephone [facility] Cardiology [address] [place] [address] Hugo Fan MD from Last [...] on file Legal Sex Female 4:57 PM BANK VAULT CLERK Gender Identity Female 10/31/2023 12:45 PM CDT [...] 10:34 AM CDT Height 149.9 cm (4' 11) 12/13/2023 10:34 AM CDT Body Mass Index [...] COMPREHENSIVE METABOLIC PANEL Routine 06/17/2021 10:31 AM BANK VAULT CLERK LIPID PANEL Routine 06/17/2021 10:31 AM BANK VAULT CLERK from Last 3 Months or Most Recently Relevant to Health Maintenance Results * Lipid panel (06/17/2021 10:31 AM BANK VAULT CLERK) Cholesterol 164 100 - 199 mg/dL [facility] - 01 Triglycerides 69 0 - 149 mg/dL [facility] - 01 HDL Cholesterol 83 >39 mg/dL [facility] - 01 VLDL 13 5 - 40 mg/dL [facility] - 01 LDL, calculated 68 0 - 99 mg/dL [facility] - 01 06/17/2021 10:3 1 AM BANK VAULT CLERK 06/17/2021 Narrative [facility] - 06/19/2021 8:08 AM BANK VAULT CLERK Performed at: 01 - [address] [id number] Senior Cost Estimator: Barry Quintanilla PhD, Phone: [phone] us Autumn Egan MD LAB BLOOD ORDERABLES Final Result [facility] - 01 * (ABNORMAL) Comprehensive metabolic panel (06/17/2021 10:31 AM BANK VAULT CLERK) Pathologist [facility] Glucose 91 65 - 99 mg/dL [facility] - 01 BUN 24 8 - 27 mg/dL [facility] - 01 Creatinine, Serum 1.10(H) 0.57 - 1.00 mg/dL [facility] - 01 eGFR If NonAfricn Am 46(L) >59 mL/min/1. 73 [facility] - 01 eGFR If Africn Am 53(L) >59 mL/min/1. 73 [facility] - 01 Comment: In accordance with recommendations from the NKF-ASN Task force, [facility] is in the process of updating [...] [facility] - 01 06/17/2021 10:3 1 AM BANK VAULT CLERK 06/17/2021 Narrative [facility] - 06/19/2021 8:08 AM BANK VAULT CLERK Performed at: 01 - [facility] [address] [id number] Senior Cost Estimator: Barry Quintanilla PhD, Phone: [phone] Specimen Comment: A courtesy copy of this report has been sent to Family Practice us Autumn Egan MD LAB BLOOD ORDERABLES Final Result [facility] - 01 from Last 3 Months or Most Recently Relevant to Health Maintenance [place] [address] [facility] [place] [address] [facility] [address] [facility] MEDICARE ADVANTAGE Care Teams Business Systems Administrator Relationship Specialty Start Date End Date Easton Paulino MD [address] [place] [address] [place] [address] PCP - General Family Medicine 04/15/19
--- OUTSIDE RECORDS SUMMARY | 2024-12-05 22:52 | XMS_ITS | Encounter Summary ---
Author Organization [facility] Address [address] [facility] Attn: Epic Prelude ADT MICHELLE MOLINA [address] Care Team Providers Care Mail Forwarding System Markup Clerk Name Role Phone Easton Paulino MD Primary [...] on file Legal Sex Female 3:28 AM LINUX ADMIN Gender Identity Not on file Sexual Orientation Not on file documented as of this encounter Plan of Treatment Not on file documented as of this encounter Visit Diagnoses Not on filedocumented in this encounter Care Teams Mail Forwarding System Markup Clerk Relationship Specialty Start Date End Date Easton Paulino MD [address] [place] [address] [place] [address] PCP - General Family Practice 12/24/18 documented as of this encounter
--- OUTSIDE RECORDS SUMMARY | 2024-12-05 22:52 | XMS_ITS | Referral Summary ---
Author Organization [facility] [address] [facility] [address] Address [address] [place] [address] Care Team Providers Care Track Rider Name Role Phone Easton Paulino MD Primary Care Provider Encounters Date Type Department Care Team Description 11/05/2024 Telephone [facility] Cardiology [address] [place] [address] Hugo Fan MD from Last [...] the head and neck. Was seen at [facility] unsure what timeframe. Seen with Dr. Kip Ramos. Plan: Obtain the most recent CT scan of the head and neck at [facility] follow up in the next 2 [...] on file Legal Sex Female 4:57 PM GOLF RANGE ATTENDANT Gender Identity Female 10/31/2023 12:45 PM CDT [...] COMPREHENSIVE METABOLIC PANEL Routine 06/17/2021 10:31 AM GOLF RANGE ATTENDANT LIPID PANEL Routine 06/17/2021 10:31 AM GOLF RANGE ATTENDANT from Last 3 Months or Most Recently Relevant to Health Maintenance Results * Lipid panel (06/17/2021 10:31 AM GOLF RANGE ATTENDANT) Cholesterol 164 100 - 199 mg/dL [facility] - 01 Triglycerides 69 0 - 149 mg/dL [facility] - 01 HDL Cholesterol 83 >39 mg/dL [facility] - 01 VLDL 13 5 - 40 mg/dL [facility] - 01 LDL, calculated 68 0 - 99 mg/dL [facility] - 01 06/17/2021 10:3 1 AM GOLF RANGE ATTENDANT 06/17/2021 Narrative [facility] - 06/19/2021 8:08 AM GOLF RANGE ATTENDANT Performed at: - [address], [place], [place] [id number] Melt Room Operator: Barry Quintanilla PhD, Phone: [phone] us Autumn Egan MD LAB BLOOD ORDERABLES Final Result [facility] - * (ABNORMAL) Comprehensive metabolic panel (06/17/2021 10:31 AM GOLF RANGE ATTENDANT) [facility] Glucose 91 65 - 99 mg/dL [facility] - 01 BUN 24 8 - 27 mg/dL [facility] - 01 Creatinine, Serum 1.10(H) 0.57 - 1.00 mg/dL [facility] - 01 eGFR If NonAfricn Am 46(L) >59 mL/min/1. 73 [facility] - 01 eGFR If Africn Am 53(L) >59 mL/min/1. 73 [facility] - 01 Comment: In accordance with recommendations from the NKF-ASN Task force, [facility] is in the process of updating [...] [facility] - 01 06/17/2021 10:3 1 AM GOLF RANGE ATTENDANT 06/17/2021 Narrative [facility] - 06/19/2021 8:08 AM GOLF RANGE ATTENDANT Performed at: 01 - [facility] [address] [id number] Melt Room Operator: Barry Quintanilla PhD, Phone: [phone] Specimen Comment: A courtesy copy of this report has been sent to Family Practice us Autumn Egan MD LAB BLOOD ORDERABLES Final Result [facility] - 01 from Last 3 Months or Most Recently Relevant to Health Maintenance [place] [address] [facility] [address] [place] [address] [facility] [place] [address] [facility] MEDICARE ADVANTAGE Care Teams Track Rider Relationship Specialty Start Date End Date Easton Paulino MD [address] [facility] [address] [place] [address] PCP - General Family Medicine 04/15/19
--- OUTSIDE RECORDS SUMMARY | 2024-12-05 22:52 | XMS_ITS | Encounter Summary ---
Author Organization [facility] Address 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
--- OUTSIDE RECORDS SUMMARY | 2024-12-05 22:52 | XMS_ITS | Encounter Summary ---
Author Organization [facility] Address [address] [facility] [place] [address] Care Team Providers Care Supply Coordinator Name Role Phone Easton Paulino MD Primary Care Provider [phone] Encounter Details Date Type Department Care Team (Late st Contact Info) Description 02/05/2020 Lab Requisition [facility] [address] [place] [address] Alex Iniguez MD [address] [address] Illness, unspecified Social History Tobacco Use Types Packs/Day Years Used Date Smoking Tobacco: Never Assessed Comments Unknown Sex and Gender Information Value Date Recorded Sex Assigned at Not on file 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 - No morphologic evidence of lymphoma or high-grade myeloid neoplasm. - See description. 02/07/2020 3:57 PM [facility] at 1557 CDT AP Comment Overall, the bone marrow specimen is normocellular for age with maturing trilineage hematopoiesis and no morphologic evidence of lymphoma, a high-grade myeloid neoplasm, or significant dyspoiesis. Concurrent flow cytometry ([id number]) shows a small population of myeloid blasts [...] cytogenetic/molecular testing is required. 02/07/2020 3:57 PM [facility] Bone Marrow Aspirate Differential count (200 cells): 0% blasts, 76.5% maturing myeloid precursors, 9% erythroid progenitors, 2.5% monocytes, 1% eosinophils, 11% lymphocytes, 0% plasma cells. Specimen quality: suboptimal, aspiculate and hemodilute. Spicules: absent. Trilineage Hematopoiesis: erythroids and myeloids present; rare smudged nuclei which might represent stripped megakaryocyte nuclei. Myeloid:Erythroid ratio: 8.9:1, however this may not be practice representative due to the hemodilute nature of the sample. Myeloid Maturation: normal. Erythroid Maturation: few to assess, but appears normal. Megakaryocyte morphology: too few to adequately assess. Storage iron (by special stain): not evaluable due to lack of spicules. Sideroblastic iron (by special stain): no ring sideroblasts but this may not be practice representative due to the paucity of erythroid precursors. 02/07/2020 3:57 PM [facility] Bone Marrow Core Biopsy [...] performed on the core biopsy in the [facility] Department of Pathology, with appropriately reactive controls, and demonstrate the following: CD34: no increase in blasts (less than 5% of marrow cellularity). CD117: highlights scattered mast cells. E-cadherin: highlights focal immature erythroid precursors. PAX5 and Tdt: negative. CMV: negative. HSV1/2: negative. NARCISO by THOMAS: negative 02/07/2020 3:57 PM [facility] Flow Cytometry Summary Concurrent flow cytometry ([id number]) shows small population of myeloid blasts (0.4%), immature monocytes (1.6%) and a small population of immature B cells (0.7%). 02/07/2020 3:57 PM [facility] Clinical History 02/07/2020 3:57 PM [facility] Materials Received Received are 3 blocks (A1, A2, B1) and 16 slide(s) labeled [id number] along with a copy of the outside pathology report. [place] [address]. All original materials are returned to the referring institution, along with a copy of our final report. 02/07/2020 3:57 PM [facility] Disclaimer The performance characteristics of all immunohistochemical and indirect immunofluorescence stains (if any) cited in this report were determined by the Histopathology Laboratory of [facility]. Some of these tests were developed by [...] attending (teaching) pathologist. 02/07/2020 3:57 PM CDT [facility] Embedded Images 02/07/2020 3:57 PM CDT [facility] Pathology/Cytology BONE MARROW SPECIMEN / Unknown 02/03/2020 8:30 AM CDT 02/05/2020 8:26 AM CDT Miscellaneous samples (specimen) BONE MARROW SPECIMEN / Unknown 02/03/2020 8:30 AM CDT 02/05/2020 8:28 AM CDT Alex Iniguez MD LAB - PATHOLOGY/CYTOLOGY ORDER ANURAG Final Result [facility] [address] [phone] documented in this encounter Visit Diagnoses Diagnosis Illness, unspecified documented in this encounter Care Teams Supply Coordinator Relationship Specialty Start Date End Date Easton Paulino MD [address] [place] [address] PCP - General 09/27/18 documented as of this encounter
--- OUTSIDE RECORDS SUMMARY | 2024-12-05 22:52 | XMS_ITS | Encounter Summary ---
Author Organization [facility] Address 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
--- OUTSIDE RECORDS SUMMARY | 2024-12-05 22:52 | XMS_ITS | Encounter Summary ---
Author Organization [facility] Address [address] 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
--- OUTSIDE RECORDS SUMMARY | 2024-12-05 22:52 | XMS_ITS | Encounter Summary ---
Author Organization [facility] Address 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
--- OUTSIDE RECORDS SUMMARY | 2024-12-05 22:52 | XMS_ITS | Encounter Summary ---
Author Organization [facility] Address 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
--- OUTSIDE RECORDS SUMMARY | 2024-12-05 22:52 | XMS_ITS | Continuity of Care Document ---
Author Organization [facility] Address [address] [place] [address] [address] [place] [address] Phone Care Team Providers Care Manager Mac Name Role Phone Alex Rivers PT Unavailable Unavailable Procedures Procedure Date Therapeutic Activities Neuromuscular Re-Ed Therapeutic Activities Neuromuscular Re-Ed Therapeutic Exercise Therapeutic Activities Neuromuscular Re-Ed Therapeutic Exercise Therapeutic Activities Neuromuscular Re-Ed Therapeutic Exercise Doc neg elder mal no plan PT Evaluation Low Complexity Therapeutic Activities Neuromuscular Re-Ed Therapeutic Exercise Therapeutic Activities Neuromuscular Re-Ed Therapeutic Activities Neuromuscular Re-Ed Therapeutic Activities Neuromuscular Re-Ed Neuromuscular Re-Ed Therapeutic Activities Therapeutic Activities Therapeutic Exercise Neuromuscular Re-Ed Neuromuscular Re-Ed Therapeutic Exercise Therapeutic Activities Therapeutic Exercise Therapeutic Activities Neuromuscular Re-Ed Therapeutic Activities Therapeutic Exercise Neuromuscular Re-Ed PT Evaluation Low Complexity Therapeutic Activities Neuromuscular [...] Activities Neuromuscular Re-Ed PT Evaluation High Complexity Therapeutic Activities Neuromuscular Re-Ed Advance Directives Directive Yes / No Effective Date File Name No Information Encounters Encounter Description Practice Location Reason(s) For Visit Diagnoses Date Provider Providers Copied on Encounter [facility] [facility], [place], [place], [id number], [place] tel:[phone] Lohn No Information 2 Tita Johnson. . Referring Provider: Lito Jerry, [address], [place], [address]. [facility] [facility], [place], [place], [address], [place] tel:[phone] Lohn No Information Dec-2 0-202 2 Tita Alex. . Referring Provider: Lito Jerry, [address] [place] [address] [address], [place], [address]. [facility], [address] [facility] [facility] [address], [place], [place], [address], [place] tel:[phone] Lohn No Information Dec-1 5-202 2 Tita Alex. . Referring Provider: Lito Jerry, [address] [place] [address] [address], [place], [address]. [facility], [address] [facility] [address], [place], [place], [id number], [place] tel:[phone] Lohn No Information Dec-1 3-202 2 Tita Alex. . Referring Provider: Lito Jerry, [address] [place] [address] [address], [place], [address]. [facility], [address], [place], [place], [address], [place] tel:[phone] Lohn No Information Dec-0 8-202 2 Modglin Dallas. . Referring Provider: Lito Jerry, [address] [place] [address] [address], [place], [address]. [facility], [address], [place], [place], [address], [place] tel:[phone] Lohn No Information Sawyer-0 4-202 1 Makacacia Luke. . Referring Provider: Lito Jerry, [address] [place] [address] [address], [place], [address]. [facility], [address] [facility], [place], [place], [address], [place] tel:[phone] Lohn No Information Sawyer-0 2-202 1 Makler Luke. . Referring Provider: Lito Jerry, [address] [place] [address] [address], [place], [address]. [facility], [address] [facility], [place], [place], [address], [place] tel:[phone] Lohn No Information May-2 7-202 1 Makler Luke. . Referring Provider: Lito Jerry, [address] [place] [address] [address], [place], [address]. [facility] [address] [facility] [address], [place], [place], [id number], tel:[phone] Lohn No Information 1 Makler Luke. . Referring Provider: Lito Jerry, [address] [place] [address] [address], [place], [address]. [facility], [address], [place], [place], [address], [place] tel:[phone] Lohn No Information 0 1 Makler Luke. . Referring Provider: Lito Jerry, [address] [place] [address] [address], [place], [address]. [facility] [address] [facility] [address], [place], [place], [id number], tel:[phone] Lohn No Information 1 Makler Luke. . Referring Provider: Lito Jerry [address] [place] [address] [address], [place], [address]. [facility] [address] [facility] [address], [place], [place], [address], tel:[phone] Lohn No Information 1 Makler Luke. . Referring Provider: Lito Jerry [address] [place] [address] [address], [place], [address]. [facility] [address] [facility] [address], [place], [place], [address], tel:[phone] Lohn No Information - 1 Makler Luke. . Referring Provider: Lito Jerry [address] [place] [address] [address], [place], [address]. [facility] [address], [place], [place], [address], tel:[phone] Lohn No Information 0 6- 1 Makler Luke. . Referring Provider: Lito Jerry [address] [place] [address] [address], [place], [address]. [facility], [address] [facility], [place], [place], [address], [place] tel:[phone] Lohn Personal history of (healed) traumatic fracturePrese nce of left artificial knee jointTrochant andrzej bursitis, right hip Sawyer-0 5 9 [place], [place], [place]. Referring Provider: Lito Jerry [address] [place] [address] [address], [place], [address]. [facility], [address] [facility], [place], [place], [address], [place] tel:[phone] Lohn Personal history of (healed) traumatic fracturePrese nce of left artificial knee jointTrochant andrzej bursitis, right hip Sawyer-0 3-201 9 [place], [place], [place]. Referring Provider: Lito Jerry [address] [place] [address] [address], [place], [address]. [facility], [address] [facility] [address], [place], [address], [place] tel:[phone] Lohn Personal history of (healed) traumatic fracturePrese nce of left artificial knee jointTrochant andrzej bursitis, right hip 9 Sanjuana Watson. . Referring Provider: Lito Jerry [address] [place] [address] [address], [place], [address]. [facility], [address], [place], [place], [address], [place] tel:[phone] Lohn Personal history of (healed) traumatic fracturePrese nce of left artificial knee jointTrochant andrzej bursitis, right hip 0 9 Harrison Johnson. [address] [facility], [address], [place], [address], [place]. tel:[phone] Referring Provider: Lito Jerry [address] [place] [address] [address], [place], [address]. [facility], [address] [facility], [place], [address], [place] tel:[phone] Lohn Personal history of (healed) traumatic fracturePrese nce of left artificial knee jointTrochant andrzej bursitis, right hip 9 Harrison Alex. [address] [facility], [address], [place], [address], [place]. tel:[phone] Referring Provider: Lito Jerry [address] [place] [address] [address], [place], [address]. [facility], [address] [facility], [place], [place], [address], tel:[phone] Lohn Personal history of (healed) traumatic fracturePrese nce of left artificial knee jointTrochant andrzej bursitis, right hip 9 Sanjuana Watson. . Referring Provider: Lito Jerry [address] [place] [address] [address], [place], [address]. [facility], [address] [facility] [address], [place], [place], [address], tel:[phone] Lohn Personal history of (healed) traumatic fracturePrese nce of left artificial knee jointTrochant andrzej bursitis, right hip 9 [place], [place]. Referring Provider: Lito Jerry [address] [place] [address] [address], [place], [address]. [facility], [address] [facility], [place], [place], [address], [place] tel:[phone] Lohn Personal history of (healed) traumatic fracturePrese nce of left artificial knee jointTrochant andrzej bursitis, right hip 0 9 [place], [place]. Referring Provider: Lito Jerry [address] [place] [address] [address], [place], [address]. [facility] [facility] [address], [place], [place], [address], [place] tel:[phone] Lohn Personal history of (healed) traumatic fracturePrese nce of left artificial knee jointTrochant andrzej bursitis, right hip 9 [facility]. [place], [place]. Referring Provider: Lito Jerry [address] [place] [address] [address], [place], [address]. [facility], [address] [facility], [place], [place], [address], tel:[phone] Lohn Personal history of (healed) traumatic fracturePrese nce of left artificial knee jointTrochant andrzej bursitis, right hip May-1 6-201 9 Sanjuana Watson. . Referring Provider: Lito Jerry [address] [place] [address] [address], [place], [address]. [facility], [address], [place], [place], [address], tel:[phone] Lohn Personal history of (healed) traumatic fracturePrese nce of left artificial knee jointTrochant andrzej bursitis, right hip May-1 3-201 9 [place], [place]. Referring Provider: Lito Jerry [address] [place] [address] [address], [place], [address]. [facility], [address], [place], [place], [address], tel:[phone] Lohn Personal history of (healed) traumatic fracturePrese nce of left artificial knee jointTrochant andrzej bursitis, right hip May-1 0-201 9 [place], [place]. Referring Provider: Lito Jerry [address] [place] [address] [address], [place], [address]. [facility], [address], [place], [place], [address], [place] tel:[phone] Lohn Personal history of (healed) traumatic fracturePrese nce of left artificial knee jointTrochant andrzej bursitis, right hip May-0 8-201 9 Ayaz Catalan. . Referring Provider: Lito Jerry [address] [place] [address] [address], [place], [address]. [facility], [address] [facility], [place], [place], [address], [place] tel:[phone] Lohn Personal history of (healed) traumatic fracturePrese nce of left artificial knee jointTrochant andrzej bursitis, right hip May-0 6-201 9 [place], [place]. Referring Provider: Lito Jerry, [address], [place], [address]. [facility], [address], [place], [place], [address], [place] tel:[phone] Chelsey Personal history of (healed) traumatic fracturePrese nce of left artificial knee jointTrochant andrzej bursitis, right hip 9 [place], [place]. Referring Provider: Lito Jerry [address], [place], [address]. Family History Family Member Type Diagnosis Age At Onset No Information Payers Payer name Insurance type Covered constitution party ID Heavena deememe(s) AARP Medicare Complete 16 [id number] Social History Type Description Quantity Date Captured [...]
--- OUTSIDE RECORDS SUMMARY | 2024-12-05 22:52 | XMS_ITS | Clinical Summary ---
Author Organization [facility] Address [address] [place] [address] Care Team Providers Care Editorial Assistant Name Role Phone Easton Paulino MD Primary Care Provider [phone] Source Comments [facility] Affiliates and Associated Physician Practices is amultiple site organization consisting of ambulatory clinics and hospital sitesin [place], [place], [place] and [place]. This disclosure is being madepursuant to the Care Everywhere program and may not contain all information available regarding this patient. Last updated 18.[facility] [place] [facility] Allergies Active Allergy Reactions Criticality Noted Date [...] on file Legal Sex Female 5:18 AM DIRECTOR CPG Gender Identity Not on file Sexual Orientation Not on file Last Filed Vital Signs Vital Sign Reading Time Taken Comments Blood Pressure 167/84 05/23/2021 4:43 PM DIRECTOR CPG Pulse 79 05/23/2021 4:43 PM DIRECTOR CPG Temperature 37.2 C (98.9 F) 05/23/2021 4:43 PM DIRECTOR CPG Respiratory Rate 13 05/23/2021 4:43 PM DIRECTOR CPG Oxygen Saturation 98% 05/23/2021 4:43 PM DIRECTOR CPG Inhaled Oxygen Concentration - - Weight 63 kg (138 lb 14.2 oz) 05/23/2021 4:43 PM DIRECTOR CPG Height 147.3 cm (4' 10) 05/23/2021 4:43 PM DIRECTOR CPG Body Mass Index 29.03 05/23/2021 4:43 PM DIRECTOR CPG Plan of Treatment Health Maintenance Due Date Last Done Comments BONE DENSITY TESTING 1937 DTAP/TDAP/TD VACCINES (1 - Tdap) 1956 PNEUMOCOCCAL VACCINE 50+ (1 of 1 - PCV) 1987 ZOSTER VACCINE (1 of 2) 1987 Respiratory Syncytial Virus (RSV) Vaccine Pt: or over 60 yrs (1 - 1-dose 75+ series) 2012 COVID-19 VACCINE ( - 2023-2 5 season) 2024 DEPRESSION SCREENING 07/09/2024 MEDICARE AWV CALENDAR YEAR 2024 INFLUENZA VACCINE (Season Ended) 2025 HEPATITIS B [...] complete this topic Insurance [place] [address] [facility] [place] [address] [facility] MANAGED MEDICARE ADV [facility] MANAGED MEDICARE ADV SELF PAY NO INSURANCE Member Subscriber Plan / Payer (Ef fective for All Dates) Name:Selena Lua Ronda Member ID:Not on file Relation to Subscriber:Not on file Name:SELENA LUA Ronda Subscriber ID:Not on file (Home) Address: [address] [place] [address] [place] [address] Payer ID:Not on file Group ID:Not on file Type:Self Pay Address: [place], [place] Care Teams Editorial Assistant Relationship Specialty Start Date End Date Easton Paulino MD [address] [place] [address] PCP - General 09/27/18
--- OUTSIDE RECORDS SUMMARY | 2024-12-05 22:52 | XMS_ITS | Encounter Summary ---
Author Organization [facility] Address 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
--- OUTSIDE RECORDS SUMMARY | 2024-12-05 22:52 | XMS_ITS | Encounter Summary ---
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
--- OUTSIDE RECORDS SUMMARY | 2024-12-05 22:52 | XMS_ITS | Encounter Summary ---
Author Organization [facility] Address 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
--- OUTSIDE RECORDS SUMMARY | 2024-12-05 22:52 | XMS_ITS | Encounter Summary ---
Author Organization [facility] Address 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
--- OUTSIDE RECORDS SUMMARY | 2024-12-05 22:52 | XMS_ITS | CONTINUITY OF CARE DOCUMENT ---
Author Name kirk bradley Address Unknown Organization [facility] Address [address] [facility] [address] [place] [address] Phone [phone] Care Team Providers Care Meat Processing Center Manager Name Role Phone JENNIFER MARTIN MD Unavailable [phone] INSURANCE PROVIDERS Payer name Policy type / Coverage type [place] red alliance party ID UHC MEDICARE COMPLETE HMO Other [id number]
--- OUTSIDE RECORDS SUMMARY | 2024-12-05 22:52 | XMS_ITS | Encounter Summary ---
Author Organization [facility] Address 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
--- OUTSIDE RECORDS SUMMARY | 2024-12-05 22:52 | XMS_ITS | Continuity of Care Document ---
Author Organization [facility] Address [address] [place] [address] Phone Care Team Providers Care Water Taxi Boat Mate Name Role Phone Kingsley Concepcion Unavailable Unavailable Procedures Procedure Date Office/outpatient Visit, [facility] Advance Directives Directive Yes / No Effective Date File Name No Information Encounters Encounter Description Practice Location Reason(s) For Visit Diagnoses Date Provider Providers Copied on Encounter Office/outpat ient Visit, [facility], [address], [place], [place], [id number], [place] tel:[phone] [facility] [place] No Information [address], [place], [address], [place]. tel:[phone] Family History Family Member Type Diagnosis Age At Onset No Information Payers Payer name Insurance type Covered green party ID Authoriza tion(s) [employer] Mdcr Adv CI [id number] Social History Type Description Quantity Date Captured [...]
--- OUTSIDE RECORDS SUMMARY | 2024-12-05 22:52 | XMS_ITS | Encounter Summary ---
Author Organization [facility] Address 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
--- OUTSIDE RECORDS SUMMARY | 2024-12-05 22:52 | XMS_ITS | Encounter Summary ---
Author Organization [facility] Address [address] [facility] [place] [address] Care Team Providers Care Adjunct Psychology Faculty Member Name Role Phone Easton Paulino MD Primary Care Provider [phone] Encounter Details Date Type Department Care Team (Late st Contact Info) Description 02/03/2020 Lab Requisition [facility] [address] [place] [address] Alex Iniguez MD [address] [address] Anemia, unspecified Social History Tobacco Use Types Packs/Day Years Used Date Smoking Tobacco: Never Assessed Comments Unknown Sex and Gender Information Value Date Recorded Sex Assigned at Not on file Legal Sex Female 5:18 AM RN PATIENT SERVICES Gender Identity Not on file Sexual [...] AM CDT) Case Report Flow Cytometry Case: [id number] Authorizing Provider: Alex Iniguez MD Collected: 02/03/2020 09:00 AM Ordering Location: [facility] Received: 02/03/2020 11:33 AM Pathologist: Tracey Hopper Mai, DO Specimen: Bone Marrow 02/03/2020 5:50 PM [facility] Final Diagnosis Bone marrow, flow cytometric immunophenotypic analysis: - Small population of myeloid blasts (0.4%) and immature monocytes (1.6%). - Small population of immature B cells (0.7%). - See interpretation. 02/03/2020 5:50 PM [facility] at 1750 CDT Flow Cytometry Interpretation The bone marrow specimen [...] flow cytometry specimen is reviewed for quality systems technician purposes. The bone marrow aspirate specimen shows no evidence of involvement by non-Hodgkin lymphoma but there are populations of immature cells (both myeloid and lymphoid) warranting correlation with morphologic findings on the bone marrow biopsy and relevant cytogenetic/molecu lar studies for further classification. 02/03/2020 5:50 PM [facility] Flow Cytometry Results Differential Result Comment Flow Cell Count /uL 69,000 Total Viability % 100.0 Lymphocytes % 17 Dim CD45 Region % 3 Monocytes % 12 Granulocytes % 67 02/03/2020 5:50 PM [facility] Reason for test Anemia, unspecified 285.9 history of diabetes, cryoglobulinemia and normocytic normochromic anemia. [facility] Client Specimen ID # [id number] 02/03/2020 5:50 PM [facility] Number of markers 19 were performed. A-2 Flow CD10 A-3 Flow CD13 A-5 Flow CD20 A-11 Flow CD2 A-13 Flow CD14 A-16 Flow CD117 A-17 Flow CD11b A-18 Flow CD11c A-1 Flow CD5 A-4 Flow CD19 A-6 Flow CD33 A-7 Flow CD34 A-8 Flow CD45 A-12 Flow CD7 A-14 Flow CD56 A-15 Flow CD64 A-9 [place]+CD19+ A-10 Lambda+CD19+ A-19 Flow HLA-DR 02/03/2020 5:50 PM CDT [facility] Disclaimer Test performed at [facility], [address] [place], [place], [address]. *The established laboratory minimum viability is 70%. [...] complexity clinical testing. 02/03/2020 5:50 PM CDT [facility] Embedded Images 0 5:50 PM CDT [facility] Pathology/Cytolo gy BONE MARROW SPECIMEN / Unknown 02/03/2020 9:00 AM CDT 02/03/2020 11:33 AM CDT us Alex Iniguez MD LAB - PATHOLOGY/CYTOLOGY ORDER ANURAG Final Result [facility]. [address] [phone] documented in this encounter Visit Diagnoses Diagnosis Anemia, unspecified documented in this encounter Care Teams Adjunct Psychology Faculty Member Relationship Specialty Start Date End Date Easton Paulino MD [address] [place] [address] PCP - General 09/27/18 documented as of this encounter
--- OUTSIDE RECORDS SUMMARY | 2024-12-05 22:53 | XMS_ITS | Clinical Summary ---
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 Gender Identity Not on file Sexual Orientation Not on file Occupation Industry Job Start Date Job End Date Not on file Not on file Not on file Not on file Last Filed Vital Signs Vital Sign Reading Time Taken Comments Blood Pressure 113/65 07/12/2021 11:00 AM CROSSBAR FRAME WIRER Pulse 80 07/12/2021 11:00 AM CROSSBAR FRAME WIRER Temperature 36.7 C (98.1 F) 07/12/2021 11:00 AM CROSSBAR FRAME WIRER Respiratory Rate - - Oxygen Saturation 96% 07/12/2021 11:00 AM CROSSBAR FRAME WIRER Inhaled Oxygen Concentration - - Weight 61 kg (134 lb 8 oz) 07/12/2021 11:[address] Height 152.4 cm (5') 07/12/2021 11:00 AM CROSSBAR FRAME WIRER Body Mass Index 26.27 07/12/2021 11:00 AM CROSSBAR FRAME WIRER Plan of Treatment Health Maintenance Due Date [...] 2002 INFLUENZA VACCINE (#1) [address] [place] [address] [facility] [id number] [place], [place] [id number] [place] [id number] Advance Directives For more information, please contact: [phone] Documents on File Type Date Recorded Patient Statistical Programmer Expl anation Advance Directive POA 02/13/2019 2:23 PM Ad najera Directive POA Advance Directive Living Will 02/13/2019 2:23 PM Advance Directive Living Will Care Teams Examination Grader Relationship Specialty Start Date End Date Easton Paulino MD [address] [facility] [address] [place] [address] PCP - General Family Practice 12/24/18
--- NOTE | 2024-12-05 23:19 | ECG_ITS ---
Test Date: 2024-12-06 02:33:12 Measurements Intervals [place] Rate: 73 P: 0 [place]: 0 QRS: 77 QRSD: 91 T: 82 QT: 392 QTc: 434 Interpretive Statements ATRIAL FIBRILLATION ABNORMAL RHYTHM ECG Compared to ECG 12/06/2024 00:48:14 NO SIGNIFICANT DIFFERENCE Electronically Signed On 12-06-2024 07:43:14 CDT by [place] M.D.
[2024-12-05] MEDS: ONDANSETRON INJ 4 MG/2 ML VIAL IV PUSH (23:40)
[2024-12-05] MEDS: FAMOTIDINE 20 MG/2 ML VIAL IV PUSH (23:40)
[2024-12-05] MEDS: SODIUM CHLORIDE 0.9% IV 1,000 ML 999 ML IV CONT (23:41)
--- NOTE | 2024-12-05 23:43 | ED_ITS ---
HPI - Nausea/Vomiting/Diarrhea General Chief complaint: Nausea/Vomiting/Diarrhea <VETO Brown Last Filed: 12/06/24 03:08> Stated complaint: N/V since 1500;hypoglycemic <Ila Sarah PA-C - Last Filed: 12/06/24 03:08> Time Seen by Provider: 12/05/24 22:32 <VETO Brown Last Filed: 12/06/24 03:08> Source: patient <VETO Brown Last Filed: 12/06/24 03:08> Mode of arrival: EMS <VETO Brown Last Filed: 12/06/24 03:08> Limitations: no limitations <VETO Brown Last Filed: 12/06/24 03:08> History of Present Illness HPI Narrative: Patient is an 89-year-old female who presents the ED via EMS with report of dizziness, nausea, vomiting. Patient reports she woke up this morning with a headache and dizziness, described as though the room was spinning. States it is worse with movements, bending over. She has had difficulty ambulating due to the dizziness. Has had episodes like this before, but much more mild. She developed nausea and vomiting this afternoon has had multiple episodes of emesis. Has been unable to keep down any food or drink. Does still have headache. Reports mild diffuse abd discomfort. Denies vision changes, focal weakness or numbness, diarrhea, constipation, fevers, slurred speech, confusion. <VETO Brown Last Filed: 12/06/24 03:08> Related Data Home medications: Home Medications ?Medication ?Instructions ?Recorded ?Confirmed ?Last Taken ?Type calcium carbonate (Calcium 500) 500 mg PO DAILY 03/16/20 11/07/24 11/06/24 History ferrous sulfate 325 mg (65 mg 325 mg PO BID 03/16/20 11/07/24 10/30/24 History iron) tablet (Feosol) atorvastatin 40 mg tablet 40 mg PO DAILY 09/14/20 11/07/24 11/06/24 History ascorbate calcium (vitamin C) 500 282 mg PO DAILY 07/23/22 11/07/24 11/06/24 History mg capsule cholecalciferol (vitamin D3) 25 25 mcg PO DAILY 07/23/22 11/07/24 11/06/24 History mcg (1,000 unit) capsule (Vitamin D3) multivitamin with minerals 1 tablet PO DAILY 07/23/22 11/07/24 11/06/24 History (Hair,Skin and Nails tablet) aspirin 81 mg chewable tablet 81 mg PO DAILY 01/15/24 11/07/24 11/06/24 History <Ila Sarah PA-C - Last Filed: 12/06/24 03:08> Allergies/Adverse reactions: Allergies Allergy/AdvReac Type Severity Reaction Status Date / Time clonidine Allergy Unknown GI upset Verified 11/28/24 10:43 codeine Allergy Unknown Vomiting Verified 11/28/24 10:43 morphine Allergy Unknown Vomiting Verified 11/28/24 10:43 <VETO Brown Last Filed: 12/06/24 03:08> [facility] Past Medical History Medical History: Medical History Lumbar spondylolysis Left foot pain Lumbar back pain with radiculopathy affecting left lower extremity Trochanteric bursitis, left hip DJD of shoulder Right shoulder pain 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 Arthritis of left hip Trochanteric bursitis, right hip 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 Bursitis of right hip Chronic cough Bilateral hip bursitis Carotid stenosis, right Internal hemorrhoids COPD (chronic obstructive pulmonary disease) Hypertension Anemia HTN (hypertension) with goal to be determined Fracture of left hip requiring operative repair Asthma Hyperlipidemia Benign essential hypertension Depression Chronic GERD Hx of temporal arteritis Lung mass Mild intermittent asthma without complication Osteopenia Pre-diabetes <VETO Brown Last Filed: 12/06/24 03:08> Surgical History Surgical History: Surgical History Total knee replacement status History of appendectomy History of carpal tunnel release Bilaterally History of cataract Bilateral History of tonsillectomy History of cholecystectomy History of total bilateral knee replacement History of total replacement of left shoulder joint Presence of left artificial knee joint <VETO Brown Last Filed: 12/06/24 03:08> Family History Family History: Family History Mother Hypertension Family history of cardiovascular disease Carcinoma of colon, Onset Age: 86 Acute myocardial infarction Family history of heart disease in male family member before age 55, Onset Age: 86 Patient's mother is , Onset Age: 86 Father Family history of lung cancer, Onset Age: 78 Patient's father is , Onset Age: 78 Other Family history of arthritis Family history of malignant neoplasm <VETO Brown Last Filed: 12/06/24 03:08> Social History Social History: Social History Social History: Code status: Full code. Smoking packs per day: 1 Smoking cigarettes per day: 20.0 Years smoked: 10 Smoking pack-years: 10.00 Smoking status: Never smoker Tobacco type: cigarettes Second hand tobacco smoke exposure: Yes Alcohol intake: never Substance use: never Substance use type: does not use Lack of Transportation: No Lack of Food: Never True Current Housing: I Have Housing Concerned About Future Housing: No Difficulty Paying Gas/Electric Bills: No Difficulty Paying for Meds: No Currently Unemployed: No Education: Don't Know Difficulty w/ Childcare or Family Care: No Living arrangements: alone Occupation/Education: retired Spiritual care concerns: No <VETO Brown Last Filed: 12/06/24 03:08> Exam 2 Narrative: GENERAL: Mildly ill appearing, well-nourished, non-toxic, in no acute distress. HEAD: Normocephalic, atraumatic. EYES: PERRL/EOMI, conjunctivae clear bilaterally. No appreciable nystagmus. No dizziness elicited with eye movements NECK: Supple. No meningeal signs. RESPIRATORY: Airway patent, respirations nonlabored. Clear to auscultation bilaterally, no rales, rhonchi, wheezing. CARDIOVASCULAR: Regular rate and rhythm without murmurs, rubs, or gallops. Peripheral pulses 2+ and equal bilaterally. ABDOMINAL: Soft, mild diffuse tenderness, nondistended. Normoactive BS. MUSCULOSKELETAL: Moves all extremities. No gross deformities. SKIN: Warm, dry, normal color. No rashes. NEURO: A&O X3. Speech clear. Follows commands. CN II-XII intact. Sensation grossly intact. Steady gait. No ataxic movements. Strength 5/5 in upper and lower extremities bilaterally. No pronator drift. 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 [id number] and [id number] testing intact bilaterally. Dizziness elicited with sitting upright and head movements. PSYCHIATRIC: Appropriate mood and affect. Normal interaction. <Ila Sarah PA-C - Last Filed: 12/06/24 03:08> Course Course Emergency Course: Patient care assumed from previous provider. Patient CT scans came back in her CT abdomen pelvis reveals some patchy left lower lobe infiltrate suspicious for aspiration event versus pneumonia as well as a mildly thickened ascending colon suspicious for colitis as well as a large hiatal hernia which likely explains her vomiting. She otherwise has no other intra-abdominal process such as a bowel obstruction to explain her nausea and vomiting. Patient's EKG does appear to have some irregularities such as frequent PACs and sinus arrhythmia with variable P-wave durations but not convincing overall for atrial fibrillation when compared to previous rhythm strips with various prolonged WV segments and ectopy including PACs and PVCs. On review of patient's previous Holter monitor report from several years ago she had several episodes of P-wave irregularities and variable blocks and this feels similar and Cardiology commented on no signs of AFib/flutter. Overall she is already on rate controlling medications including diltiazem and on an aspirin and statin. She has a high has-bled score including previous subarachnoid hemorrhage and advanced age making her a very poor candidate for any other anticoagulation such as a DOAC in the event she actually is having some paroxysmal AFib episodes. Will defer to admitting team. Unlikely related to her symptomatology here today. She was started on antibiotics for coverage of her colitis and aspiration pneumonia and will be admitted to the hospital. Awaiting discussion with the hospitalist at this time. Discussed with the hospitalist Dr. Alexander and we went over patient's imaging studies, EKG findings, clinical exam and assessment and plan of care. Patient is accepted the hospital under telemetry monitored bed. P.r.n. medications admission orders placed and patient and family made aware of the admission plan. <Edy Godinez MD - Last Filed: 12/06/24 04:25> Vital Signs Vital signs: Vital Signs Temperature 37.2 C 12/05/24 22:29 Pulse Rate 71 12/05/24 22:29 Respiratory Rate 17 12/05/24 22:29 Blood Pressure 154/86 H 12/05/24 22:29 Pulse Oximetry 98 12/05/24 22:29 Oxygen Delivery Room Air 12/05/24 22:29 Temperature 37.2 C 12/05/24 22:29 Pulse Rate 84 12/06/24 04:00 Respiratory Rate 17 12/06/24 04:00 Blood Pressure 141/73 H 12/06/24 04:01 Pulse Oximetry 99 12/06/24 03:46 Oxygen Delivery Room Air 12/05/24 22:29 <Ila Sarah PA-C - Last Filed: 12/06/24 03:08> Vital Signs Temperature 37.2 C 12/05/24 22:29 Pulse Rate 71 12/05/24 22:29 Respiratory Rate 17 12/05/24 22:29 Blood Pressure 154/86 H 12/05/24 22:29 Pulse Oximetry 98 12/05/24 22:29 Oxygen Delivery Room Air 12/05/24 22:29 Temperature 37.2 C 12/05/24 22:29 Pulse Rate 84 12/06/24 04:00 Respiratory Rate 17 12/06/24 04:00 Blood Pressure 141/73 H 12/06/24 04:01 Pulse Oximetry 99 12/06/24 03:46 Oxygen Delivery Room Air 12/05/24 22:29 <Edy Godinez MD - Last Filed: 12/06/24 04:25> MDM - Nausea/Vomiting/Diarrhea MDM Narrative Medical decision making narrative: Patient presented to ED with dizziness, nausea, vomiting. Patient's somewhat a poor historian. States symptoms began today. Has had similar dizziness in the past but never this severe. Worse with movement. Seems most consistent with BPPV. Vital signs are stable upon arrival. Patient uncomfortable appearing, actively vomiting. She is neurologically intact. There is no appreciable focal deficits on exam. No cerebellar signs. Fluids and nausea medication initiated. Patient attempted to take meclizine but vomited this up. CT brain noncon was obtained and unremarkable. Initial EKG showing atrial fibrillation. No previous history of AFib. However on closer examination, appears consistent with sinus rhythm with sinus arrhythmia, first- degree AV block. She does have known history of this. Previous EKGs here have shown very prolonged WV interval. Previous records show that patient had a prolonged Holter monitor in the past which showed variable degrees of AV block, with frequent PVCs, but no evidence of AFib at that time. Patient is denying chest pain or shortness breath at this time. Troponin undetectable. Cbc with blood cell count of 15.1. May be in part reactive to vomiting. Anemia consistent with previous records. CMP with mild hyponatremia at 130. Somewhat consistent with previous records. Fluids are ongoing. Magnesium was borderline. Given IV replacement. Electrolytes are otherwise stable. Kidney function is stable. Patient reported ongoing severe dizziness, persistent nausea and vomiting. She was given additional Benadryl and Reglan with some improvement. CTA brain and carotids was obtained to rule out central process of vertigo. 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 However on imaging from 03/2023, this appears very similar and was not noted to be abnormal then. Discussed with STAT RAD radiologist. Awaiting to here back after comparison of imaging. CT of abdomen/pelvis was obtained to rule out intra-abdominal abnormality causing vomiting. Care was signed out to BITA Kinsey at shift change pending STAT RAD imaging. <Ila Sarah PA-C - Last Filed: 12/06/24 03:08> Patient presented to ED with dizziness, nausea, vomiting. Patient's somewhat a poor historian. States symptoms began today. Has had similar dizziness in the past but never this severe. Worse with movement. Seems most consistent with BPPV. Vital signs are stable upon arrival. Patient uncomfortable appearing, actively vomiting. She is neurologically intact. There is no appreciable focal deficits on exam. No cerebellar signs. Fluids and nausea medication initiated. Patient attempted to take meclizine but vomited this up. CT brain noncon was obtained and unremarkable. Initial EKG showing atrial fibrillation. No previous history of AFib. However on closer examination, appears consistent with sinus rhythm with sinus arrhythmia, first- degree AV block. She does have known history of this. Previous EKGs here have shown very prolonged WV interval. Previous records show that patient had a prolonged Holter monitor in the past which showed variable degrees of AV block, with frequent PVCs, but no evidence of AFib at that time. Patient is denying chest pain or shortness breath at this time. Troponin undetectable. Cbc with blood cell count of 15.1. May be in part reactive to vomiting. Anemia consistent with previous records. CMP with mild hyponatremia at 130. Somewhat consistent with previous records. Fluids are ongoing. Magnesium was borderline. Given IV replacement. Electrolytes are otherwise stable. Kidney function is stable. Patient reported ongoing severe dizziness, persistent nausea and vomiting. She was given additional Benadryl and Reglan with some improvement. CTA brain and carotids was obtained to rule out central process of vertigo. 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 However on imaging from 03/2023, this appears very similar and was not noted to be abnormal then. Discussed with STAT RAD radiologist. Confirmed unchanged from prior per radiology's interpretation of old CT as well. CT of abdomen/pelvis was obtained to rule out intra-abdominal abnormality causing vomiting. Care was signed out to BITA Kinsey at shift change pending STAT RAD imaging. <Edy Godinez MD - Last Filed: 12/06/24 04:25> Medical Records Attestation: I reviewed the patient's medical records. <Ila Sarah PA-C - Last Filed: 12/06/24 03:08> Lab Data Attestation: I reviewed the patient's lab results. <Ila Sarah PA-C - Last Filed: 12/06/24 03:08> Result diagrams: 12/06/24 01:00 12/06/24 01:00 <Ila Sarah PA-C - Last Filed: 12/06/24 03:08> Labs: Lab Results 12/05/24 12/06/24 Range/Units 22:31 01:00 WBC 15.1 H (4.5-10.0) K/mm3 RBC 3.67 L (4.2-5.4) M/mm3 Hgb 11.2 L (12.0-15.0) g/dL Hct 34.2 L (37.0-47.0) % MCV 93.2 (80-100) fl MCH 30.5 (26-34) pg MCHC 32.7 (32-36) g/dl RDW 12.6 (11.5-14.5) % Plt Count 280 (150-375) k/mm3 MPV 10.2 (7.4-10.4) fl Immature Gran % (Auto) 0.6 H (0-0.5) % Neut % (Auto) 91.0 H (45.5-73.1) % Lymph % (Auto) 2.8 L (18.3-44.2) % Carson % (Auto) 5.4 (2.6-8.5) % Eos % (Auto) 0.0 (0-4.4) % Baso % (Auto) 0.2 (0.2-1.2) % Lymph # (Auto) 0.42 L (0.9-3.2) K/mm3 Carson # (Auto) 0.8 H (0.1-0.6) K/mm3 Eos # (Auto) 0.0 (0-0.3) K/mm3 Baso # (Auto) 0.0 (0.0-0.1) K/mm3 Abs Immat Gran (auto) 0.09 H (0.00-0.031) K/mm3 Absolute Neuts (auto) 13.7 H (1.3-6.7) K/mm3 Absolute Nucleated RBC 0.000 (0.0-0.012) K/mm3 Nucleated RBC % 0.0 (0.0-0.2) % PT 14.8 H (11.1-14.7) Seconds INR 1.1 APTT 20.6 L (22.3-36.8) Seconds Sodium 130 L (137-145) mmol/L Potassium 3.4 (3.4-5.0) mmol/L Chloride 97 L (98-107) mmol/L Carbon Dioxide 24 (22-30) mmol/L Anion Gap 9 (4-12) mmol/L BUN 26 H (7-17) mg/dL Creatinine 0.71 (0.7-1.0) mg/dL Estim Creat Clear Calc Not Reportable Estimated GFR > 60 (59 - ) Glucose 152 H (65-110) mg/dL POC Capillary Glucose 278 H (65-105) mg/dl Calcium 8.8 (8.4-10.2) mg/dL Magnesium 1.7 (1.6-2.3) mg/dL Total Bilirubin 0.5 (0.2-1.3) mg/dL AST 31 (14-36) U/L ALT 26 (6-35) U/L Alkaline Phosphatase 72 (38-126) U/L Troponin I < 0.012 (0.000-0.034) ng/mL Total Protein 7.0 (6.3-8.2) g/dL Albumin 4.0 (3.5-5.1) g/dL <Ila Sarah PA-C - Last Filed: 12/06/24 03:08> Lab Results 12/05/24 12/06/24 Range/Units 22:31 01:00 WBC 15.1 H (4.5-10.0) K/mm3 RBC 3.67 L (4.2-5.4) M/mm3 Hgb 11.2 L (12.0-15.0) g/dL Hct 34.2 L (37.0-47.0) % MCV 93.2 (80-100) fl MCH 30.5 (26-34) pg MCHC 32.7 (32-36) g/dl RDW 12.6 (11.5-14.5) % Plt Count 280 (150-375) k/mm3 MPV 10.2 (7.4-10.4) fl Immature Gran % (Auto) 0.6 H (0-0.5) % Neut % (Auto) 91.0 H (45.5-73.1) % Lymph % (Auto) 2.8 L (18.3-44.2) % Carson % (Auto) 5.4 (2.6-8.5) % Eos % (Auto) 0.0 (0-4.4) % Baso % (Auto) 0.2 (0.2-1.2) % Lymph # (Auto) 0.42 L (0.9-3.2) K/mm3 Carson # (Auto) 0.8 H (0.1-0.6) K/mm3 Eos # (Auto) 0.0 (0-0.3) K/mm3 Baso # (Auto) 0.0 (0.0-0.1) K/mm3 Abs Immat Gran (auto) 0.09 H (0.00-0.031) K/mm3 Absolute Neuts (auto) 13.7 H (1.3-6.7) K/mm3 Absolute Nucleated RBC 0.000 (0.0-0.012) K/mm3 Nucleated RBC % 0.0 (0.0-0.2) % PT 14.8 H (11.1-14.7) Seconds INR 1.1 APTT 20.6 L (22.3-36.8) Seconds Sodium 130 L (137-145) mmol/L Potassium 3.4 (3.4-5.0) mmol/L Chloride 97 L (98-107) mmol/L Carbon Dioxide 24 (22-30) mmol/L Anion Gap 9 (4-12) mmol/L BUN 26 H (7-17) mg/dL Creatinine 0.71 (0.7-1.0) mg/dL Estim Creat Clear Calc Not Reportable Estimated GFR > 60 (59 - ) Glucose 152 H (65-110) mg/dL POC Capillary Glucose 278 H (65-105) mg/dl Calcium 8.8 (8.4-10.2) mg/dL Magnesium 1.7 (1.6-2.3) mg/dL Total Bilirubin 0.5 (0.2-1.3) mg/dL AST 31 (14-36) U/L ALT 26 (6-35) U/L Alkaline Phosphatase 72 (38-126) U/L Troponin I < 0.012 (0.000-0.034) ng/mL Total Protein 7.0 (6.3-8.2) g/dL Albumin 4.0 (3.5-5.1) g/dL <Edy Godinez MD - Last Filed: 12/06/24 04:25> Imaging Data Attestation: I personally reviewed and interpreted this imaging study as follows: < Ila Sarah PA-C - Last Filed: 12/06/24 03:08> Critical Care Time Critical Care Time Critical Care Time: Yes <Edy Godinez MD - Last Filed: 12/06/24 04:25> Total Critical Care Time: 35 <Edy Godinez MD - Last Filed: 12/06/24 04:25> Discharge Plan Discharge Clinical Impression: Vertigo, Aspiration pneumonia, Colitis, Abnormal WV interval present on electrocardiography, Abnormal ECG Nausea and vomiting Qualifiers: Vomiting type: unspecified Qualified Code(s): R11.2 - Nausea with vomiting, unspecified <Ila Sarah PA-C - Last Filed: 12/06/24 03:08> Patient Disposition: Still a Patient <Ila Sarah PA-C - Last Filed: 12/06/24 03:08> Condition: Stable <VETO Brown Last Filed: 12/06/24 03:08> Patient Language: Serbian <VETO Brown Last Filed: 12/06/24 03:08> Prescriptions: New meclizine 25 mg tablet 25 mg PO TID PRN (Reason: dizziness) Qty: 30 0RF ondansetron 4 mg tablet,disintegrating 4 mg PO Q8H PRN (Reason: nausea and vomiting) Qty: 15 0RF No Action Hair,Skin and Nails Tablet 1 tablet PO DAILY cholecalciferol (vitamin D3) [Vitamin D3] 25 mcg (1,000 unit) Capsule 25 mcg PO DAILY ascorbate calcium (vitamin C) 500 mg Capsule 282 mg PO DAILY atorvastatin 40 mg tablet 40 mg PO DAILY ferrous sulfate [Feosol] 325 mg (65 mg iron) tablet 325 mg PO BID calcium carbonate [Calcium 500] 500 mg calcium (1,250 mg) tablet 500 mg PO DAILY (DME) inhalational spacing device Spacer See Rx Instructions .Route Qty: 1 0RF Rx Instructions: As directed aspirin 81 mg tablet,chewable 81 mg PO DAILY diltiazem HCl [Cartia XT] 180 mg capsule,extended release 24hr 180 mg PO DAILY Qty: 90 1RF Rx Instructions: Take 1 capsule by mouth once daily escitalopram oxalate 5 mg tablet 5 mg PO DAILY Qty: 90 3RF albuterol sulfate 90 mcg/actuation HFA aerosol inhaler 90 mcg INHALATION Q4-6H PRN (Reason: Shortness Of Breath) Qty: 8.5 3RF alendronate 70 mg tablet 70 mg PO WEEKLY Qty: 12 0RF budesonide-formoterol [Symbicort] 160-4.5 mcg/actuation HFA aerosol inhaler See Rx Instructions .ROUTE .COMPLEX Qty: 11 0RF Dose Instruction: INHALE 2 PUFFS BY MOUTH EVERY 12 HOURS Rx Instructions: INHALE 2 PUFFS BY MOUTH EVERY 12 HOURS tramadol 50 mg tablet 50 mg PO Q8H PRN (Reason: pain) Qty: 30 1RF <Ila Sarah PA-C - Last Filed: 12/06/24 03:08> Follow-up/Referrals: Easton Paulino MD [Primary Care Provider] - <Ila Sarah PA-C - Last Filed: 12/06/24 03:08> Time of Disposition: 04:25 <Ila Sarah PA-C - Last Filed: 12/06/24 03:08> 04:25 <Edy Godinez MD - Last Filed: 12/06/24 04:25>
[2024-12-05] MEDS: ACETAMINOPHEN 500 MG TABLET 1000 MG PO (23:46)
[2024-12-05] MEDS: MECLIZINE HCL 25 MG TABLET PO (23:46)
[2024-12-06] VITALS (24 sets, daily range): BP systolic 119–157; BP diastolic 51–95; PULSE 66–94; RESP 14–26; TEMP 36.5–36.8; O2SAT 91–100; BMI 22.8
[2024-12-06 01:08] LABS: Basophils Percent Auto 0.2 % (0.2-1.2); Hematocrit 34.2 % (37.0-47.0); Hemoglobin 11.2 g/dL (12.0-15.0); Immature Granulocyte Absolute 0.09 K/mm3 (0.00-0.031); Immature Granulocyte Percent A 0.6 % (0-0.5); Lymphocytes Absolute Auto 0.42 K/mm3 (0.9-3.2); Lymphocytes Percent Auto 2.8 % (18.3-44.2); Mean Corpuscular HGB Conc 32.7 g/dl (32-36); Mean Corpuscular Hemoglobin 30.5 pg (26-34); Mean Corpuscular Volume 93.2 fl (80-100); Mean Platelet Volume 10.2 fl (7.4-10.4); Monocytes Absolute Auto 0.8 K/mm3 (0.1-0.6); Monocytes Percent Auto 5.4 % (2.6-8.5); Neutrophils Absolute Auto 13.7 K/mm3 (1.3-6.7); Platelet Count Result 280 k/mm3 (150-375); Red Blood Count 3.67 M/mm3 (4.2-5.4); Red Cell Distribution Width 12.6 % (11.5-14.5); White Blood Count 15.1 K/mm3 (4.5-10.0)
[2024-12-06 01:16] LABS: Alanine Aminotransferase 26 U/L (6-35); Alkaline Phosphatase 72 U/L (38-126); Anion Gap 9 mmol/L (4-12); Aspartate Amino Transferase 31 U/L (14-36); Bilirubin,Total 0.5 mg/dL (0.2-1.3); Blood Urea Nitrogen 26 mg/dL (7-17); Calcium 8.8 mg/dL (8.4-10.2); Carbon Dioxide 24 mmol/L (22-30); Chloride 97 mmol/L (98-107); Estimated Glomerular Filt Rate > 60; Glucose 152 mg/dL (65-110); Magnesium 1.7 mg/dL (1.6-2.3); Potassium 3.4 mmol/L (3.4-5.0); Sodium 130 mmol/L (137-145)
[2024-12-06 01:18] LABS: INR 1.1; Prothrombin Time 14.8 Seconds (11.1-14.7)
[2024-12-06 01:19] LABS: Partial Thromboplastin Time 20.6 Seconds (22.3-36.8)
[2024-12-06] MEDS: METOCLOPRAMIDE HCL INJ 10 MG/2 ML VIAL IV PUSH (01:26)
[2024-12-06] MEDS: diphenhydrAMINE HCl INJ 50 MG/ML VIAL 25 MG IV PUSH (01:26)
[2024-12-06] MEDS: MAGNESIUM SULF 2 GM/WATER 50ML 2 GM/50 ML BAG IVPB (01:27)
[2024-12-06 01:28] LABS: Troponin I < 0.012 ng/mL (0.000-0.034)
--- NOTE | 2024-12-06 02:24 | ECG_ITS ---
Test Date: 2024-12-06 00:48:14 Measurements Intervals [place] Rate: 82 P: 0 IL: 0 QRS: 77 QRSD: 92 T: 63 QT: 362 QTc: 425 Interpretive Statements ATRIAL FIBRILLATION NONSPECIFIC ST & T-WAVE ABNORMALITY ABNORMAL RHYTHM ECG Compared to ECG 01/30/2024 14:28:46 ATRIAL FIBRILLATION REPLACES SINUS RHYTHM Electronically Signed On 12-06-2024 07:42:59 CDT by Home Prescott M.D.
[2024-12-06] MEDS: MECLIZINE HCL 25 MG TABLET PO (03:12)
[2024-12-06] MEDS: metroNIDAZOLE 500 MG/ISO 100ML 500 MG/100 ML BAG 100 MG IVPB (05:00)
--- NOTE | 2024-12-06 05:33 | ADMGEN ---
This patient, Selena Lua, was admitted to Medical Room 241-01. Patient/family oriented to hospital policies and general routines including ID bracelet, bed and alarms, visiting hours, pain management, procedures, bathroom and other care routines, personal items, smoking policy, room service/diet, and visiting hours. Information on how to activate the Rapid Response Team has been discussed. Patient/Family are encouraged to report perceived risks to care and to ask questions if they do not understand what they are told or what they should do.
[2024-12-06] MEDS: LACTATED RINGERS 1,000 ML 80 ML IV CONT (05:53)
--- NOTE | 2024-12-06 05:54 | P.HP_ITS ---
H&P: HPI History of Present Illness Date/Time: 12/06/24 05:54 Chief Complaint: Nausea vomiting abdominal pain Narrative: 89-year-old female presenting to [facility] on 12/06/2024 accompanied by her son, complaining of nausea and vomiting and abdominal pain. The patient lives alone, is independent, history of COPD, carotid stenosis, internal hemorrhoids, hypertension, anemia, hypertension, asthma, hyperlipidemia, depression, chronic GERD, pre diabetes, history of hiatal hernia and nausea and vomiting. She reports the nausea and vomiting is accompanied by dizziness when she woke up this morning. The room was also spitting emesis happened before. It is aggravated by turning her head he believes the left and right and standing from a lying position and bending over. In the ER she was given meclizine and she believes that helped greatly. Denies diarrhea, does have constipation. She has generalized abdominal pain which started just before the nausea and vomiting. ER evaluation demonstrated elevated WBC to 15.1, hemoglobin 11.2, sodium 130, magnesium 1.7, liver function panel within normal limits, troponin 0.012, lipase pending, head CT without acute findings, CT abdomen pelvis without contrast demonstrated patchy opacity in the left lower lobe, large hiatal hernia, no bowel obstruction, mildly thickened ascending colon possibly correlating colitis versus underdistention. 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 Arthritis of left hip Trochanteric bursitis, right hip 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 Bursitis of right hip Chronic cough Bilateral hip bursitis Carotid stenosis, right Internal hemorrhoids COPD (chronic obstructive pulmonary disease) Hypertension Anemia HTN (hypertension) with goal to be determined Fracture of left hip requiring operative repair Asthma Hyperlipidemia Benign essential hypertension Depression Chronic GERD Hx of temporal arteritis Lung mass Mild intermittent asthma without complication Osteopenia Pre-diabetes Surgical History Surgical History Total knee replacement status History of appendectomy History of carpal tunnel release Bilaterally History of cataract Bilateral History of tonsillectomy History of cholecystectomy History of total bilateral knee replacement History of total replacement of left shoulder joint Presence of left artificial knee joint Family History Family History Mother Hypertension Family history of cardiovascular disease Carcinoma of colon, Onset Age: 86 Acute myocardial infarction Family history of heart disease in male family member before age 55, Onset Age: 86 Patient's mother is , Onset Age: 86 Father Family history of lung cancer, Onset Age: 78 Patient's father is , Onset Age: 78 Other Family history of arthritis Family history of malignant neoplasm Social History Social History Social History: Code status: Full code. Smoking packs per day: 1 Smoking cigarettes per day: 20.0 Years smoked: 10 Smoking pack-years: 10.00 Smoking status: Never smoker Second hand tobacco smoke exposure: Yes Alcohol intake: never Substance use: never Substance use type: does not use Do You Feel Safe in your Home?: Yes Lack of Transportation: No Lack of Food: Never True Current Housing: I Have Housing Concerned About Future Housing: No Difficulty Paying Gas/Electric Bills: No Difficulty Paying for Meds: No Currently Unemployed: No Education: Bachelor's Degree Difficulty w/ Childcare or Family Care: No Living arrangements: alone Occupation/Education: retired Spiritual care concerns: No Meds Home Medications and Allergies Home Medications ?Medication ?Instructions ?Recorded ?Confirmed ?Type calcium carbonate (Calcium 500) 500 mg PO DAILY 03/16/20 11/07/24 History ferrous sulfate 325 mg (65 mg 325 mg PO BID 03/16/20 11/07/24 History iron) tablet (Feosol) diltiazem HCl 180 mg 180 mg PO DAILY #90 caps 08/06/20 11/07/24 Rx capsule,extended release 24 hr (Cartia XT) atorvastatin 40 mg tablet 40 mg PO DAILY 09/14/20 11/07/24 History inhalational spacing device #1 ea 03/14/22 11/05/24 Rx ascorbate calcium (vitamin C) 500 282 mg PO DAILY 07/23/22 11/07/24 History mg capsule cholecalciferol (vitamin D3) 25 25 mcg PO DAILY 07/23/22 11/07/24 History mcg (1,000 unit) capsule (Vitamin D3) multivitamin with minerals 1 tablet PO DAILY 07/23/22 11/07/24 History (Hair,Skin and Nails tablet) aspirin 81 mg chewable tablet 81 mg PO DAILY 01/15/24 11/07/24 History albuterol sulfate 90 mcg/actuation 90 mcg inhalation Q4-6H PRN 07/07/24 11/07/24 Rx aerosol inhaler Shortness Of Breath #8.5 grams escitalopram oxalate 5 mg tablet 5 mg PO DAILY #90 tabs 07/07/24 11/07/24 Rx alendronate 70 mg tablet 70 mg PO WEEKLY #12 tabs 09/24/24 11/05/24 Rx Symbicort 160 mcg-4.5 See Rx Instructions .Route 10/19/24 11/07/24 Rx mcg/actuation HFA aerosol inhaler .COMPLEX #11 grams (budesonide-formoterol) diltiazem HCl 180 mg 180 mg PO DAILY 12/06/24 12/06/24 History capsule,extended release 24 hr, controlled (DILT-XR) meclizine 25 mg tablet 25 mg PO TID PRN dizziness #30 tabs 12/06/24 Rx omeprazole 40 mg capsule,delayed 40 mg PO DAILY 12/06/24 12/06/24 History release ondansetron 4 mg disintegrating 4 mg PO Q8H PRN nausea and 12/06/24 Rx tablet vomiting #15 tabs Allergies Allergy/AdvReac Type Severity Reaction Status Date / Time clonidine Allergy Unknown GI upset Verified 12/06/24 05:53 codeine Allergy Unknown Vomiting Verified 12/06/24 05:53 morphine Allergy Unknown Vomiting Verified 12/06/24 05:53 Vital Signs Vital Signs - 24 hr 12/05/24 22:29 12/06/24 00:50 12/06/24 02:39 Temperature 98.9 F Pulse Rate 71 91 70 Respiratory Rate 17 18 15 Blood Pressure 154/86 H Pulse Oximetry 98 98 Oxygen Delivery Room Air 12/06/24 02:45 12/06/24 02:46 12/06/24 03:00 Temperature Pulse Rate 73 76 70 Respiratory Rate 16 22 H 17 Blood Pressure 133/73 Pulse Oximetry 100 98 98 Oxygen Delivery 12/06/24 03:02 12/06/24 03:15 12/06/24 03:17 Temperature Pulse Rate 78 84 82 Respiratory Rate 16 23 H 20 Blood Pressure 127/53 L 157/64 H Pulse Oximetry 99 95 Oxygen Delivery 12/06/24 03:30 12/06/24 03:31 12/06/24 03:45 Temperature Pulse Rate 79 76 77 Respiratory Rate 20 16 26 H Blood Pressure 132/95 H Pulse Oximetry 91 97 Oxygen Delivery 12/06/24 03:46 12/06/24 04:00 12/06/24 04:01 Temperature Pulse Rate 87 84 Respiratory Rate 15 17 Blood Pressure 152/70 H 141/73 H Pulse Oximetry 99 Oxygen Delivery 12/06/24 05:43 12/06/24 05:45 Temperature 97.7 F Pulse Rate 71 Respiratory Rate 16 Blood Pressure 134/77 Pulse Oximetry 100 Oxygen Delivery Room Air Exam Const: General: comfortable and no acute distress Other: A&O x3 HENMT: Mouth: Yes moist mucous membranes Eyes: Pupils: Equal, round and reactive pupils present Neck: Neck: supple Resp: Effort & Inspection: normal respiratory effort Auscultation: clear to auscultation bilaterally Cardio: Rate: regular rate Rhythm: regular rhythm GI: GI Palp: Yes Soft to palpation : General: Yes bladder normal to palpation Neuro: Motor exam (neuro): 5/5 motor strength present throughout Extrem: General: no edema H&P: Results Labs Labs: Short CBC 12/06/24 Range/Units 01:00 WBC 15.1 H (4.5-10.0) K/mm3 Hgb 11.2 L (12.0-15.0) g/dL Hct 34.2 L (37.0-47.0) % Plt Count 280 (150-375) k/mm3 [facility] 12/06/24 01:00 Sodium 130 L Potassium 3.4 Chloride 97 L Carbon Dioxide 24 BUN 26 H Creatinine 0.71 Glucose 152 H Calcium 8.8 Cardiac Enzymes 12/06/24 Range/Units 01:00 Troponin I < 0.012 (0.000-0.034) ng/mL Liver Function 12/06/24 Range/Units 01:00 Total Bilirubin 0.5 (0.2-1.3) mg/dL AST 31 (14-36) U/L ALT 26 (6-35) U/L Alkaline Phosphatase 72 (38-126) U/L Albumin 4.0 (3.5-5.1) g/dL Assessment and Plan Assessment and plan (1) Aspiration pneumonia: Code(s): J69.0 - Pneumonitis due to inhalation of food and vomit Status: Acute (2) Nausea and vomiting: Qualifiers: Vomiting type: unspecified Qualified Code(s): R11.2 - Nausea with vomiting, unspecified Code(s): R11.2 - Nausea with vomiting, unspecified Status: Acute (3) Hiatal hernia: Code(s): K44.9 - Diaphragmatic hernia without obstruction or gangrene Status: Acute (4) Colitis: Code(s): K52.9 - Noninfective gastroenteritis and colitis, unspecified Status: Acute Plan Patient feeling better after meclizine. At this time she declines any therapeutic or diagnostic maneuvers. Continue Antivert p.r.n.. Continue lactated Ringer's 80 cc/hour. Receive famotidine. Continue ceftriaxone and metronidazole for aspiration pneumonia possible colitis. Full code. SCDs. Hospitalist [facility] Advance Care Plan I have confirmed that the patient's Advanced Care Plan is present, code status is documented, or surrogate decision maker is listed in patient medical record.: Yes Medication Reconciliation I have utilized all available resources to obtain, update and review the patients current medications (includes all prescriptions, OTC, herbals, cannabi s, and nutritional supplements).: Yes
[2024-12-06 06:50] LABS: Basophils Percent Auto 0.2 % (0.2-1.2); Eosinophils Percent Auto 0.1 % (0-4.4); Hematocrit 33.7 % (37.0-47.0); Hemoglobin 11.1 g/dL (12.0-15.0); Immature Granulocyte Absolute 0.15 K/mm3 (0.00-0.031); Immature Granulocyte Percent A 0.8 % (0-0.5); Lymphocytes Absolute Auto 0.33 K/mm3 (0.9-3.2); Lymphocytes Percent Auto 1.8 % (18.3-44.2); Mean Corpuscular HGB Conc 32.9 g/dl (32-36); Mean Corpuscular Hemoglobin 30.4 pg (26-34); Mean Corpuscular Volume 92.3 fl (80-100); Mean Platelet Volume 10.3 fl (7.4-10.4); Monocytes Absolute Auto 1.2 K/mm3 (0.1-0.6); Monocytes Percent Auto 6.6 % (2.6-8.5); Neutrophils Absolute Auto 16.7 K/mm3 (1.3-6.7); Neutrophils Percent Auto 90.5 % (45.5-73.1); Platelet Count Result 279 k/mm3 (150-375); Red Blood Count 3.65 M/mm3 (4.2-5.4); Red Cell Distribution Width 12.6 % (11.5-14.5); White Blood Count 18.4 K/mm3 (4.5-10.0)
[2024-12-06 07:03] LABS: Alanine Aminotransferase 23 U/L (6-35); Albumin Level 3.7 g/dL (3.5-5.1); Alkaline Phosphatase 68 U/L (38-126); Anion Gap 8 mmol/L (4-12); Aspartate Amino Transferase 32 U/L (14-36); Bilirubin,Total 0.7 mg/dL (0.2-1.3); Blood Urea Nitrogen 21 mg/dL (7-17); Calcium 8.7 mg/dL (8.4-10.2); Carbon Dioxide 25 mmol/L (22-30); Chloride 94 mmol/L (98-107); Estimated Glomerular Filt Rate > 60; Glucose 110 mg/dL (65-110); Lipase 41 U/L (23-300); Magnesium 2.6 mg/dL (1.6-2.3); Potassium 3.5 mmol/L (3.4-5.0); Sodium 127 mmol/L (137-145)
[2024-12-06 07:18] LABS: Procalcitonin 0.1 ng/mL
[2024-12-06] MEDS: MECLIZINE HCL 12.5 MG TABLET PO ×3 (09:33→20:26)
--- NOTE | 2024-12-06 13:08 | PM.IMPN ---
Progress Note: A&P Assessment and Plan (1) Vertigo: Code(s): R42 - Dizziness and giddiness Status: Acute Assessment and Plan: Sudden onset of dizziness/vertigo with vomiting 12/06 Head/Neck CTA 1. 56% stenosis of the proximal right internal carotid artery relative to normal distal artery lumen diameter (NASCET criteria). 2. Less than 20% stenosis of the proximal left internal carotid artery relative to normal distal artery lumen diameter. 3: Possible small 2 mm aneurysm versus infundibulum arising from right paraclinoid ICA. 4: Stable fracture deformities of the anterior and posterior arch of C1, partially visualized on prior examination dated 08/27/2024. --MRI/MRA Brain and neck to evaluate aneurysm and rule out stroke --Neurology consulted since risk for vertebrobasilar insufficiency --Blood pressure at goal for age, but will treat since possible small aneurysm --PT/OT --ASA/Statin --schedule meclizine 12.5mg QID, and 25 BID prn (2) Carotid stenosis, right: Code(s): I65.21 - Occlusion and stenosis of right carotid artery Status: Acute Assessment and Plan: Continue ASA/Statin (3) Hypertension: Qualifiers: Hypertension type: unspecified Qualified Code(s): I10 - Essential (primary) hypertension Code(s): I10 - Essential (primary) hypertension Status: Chronic Assessment and Plan: Blood pressure above goal with possible aneurysm Start amlodipine 2.5mg daily (4) Pneumonia: Code(s): J18.9 - Pneumonia, unspecified organism Status: Acute Assessment and Plan: Pneumonia vs aspiration pneumonitis. Received ceftriaxone and flagyl in the ED --change to Unasyn, covering anaerobes given recent vomiting (5) Nausea and vomiting: Qualifiers: Vomiting type: unspecified Qualified Code(s): R11.2 - Nausea with vomiting, unspecified Code(s): R11.2 - Nausea with vomiting, unspecified Status: Acute Assessment and Plan: Zofran prn (6) Asthma: Code(s): J45.909 - Unspecified asthma, uncomplicated Status: Chronic Assessment and Plan: Hx asthma. No wheezing on exam --Continue symbicort, albuterol prn (7) Hyponatremia: Code(s): E87.1 - Hypo-osmolality and hyponatremia Status: Acute Assessment and Plan: Sodium usually normal. 130 after episodes of vomiting, 127 this morning --Change LR to NS@80/hr Time Spent With Patient Time: 55 minutes Subjective Date/time seen: 12/06/24 13:08 Interval history: Denies recent shortness of breath, cough, or fever. WBC elevated, 18.4 Nausea/vomiting and dizzineess x1 day Reviewed CTA and abd/pelvis CT and infiltrates to LLL visible No diarrhea or abdominal pain Exam Narrative: General - Awake and alert. No acute distress Eyes - PERRLA, EOM intact ENT - No thrush, No erythema Neck - No noticeable or palpable swelling Lymph Nodes - No lymphadenopathy Cardiovascular - RRR no m/r/g, no JVD Lungs: Clear to auscultation, No wheezing, use of accessory muscles, no crackles Skin - Skin warm and dry, no wounds or rashes Abdomen - Normal bowel sounds, abdomen soft and nontender Extremities - No edema, cyanosis or clubbing Musculoskeletal - 5/5 strength, normal range of motion, no swollen or erythematous joints. Neurological ? Alert and oriented x 3, CN 2-12 grossly intact. Psych: Normal mood and affect Objective Data Vital Signs Vital Signs: Vital Signs - 24 hr 12/05/24 22:29 12/06/24 00:50 12/06/24 02:39 Temperature 98.9 F Pulse Rate 71 91 70 Respiratory Rate 17 18 15 Blood Pressure 154/86 H Pulse Oximetry 98 98 Oxygen Delivery Room Air 12/06/24 02:45 12/06/24 02:46 12/06/24 03:00 Temperature Pulse Rate 73 76 70 Respiratory Rate 16 22 H 17 Blood Pressure 133/73 Pulse Oximetry 100 98 98 Oxygen Delivery 12/06/24 03:02 12/06/24 03:15 12/06/24 03:17 Temperature Pulse Rate 78 84 82 Respiratory Rate 16 23 H 20 Blood Pressure 127/53 L 157/64 H Pulse Oximetry 99 95 Oxygen Delivery 12/06/24 03:30 12/06/24 03:31 12/06/24 03:45 Temperature Pulse Rate 79 76 77 Respiratory Rate 20 16 26 H Blood Pressure 132/95 H Pulse Oximetry 91 97 Oxygen Delivery 12/06/24 03:46 12/06/24 04:00 12/06/24 04:01 Temperature Pulse Rate 87 84 Respiratory Rate 15 17 Blood Pressure 152/70 H 141/73 H Pulse Oximetry 99 Oxygen Delivery 12/06/24 05:43 12/06/24 05:45 12/06/24 08:40 Temperature 97.7 F Pulse Rate 71 Respiratory Rate 16 Blood Pressure 134/77 Pulse Oximetry 100 Oxygen Delivery Room Air Room Air Intake/Output Intake/Output: Intake & Output 12/03/24 12/04/24 12/05/24 12/06/24 23:59 23:59 23:59 23:59 Intake Total 1300 Balance 1300 Meds/Results Medications: Active Medications Generic Name Dose Route Start Last Admin Trade Name Freq PRN Reason Stop Dose Admin Acetaminophen 650 mg 12/06/24 04:21 Acetaminophen 325 Mg Tablet PO Q4H PRN Mild Pain (1-3) or Fever Albuterol puff 12/06/24 13:04 Albuterol Sulfate (*Sp) Aerosol 1 Puff INHALATION Q4-6H PRN Shortness Of Breath Aspirin 81 mg 12/07/24 09:00 Aspirin 81 Mg Chewable Tablet PO DAILY [facility] Atorvastatin Calcium 40 mg 12/07/24 09:00 Atorvastatin 40 Mg Tablet PO DAILY GURINDER Calcium Carbonate 500 mg 12/07/24 09:00 Calcium Carbonate (Oscal) 500 Mg Tablet PO DAILY GURINDER Diltiazem HCl 180 mg 12/06/24 13:05 Diltiazem Hcl Cd 180 Mg Cap.24hr PO DAILY GURINDER Escitalopram Oxalate 5 mg 12/07/24 09:00 Escitalopram Oxalate 5 Mg Tablet PO DAILY GURINDER Lactated Ringer's 1,000 mls @ 80 mls/hr 12/06/24 04:25 12/06/24 05:53 Lr - Lactated Ringers Iv IV CONT 80 mls/hr .[id number] GURINDER Administration Meclizine HCl 12.5 mg 12/06/24 05:52 12/06/24 09:33 Meclizine Hcl 12.5 Mg Tablet PO 12.5 mg QID PRN Administration vertigo Non-Formulary Medication 0 puff 12/06/24 13:05 Budesonide-Formoterol [Symbicort] .ROUTE 01/05/25 13:04 .COMPLEX GURINDER Non-Formulary Medication 325 mg 12/07/24 09:00 Ferrous Sulfate [Feosol] PO 01/06/25 08:59 DAILY GUR[facility]ER Non-Formulary Medication 40 mg 12/07/24 09:00 Omeprazole PO 01/06/25 08:59 DAILY [facility] Ondansetron HCl 4 mg 12/06/24 04:21 Ondansetron Inj 4 Mg/2 Ml Vial IV PUSH Q4H PRN Nausea Vitamin D 25 mcg 12/07/24 09:00 Cholecalciferol (Vitamin D3) 25 Mcg (1,000 Units) Tablet PO DAILY [facility] Radiology Results: ITS Impressions Head CT 12/05/24 23:44 IMPRESSION: No acute intracranial findings. Chronic fracture of the anterior and posterior arch of C1 unchanged from previous examinations. Head/Neck CTA 12/06/24 06:01 IMPRESSION: 1. 56% stenosis of the proximal right internal carotid artery relative to normal distal artery lumen diameter (NASCET criteria). 2. Less than 20% stenosis of the proximal left internal carotid artery relative to normal distal artery lumen diameter. 3: Possible small 2 mm aneurysm versus infundibulum arising from right paraclinoid ICA. 4: Stable fracture deformities of the anterior and posterior arch of C1, partially visualized on prior examination dated 08/27/2024. Abdomen/Pelvis CT 12/06/24 06:17 IMPRESSION: 1. Left lower lobe pneumonia. 2: Large hiatal hernia. 3: Hepatomegaly. Labs Labs: Laboratory Results - last 24 hr 12/05/24 12/06/24 12/06/24 22:31 01:00 06:38 WBC 15.1 H 18.4 H RBC 3.67 L 3.65 L Hgb 11.2 L 11.1 L Hct 34.2 L 33.7 L MCV 93.2 92.3 MCH 30.5 30.4 MCHC 32.7 32.9 RDW 12.6 12.6 Plt Count 280 279 MPV 10.2 10.3 Immature Gran % (Auto) 0.6 H 0.8 H Neut % (Auto) 91.0 H 90.5 H Lymph % (Auto) 2.8 L 1.8 L [place] % (Auto) 5.4 6.6 Eos % (Auto) 0.0 0.1 Baso % (Auto) 0.2 0.2 Lymph # (Auto) 0.42 L 0.33 L [place] # (Auto) 0.8 H 1.2 H Eos # (Auto) 0.0 0.0 Baso # (Auto) 0.0 0.0 Abs Immat Gran (auto) 0.09 H 0.15 H Absolute Neuts (auto) 13.7 H 16.7 H Absolute Nucleated RBC 0.000 0.000 Nucleated RBC % 0.0 0.0 PT 14.8 H INR 1.1 APTT 20.6 L Sodium 130 L 127 L Potassium 3.4 3.5 Chloride 97 L 94 L Carbon Dioxide 24 25 Anion Gap 9 8 BUN 26 H 21 H Creatinine 0.71 0.64 L Estim Creat Clear Calc Not Reportable Not Reportable Estimated GFR > 60 > 60 Glucose 152 H 110 POC Capillary Glucose 278 H Calcium 8.8 8.7 Magnesium 1.7 2.6 H Total Bilirubin 0.5 0.7 AST 31 32 ALT 26 23 Alkaline Phosphatase 72 68 Troponin I < 0.012 Total Protein 7.0 6.0 L Albumin 4.0 3.7 Lipase Cancelled Procalcitonin 12/06/24 06:38 WBC RBC Hgb Hct MCV MCH MCHC RDW Plt Count MPV Immature Gran % (Auto) Neut % (Auto) Lymph % (Auto) [place] % (Auto) Eos % (Auto) Baso % (Auto) Lymph # (Auto) [place] # (Auto) Eos # (Auto) Baso # (Auto) Abs Immat Gran (auto) Absolute Neuts (auto) Absolute Nucleated RBC Nucleated RBC % PT INR APTT Sodium Potassium Chloride Carbon Dioxide Anion Gap BUN Creatinine Estim Creat Clear Calc Estimated GFR Glucose POC Capillary Glucose Calcium Magnesium Total Bilirubin AST ALT Alkaline Phosphatase Troponin I Total Protein Albumin Lipase 41 Procalcitonin 0.1 Quality VTE Prophylaxis VTE prophylaxis: pharmacologic ordered Hospitalist [facility] Advance Care Plan I have confirmed that the patient's Advanced Care Plan is present, code status is documented, or surrogate decision maker is listed in patient medical record.: Yes Medication Reconciliation I have utilized all available resources to obtain, update and review the patients current medications (includes all prescriptions, OTC, herbals, cannabis, and nutritional supplements).: Yes
[2024-12-06] MEDS: SODIUM CHLORIDE 0.9% IV 1,000 ML 80 ML IV CONT (17:26)
[2024-12-06] MEDS: dilTIAZem HCL CD 180 MG CAP.24HR PO (17:27)
[2024-12-06] MEDS: amLODIPine BESYLATE 2.5 MG TABLET PO (17:27)
[2024-12-06] MEDS: PANTOPRAZOLE 40 MG TABLET PO (17:27)
[2024-12-06] MEDS: ESCITALOPRAM OXALATE 5 MG TABLET PO (17:27)
[2024-12-06] MEDS: AMPICILLIN SULB 3 GM/NS 100 ML 3 GM/100 ML VIAL IVPB ×2 (17:28→23:41)
[2024-12-06] MEDS: ENOXAPARIN 40 MG/0.4 ML SYRINGE SUB-Q (20:26)
[2024-12-06] MEDS: FLUTICASONE/SALMETEROL 115-21 MCG INHALER 1 PUFF 2 PUFF INHALATION (20:30)
[2024-12-07] VITALS (13 sets, daily range): BP systolic 115–161; BP diastolic 44–101; PULSE 59–80; RESP 14–20; TEMP 36.6–36.8; O2SAT 94–100
[2024-12-07] MEDS: AMPICILLIN SULB 3 GM/NS 100 ML 3 GM/100 ML VIAL IVPB ×3 (05:10→17:21)
--- NOTE | 2024-12-07 07:46 | PM.IMPN ---
Progress Note: A&P Assessment and Plan (1) Vertigo: Code(s): R42 - Dizziness and giddiness Status: Acute Assessment and Plan: Sudden onset of dizziness/vertigo with vomiting 12/06 Head/Neck CTA 1. 56% stenosis of the proximal right internal carotid artery relative to normal distal artery lumen diameter (NASCET criteria). 2. Less than 20% stenosis of the proximal left internal carotid artery relative to normal distal artery lumen diameter. 3: Possible small 2 mm aneurysm versus infundibulum arising from right paraclinoid ICA. 4: Stable fracture deformities of the anterior and posterior arch of C1, partially visualized on prior examination dated 08/27/2024. --MRI/MRA Brain and neck to evaluate aneurysm and rule out stroke --Neurology consulted since risk for vertebrobasilar insufficiency --Blood pressure at goal for age, but will treat since possible small aneurysm --PT/OT --ASA/Statin --schedule meclizine 12.5mg QID, and 25 BID prn (2) Carotid stenosis, right: Code(s): I65.21 - Occlusion and stenosis of right carotid artery Status: Acute Assessment and Plan: Continue ASA/Statin (3) Hypertension: Qualifiers: Hypertension type: unspecified Qualified Code(s): I10 - Essential (primary) hypertension Code(s): I10 - Essential (primary) hypertension Status: Chronic Assessment and Plan: Blood pressure above goal with possible aneurysm Start amlodipine 2.5mg daily (4) Pneumonia: Code(s): J18.9 - Pneumonia, unspecified organism Status: Acute Assessment and Plan: Pneumonia vs aspiration pneumonitis. Received ceftriaxone and flagyl in the ED --change to Unasyn, covering anaerobes given recent vomiting -will deescalate antibiotic to ceftriaxone and doxycycline (5) Nausea and vomiting: Qualifiers: Vomiting type: unspecified Qualified Code(s): R11.2 - Nausea with vomiting, unspecified Code(s): R11.2 - Nausea with vomiting, unspecified Status: Acute Assessment and Plan: Zofran prn (6) Asthma: Code(s): J45.909 - Unspecified asthma, uncomplicated Status: Chronic Assessment and Plan: Hx asthma. No wheezing on exam --Continue symbicort, albuterol prn (7) Hyponatremia: Code(s): E87.1 - Hypo-osmolality and hyponatremia Status: Acute Assessment and Plan: Sodium usually normal. 130 after episodes of vomiting, 127 this morning --Change LR to NS@80/hr Subjective Date/time seen: 12/07/24 07:46 Interval history: Patient HB A1c 5.6. Patient WBC 7.9. Patient antibiotic will be deescalated from Unasyn to ceftriaxone and doxycycline. Pending MRI. Review of Systems Review of Systems: All systems reviewed & are unremarkable except as noted in HPI and below (HPI) Exam Narrative: General - Awake and alert. No acute distress Eyes - PERRLA, EOM intact ENT - No thrush, No erythema Neck - No noticeable or palpable swelling Lymph Nodes - No lymphadenopathy Cardiovascular - RRR no m/r/g, no JVD Lungs: Clear to auscultation, No wheezing, use of accessory muscles, no crackles Skin - Skin warm and dry, no wounds or rashes Abdomen - Normal bowel sounds, abdomen soft and nontender Extremities - No edema, cyanosis or clubbing Musculoskeletal - 5/5 strength, normal range of motion, no swollen or erythematous joints. Neurological ? Alert and oriented x 3, CN 2-12 grossly intact. Psych: Normal mood and affect Const: General: comfortable and no acute distress Other: A&O x3 HENMT: Mouth: Yes moist mucous membranes Eyes: Pupils: Equal, round and reactive pupils present Neck: Neck: supple Resp: Effort & Inspection: normal respiratory effort Auscultation: clear to auscultation bilaterally Cardio: Rate: regular rate Rhythm: regular rhythm : General: Yes bladder normal to palpation Bimanual exam- vagina & uterus: bladder normal to palpation Neuro: Cranial nerves: Yes Equal, round and reactive pupils present Motor exam (neuro): 5/5 motor strength present throughout Extrem: General: no edema Objective Data Vital Signs Vital Signs: Vital Signs - 24 hr 12/06/24 08:00 12/06/24 08:40 12/06/24 12:00 Temperature Pulse Rate 66 94 Respiratory Rate Blood Pressure Pulse Oximetry Oxygen Delivery Room Air Fraction of Inspired Oxygen 12/06/24 14:16 12/06/24 16:00 12/06/24 20:10 Temperature 98.0 F Pulse Rate 92 84 83 Respiratory Rate 16 Blood Pressure 127/61 Pulse Oximetry 98 Oxygen Delivery Fraction of Inspired Oxygen 12/06/24 20:30 12/06/24 20:34 12/06/24 20:35 Temperature Pulse Rate 80 80 80 Respiratory Rate 20 20 20 Blood Pressure Pulse Oximetry 96 96 Oxygen Delivery Room Air Room Air Fraction of Inspired Oxygen 21 21 12/06/24 21:32 12/07/24 00:00 12/07/24 04:00 Temperature 98.2 F Pulse Rate 82 67 59 L Respiratory Rate 14 Blood Pressure 119/51 L Pulse Oximetry 99 Oxygen Delivery Fraction of Inspired Oxygen 12/07/24 06:00 Temperature 98.0 F Pulse Rate 68 Respiratory Rate 14 Blood Pressure 161/68 H Pulse Oximetry 100 Oxygen Delivery Fraction of Inspired Oxygen Intake/Output Intake/Output: Intake & Output 12/04/24 12/05/24 12/06/24 12/07/24 23:59 23:59 23:59 23:59 Intake Total 2500 100 Output Total 500 500 Balance 2000 -400 Meds/Results Medications: Active Medications Generic Name Dose Route Start Last Admin Trade Name Freq PRN Reason Stop Dose Admin Acetaminophen 650 mg 12/06/24 04:21 Acetaminophen 325 Mg Tablet PO Q4H PRN Mild Pain (1-3) or Fever Albuterol 1 puff 12/06/24 13:04 Albuterol Sulfate (*Sp) Aerosol 1 Puff INHALATION Q4-6H PRN Shortness Of Breath Amlodipine Besylate 2.5 mg 12/06/24 16:25 12/06/24 17:27 Amlodipine Besylate 2.5 Mg Tablet PO 2.5 mg QAM GURINDER Administration Aspirin 81 mg 12/07/24 09:00 Aspirin 81 Mg Chewable Tablet PO DAILY [facility] Atorvastatin Calcium 40 mg 12/07/24 09:00 Atorvastatin 40 Mg Tablet PO DAILY [facility] Calcium Carbonate 500 mg 12/07/24 09:00 Calcium Carbonate (Oscal) 500 Mg Tablet PO DAILY GURINDER Diltiazem HCl 180 mg 12/06/24 13:05 12/06/24 17:27 Diltiazem Hcl Cd 180 Mg Cap.24hr PO 180 mg DAILY GURINDER Administration Enoxaparin Sodium 40 mg 12/06/24 21:00 12/06/24 20:26 Enoxaparin 40 Mg/0.4 Ml Syringe SUB-Q 40 mg HS UGRINDER Administration Escitalopram Oxalate 5 mg 12/06/24 14:00 12/06/24 17:27 Escitalopram Oxalate 5 Mg Tablet PO 5 mg DAILY GURINDER Administration Ferrous Sulfate 325 mg 12/07/24 09:00 Ferrous Sulfate [address] BY MOUTH DAILY [facility] Ampicillin Sodium/Sulbactam Sodium 3 gm in 100 mls @ 200 mls/hr 12/06/24 18:00 12/07/24 05:10 Unasyn 3 Gm/Ns 100 Ml IVPB 200 mls/hr Q6HR GURINDER Administration Sodium Chloride 1,000 mls @ 80 mls/hr 12/06/24 16:45 12/06/24 17:26 Normal Saline Iv IV CONT 80 mls/hr .[id number] GURINDER Administration Meclizine HCl 12.5 mg 12/06/24 17:00 12/06/24 20:26 Meclizine Hcl 12.5 Mg Tablet PO 12.5 mg QID GURINDER Administration Meclizine HCl 25 mg 12/06/24 16:38 Meclizine Hcl 25 Mg Tablet PO BID PRN Vertigo Ondansetron HCl 4 mg 12/06/24 04:21 Ondansetron Inj 4 Mg/2 Ml Vial IV PUSH Q4H PRN Nausea Pantoprazole Sodium 40 mg 12/06/24 17:00 12/06/24 17:27 Pantoprazole 40 Mg Tablet PO 40 mg BID GURINDER Administration Fluticasone/Salmeterol 2 puff 12/06/24 20:00 12/06/24 20:30 Fluticasone/Salmeterol 115-21 Mcg Inhaler 1 Puff INHALATION 2 puff Q12HRT GURINDER Administration Vitamin D 25 mcg 12/07/24 09:00 Cholecalciferol (Vitamin D3) 25 Mcg (1,000 Units) Tablet PO DAILY [facility] Radiology Results: ITS Impressions Head CT 12/05/24 23:44 IMPRESSION: No acute intracranial findings. Chronic fracture of the anterior and posterior arch of C1 unchanged from previous examinations. Head/Neck CTA 12/06/24 06:01 IMPRESSION: 1. 56% stenosis of the proximal right internal carotid artery relative to normal distal artery lumen diameter (NASCET criteria). 2. Less than 20% stenosis of the proximal left internal carotid artery relative to normal distal artery lumen diameter. 3: Possible small 2 mm aneurysm versus infundibulum arising from right paraclinoid ICA. 4: Stable fracture deformities of the anterior and posterior arch of C1, partially visualized on prior examination dated 08/27/2024. Abdomen/Pelvis CT 12/06/24 06:17 IMPRESSION: 1. Left lower lobe pneumonia. 2: Large hiatal hernia. 3: Hepatomegaly. Quality VTE Prophylaxis VTE prophylaxis: pharmacologic ordered Hospitalist [facility] Advance Care Plan I have confirmed that the patient's Advanced Care Plan is present, code status is documented, or surrogate decision maker is listed in patient medical record.: Yes Medication Reconciliation I have utilized all available resources to obtain, update and review the patients current medications (includes all prescriptions, OTC, herbals, cannabis, and nutritional supplements).: Yes
[2024-12-07] MEDS: FLUTICASONE/SALMETEROL 115-21 MCG INHALER 1 PUFF 2 PUFF INHALATION ×2 (08:11→20:13)
[2024-12-07 08:45] LABS: Hemoglobin 11.1 g/dL (12.0-15.0); Mean Corpuscular HGB Conc 32.6 g/dl (32-36); Mean Corpuscular Hemoglobin 30.5 pg (26-34); Mean Corpuscular Volume 93.4 fl (80-100); Mean Platelet Volume 10.1 fl (7.4-10.4); Platelet Count Result 267 k/mm3 (150-375); Red Blood Count 3.64 M/mm3 (4.2-5.4); White Blood Count 7.9 K/mm3 (4.5-10.0)
[2024-12-07] MEDS: MECLIZINE HCL 12.5 MG TABLET PO ×4 (08:51→22:19)
[2024-12-07] MEDS: SODIUM CHLORIDE 0.9% IV 1,000 ML 80 ML IV CONT ×2 (08:51→22:22)
[2024-12-07] MEDS: amLODIPine BESYLATE 2.5 MG TABLET PO (08:51)
[2024-12-07] MEDS: FERROUS SULFATE 325 MG TABLET DR BY MOUTH (08:51)
[2024-12-07] MEDS: ATORVASTATIN 40 MG TABLET PO (08:51)
[2024-12-07] MEDS: PANTOPRAZOLE 40 MG TABLET PO ×2 (08:51→17:21)
[2024-12-07] MEDS: dilTIAZem HCL CD 180 MG CAP.24HR PO (08:51)
[2024-12-07] MEDS: CALCIUM CARBONATE (OSCAL) 500 MG TABLET PO (08:51)
[2024-12-07] MEDS: ASPIRIN 81 MG CHEWABLE TABLET PO (08:51)
[2024-12-07] MEDS: ESCITALOPRAM OXALATE 5 MG TABLET PO (08:51)
[2024-12-07] MEDS: CHOLECALCIFEROL (VITAMIN D3) 25 MCG (1,000 UNITS) TABLET PO (08:51)
[2024-12-07 08:56] LABS: Glucose Point of Care 147 mg/dl (65-105)
[2024-12-07 09:01] LABS: Alanine Aminotransferase 20 U/L (6-35); Albumin Level 3.5 g/dL (3.5-5.1); Alkaline Phosphatase 65 U/L (38-126); Anion Gap 4 mmol/L (4-12); Aspartate Amino Transferase 26 U/L (14-36); Bilirubin,Total 0.7 mg/dL (0.2-1.3); Blood Urea Nitrogen 12 mg/dL (7-17); Calcium 8.7 mg/dL (8.4-10.2); Carbon Dioxide 28 mmol/L (22-30); Chloride 99 mmol/L (98-107); Estimated Glomerular Filt Rate > 60; Glucose 135 mg/dL (65-110); Potassium 3.4 mmol/L (3.4-5.0); Sodium 131 mmol/L (137-145)
[2024-12-07 09:12] LABS: Hemoglobin A1C 5.6 % (<5.7)
[2024-12-07 13:07] LABS: Glucose Point of Care 130 mg/dl (65-105)
[2024-12-07 17:04] LABS: Glucose Point of Care 108 mg/dl (65-105)
[2024-12-07] MEDS: DOXYCYCLINE 100 MG/NS 100 ML 100 MG/100 ML BAG IVPB (19:42)
[2024-12-07 19:44] LABS: Glucose Point of Care 143 mg/dl (65-105)
[2024-12-07] MEDS: ENOXAPARIN 40 MG/0.4 ML SYRINGE SUB-Q (22:22)
[2024-12-08] VITALS (12 sets, daily range): BP systolic 116–139; BP diastolic 54–74; PULSE 53–86; RESP 12–20; TEMP 36.8–37.1; O2SAT 95–100; BMI 22.8
--- NOTE | 2024-12-08 | ECHO_ITS ---
Patient Info Name: Selena Lua Age: 89 years : 1935 Gender: Female Ht: 59 in Wt: 113 lbs BSA: 1.47 m2 HR: 88 bpm BP: 116 / 74 mmHg Technical Quality: Good Exam Date: 12/08/2024 1:08 PM Patient Status: I Admit Date: 12/06/2024 Exam Type: CA echo doppler color flow Complete two-dimensional, color flow and Doppler transthoracic echocardiogram is performed. Staff Referring Physician: Roxanne Silverman Electronics System Mechanic: Maria Elena Sun Attending Provider: Roxanne Silverman Summary 1. Complete two-dimensional, color flow and Doppler transthoracic echocardiogram is performed. 2. There is normal biventricular size and systolic function. 3. There are no regional wall motion abnormalities of the left ventricle. 4. The aortic valve is trileaflet and sclerotic but opens well. There is no aortic regurgitation. Left Ventricle The left ventricle is normal in size and systolic function. The left ventricular ejection fraction is visually estimated to be 65-70%. Right Ventricle The right ventricle is normal in size and systolic function. Left Atria The left atrium visually appears mildly dilated. Right Atria The right atrium is normal size. Atrial Septum The atrial septum is visually intact. Aortic Valve The aortic valve is trileaflet and sclerotic but opens well. There is no aortic regurgitation. Pulmonic Valve The pulmonic valve is not well visualized. There is color Doppler evidence of trace pulmonic valve regurgitation. Mitral Valve The mitral valve opens well. There is mitral annular calcification. There is trace mitral regurgitation. Tricuspid Valve The tricuspid valve is normal. There is mild tricuspid regurgitation. Pulmonary Arteries Pulmonary arterial systolic pressure is estimated at 39 mmHg. There is mild pulmonary hypertension. Inferior Vena Cava Normal inferior vena cava with >50% collapse upon inspiration consistent with normal right atrial pressure, 3 mmHg. Aorta The aortic root at the level of the sinus of Valsalva measures 3.0 cm in diameter. Left Ventricular Outflow Tract Name Value Normal LVOT 2D LVOT Diameter 1.9 cm LVOT Doppler LVOT Peak Velocity 125 cm/s LVOT Peak Gradient 6 mmHg LVOT Mean Gradient 3 mmHg LVOT VTI 23 cm LVOT VTI/AV VTI Ratio 0.5 LVOT Stroke Volume 66 ml LVOT CO 5.7 l/min LVOT CI 3.9 l/min/m2 Mitral Valve Name Value Normal MV Diastolic Function MV E Peak Velocity 115 cm/s MV A Peak Velocity 106 cm/s MV E/A 1.1 MV Decel Time (PW) 170 ms MV Annular TDI MV E/e' (Septal) 20.7 MV E/e' (Lateral) 11.3 MV E/e' (Average) 16.0 Tricuspid Valve Name Value Normal TV Regurgitation Doppler TR Peak Velocity 300 cm/s TR Peak Gradient 36 mmHg Estimated PAP/RSVP RA Pressure 3 mmHg <=5 PA Systolic Pressure 39 mmHg <36 RV Systolic Pressure 39 mmHg <36 TV Annular TDI TV Lateral Silvina s' Velocity 17.5 cm/s >=9.5 Aortic Valve Name Value Normal AV 2D/MM AV Area (Planimetry) 2.5 cm2 AV Doppler AV Peak Velocity 207 cm/s AV Peak Gradient 17 mmHg AV Mean Gradient 11 mmHg AV VTI 45 cm AV Area (Cont Eq VTI) 1.5 cm2 >=3.0 AV Area (Cont Eq Lj) 1.7 cm2 AV DI (Lj) 0.61 AV Regurgitation 2D LVOT Area 2.8 cm2 Ventricles Name Value Normal LV Dimensions 2D/MM IVS Diastolic Thickness (2D) 1.0 cm 0.6-1.0 LVID Diastole (2D) 4.1 cm 3.8-5.2 LVIW Diastolic Thickness (2D) 1.0 cm 0.6-0.9 LVID Systole (2D) 2.3 cm 2.2-3.5 LVOT Diameter 1.9 cm LV Mass (2D Cubed) 129.54 g 67.00-162.00 LV Mass Index (2D Cubed) 88 g/m2 43-95 Relative Wall Thickness (2D) 0.47 <=0.42 LV Fractional Shortening/Ejection Fraction 2D/MM LV Fractional Shortening (2D) 42 % 27-45 LV EF (2D Teichholz) 74 % LV Diastolic Volume (4C MOD) 59 ml LV EF (4C MOD) 64 % LV Diastolic Volume (2C MOD) 72 ml LV EF (2C MOD) 69 % LV Diastolic Volume (BP MOD) 67 ml 46-106 LV Diastolic Volume Index (BP MOD) 46 ml/m2 29-61 LV Systolic Volume (BP MOD) 22 ml 14-42 LV Systolic Volume Index (BP MOD) 15 ml/m2 8-24 LV EF (BP MOD) 67 % 54-74 LV Diastolic Length (4C) 7.0 cm LV Systolic Length (4C) 5.7 cm LV Stroke Volume (4C MOD) 38 ml Atria Name Value Normal LA Dimensions LA Volume (4C A-L) 89 ml LA Volume (BP A-L) 74 ml RA Dimensions RA Area (4C) 15.9 cm2 <=18.0 Wall Motion Scoring Wall Motion Scoring Index: 1.00 Report Signatures
[2024-12-08] MEDS: DOXYCYCLINE 100 MG/NS 100 ML 100 MG/100 ML BAG IVPB (06:12)
[2024-12-08 08:13] LABS: Glucose Point of Care 88 mg/dl (65-105)
[2024-12-08] MEDS: FLUTICASONE/SALMETEROL 115-21 MCG INHALER 1 PUFF 2 PUFF INHALATION ×2 (08:43→20:06)
[2024-12-08] MEDS: PANTOPRAZOLE 40 MG TABLET PO ×2 (10:04→16:50)
[2024-12-08] MEDS: FERROUS SULFATE 325 MG TABLET DR BY MOUTH (10:04)
[2024-12-08] MEDS: MECLIZINE HCL 12.5 MG TABLET PO ×4 (10:04→19:57)
[2024-12-08] MEDS: ESCITALOPRAM OXALATE 5 MG TABLET PO (10:04)
[2024-12-08] MEDS: CHOLECALCIFEROL (VITAMIN D3) 25 MCG (1,000 UNITS) TABLET PO (10:04)
[2024-12-08] MEDS: ASPIRIN 81 MG CHEWABLE TABLET PO (10:04)
[2024-12-08] MEDS: ATORVASTATIN 40 MG TABLET PO (10:04)
[2024-12-08] MEDS: CALCIUM CARBONATE (OSCAL) 500 MG TABLET PO (10:04)
--- NOTE | 2024-12-08 10:11 | PM.IMPN ---
Progress Note: A&P Assessment and Plan (1) Vertigo: Code(s): R42 - Dizziness and giddiness Status: Acute Assessment and Plan: Sudden onset of dizziness/vertigo with vomiting 12/06 Head/Neck CTA 1. 56% stenosis of the proximal right internal carotid artery relative to normal distal artery lumen diameter (NASCET criteria). 2. Less than 20% stenosis of the proximal left internal carotid artery relative to normal distal artery lumen diameter. 3: Possible small 2 mm aneurysm versus infundibulum arising from right paraclinoid ICA. 4: Stable fracture deformities of the anterior and posterior arch of C1, partially visualized on prior examination dated 08/27/2024. --MRI/MRA Brain and neck to evaluate aneurysm and rule out stroke --Neurology consulted since risk for vertebrobasilar insufficiency --Blood pressure at goal for age, but will treat since possible small aneurysm --PT/OT --ASA/Statin --schedule meclizine 12.5mg QID, and 25 BID prn (2) Carotid stenosis, right: Code(s): I65.21 - Occlusion and stenosis of right carotid artery Status: Acute Assessment and Plan: Continue ASA/Statin (3) Hypertension: Qualifiers: Hypertension type: unspecified Qualified Code(s): I10 - Essential (primary) hypertension Code(s): I10 - Essential (primary) hypertension Status: Chronic Assessment and Plan: Blood pressure above goal with possible aneurysm Start amlodipine 2.5mg daily (4) Pneumonia: Code(s): J18.9 - Pneumonia, unspecified organism Status: Acute Assessment and Plan: Pneumonia vs aspiration pneumonitis. Received ceftriaxone and flagyl in the ED --change to Unasyn, covering anaerobes given recent vomiting -will deescalate antibiotic to ceftriaxone and doxycycline (5) Nausea and vomiting: Qualifiers: Vomiting type: unspecified Qualified Code(s): R11.2 - Nausea with vomiting, unspecified Code(s): R11.2 - Nausea with vomiting, unspecified Status: Acute Assessment and Plan: Zofran prn (6) Asthma: Code(s): J45.909 - Unspecified asthma, uncomplicated Status: Chronic Assessment and Plan: Hx asthma. No wheezing on exam --Continue symbicort, albuterol prn (7) Hyponatremia: Code(s): E87.1 - Hypo-osmolality and hyponatremia Status: Acute Assessment and Plan: Sodium usually normal. 130 after episodes of vomiting, 127 this morning --Change LR to NS@80/hr Subjective Date/time seen: 12/08/24 10:11 Interval history: Patient agrees to perform a MRI. Pending echocardiogram to rule out aortic stenosis. Advancing the diet. Discussed with Physical therapy to perform vestibular exercise Review of Systems Review of Systems: All systems reviewed & are unremarkable except as noted in HPI and below (HPI) Exam Narrative: General - Awake and alert. No acute distress Eyes - PERRLA, EOM intact ENT - No thrush, No erythema Neck - No noticeable or palpable swelling Lymph Nodes - No lymphadenopathy Cardiovascular - RRR no m/r/g, no JVD Lungs: Clear to auscultation, No wheezing, use of accessory muscles, no crackles Skin - Skin warm and dry, no wounds or rashes Abdomen - Normal bowel sounds, abdomen soft and nontender Extremities - No edema, cyanosis or clubbing Musculoskeletal - 5/5 strength, normal range of motion, no swollen or erythematous joints. Neurological ? Alert and oriented x 3, CN 2-12 grossly intact. Psych: Normal mood and affect Const: General: comfortable and no acute distress Other: A&O x3 HENMT: Mouth: Yes moist mucous membranes Eyes: Pupils: Equal, round and reactive pupils present Neck: Neck: supple Resp: Effort & Inspection: normal respiratory effort Auscultation: clear to auscultation bilaterally Cardio: Rate: regular rate Rhythm: regular rhythm : General: Yes bladder normal to palpation Bimanual exam- vagina & uterus: bladder normal to palpation Neuro: Cranial nerves: Yes Equal, round and reactive pupils present Motor exam (neuro): 5/5 motor strength present throughout Extrem: General: no edema Objective Data Vital Signs Vital Signs: Vital Signs - 24 hr 12/07/24 12:00 12/07/24 14:36 12/07/24 14:36 Temperature 97.8 F 97.8 F Pulse Rate 73 71 71 Respiratory Rate 16 16 Blood Pressure 116/53 L 116/53 L Pulse Oximetry 97 97 Oxygen Delivery Fraction of Inspired Oxygen 12/07/24 14:39 12/07/24 14:44 12/07/24 16:00 Temperature 98.2 F 98.0 F Pulse Rate 71 80 66 Respiratory Rate 16 16 Blood Pressure 140/101 H 115/48 L Pulse Oximetry 98 97 Oxygen Delivery Fraction of Inspired Oxygen 12/07/24 20:00 12/07/24 20:14 12/07/24 20:16 Temperature Pulse Rate 64 74 76 Respiratory Rate 20 20 Blood Pressure Pulse Oximetry 94 Oxygen Delivery Room Air Fraction of Inspired Oxygen 21 12/07/24 21:02 12/07/24 22:14 12/08/24 00:00 Temperature 98.1 F Pulse Rate 65 86 Respiratory Rate 14 Blood Pressure 120/44 L Pulse Oximetry 100 Oxygen Delivery Room Air Fraction of Inspired Oxygen 12/08/24 04:00 12/08/24 06:00 12/08/24 08:26 Temperature 98.2 F Pulse Rate 73 53 L Respiratory Rate 14 Blood Pressure 116/74 Pulse Oximetry 97 Oxygen Delivery Room Air Fraction of Inspired Oxygen 12/08/24 08:43 12/08/24 08:43 12/08/24 09:40 Temperature Pulse Rate 81 Respiratory Rate 20 Blood Pressure Pulse Oximetry 95 Oxygen Delivery Room Air Room Air Fraction of Inspired Oxygen 21 Intake/Output Intake/Output: Intake & Output 12/05/24 12/06/24 12/07/24 12/08/24 23:59 23:59 23:59 23:59 Intake Total 2500 3590 Output Total 500 900 Balance 1999 269 Meds/Results Medications: Active Medications Generic Name Dose Route Start Last Admin Trade Name Freq PRN Reason Stop Dose Admin Acetaminophen 650 mg 12/06/24 04:21 Acetaminophen 325 Mg Tablet PO Q4H PRN Mild Pain (1-3) or Fever Albuterol 1 puff 12/06/24 13:04 Albuterol Sulfate (*Sp) Aerosol 1 Puff INHALATION Q4-6H PRN Shortness Of Breath Amlodipine Besylate 2.5 mg 12/06/24 16:25 12/07/24 08:51 Amlodipine Besylate 2.5 Mg Tablet PO 2.5 mg QAM GURINDER Administration Aspirin 81 mg 12/07/24 09:00 12/08/24 10:04 Aspirin 81 Mg Chewable Tablet PO 81 mg DAILY GURINDER Administration Atorvastatin Calcium 40 mg 12/07/24 09:00 12/08/24 10:04 Atorvastatin 40 Mg Tablet PO 40 mg DAILY GURINDER Administration Calcium Carbonate 500 mg 12/07/24 09:00 12/08/24 10:04 Calcium Carbonate (Oscal) 500 Mg Tablet PO 500 mg DAILY GURINDER Administration Dextrose 12.5 gm 12/07/24 07:52 Dextrose 50% 25 Gm/50 Ml Syringe IV PUSH PRN PRN Hypoglycemia Protocol Diltiazem HCl 180 mg 12/06/24 13:05 12/07/24 08:51 Diltiazem Hcl Cd 180 Mg Cap.24hr PO 180 mg DAILY GURINDER Administration Enoxaparin Sodium 40 mg 12/06/24 21:00 12/07/24 22:22 Enoxaparin 40 Mg/0.4 Ml Syringe SUB-Q 40 mg HS GURINDER Administration Escitalopram Oxalate 5 mg 12/06/24 14:00 12/08/24 10:04 Escitalopram Oxalate 5 Mg Tablet PO 5 mg DAILY GURINDER Administration Ferrous Sulfate 325 mg 12/07/24 09:00 12/08/24 10:04 Ferrous Sulfate [address] BY MOUTH 325 mg DAILY GURINDER Administration Glucagon 1 mg 12/07/24 07:52 Glucagon For Inj 1 Mg Vial IM PRN PRN Hypoglycemia Protocol Glucose 15 gm 12/07/24 07:52 Glucose Oral Gel 15 Gm Of Glucse In 37.5 Gm Tube PO PRN PRN Hypoglycemia Protocol Sodium Chloride 1,000 mls @ 80 mls/hr 12/06/24 16:45 12/07/24 22:22 Normal Saline Iv IV CONT 80 mls/hr .[id number] GURINDER Administration Dextrose 1,000 mls @ 100 mls/hr 12/07/24 07:52 Dextrose 5% 1,000 Ml IVPB PRN PRN Hypoglycemia Protocol Ceftriaxone Sodium 1 gm in 50 mls @ 100 mls/hr 12/07/24 18:00 12/07/24 19:03 Rocephin 1 Gm/Ns 50 Ml IVPB Infused Q24H GURINDER Infusion Doxycycline Hyclate 100 mg in 100 mls @ 100 mls/hr 12/07/24 19:00 12/08/24 06:12 Vibramycin 100 Mg/Ns 100 Ml IVPB 100 mls/hr Q12H GURINDER Administration Insulin Aspart 2 - 5 units 12/07/24 08:00 12/08/24 10:05 Insulin Aspart (*Bkc) 100 Units/Ml SUB-Q Not Given TIDWM GURINDER Protocol Insulin Aspart 1 - 2 units 12/07/24 21:00 12/07/24 22:17 Insulin Aspart (*Bkc) 100 Units/Ml SUB-Q Not Given HS [facility] Protocol Meclizine HCl 12.5 mg 12/06/24 17:00 12/08/24 10:04 Meclizine Hcl 12.5 Mg Tablet PO 12.5 mg QID GURINDER Administration Meclizine HCl 25 mg 12/06/24 16:38 Meclizine Hcl 25 Mg Tablet PO BID PRN Vertigo Ondansetron HCl 4 mg 12/06/24 04:21 Ondansetron Inj 4 Mg/2 Ml Vial IV PUSH Q4H PRN Nausea Pantoprazole Sodium 40 mg 12/06/24 17:00 12/08/24 10:04 Pantoprazole 40 Mg Tablet PO 40 mg BID GURINDER Administration Fluticasone/Salmeterol 2 puff 12/06/24 20:00 12/08/24 08:43 Fluticasone/Salmeterol 115-21 Mcg Inhaler 1 Puff INHALATION 2 puff Q12HRT GURINDER Administration Vitamin D 25 mcg 12/07/24 09:00 12/08/24 10:04 Cholecalciferol (Vitamin D3) 25 Mcg (1,000 Units) Tablet PO 25 mcg DAILY GURINDER Administration Radiology Results: ITS Impressions Head CT 12/05/24 23:44 IMPRESSION: No acute intracranial findings. Chronic fracture of the anterior and posterior arch of C1 unchanged from previous examinations. Head/Neck CTA 12/06/24 06:01 IMPRESSION: 1. 56% stenosis of the proximal right internal carotid artery relative to normal distal artery lumen diameter (NASCET criteria). 2. Less than 20% stenosis of the proximal left internal carotid artery relative to normal distal artery lumen diameter. 3: Possible small 2 mm aneurysm versus infundibulum arising from right paraclinoid ICA. 4: Stable fracture deformities of the anterior and posterior arch of C1, partially visualized on prior examination dated 08/27/2024. Abdomen/Pelvis CT 12/06/24 06:17 IMPRESSION: 1. Left lower lobe pneumonia. 2: Large hiatal hernia. 3: Hepatomegaly. Labs Labs: Laboratory Results - last 24 hr 12/07/24 12/07/24 12/07/24 13:04 16:59 19:41 POC Capillary Glucose 130 H 108 H 143 H 12/08/24 08:10 POC Capillary Glucose 88 Quality VTE Prophylaxis VTE prophylaxis: pharmacologic ordered Hospitalist [facility] Advance Care Plan I have confirmed that the patient's Advanced Care Plan is present, code status is documented, or surrogate decision maker is listed in patient medical record.: Yes Medication Reconciliation I have utilized all available resources to obtain, update and review the patients current medications (includes all prescriptions, OTC, herbals, cannabis, and nutritional supplements).: Yes
[2024-12-08 10:59] LABS: Hemoglobin 10.7 g/dL (12.0-15.0); Mean Corpuscular HGB Conc 32.4 g/dl (32-36); Mean Corpuscular Hemoglobin 30.2 pg (26-34); Mean Corpuscular Volume 93.2 fl (80-100); Platelet Count Result 260 k/mm3 (150-375); Red Blood Count 3.54 M/mm3 (4.2-5.4); Red Cell Distribution Width 12.9 % (11.5-14.5); White Blood Count 6.7 K/mm3 (4.5-10.0)
[2024-12-08 11:09] LABS: Alanine Aminotransferase 17 U/L (6-35); Albumin Level 3.6 g/dL (3.5-5.1); Alkaline Phosphatase 71 U/L (38-126); Anion Gap 6 mmol/L (4-12); Aspartate Amino Transferase 22 U/L (14-36); Bilirubin,Total 0.5 mg/dL (0.2-1.3); Blood Urea Nitrogen 10 mg/dL (7-17); Calcium 8.8 mg/dL (8.4-10.2); Carbon Dioxide 24 mmol/L (22-30); Chloride 103 mmol/L (98-107); Estimated Glomerular Filt Rate > 60; Glucose 100 mg/dL (65-110); Potassium 3.4 mmol/L (3.4-5.0); Sodium 133 mmol/L (137-145)
[2024-12-08 12:10] LABS: Glucose Point of Care 92 mg/dl (65-105)
--- NOTE | 2024-12-08 12:15 | P.CONNEU_ITS ---
Assessment and Plan Assessment and plan (1) Benign paroxysmal positional vertigo: Code(s): H81.10 - Benign paroxysmal vertigo, unspecified ear Status: Acute Assessment and Plan: patient has history of similar attacks in the past however this particular attack was more prolonged and severe which led to the hospitalization. She is back to her normal self. I explained to her about the finding. I would suggest an MRI of the brain however looking at the examination CT angiogram I suspect this is probably not going to show a significant abnormalities of course it may help with this out. This is particularly so because of the history of new onset atrial fibrillation at the time of admission. (2) Carotid artery stenosis: Code(s): I65.29 - Occlusion and stenosis of unspecified carotid artery Status: Acute Assessment and Plan: She was found to have 56% narrowing of the right internal carotid artery less than 50% on the left side. This may be followed up periodically with carotid ultrasound. I do not believe this requires any immediate attention at this time. She is already on aspirin and atorvastatin. (3) Paroxysmal atrial fibrillation: Code(s): I48.0 - Paroxysmal atrial fibrillation Status: Acute Assessment and Plan: The supervisory geographer read the initial EKG as showing atrial fibrillation. Plan She may be offered vestibular therapy. I have explained to her that she can also find some information on the YouTube video about exercises for dizziness such as Jordy maneuver. I have given her my phone number if in case if she needs any help. She could also seek help from ENT or physical therapy to train her with vestibular therapy. To complete the workup from cerebrovascular disease point of view an MRI of the brain and echocardiogram may be performed however her CT angiogram did not show evidence for vertebrobasilar disease. There was also finding or 2 mm possible aneurysm versus infundibulum in right pre clinoid internal carotid artery. This finding was noted in 2022 and does not require any intervention. Symptomatic treatment and vestibular therapy are recommended. Consult date: 12/08/24 HPI: Selena Lua is a 89 year old female presented with dizziness along with nausea vomiting and headache and abdominal pain. She is feeling much better now. She was admitted on 12/05/2024. No loss of consciousness. She has history of occasional dizziness however this particular episode seems to have lasted longer than before. She has had a CT scan of the brain which did not show any acute or new findings. CT angiogram of the head and neck is shows findings similar to 2022 CTA. She has 56% narrowing of the right internal carotid artery and less than 50% the left internal carotid artery. Stable fracture of C1 was also noted. MRI of the brain performed on 03/28/20122022 as shows significant white matter changes. Patient also has had a passing out spell 4 weeks ago for which she did not seek any medical help. The patient lives alone but has a daughter helps her going to doctor's office. Upon admission patient also suspected a possible aspiration pneumonia. There is also atrial fibrillation which I believe was also new onset. These are being addressed by hospitalist team. Patient denies any new significant new symptoms however she does have history of chronic head and neck pain however they are mild and occur occasionally. Review of Systems 2 Review of Systems: No recent febrile illness or trauma reported. 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 Arthritis of left hip Trochanteric bursitis, right hip 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 Bursitis of right hip Chronic cough Bilateral hip bursitis Carotid stenosis, right Internal hemorrhoids COPD (chronic obstructive pulmonary disease) Hypertension Anemia HTN (hypertension) with goal to be determined Fracture of left hip requiring operative repair Asthma Hyperlipidemia Benign essential hypertension Depression Chronic GERD Hx of temporal arteritis Lung mass Mild intermittent asthma without complication Osteopenia Pre-diabetes Surgical History Surgical History Total knee replacement status History of appendectomy History of carpal tunnel release Bilaterally History of cataract Bilateral History of tonsillectomy History of cholecystectomy History of total bilateral knee replacement History of total replacement of left shoulder joint Presence of left artificial knee joint Family History Family History Mother Hypertension Family history of cardiovascular disease Carcinoma of colon, Onset Age: 86 Acute myocardial infarction Family history of heart disease in male family member before age 55, Onset Age: 86 Patient's mother is , Onset Age: 86 Father Family history of lung cancer, Onset Age: 78 Patient's father is , Onset Age: 78 Other Family history of arthritis Family history of malignant neoplasm Social History Social History Social History: Code status: Full code. Smoking packs per day: 1 Smoking cigarettes per day: 20.0 Years smoked: 10 Smoking pack-years: 10.00 Smoking status: Never smoker Second hand tobacco smoke exposure: Yes Alcohol intake: never Substance use: never Substance use type: does not use Do You Feel Safe in your Home?: Yes Lack of Transportation: No Lack of Food: Never True Current Housing: I Have Housing Concerned About Future Housing: No Difficulty Paying Gas/Electric Bills: No Difficulty Paying for Meds: No Currently Unemployed: No Education: Bachelor's Degree Difficulty w/ Childcare or Family Care: No Living arrangements: alone Occupation/Education: retired Spiritual care concerns: No Meds Home Medications and Allergies Home Medications ?Medication ?Instructions ?Recorded ?Confirmed ?Type calcium carbonate (Calcium 500) 500 mg PO DAILY 03/16/20 12/06/24 History ferrous sulfate 325 mg (65 mg 325 mg PO BID 03/16/20 12/06/24 History iron) tablet (Feosol) atorvastatin 40 mg tablet 40 mg PO DAILY 09/14/20 12/06/24 History inhalational spacing device #1 ea 03/14/22 12/06/24 Rx ascorbate calcium (vitamin C) 500 282 mg PO DAILY 07/23/22 12/06/24 History mg capsule cholecalciferol (vitamin D3) 25 25 mcg PO DAILY 07/23/22 12/06/24 History mcg (1,000 unit) capsule (Vitamin D3) multivitamin with minerals 1 tablet PO DAILY 07/23/22 12/06/24 History (Hair,Skin and Nails tablet) aspirin 81 mg chewable tablet 81 mg PO DAILY 01/15/24 12/06/24 History albuterol sulfate 90 mcg/actuation 90 mcg inhalation Q4-6H PRN 07/07/24 12/06/24 Rx aerosol inhaler Shortness Of Breath #8.5 grams escitalopram oxalate 5 mg tablet 5 mg PO DAILY #90 tabs 07/07/24 12/06/24 Rx alendronate 70 mg tablet 70 mg PO WEEKLY #12 tabs 09/24/24 12/06/24 Rx Symbicort 160 mcg-4.5 See Rx Instructions .Route 10/19/24 12/06/24 Rx mcg/actuation HFA aerosol inhaler .COMPLEX #11 grams (budesonide-formoterol) diltiazem HCl 180 mg 180 mg PO DAILY 12/06/24 12/06/24 History capsule,extended release 24 hr, controlled (DILT-XR) meclizine 25 mg tablet 25 mg PO TID PRN dizziness #30 tabs 12/06/24 Rx omeprazole 40 mg capsule,delayed 40 mg PO DAILY 12/06/24 12/06/24 History release ondansetron 4 mg disintegrating 4 mg PO Q8H PRN nausea and 12/06/24 Rx tablet vomiting #15 tabs Allergies Allergy/AdvReac Type Severity Reaction Status Date / Time clonidine Allergy Unknown GI upset Verified 12/06/24 05:53 codeine Allergy Unknown Vomiting Verified 12/06/24 05:53 morphine Allergy Unknown Vomiting Verified 12/06/24 05:53 Vital Signs Vital Signs - 24 hr 12/07/24 14:36 12/07/24 14:36 12/07/24 14:39 Temperature 97.8 F 97.8 F 98.2 F Pulse Rate 71 71 71 Respiratory Rate 16 16 16 Blood Pressure 116/53 L 116/53 L 140/101 H Pulse Oximetry 97 97 98 Oxygen Delivery Fraction of Inspired Oxygen 12/07/24 14:44 12/07/24 16:00 12/07/24 20:00 Temperature 98.0 F Pulse Rate 80 66 64 Respiratory Rate 16 Blood Pressure 115/48 L Pulse Oximetry 97 Oxygen Delivery Fraction of Inspired Oxygen 12/07/24 20:14 12/07/24 20:16 12/07/24 21:02 Temperature 98.1 F Pulse Rate 74 76 65 Respiratory Rate 20 20 14 Blood Pressure 120/44 L Pulse Oximetry 94 100 Oxygen Delivery Room Air Fraction of Inspired Oxygen 21 12/07/24 22:14 12/08/24 00:00 12/08/24 04:00 Temperature Pulse Rate 86 73 Respiratory Rate Blood Pressure Pulse Oximetry Oxygen Delivery Room Air Fraction of Inspired Oxygen 12/08/24 06:00 12/08/24 08:26 12/08/24 08:43 Temperature 98.2 F Pulse Rate 53 L Respiratory Rate 14 Blood Pressure 116/74 Pulse Oximetry 97 95 Oxygen Delivery Room Air Room Air Fraction of Inspired Oxygen 12/08/24 08:43 12/08/24 09:40 12/08/24 10:04 Temperature Pulse Rate 81 81 Respiratory Rate 20 20 Blood Pressure Pulse Oximetry 95 Oxygen Delivery Room Air Room Air Fraction of Inspired Oxygen 12/08/24 10:04 Temperature Pulse Rate 83 Respiratory Rate Blood Pressure Pulse Oximetry Oxygen Delivery Fraction of Inspired Oxygen Exam 2 Const: General: cooperative, well developed and alert O rientation/consciousness: patient oriented x3 HENMT: Head: atraumatic Mouth: Yes oropharynx normal Eyes: Alignment and Position: position normal Pupils: Equal, round and reactive pupils present EOM: EOMs intact bilaterally Neck: Neck: supple Resp: Effort & Inspection: normal respiratory effort Cardio: Other: Ejection systolic murmur noted over precordium. Neuro: General: patient oriented x3 Cranial nerves: Yes CN's II-XII intact bilaterally, Yes facial sensation intact/muscles of mastication intact, Yes Equal, round and reactive pupils present, Yes facial symmetry and Yes Midline tongue present Cognition (Neuro): normal cognition Speech: normal speech Motor exam (neuro): 5/5 motor strength present throughout Sensory Exam: n ormal sensation Coordination: [id number] test normal and Normal rapid alternating movements of the distal upper extremity present (Neuro) Results Labs 12/08/24 10:53 12/08/24 10:53 Labs: Short CBC 12/08/24 Range/Units 10:53 WBC 6.7 (4.5-10.0) K/mm3 Hgb 10.7 L (12.0-15.0) g/dL Hct 33.0 L (37.0-47.0) % Plt Count 260 (150-375) k/mm3 BMP 12/08/24 10:53 Sodium 133 L Potassium 3.4 Chloride 103 Carbon Dioxide 24 BUN 10 Creatinine 0.71 Glucose 100 Calcium 8.8 Liver Function 12/08/24 Range/Units 10:53 Total Bilirubin 0.5 (0.2-1.3) mg/dL AST 22 (14-36) U/L ALT 17 (6-35) U/L Alkaline Phosphatase 71 (38-126) U/L Albumin 3.6 (3.5-5.1) g/dL
[2024-12-08] MEDS: SODIUM CHLORIDE 0.9% IV 1,000 ML 80 ML IV CONT (14:06)
[2024-12-08 17:15] LABS: Glucose Point of Care 101 mg/dl (65-105)
[2024-12-08] MEDS: ENOXAPARIN 40 MG/0.4 ML SYRINGE SUB-Q (19:57)
[2024-12-08 20:38] LABS: Glucose Point of Care 129 mg/dl (65-105)
[2024-12-09] VITALS (8 sets, daily range): BP systolic 138–151; BP diastolic 62–66; PULSE 68–87; RESP 12–14; TEMP 36.5–37; O2SAT 95–99
[2024-12-09 05:24] LABS: Hemoglobin 9.1 g/dL (12.0-15.0); Mean Corpuscular HGB Conc 32.5 g/dl (32-36); Mean Corpuscular Hemoglobin 30.3 pg (26-34); Mean Corpuscular Volume 93.3 fl (80-100); Mean Platelet Volume 10.6 fl (7.4-10.4); Platelet Count Result 248 k/mm3 (150-375); White Blood Count 5.8 K/mm3 (4.5-10.0)
[2024-12-09 05:44] LABS: Alanine Aminotransferase 14 U/L (6-35); Alkaline Phosphatase 57 U/L (38-126); Anion Gap 5 mmol/L (4-12); Aspartate Amino Transferase 18 U/L (14-36); Bilirubin,Total 0.3 mg/dL (0.2-1.3); Blood Urea Nitrogen 11 mg/dL (7-17); Calcium 8.4 mg/dL (8.4-10.2); Carbon Dioxide 24 mmol/L (22-30); Chloride 105 mmol/L (98-107); Estimated Glomerular Filt Rate > 60; Glucose 77 mg/dL (65-110); Potassium 3.5 mmol/L (3.4-5.0); Sodium 134 mmol/L (137-145)
--- NOTE | 2024-12-09 07:45 | PM.DS ---
DS: Admitting Diagnosis Discharge Date 12/09/2024 Admitting Diagnosis Nausea, vomiting DS: Discharge Diagnosis Discharge Diagnosis (1) Vertigo: Code(s): R42 - Dizziness and giddiness Status: Acute Assessment and Plan: Sudden onset of dizziness/vertigo with vomiting 12/09/2024 Brain MRI:No acute infarct, intracranial hemorrhage, or mass lesion. Advanced chronic microvascular ischemic changes and mild generalized atrophy. Neck MRA:Suggestion of approximately 50% stenosis proximal right internal carotid artery. Brain MRA:No occlusion, stenosis, or aneurysm. 12/06 Head/Neck CTA 1. 56% stenosis of the proximal right internal carotid artery relative to normal distal artery lumen diameter (NASCET criteria). 2. Less than 20% stenosis of the proximal left internal carotid artery relative to normal distal artery lumen diameter. 3: Possible small 2 mm aneurysm versus infundibulum arising from right paraclinoid ICA. 4: Stable fracture deformities of the anterior and posterior arch of C1, partially visualized on prior examination dated 08/27/2024. --MRI/MRA Brain and neck to evaluate aneurysm and rule out stroke --Neurology consulted since risk for vertebrobasilar insufficiency --Blood pressure at goal for age, but will treat since possible small aneurysm --PT/OT --ASA/Statin --schedule meclizine 12.5mg QID, and 25 BID prn (2) Carotid stenosis, right: Code(s): I65.21 - Occlusion and stenosis of right carotid artery Status: Acute Assessment and Plan: Continue ASA/Statin (3) Hypertension: Qualifiers: Hypertension type: unspecified Qualified Code(s): I10 - Essential (primary) hypertension Code(s): I10 - Essential (primary) hypertension Status: Chronic Assessment and Plan: Blood pressure above goal with possible aneurysm Start amlodipine 2.5mg daily (4) Pneumonia: Code(s): J18.9 - Pneumonia, unspecified organism Status: Acute Assessment and Plan: Pneumonia vs aspiration pneumonitis. Received ceftriaxone and flagyl in the ED --change to Unasyn, covering anaerobes given recent vomiting -will deescalate antibiotic to ceftriaxone and doxycycline (5) Nausea and vomiting: Qualifiers: Vomiting type: unspecified Qualified Code(s): R11.2 - Nausea with vomiting, unspecified Code(s): R11.2 - Nausea with vomiting, unspecified Status: Acute Assessment and Plan: Zofran prn (6) Asthma: Code(s): J45.909 - Unspecified asthma, uncomplicated Status: Chronic Assessment and Plan: Hx asthma. No wheezing on exam --Continue symbicort, albuterol prn (7) Hyponatremia: Code(s): E87.1 - Hypo-osmolality and hyponatremia Status: Acute Assessment and Plan: Sodium usually normal. 130 after episodes of vomiting, 127 this morning --Change LR to NS@80/hr DS: Summary Hospital Course Hospital Course: 89-year-old female presenting to [facility] on 12/06/2024 accompanied by her son, complaining of nausea and vomiting and abdominal pain. The patient lives alone, is independent, history of COPD, carotid stenosis, internal hemorrhoids, hypertension, anemia, hypertension, asthma, hyperlipidemia, depression, chronic GERD, pre diabetes, history of hiatal hernia and nausea and vomiting. She reports the nausea and vomiting is accompanied by dizziness when she woke up this morning. The room was also spitting emesis happened before. It is aggravated by turning her head he believes the left and right and standing from a lying position and bending over. In the ER she was given meclizine and she believes that helped greatly. Denies diarrhea, does have constipation. She has generalized abdominal pain which started just before the nausea and vomiting. ER evaluation demonstrated elevated WBC to 15.1, hemoglobin 11.2, sodium 130, magnesium 1.7, liver function panel within normal limits, troponin 0.012, lipase pending, head CT without acute findings, CT abdomen pelvis without contrast demonstrated patchy opacity in the left lower lobe, large hiatal hernia, no bowel obstruction, mildly thickened ascending colon possibly correlating colitis versus underdistention. 12/09/2024 Brain MRI:No acute infarct, intracranial hemorrhage, or mass lesion. Advanced chronic microvascular ischemic changes and mild generalized atrophy. Neck MRA:Suggestion of approximately 50% stenosis proximal right internal carotid artery. Brain MRA:No occlusion, stenosis, or aneurysm. 12/06 Head/Neck CTA 1. 56% stenosis of the proximal right internal carotid artery relative to normal distal artery lumen diameter (NASCET criteria). 2. Less than 20% stenosis of the proximal left internal carotid artery relative to normal distal artery lumen diameter. 3: Possible small 2 mm aneurysm versus infundibulum arising from right paraclinoid ICA. 4: Stable fracture deformities of the anterior and posterior arch of C1, partially visualized on prior examination dated 08/27/2024. --MRI/MRA Brain and neck to evaluate aneurysm and rule out stroke --Neurology consulted since risk for vertebrobasilar insufficiency --Blood pressure at goal for age, but will treat since possible small aneurysm --PT/OT --ASA/Statin --schedule meclizine 12.5mg QID, and 25 BID prn Patient was evaluated by the Neurology. And discussed with Dr. Sawyer who reported patient a possible nausea vomiting and giddiness due to BPPV. Reviewed MRI of the brain, MRA of brain and neck a, CT scan of the head and neck including CTA of head and neck which shows no significant abnormalities. No evidence of orthostatic hypertension as well. Advised to perform vestibular exercise. I offered patient home health or nursing facility patient reported she has a family member who takes care of her daily. She declined any help. Advised to perform vestibular exercise with her granddaughter. Also advised to have lifeline /emergency call if she needs. On the day of discharge, the patient was seen and examined. Vital signs were stable. Physical exam were stable and labs were reviewed at length. Discharge instructions, medications, and follow-up appointments were discussed with the patient at length and all day questions were answered. ER warnings were given. Status at Discharge Cognitive/behavioral status at discharge: Stable Time Spent with Patient Time attestation: Total time spent providing and/or coordinating discharge services: 45 minutes Exam Narrative: General - Awake and alert. No acute distress Eyes - PERRLA, EOM intact ENT - No thrush, No erythema Neck - No noticeable or palpable swelling Lymph Nodes - No lymphadenopathy Cardiovascular - RRR no m/r/g, no JVD Lungs: Clear to auscultation, No wheezing, use of accessory muscles, no crackles Skin - Skin warm and dry, no wounds or rashes Abdomen - Normal bowel sounds, abdomen soft and nontender Extremities - No edema, cyanosis or clubbing Musculoskeletal - 5/5 strength, normal range of motion, no swollen or erythematous joints. Neurological ? Alert and oriented x 3, CN 2-12 grossly intact. Psych: Normal mood and affect Const: General: comfortable and no acute distress Other: A&O x3 HENMT: Mouth: Yes moist mucous membranes Eyes: Pupils: Equal, round and reactive pupils present Neck: Neck: supple Resp: Effort & Inspection: normal respiratory effort Auscultation: clear to auscultation bilaterally Cardio: Rate: regular rate Rhythm: regular rhythm : General: Yes bladder normal to palpation Bimanual exam- vagina & uterus: bladder normal to palpation Neuro: Cranial nerves: Yes Equal, round and reactive pupils present Motor exam (neuro): 5/5 motor strength present throughout Extrem: General: no edema DS: Data Data Completed and Pending Labs on day of discharge: Labs from last 24 hours 12/09/24 12/08/24 12/08/24 04:27 19:53 17:09 WBC 5.8 RBC 3.00 L Hgb 9.1 L Hct 28.0 L MCV 93.3 MCH 30.3 MCHC 32.5 RDW 13.0 Plt Count 248 MPV 10.6 H Sodium 134 L Potassium 3.5 Chloride 105 Carbon Dioxide 24 Anion Gap 5 BUN 11 Creatinine 0.69 L Estim Creat Clear Calc Not Reportable Estimated GFR > 60 Glucose 77 POC Capillary Glucose 129 H 101 Calcium 8.4 Total Bilirubin 0.3 AST 18 ALT 14 Alkaline Phosphatase 57 Total Protein 5.0 L Albumin 3.0 L 12/08/24 12/08/24 12/08/24 12:03 10:53 08:10 WBC 6.7 RBC 3.54 L Hgb 10.7 L Hct 33.0 L MCV 93.2 MCH 30.2 MCHC 32.4 RDW 12.9 Plt Count 260 MPV 10.0 Sodium 133 L Potassium 3.4 Chloride 103 Carbon Dioxide 24 Anion Gap 6 BUN 10 Creatinine 0.71 Estim Creat Clear Calc Not Reportable Estimated GFR > 60 Glucose 100 POC Capillary Glucose 92 88 Calcium 8.8 Total Bilirubin 0.5 AST 22 ALT 17 Alkaline Phosphatase 71 Total Protein 6.0 L Albumin 3.6 Imaging Radiologist's impression: ITS Impressions Head CT 12/05/24 23:44 IMPRESSION: No acute intracranial findings. Chronic fracture of the anterior and posterior arch of C1 unchanged from previous examinations. Head/Neck CTA 12/06/24 06:01 IMPRESSION: 1. 56% stenosis of the proximal right internal carotid artery relative to normal distal artery lumen diameter (NASCET criteria). 2. Less than 20% stenosis of the proximal left internal carotid artery relative to normal distal artery lumen diameter. 3: Possible small 2 mm aneurysm versus infundibulum arising from right paraclinoid ICA. 4: Stable fracture deformities of the anterior and posterior arch of C1, partially visualized on prior examination dated 08/27/2024. Abdomen/Pelvis CT 12/06/24 06:17 IMPRESSION: 1. Left lower lobe pneumonia. 2: Large hiatal hernia. 3: Hepatomegaly. Brain MRA 12/09/24 05:40 Impression: No occlusion, stenosis, or aneurysm. Neck MRA 12/09/24 05:42 Impression: Suggestion of approximately 50% stenosis proximal right internal carotid artery. Brain MRI 12/09/24 05:45 IMPRESSION: No acute infarct, intracranial hemorrhage, or mass lesion. Advanced chronic microvascular ischemic changes and mild generalized atrophy. Discharge Plan Discharge Attending physician on discharge: Samson Hart Consulting providers: Eliot English Discharging Clinician: Samson Hart Patient Disposition: Home Activity: as tolerated Diet: as tolerated and regular Discharge Instructions: Please follow-up with Neurology Perform vestibular exercises daily Check blood pressure 1 to 2 times a day. Record and bring into your doctor for review. Call your doctor if your blood pressure is greater than 180/110 or less than 90/45. Walk with cane or other assist device. Take precautions to avoid falls. Rise slowly from a lying or sitting position. Pause before standing or walking. Contact your doctor or call 911 and come to the Emergency Room if you have any type of trauma, lightheadedness with standing or other worrisome symptoms. Avoid NSAIDs (ibuprofen, naproxen, Aleve). Tylenol is safe to take. Follow-up with your primary care provider in 1-2 weeks. Please call for appointment. Thank you for using [facility] for your health care needs. Patient Instructions: Antibiotic Form, Meclizine (By mouth), Dizziness (GEN) Patient Language: Persian Stand Alone Forms: General Discharge Information Follow-up/Referrals: Easton Paulino MD [Primary Care Provider] - Eliot English MD [Physician] - Discharge Medications: New ondansetron 4 mg tablet,disintegrating 4 mg PO Q8H PRN (Reason: nausea and vomiting) Qty: 15 0RF amlodipine 2.5 mg Tablet 2.5 mg PO QAM Qty: 30 0RF meclizine 12.5 mg tablet 12.5 mg PO TID PRN (Reason: dizziness) Qty: 30 0RF Continued Hair,Skin and Nails Tablet 1 tablet PO DAILY cholecalciferol (vitamin D3) [Vitamin D3] 25 mcg (1,000 unit) Capsule 25 mcg PO DAILY ascorbate calcium (vitamin C) 500 mg Capsule 282 mg PO DAILY atorvastatin 40 mg tablet 40 mg PO DAILY ferrous sulfate [Feosol] 325 mg (65 mg iron) tablet 325 mg PO BID calcium carbonate [Calcium 500] 500 mg calcium (1,250 mg) tablet 500 mg PO DAILY (DME) inhalational spacing device Spacer See Rx Instructions .Route Qty: 1 0RF Rx Instructions: As directed aspirin 81 mg tablet,chewable 81 mg PO DAILY diltiazem HCl [DILT-XR] 180 mg capsule,ext.rel 24h degradable 180 mg PO DAILY omeprazole 40 mg capsule,delayed release(DR/EC) 40 mg PO DAILY escitalopram oxalate 5 mg tablet 5 mg PO DAILY Qty: 90 3RF albuterol sulfate 90 mcg/actuation HFA aerosol inhaler 90 mcg INHALATION Q4-6H PRN (Reason: Shortness Of Breath) Qty: 8.5 3RF alendronate 70 mg tablet 70 mg PO WEEKLY Qty: 12 0RF Patient Comments: Saturdays budesonide-formoterol [Symbicort] 160-4.5 mcg/actuation HFA aerosol inhaler See Rx Instructions .ROUTE .COMPLEX Qty: 11 0RF Dose Instruction: INHALE 2 PUFFS BY MOUTH EVERY 12 HOURS Rx Instructions: INHALE 2 PUFFS BY MOUTH EVERY 12 HOURS Date of admission: 12/06/24 04:21 Primary Care Provider: Easton Paulino Admitting Provider: Lindy Alexander Attending physician on admission: Roxanne Silverman Condition: Stable
[2024-12-09] MEDS: amLODIPine BESYLATE 2.5 MG TABLET PO (08:23)
[2024-12-09] MEDS: FERROUS SULFATE 325 MG TABLET DR BY MOUTH (08:24)
[2024-12-09] MEDS: ATORVASTATIN 40 MG TABLET PO (08:24)
[2024-12-09] MEDS: dilTIAZem HCL CD 180 MG CAP.24HR PO (08:24)
[2024-12-09] MEDS: ASPIRIN 81 MG CHEWABLE TABLET PO (08:24)
[2024-12-09] MEDS: PANTOPRAZOLE 40 MG TABLET PO (08:25)
[2024-12-09] MEDS: CALCIUM CARBONATE (OSCAL) 500 MG TABLET PO (08:25)
[2024-12-09] MEDS: MECLIZINE HCL 12.5 MG TABLET PO ×2 (08:25→12:25)
[2024-12-09] MEDS: CHOLECALCIFEROL (VITAMIN D3) 25 MCG (1,000 UNITS) TABLET PO (08:25)
[2024-12-09] MEDS: ESCITALOPRAM OXALATE 5 MG TABLET PO (08:25)
[2024-12-09 08:28] LABS: Glucose Point of Care 88 mg/dl (65-105)
[2024-12-09] MEDS: FLUTICASONE/SALMETEROL 115-21 MCG INHALER 1 PUFF 2 PUFF INHALATION (08:50)
[2024-12-09 12:10] LABS: Glucose Point of Care 132 mg/dl (65-105)
== END 2024-12-09 15:00 | disposition home or self-care (01) | DRG 391 ==
LOC: ANHED 12-06 04:14 → ANH2MED 12-06 05:08
PROVIDERS: Nurse Practitioner Acute Care; Admitting Provider General Practice; Emergency Provider Physician Assistant; PCP Family Medicine; Visit Provider General Practice
DX: K52.9 Noninfective gastroenteritis and colitis, unspecified (principal); J18.9 Pneumonia, unspecified organism; J69.0 Pneumonitis due to inhalation of food and vomit; E87.1 Hypo-osmolality and hyponatremia; H81.10 Benign paroxysmal vertigo, unspecified ear; K44.9 Diaphragmatic hernia without obstruction or gangrene; M47.26 Other spondylosis with radiculopathy, lumbar region; M70.72 Other bursitis of hip, left hip; M70.71 Other bursitis of hip, right hip; J44.9 Chronic obstructive pulmonary disease, unspecified; I65.23 Occlusion and stenosis of bilateral carotid arteries; I10 Essential (primary) hypertension; I48.0 Paroxysmal atrial fibrillation; D64.9 Anemia, unspecified; E78.5 Hyperlipidemia, unspecified; K21.9 Gastro-esophageal reflux disease without esophagitis; M85.80 Other specified disorders of bone density and structure, unspecified site; Z96.653 Presence of artificial knee joint, bilateral; Z96.612 Presence of left artificial shoulder joint; Z90.49 Acquired absence of other specified parts of digestive tract
CPT/HCPCS: 36415; 70450; 70496; 70498; 70544; 70549; 70553; 74176; 80053; 82948; 83036; 83690; 83735; 84145; 84484; 85025; 85027; 85610; 85730; 93005; 93306; 94640; 96361; 96365; 96375; 97161; 97165; 99285; A9270; A9577; J0295; J0696; J1200; J1650; J1836; J2405; J2765; J3475; J7030; J7120; Q9967

== ENCOUNTER 2025-02-03 09:29 | Outpatient (CLI) | payer MEDICARE, SELFPAY ==
--- NOTE | ~2025-02-03 | XR_ITS ---
EXAMINATION: XR UGIAC w small bowel DATE: 02/03/2025 12:31 INDICATION: Large hiatal hernia. Nausea and vomiting. TECHNIQUE: The patient drank thick barium, gas-producing crystals, and thin barium. Conventional supi ne abdomen radiographs and fluoroscopic spot radiographs of the esophagus, stomach, and proximal smal l bowel were obtained. Additional overhead radiographs were obtained during the transit through the s mall bowel. Spot fluoroscopic images of the small bowel were obtained upon contrast reaching the cec um. Fluoroscopy exposure time was 2.5 minutes. A total of 698 fluoroscopic images and 10 overhead rad iographs were recorded. Total DAP was 39.505 Gycm^2. COMPARISON: None. FINDINGS: The esophagus is normal without mass or stricture. Esophageal motility is normal. There is a moderate -sized sliding-type hiatal hernia with gastroesophageal junction approximately 4 cm above the diaphra gm. The fundus of the stomach extends up to 9 cm above level of the diaphragm and exerts mass effect upon the distal esophagus which extends caudally along the left posterior side of the herniated gastr ic fundus. There was spontaneous reflux of contrast from both from within the intra-abdominal into th e intrathoracic portion the stomach as well as subsequent gastroesophageal reflux which occurred both without and with provocative maneuvers. The stomach and proximal small bowel are normal. Transit time from the stomach to proximal colon was approximately 75-120 minutes. There is normal kaylin iber and mucosal fold pattern throughout the small bowel. The terminal ileum was unable be distinguis hed from adjacent contrast filled loops of bowel which are superimposed in the bilateral the deep pel vis. There is mild thoracolumbar levoscoliosis with severe spondylosis. Old healed subcapital fractur e the proximal left femur which is fixed with 3 cannulated lag screws. IMPRESSION: 1. Moderate-sized sliding-type hiatal hernia with gastroesophageal reflux. 2. Unremarkable small bowel follow-through. Reviewed, dictated and finalized at location A.
--- OUTSIDE RECORDS SUMMARY | 2025-02-03 09:44 | XMS_ITS | Encounter Summary ---
Author Organization [facility] Address 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
--- OUTSIDE RECORDS SUMMARY | 2025-02-03 09:44 | XMS_ITS | Encounter Summary ---
Author Organization [facility] Address [address] [facility] [place] [address] Care Team Providers Care Repairer Welding Equipment Name Role Phone Easton Paulino MD Primary Care Provider [phone] Encounter Details Date Type Department Care Team (Late st Contact Info) Description 02/03/2020 Lab Requisition [facility] [address] [place] [address] Alex Iniguez MD [address] [address] Anemia, unspecified Social History Tobacco Use Types Packs/Day Years Used Date Smoking Tobacco: Never Assessed Comments Unknown Sex and Gender Information Value Date Recorded Sex Assigned at Not on file Legal Sex Female 5:18 AM PSYCHIATRIST Gender Identity Not on file Sexual Orientation [...] AM CDT) Case Report Flow Cytometry Case: [id number] Authorizing Provider: Alex Iniguez MD Collected: 02/03/2020 09:00 AM Ordering Location: [facility] Lab Received: 02/03/2020 11:33 AM Pathologist: Tracey Hopper Mai, DO Specimen: Bone Marrow 02/03/2020 5:50 PM [facility] Final Diagnosis Bone marrow, flow cytometric immunophenotypic analysis: - Small population of myeloid blasts (0.4%) and immature monocytes (1.6%). - Small population of immature B cells (0.7%). - See interpretation. 02/03/2020 5:50 PM [facility] at 1750 CDT Flow Cytometry [...] flow cytometry specimen is reviewed for quality assurance supervisor trim purposes. The bone marrow aspirate specimen shows no evidence of involvement by non-Hodgkin lymphoma but there are populations of immature cells (both myeloid and lymphoid) warranting correlation with morphologic findings on the bone marrow biopsy and relevant cytogenetic/molecu lar studies for further classification. 02/03/2020 5:50 PM [facility] Flow Cytometry Results Differential Result Comment Flow Cell Count /uL 69,000 Total Viability % 100.0 Lymphocytes % 17 Dim CD45 Region % 3 Monocytes % 12 Granulocytes % 67 02/03/2020 5:50 PM [facility] Reason for test Anemia, unspecified 285.9 history of diabetes, cryoglobulinemia and normocytic normochromic anemia. [facility] Client Specimen ID # [id number] 02/03/2020 5:50 PM [facility] Number of markers 19 were performed. A-2 Flow CD10 A-3 Flow CD13 A-5 Flow CD20 A-11 Flow CD2 A-13 Flow CD14 A-16 Flow CD117 A-17 Flow CD11b A-18 Flow CD11c A-1 Flow CD5 A-4 Flow CD19 A-6 Flow CD33 A-7 Flow CD34 A-8 Flow CD45 A-12 Flow CD7 A-14 Flow CD56 A-15 Flow CD64 A-9 [place]+CD19+ A-10 Lambda+CD19+ A-19 Flow HLA-DR 02/03/2020 5:50 PM CDT [facility] Disclaimer Test performed at [facility], [address] [place], [place], [address]. *The established laboratory minimum viability is 70%. [...] complexity clinical testing. 02/03/2020 5:50 PM CDT [facility] Embedded Images 0 5:50 PM CDT [facility] Pathology/Cytolo gy BONE MARROW SPECIMEN / Unknown 02/03/2020 9:00 AM CDT 02/03/2020 11:33 AM CDT us Alex Iniguez MD LAB - PATHOLOGY/CYTOLOGY ORDER ANURAG Final Result [facility]. [address] [phone] documented in this encounter Visit Diagnoses Diagnosis Anemia, unspecified documented in this encounter Care Teams Repairer Welding Equipment Relationship Specialty Start Date End Date Easton Paulino MD [address] [place] [address] PCP - General 09/27/18 documented as of this encounter
--- OUTSIDE RECORDS SUMMARY | 2025-02-03 09:44 | XMS_ITS | Encounter Summary ---
Author Organization [facility] Address [address] [place] [address] Care Team Providers Care Soaking Pits Supervisor Name Role Phone Easton Paulino MD Primary Care Provider Encounter Details Date Type Department Care Team (Late st Contact Info) Description 03/17/1999 Outpatient Historical [address] [address] Preeti Lopez MD NO ADDRESS ON FILE Social History Tobacco Use Types Packs/Day Years Used Date Smoking Tobacco: Never Assessed Comments Unknown Sex and Gender Information Value Date Recorded Sex Assigned at Not on file Legal Sex Female 3:28 AM COREMAKER SUPERVISOR Gender Identity Not on file Sexual Orientation Not on file documented as of this encounter Plan of Treatment Not on file documented as of this encounter Visit Diagnoses Not on filedocumented in this encounter Care Teams Soaking Pits Supervisor Relationship Specialty Start Date End Date Easton Paulino MD [address] [facility] [address] [place] [address] PCP - General Family Practice 12/24/18 documented as of this encounter
--- OUTSIDE RECORDS SUMMARY | 2025-02-03 09:44 | XMS_ITS | Encounter Summary ---
Author Organization [facility] Address 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
--- OUTSIDE RECORDS SUMMARY | 2025-02-03 09:44 | XMS_ITS | Encounter Summary ---
Author Organization [facility] Address [address] [facility] [place] [address] Care Team Providers Care Candy Cutter Hand Name Role Phone Easton Paulino MD Primary Care Provider [phone] Encounter Details Date Type Department Care Team (Late st Contact Info) Description 02/05/2020 Lab Requisition [facility] Pathology Lab [address] [place] [address] Alex Iniguez MD [address] [address] Illness, unspecified Social History Tobacco Use Types Packs/Day Years Used Date Smoking Tobacco: Never Assessed Comments Unknown Sex and Gender Information Value Date Recorded Sex Assigned at Not on file Legal Sex Female 5:18 AM ADMINISTRATIVE SUPERVISOR Gender Identity Not on file Sexual [...] Report Bone Marrow Patholog y Report Case: [id number] Authorizing Provider: Alex Iniguez MD Collected: 02/03/2020 08:30 AM Ordering Location: [facility] Lab Received: 02/05/2020 08:26 AM Pathologist: Tracey Hopper Mai, DO Specimens: A) - Bone Marrow Clot, OSC: [id number] B) - Bone Marrow Core, OSC: [id number] 02/07/2020 3:57 PM [facility] Final Diagnosis Bone marrow, aspirate, clot section, and core biopsy: - Normocellular marrow with maturing trilineage hematopoiesis. - No morphologic evidence of lymphoma or high-grade myeloid neoplasm. - See description. 02/07/2020 3:57 PM [facility] at 1557 CDT AP Comment Overall, the bone marrow specimen is normocellular for age with maturing trilineage hematopoiesis and no morphologic evidence of lymphoma, a high-grade myeloid neoplasm, or significant dyspoiesis. Concurrent flow cytometry ([id number]) shows a small population of myeloid blasts [...] cytogenetic/molecular testing is required. 02/07/2020 3:57 PM [facility] Bone Marrow Aspirate Differential count (200 cells): 0% blasts, 76.5% maturing myeloid precursors, 9% erythroid progenitors, 2.5% monocytes, 1% eosinophils, 11% lymphocytes, 0% plasma cells. Specimen quality: suboptimal, aspiculate and hemodilute. Spicules: absent. Trilineage Hematopoiesis: erythroids and myeloids present; rare smudged nuclei which might represent stripped megakaryocyte nuclei. Myeloid:Erythroid ratio: 8.9:1, however this may not be visitor services representative due to the hemodilute nature of the sample. Myeloid Maturation: normal. Erythroid Maturation: few to assess, but appears normal. Megakaryocyte morphology: too few to adequately assess. Storage iron (by special stain): not evaluable due to lack of spicules. Sideroblastic iron (by special stain): no ring sideroblasts but this may not be visitor services representative due to the paucity of erythroid precursors. 02/07/2020 3:57 PM [facility] Bone Marrow Core Biopsy and [...] performed on the core biopsy in the [facility] Department of Pathology, with appropriately reactive controls, and demonstrate the following: CD34: no increase in blasts (less than 5% of marrow cellularity). CD117: highlights scattered mast cells. E-cadherin: highlights focal immature erythroid precursors. PAX5 and Tdt: negative. CMV: negative. HSV1/2: negative. NARCISO by THOMAS: negative 02/07/2020 3:57 PM [facility] Flow Cytometry Summary Concurrent flow cytometry ([id number]) shows small population of myeloid blasts (0.4%), immature monocytes (1.6%) and a small population of immature B cells (0.7%). 02/07/2020 3:57 PM [facility] Clinical History 02/07/2020 3:57 PM [facility] Materials Received Received are 3 blocks (A1, A2, B1) and 16 slide(s) labeled [id number] along with a copy of the outside pathology report. [place] [address]. All original materials are returned to the referring institution, along with a copy of our final report. 02/07/2020 3:57 PM [facility] Disclaimer The performance characteristics of all immunohistochemical and indirect immunofluorescence stains (if any) cited in this report were determined by the Histopathology Laboratory of [facility]. Some of these tests were [...] attending (teaching) pathologist. 02/07/2020 3:[address] [facility] Embedded Images 02/07/2020 3:[address] [facility] Pathology/Cytology BONE MARROW SPECIMEN / Unknown 02/03/2020 8:30 AM CDT 02/05/2020 8:26 AM CDT Miscellaneous samples (specimen) BONE MARROW SPECIMEN / Unknown 02/03/2020 8:30 AM CDT 02/05/2020 8:28 AM CDT Alex Iniguez MD LAB - PATHOLOGY/CYTOLOGY ORDER ANURAG Final Result [facility] [address] [phone] documented in this encounter Visit Diagnoses Diagnosis Illness, unspecified documented in this encounter Care Teams Candy Cutter Hand Relationship Specialty Start Date End Date Easton Paulino MD [address] [place] [address] PCP - General 09/27/18 documented as of this encounter
--- OUTSIDE RECORDS SUMMARY | 2025-02-03 09:44 | XMS_ITS | Encounter Summary ---
Author Organization [facility] Address [address] [place] [address] Care Team Providers Care Preparation Center Coordinator Name Role Phone Easton Paulino MD Primary Care Provider [phone] Encounter Details Date Type Department Care Team (Late st Contact Info) Description 05/06/2007 Outpatient Historical [address] [address] Preeti Lopez MD NO ADDRESS ON FILE Social History Tobacco Use Types Packs/Day Years Used Date Smoking Tobacco: Never Assessed Comments Unknown Sex and Gender Information Value Date Recorded Sex Assigned at Not on file Legal Sex Female 3:28 AM TITLE I TEACHER Gender Identity Not on file Sexual Orientation Not on file documented as of this encounter Plan of Treatment Not on file documented as of this encounter Visit Diagnoses Not on filedocumented in this encounter Care Teams Preparation Center Coordinator Relationship Specialty Start Date End Date Easton Paulino MD [address] [facility] [address] [place] [address] PCP - General Family Practice 12/24/18 documented as of this encounter
--- OUTSIDE RECORDS SUMMARY | 2025-02-03 09:44 | XMS_ITS | Encounter Summary ---
Author Organization [facility] Address [address] [facility] Attn: Epic Prelude ADT MICHELLE MOLINA [address] Care Team Providers Care Airborne Mission Systems Superintendent Name Role Phone Easton Paulino MD Primary [...] on file Legal Sex Female 3:28 AM TOY CONSULTANT Gender Identity Not on file Sexual Orientation Not on file documented as of this encounter Plan of Treatment Not on file documented as of this encounter Visit Diagnoses Not on filedocumented in this encounter Care Teams Airborne Mission Systems Superintendent Relationship Specialty Start Date End Date Easton Paulino MD [address] [facility] [address] [place] [address] PCP - General Family Practice 12/24/18 documented as of this encounter
--- OUTSIDE RECORDS SUMMARY | 2025-02-03 09:44 | XMS_ITS | Encounter Summary ---
Author Organization [facility] Address [address] [place] [address] Care Team Providers Care Wind Tunnel Technician Name Role Phone Easton Paulino MD Primary Care Provider [phone] Encounter Details Date Type Department Care Team (Late st Contact Info) Description 01/05/2003 Outpatient Historical [address] [address] Preeti Lopez MD NO ADDRESS ON FILE Social History Tobacco Use Types Packs/Day Years Used Date Smoking Tobacco: Never Assessed Comments Unknown Sex and Gender Information Value Date Recorded Sex Assigned at Not on file Legal Sex Female 3:28 AM OBIEE REPORT DEVELOPER Gender Identity Not on file Sexual Orientation Not on file documented as of this encounter Plan of Treatment Not on file documented as of this encounter Visit Diagnoses Not on filedocumented in this encounter Care Teams Wind Tunnel Technician Relationship Specialty Start Date End Date Easton Paulino MD [address] [facility] [address] [place] [address] PCP - General Family Practice 12/24/18 documented as of this encounter
--- OUTSIDE RECORDS SUMMARY | 2025-02-03 09:44 | XMS_ITS | Encounter Summary ---
Author Organization [facility] Address 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
--- OUTSIDE RECORDS SUMMARY | 2025-02-03 09:44 | XMS_ITS | Encounter Summary ---
Author Organization [facility] Address [address] [place] [address] Care Team Providers Care Civil Service Clerk Name Role Phone Easton Paulino MD Primary Care Provider [phone] Encounter Details Date Type Department Care Team (Late st Contact Info) Description 12/21/1999 Outpatient Historical [address] [address] Preeti Lopez MD NO ADDRESS ON FILE Social History Tobacco Use Types Packs/Day Years Used Date Smoking Tobacco: Never Assessed Comments Unknown Sex and Gender Information Value Date Recorded Sex Assigned at Not on file Legal Sex Female 3:28 AM MANAGER BRIDGE Gender Identity Not on file Sexual Orientation Not on file documented as of this encounter Plan of Treatment Not on file documented as of this encounter Visit Diagnoses Not on filedocumented in this encounter Care Teams Civil Service Clerk Relationship Specialty Start Date End Date Easton Paulino MD [address] [facility] [address] [place] [address] PCP - General Family Practice 12/24/18 documented as of this encounter
--- OUTSIDE RECORDS SUMMARY | 2025-02-03 09:44 | XMS_ITS | Encounter Summary ---
Author Organization [facility] Address 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
--- OUTSIDE RECORDS SUMMARY | 2025-02-03 09:44 | XMS_ITS | Encounter Summary ---
Author Organization [facility] Address [address] [place] [address] Care Team Providers Care Hand Blocker Name Role Phone Easton Paulino MD Primary Care Provider Encounter Details Date Type Department Care Team (Late st Contact Info) Description 12/06/2024 Orders Only [facility] Health Information Management [address] [place] [address] Scanning, Provider Social History Tobacco Use Types Packs/Day Years [...] on file Legal Sex Female 4:57 PM FINANCE ANALYST Gender Identity Female 10/31/2023 12:45 PM CDT Sexual Orientation Not on file documented as of this encounter Plan of Treatment Not on file documented as of this encounter Procedures Procedure Name Priority Date/Time Associated Diagnosis Comments CARDIOLOGY DOCUMENT SCAN 12/06/2024 documented in this encounter Results * Cardiology Document Scan (12/06/2024) Anatomical Region Laterality Modality Other us Provider Scanning CV CARDIAC SERVICES PROCEDURES Final Result documented in this encounter Visit Diagnoses Not on filedocumented in this encounter Care Teams Hand Blocker Relationship Specialty Start Date End Date Easton Paulino MD [address] [facility] [address] [place] [address] PCP - General Family Medicine 04/15/19 documented as of this encounter
--- OUTSIDE RECORDS SUMMARY | 2025-02-03 09:44 | XMS_ITS | Encounter Summary ---
Author Organization [facility] Address [address] [facility] Attn: Epic Prelude ADT MICHELLE MOLINA [address] Care Team Providers Care Cutting Machine Operator Name Role Phone Easton Paulino [...] on file Legal Sex Female 3:28 AM CONDITIONING YARD SUPERVISOR Gender Identity Not on file Sexual Orientation Not on file documented as of this encounter Plan of Treatment Not on file documented as of this encounter Visit Diagnoses Not on filedocumented in this encounter Care Teams Cutting Machine Operator Relationship Specialty Start Date End Date Easton Paulino MD [address] [facility] [address] [place] [address] PCP - General Family Practice 12/24/18 documented as of this encounter
--- OUTSIDE RECORDS SUMMARY | 2025-02-03 09:44 | XMS_ITS | Clinical Summary ---
Author Organization [facility] Address [address] [place] [address] Care Team Providers Care Salesforce Administrator Name Role Phone Easton Paulino MD Primary Care Provider [phone] Source Comments [facility],non-owned Affiliates and Associated Physician Practices is amultiple site organization consisting of ambulatory clinics and hospital sitesin [place], [place], [place] and [place]. This disclosure is being madepursuant to the Care Everywhere program and may not contain all information available regarding this patient. Last updated 18.[facility] [employer] Allergies Active Allergy Reactions Criticality Noted Date [...] on file Legal Sex Female 5:18 AM CREATIVE ENGAGEMENT DIRECTOR Gender Identity Not on file Sexual Orientation Not on file Last Filed Vital Signs Vital Sign Reading Time Taken Comments Blood Pressure 167/84 05/23/2021 4:43 PM CREATIVE ENGAGEMENT DIRECTOR Pulse 79 05/23/2021 4:43 PM CREATIVE ENGAGEMENT DIRECTOR Temperature 37.2 C (98.9 F) 05/23/2021 4:43 PM CREATIVE ENGAGEMENT DIRECTOR Respiratory Rate 13 05/23/2021 4:43 PM CREATIVE ENGAGEMENT DIRECTOR Oxygen Saturation 98% 05/23/2021 4:43 PM CREATIVE ENGAGEMENT DIRECTOR Inhaled Oxygen Concentration - - Weight 63 kg (138 lb 14.2 oz) 05/23/2021 4:43 PM CREATIVE ENGAGEMENT DIRECTOR Height 147.3 cm (4' 10) 05/23/2021 4:43 PM CREATIVE ENGAGEMENT DIRECTOR Body Mass Index 29.03 05/23/2021 4:43 PM CREATIVE ENGAGEMENT DIRECTOR Plan of Treatment Health Maintenance Due Date [...] MEDICARE AWV CALENDAR YEAR 2024 INFLUENZA VACCINE (#1) 2025 HEPATITIS B VACCINE Aged Out No [...] complete this topic [place] [address] [facility] [place] [address] [facility] MANAGED MEDICARE ADV [facility] MANAGED MEDICARE ADV SELF PAY NO INSURANCE Member Subscriber Plan / Payer (Ef fective for All Dates) Name:Selena Lua Ronda Member ID:Not on file Relation to Subscriber:Not on file Name:SELENA LUA Ronda Subscriber ID:Not on file (Home) Address: [address] [place] [address] [place] [address] Payer ID:Not on file Group ID:Not on file Type:Self Pay Address: [place], [place] Care Teams Salesforce Administrator Relationship Specialty Start Date End Date Easton Paulino MD [address] [place] [address] PCP - General 09/27/18
--- OUTSIDE RECORDS SUMMARY | 2025-02-03 09:44 | XMS_ITS | Encounter Summary ---
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
--- OUTSIDE RECORDS SUMMARY | 2025-02-03 09:44 | XMS_ITS | Encounter Summary ---
Author Organization [facility] Address [address] [place] [address] Care Team Providers Care Bridge Repairer Name Role Phone Easton Paulino MD Primary Care Provider Encounter Details Date Type Department Care Team (Late st Contact Info) Description 08/30/2000 Outpatient Historical [address] [address] Preeti Lopez MD NO ADDRESS ON FILE Social History Tobacco Use Types Packs/Day Years Used Date Smoking Tobacco: Never Assessed Comments Unknown Sex and Gender Information Value Date Recorded Sex Assigned at Not on file Legal Sex Female 3:28 AM DATABASE ADMINISTRATION ASSOCIATE Gender Identity Not on file Sexual Orientation Not on file documented as of this encounter Plan of Treatment Not on file documented as of this encounter Visit Diagnoses Not on filedocumented in this encounter Care Teams Bridge Repairer Relationship Specialty Start Date End Date Easton Paulino MD [address] [facility] [address] [place] [address] PCP - General Family Practice 12/24/18 documented as of this encounter
--- OUTSIDE RECORDS SUMMARY | 2025-02-03 09:44 | XMS_ITS | Encounter Summary ---
Author Organization [facility] Address 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
--- OUTSIDE RECORDS SUMMARY | 2025-02-03 09:45 | XMS_ITS | Data Portability ---
Author Organization [facility] Address [address] [place] [address] Care Team Providers Care Gravity Prospecting Observer Name Role Phone GUSTABO FAIRCHILD Primary Care Provider Assessment Encounter Date Assessment Date Assessment LastModified by Organization Details LastModified Time 01/13/2021 01/13/2021 Annual gynecological exam performed. Patient will come back in a year unless there are new symptoms. Not available 01/13/2021 15:11:33 Plan of Treatment Reminders Order Date Submit Date Provider Last Modified By Organization Details Last Modified Time Details Appointments None recorded. Lab urinalysis, dipstick 2024 025 [email or web address] [facility], [address], [place], [address], 15:37:21 culture, urine 2024 025 [facility] (Lab), [address], [place], [address], 05:56:40 Referral None recorded. Procedures None recorded. Surgeries None recorded. Imaging US, pelvis 2024 025 [email or web address] [facility], [place], [address], 08:38:43 US, transvagina l 2024 025 [email or web address] [facility], [place], [address], 08:38:43 Medication Orders None recorded. Patient TargetsNo targets recorded. Patient InstructionsNo instructions recorded. Reason for Referral None Reported. Results Created Date Observation Date Name Description Value Unit Range Abnormal Flag Note LastModifiedBy Organization Detail LastModifiedTime 01/13/20 25 01/12/2025 CULTU RE: URINE result report SEE RESULT S BELOW Test: Cultu re: Urine Speci men Sourc e: Urine Voide d Speci men Type: Urine Speci men Date: 1440 Resul t Date: 0452 Resul t Statu s: Final resul t Abnor mal: No Resul ting Lab: [facility] [address] [facility] [address] Tel: CULTU RE ----- ----- ----- --- No growt h in 1 day (dete ction level of 10,00 0 colon ies / ml.) Not Available [facility] (Lab) [address], [place], [address], 01/14/2025 05:56:40 01/13/2001/12/2025 urina lysis , dipst ick Leukocytes ++ Not Available [facility] [address], [place], [address], 01/12/2025 15:36:32 01/13/20 25 01/12/2025 urina lysis , dipst ick Nitrite + Not Available [facility] [address], [place], [address], 01/12/2025 15:36:32 01/13/20 25 01/12/2025 urina lysis , dipst ick Urobilinogen Normal Not Available [facility] [address], [place], [address], 01/12/2025 15:36:32 01/13/20 25 01/12/2025 urina lysis , dipst ick Protein + Not Available [facility] [address], [place], [address], 01/12/2025 15:36:32 01/13/20 25 01/12/2025 urina lysis , dipst ick pH 6 Not Available [facility] [address], [place], [address], 01/12/2025 15:36:32 01/13/20 25 01/12/2025 urina lysis , dipst ick Specific Darby 1.015 Not Available [facility] [address], [place], [address], 01/12/2025 15:36:32 01/13/20 25 01/12/2025 urina lysis , dipst ick Ketone - Not Available [facility] [address], [place], [address], 01/12/2025 15:36:32 01/13/20 25 01/12/2025 urina lysis , dipst ick Bilirubin - Not Available [facility] [address], [place], [address], 01/12/2025 15:36:32 01/13/20 25 01/12/2025 urina lysis , dipst ick Glucose Normal Not Available [facility] [address], [place], [address], 01/12/2025 15:36:32 01/13/20 25 01/12/2025 urina lysis , dipst ick Appearance clear Not Available [facility] [address], [place], [address], 01/12/2025 15:36:32 01/13/20 25 01/12/2025 urina lysis , dipst ick Color dark yellow Not Available [facility] [address], [place], [address], 01/12/2025 15:36:32 07/13/19 22 07/13/2021 MAMMO , scree krista, bilat eral No observ ation record ed. [email or web address] [facility] [address], [place], [address], 07/21/2021 17:47:41 08/09/19 22 08/09/2021 MAMMO , diagn ostic , digit al, bilat eral No observ ation record ed. [facility] [address], [place], [address], 08/10/2021 10:42:51 08/09/19 22 08/09/2021 MAMMO , diagn ostic , digit al, bilat eral No observ ation record ed. [facility] [address], [place], [address], 08/10/2021 10:35:07 11/20/19 22 08/09/2021 MAMMO , diagn ostic , digit al, bilat eral No observ ation record ed. [email or web address] [facility] [address], [place], [address], 11/21/2021 09:25:16 05/30/20 22 08/09/2021 MAMMO , diagn ostic , digit al, bilat eral No observ ation record ed. [facility] [address], [place], [address], 06/05/2022 10:47:16 01/20/20 25 01/19/2025 US, pelvi s No observ ation record ed. [email or web address] [facility] [address], [place], [address], 01/19/2025 17:52:05 01/20/20 25 01/19/2025 US, trans vagin al No observ ation record ed. [email or web address] [facility] [address], [place], [address], 01/19/2025 17:52:24 01/20/20 25 01/19/2025 US, héctor s No observ ation record ed. [email or web address] [facility] [address], [place], [address], 01/28/2025 17:30:48 Result Notes None recorded. Procedures Surgical History Date Name Laterality Status Provider Name and Address Organization Details Recorded Time 04/08/20 13 Carpal tunnel surgery completed [facility] 01/13/2021 15:57:10 03/09/20 13 Carpal tunnel surgery completed [facility] 01/13/2021 15:57:00 12/08/19 13 total shoulder replacement completed [facility] 01/13/2021 15:56:40 02/07/20 12 total knee replacement completed [facility] 01/13/2021 15:56:14 03/09/20 11 cataract surgery completed [facility] 01/13/2021 15:55:54 07/09/19 05 Date of Last Pap Smear completed [facility] 01/13/2021 15:13:13 07/09/18 48 Appendectomy completed [facility] 01/13/2021 15:55:22 07/09/18 44 Tonsillectomy completed [facility] 01/13/2021 15:55:09 Colonoscopy completed [facility] 01/13/2021 15:57:18 Imaging Results None recorded. Procedure Notes None recorded. Medical Equipment None Reported. Allergies Allergen ID Allergen Name Allergen Category Reaction Reaction Severity Criticality Documentation Date Start Date Code Code System Note Provider Name and Address Organization Details Recorded Time 35126 morpholin e salicylat e Not available nausea Not available Not available 01/13/2021 81771 8 [facility] 14:25:26 44699 morphine medicatio n Not available Not available Not available 01/12/2025 7052 RxNorm [facility] 5 14:25:33 44452 codeine medicatio n Not available Not available Not available 01/12/2025 2670 RxNorm Lissa Madison [facility] 14:25:47 Medications Name Sig Start Date Stop Date Status Note LastModified by Organization Details LastModified Time amoxicillin 500 mg capsule TAKE FOUR CAPSULES BY MOUTH ONE HOUR BEFORE DENTAL APPOINTME NT PROCEDURE 01/13 completed Not Available Not Available Not Available atorvastati n 40 mg tablet TAKE 1 TABLET BY MOUTH ONCE DAILY active Not Available Not Available No t Available diltiazem CD 180 mg capsule,ext ended release 24 hr TAKE 1 CAPSULE BY MOUTH ONCE DAILY active Not Available Not Available No t Available alendronate 70 mg tablet TAKE 1 TABLET BY MOUTH ONCE A WEEK active Not Available Not Available No t Available meclizine 12.5 mg tablet TAKE 1 TABLET BY MOUTH THREE TIMES DAILY NEEDED FOR DIZZINESS 01/12 completed Not Available Not Available Not Available amlodipine 2.5 mg tablet TAKE 1 TABLET BY MOUTH ONCE DAILY IN THE MORNING 01/12 completed Not Available Not Available Not Available omeprazole 40 mg capsule,del ayed release TAKE 1 CAPSULE BY MOUTH TWICE DAILY FOR 6 WEEKS active Not Available Not Available No t Available tramadol 50 mg tablet TAKE 1 TABLET BY MOUTH EVERY 8 HOURS NEEDED FOR PAIN active Not Available Not Available No t Available metoclopram gonzalez 5 mg tablet TAKE 1 TABLET BY MOUTH ONCE DAILY IN THE MORNING active Not Available Not Available No t Available meclizine 25 mg tablet TAKE 1 TABLET BY MOUTH THREE TIMES DAILY NEEDED FOR DIZZINESS active Not Available Not Available No t Available amlodipine 10 mg tablet 01/13 completed Not Available Not Available Not Available losartan 25 mg tablet Take 1 tablet every day by oral route. 01/12 completed Not Available Not Available Not Available pravastatin 20 mg tablet TAKE 1 TABLET BY MOUTH ONCE DAILY 01/13 completed Not Available Not Available Not Available albuterol sulfate HFA 90 mcg/actuati on aerosol inhaler INHALE 1 PUFF BY MOUTH EVERY 4 TO 6 HOURS NEEDED FOR SHORTNESS OF BREATH active Not Available Not Available No t Available celecoxib 100 mg capsule TAKE 1 CAPSULE BY MOUTH ONCE DAILY 01/12 completed Not Available Not Available Not Available ondansetron 4 mg disintegrat ing tablet DISSOLVE 1 TABLET IN MOUTH EVERY 8 HOURS NEEDED FOR NAUSEA AND VOMITING active Not Available Not Available No t Available Aspirnil 325 mg tablet Take 2 tablets every 6 hours by oral route. active Not Available Not Available No t Available escitalopra m 5 mg tablet TAKE 1 TABLET BY MOUTH ONCE DAILY active Not Available Not Available No t Available metoprolol tartrate 25 mg tablet TAKE 1 TABLET BY MOUTH EVERY 12 HOURS active Not Available Not Available No t Available DILT-XR 180 mg capsule, extended release TAKE 1 CAPSULE BY MOUTH ONCE DAILY active Not Available Not Available No t Available Vitamin C active Not Available Not Amalia ilable Not Available calcium active Not Available Not Avail able Not Available Colace 01/12 completed Not Available Not Available Not Available Iron (ferrous sulfate) active Not Available Not Available Not Available Vitamin D3 active Not Available Not Av ailable Not Available ProAir HFA active Not Available Not Av ailable Not Available Symbicort 160 mcg-4.5 mcg/actuati on HFA aerosol inhaler INHALE 2 PUFFS BY MOUTH EVERY 12 HOURS active Not Available Not Available No t Available PreviDent 5000 Booster Plus 1.1 % dental paste USE SMALL AMOUNT OF PASTE TO BRUSH TEETH EVERY DAY BEFORE BEDTIME active Not Available Not Available No t Available Hair, Skin and Nails (biotin) active Not Available Not Available Not Available Vitals Date Recorded Body height Body mass index (BMI) Body weight Systolic And Diastolic Provider Name and Address Organization Details Last Updated DateTime 01/12/2025 144.78 cm 23.7 kg/m2 86332.01 g 162/76 mm[Hg] Lissa Madison [facility] 01/12/2025 14:25:09 Date Recorded Systolic And Diastolic Provider Name and Address Organization Details Last Updated DateTime 01/13/2021 136/80 mm[Hg] Neva Mancilla, [facility] [address], [place], [address], [place] - [facility] 01/13/2021 15:23:50 Date Recorded Body height Body mass index (BMI) Body weight Provider Name and Address Organization Details Last Updated DateTime 01/13/2021 144.78 cm 30.9 kg/m2 95661.71 g Lakia Wiley [facility] 01/13/2021 15:12:00 Social History Question Answer Notes LastModified by Organizat ion Details LastModified Time Do You Have An Advance Directive? Yes Information n ot available 01/13/2021 Are You Blind Or Do You Have Difficulty Seeing? No Information n ot available 01/13/2021 What Is Your Level Of Caffeine Consumption? Occasional Information not available 01/13/2021 How Much Tobacco Do You Chew? None Information not available 01/13/2021 In The 14 Days Before Symptom Onset, Have You Had Close Contact With A Laboratory-confirm ed COVID-19 While That Case Was Ill? No Information n ot available 01/13/2021 In The 14 Days Before Symptom Onset, Have You Had Close Contact With A Person Who Is Under Investigation For COVID-19 While That Person Was Ill? No Information not available 01/13/2021 Have You Been To An Area Known To Be High Risk For COVID-19? No Information not available 01/13/2021 Are You Deaf Or Do You Have Serious Difficulty Hearing? No Information not available 01/13/2021 What Type Of Diet Are You Following? REGULAR Information n ot available 01/13/2021 What Is The Highest Grade Or Level Of School You Have Completed Or The Highest Degree You Have Received? [id number] Information not available 01/13/2021 Are There Any Guns Present In Your Home? No Information not available 01/13/2021 Do You Use Your Seat Belt Or Car Seat Routinely? Yes Information not available 01/13/2021 Do You Have Smoke And Carbon Monoxide Detectors In Your Home? Yes Information not available 01/13/2021 How Much Tobacco Do You Smoke? No Information not available 01/13/2021 Do You Use Sunscreen Routinely? No Information not available 01/13/2021 Have You Used IV Drugs? No Information not available 01/13/2021 Sex: Unknown Functional Status Question Answer Note LastModified by Organizat ion Details LastModified Time Do you use any illicit or recreational drugs? No Information not available 01/13/2021 What is your level of alcohol consumption? None Information not available 01/13/2021 Are you able to walk? YESWOREST Information not available 01/13/2021 What is your occupation? Retired Information not available 01/13/2021 What is your exercise level? None Information not available 01/13/2021 Mental Status Question Answer Note LastModified by Organization D etails LastModified Time Do you feel stressed (tense, restless, nervous, or anxious, or unable to sleep at night)? [id number] Information not available 01/13/2021 Family History Nothing Reported. Medical History Condition Response Other Y Arthritis Y Headaches Y Heart Problems Y Asthma Y High Cholesterol Y Hypertension Y Osteoporosis Y Gynecological History Statement/Question Response If Post Menopausal, Age at Menopause 52 Abnormal Pap N Date of Last Mammogram Sexually Active? N STIs/STDs N Date of Last Pap Smear 07/09/2004 Sexual Problems? N Current Control Method Menopause Obstetrics History GPAL:G 3 P 3 0 0 3 Type Value Full Term 3 Living 3 Total 3 Past Encounters Encounter ID Performer Location Encounter Start Date Encounter Closed Date Diagnosis/Indication Diagnosis SNOMED-CT Code Diagnosis ICD10 Code Diagnosis Note [id number] Neva Mancilla [facility] [address] [address] 01/13/2021 14:46:22 01/13/2021 15:29:09 Gynecologic examination 75573062 Z01.419 Take Calcium with Vitamin D 12-1500mg daily. Do monthly self breast exams. It is advised to get annual flu shot in the fall and she could obtain at [facility] or [facility] clinic. If you haven't received the Tdap vaccine in the last 10 years you should obtain one as well. Have mammogram yearly, bone density every 2-3 years and colonoscop y every 5-10 years depending on findings and history. Engage in daily exercise of low impact aerobic exercise 45-60 minutes 4-5 times weekly. Avoid tobacco and illicit drugs as well as using moderation with alcohol intake less than 1-2 8 oz beverages daily. This lifestyle behavior pattern will lead to less health conditions and longer life span. If BMI greater than 25 weight watchers or dietary consult advised. Questions have been answered. Patient appears to understand instructio ns, but if you have any further questions call or respond to this email Normal Pap/HPV HxToday we discussed current guidelines pap/hpv testing for those 65yo without RF's and normal pap/HPV hx. Pap/hpv after age 65 is d/c unless otherwisei ndicated per asccp.She voices understand ing and agreeable. Mammo orderedDex a & colon screenings are managed by PCP and are UTD. Denies any other issues or concerns today. [id number] MARIFER Vaz [facility] [address] [address] 01/12/2025 13:35:10 01/12/2025 16:51:47 Generalized abdominal pain 836871813 R10.84 Health hx obtained and reviewed todaypelvi c u/s ordered to assess if any v belt coverer source of symptoms presentenc ouraged continued f/u with GI and PCPUa done, urine cx sentquesti ons answeredBP precaution s discussed, encouraged PCP f/u BP precaution s discussed, encouraged PCP f/u Time spent in visit is a total of 25 mins with at least 50% of visit consisting of counseling and review of plan of care. Abdominal bloating 71472 9008 R14.0 [id number] Mat Dickinson MD [facility] [address] [address] 01/19/2025 14:18:37 01/19/2025 16:08:52 Pelvic and perineal pain 225174421 R10.2 R11.0 Health Concerns Section Related Observation LastModified by Organization Detai ls LastModified Time None Recorded Concern Status LastModified by Organization Details LastModified Time None Recorded Advance Directives Directive Y: Payers Insurance Date Sequence Insurance Name Policy Number Policy Kraft Covered Member ID Kraft Member ID Guarantor Name 01/23/2025 1 [facility] (MEDICARE REPLACEMENT/A DVANTAGE - PPO) [id number] Selena Lua [id number] Selena Lua OBMatty Episode No OBEpisode recorded.
--- OUTSIDE RECORDS SUMMARY | 2025-02-03 09:45 | XMS_ITS | Clinical Summary ---
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 Gender Identity Not on file Sexual Orientation Not on file Occupation Industry Job Start Date Job End Date Not on file Not on file Not on file Not on file Last Filed Vital Signs Vital Sign Reading Time Taken Comments Blood Pressure 113/65 07/12/2021 11:00 AM FACING CUTTING MACHINE OPERATOR Pulse 80 07/12/2021 11:00 AM FACING CUTTING MACHINE OPERATOR Temperature 36.7 C (98.1 F) 07/12/2021 11:00 AM FACING CUTTING MACHINE OPERATOR Respiratory Rate - - Oxygen Saturation 96% 07/12/2021 11:00 AM FACING CUTTING MACHINE OPERATOR Inhaled Oxygen Concentration - - Weight 61 kg (134 lb 8 oz) 07/12/2021 11:[address] Height 152.4 cm (5') 07/12/2021 11:00 AM FACING CUTTING MACHINE OPERATOR Body Mass Index 26.27 07/12/2021 11:00 AM FACING CUTTING MACHINE OPERATOR Plan of Treatment Health Maintenance Due [...] SCREENING 07/23/2013 07/23/2008, 2002 INFLUENZA VACCINE (#1) [address] [place] [address] [facility] [id number] [address] [place], [place] [id number] [place] [id number] Advance Directives For more information, please contact: [phone] Documents on File Type Date Recorded Patient Supervisor Doping Expl anation Advance Directive POA 02/13/2019 2:23 PM Ad najera Directive POA Advance Directive Living Will 02/13/2019 2:23 PM Advance Directive Living Will Care Teams Skull Splitter Relationship Specialty Start Date End Date Easton Paulino MD [address] [facility] [address] [place] [address] PCP - General Family Practice 12/24/18
--- OUTSIDE RECORDS SUMMARY | 2025-02-03 09:45 | XMS_ITS | Referral Summary ---
Author Organization [address] Address [address] [place] [address] Care Team Providers Care Broadloom Weaver Name Role Phone Easton Paulino MD Primary Care Provider Encounters Date Type Department Care Team Description 12/15/2024 2:00 PM CDT Office Visit [facility] Cardiology [address] [place] [address] Priscilla lPata NP History of chest pain (Primary Dx); H/O TIA (transient ischemic attack) and stroke; Stenosis of right carotid artery; Essential hypertension 12/06/2024 Orders Only [facility] [place] Health Information Management [address] [place] [id number] Scanning, Provider 11/05/2024 Telephone [facility] Medical [facility] Cardiology [address] [facility] [address] [place] [address] Hugo Fan MD from Last [...] Tramadol Nausea And Vomiting Low 07/17/2019 Medications budesonide-form oterol (SYMBICORT) 160-4.5 mcg/actuation inhaler inhale 2 puff by inhalation route 2 times every day in the morning and evening 0 2 Active albuterol HFA (PROAIR HFA) 90 mcg/actuation inhaler inhale 2 puff by inhalation route every 4 - 6 hours as needed 0 2 Active calcium carbonate (OS-JS) 650 mg calcium (1,625 mg) tablet Take 1 tablet (1,625 mg total) by mouth daily Active ferrous sulfate 325 mg (65 mg of elemental iron) tabletIndicatio ns:Iron Deficiency Anemia Take 1 tablet (325 mg total) by mouth daily with dinner Active escitalopram (LEXAPRO) 5 mg tablet Take 1 tablet (5 mg total) by mouth daily 0 Active aspirin 325 mg enteric coated tablet Take 1 tablet (325 mg total) by mouth daily 1 Active ascorbic acid (VITAMIN C ORAL) Take by mouth Active potassium phosphate, monobasic, (K-PHOS) 500 mg (3.6 mmol of phosphorus) tablet Take 1 tablet (500 mg total) by mouth 2 (two) times a day Active omeprazole (PriLOSEC) 40 mg capsule 2 Active cholecalciferol (VITAMIN D-3) 1,000 unit capsule Take 1 capsule (1,000 Units total) by mouth daily Active methylPREDNISol one (MEDROL DOSEPACK) 4 mg Dosepack 4 Active predniSONE (DELTASONE) 10 mg tablet 4 Active DILT-XR 180 mg 24 hr capsule Take 1 capsule by mouth once daily 90 capsule 5 Active alendronate (FOSAMAX) 70 mg tablet Take 1 tablet (70 mg total) by mouth every 7 days 5 Active meclizine (ANTIVERT) 12.5 mg tablet Take 1 tablet (12.5 mg total) by mouth 3 (three) times a day as needed 5 Active traMADoL (ULTRAM) 50 mg tablet Take 1 tablet (50 mg total) by mouth every 8 (eight) hours as needed 5 Active ykbunsmr-zpq-tm lic acid-biotin 66.7-1,000 mcg tablet Take by mouth Active atorvastatin (LIPITOR) 40 mg tabletIndicatio ns:Stenosis of right carotid artery,H/O TIA (transient ischemic attack) and stroke Take 1 tablet (40 mg total) by mouth daily 90 tablet 3 5 Active Active Problems Problem Noted Date Diagnosed Date Carotid disease, bilateral 10/29/2023 Overview (10/29/2023): 50-69% right ICA Assessment & Plan (10/29/2023 1:41 PM CDT): Bilateral carotid stenosis less than 50%. Recently patient has had TIA symptoms but has not followed up in the hospital and has no recent CT is of the head and neck. Was seen at [facility] unsure what timeframe. Seen with Dr. Kip Ramos. Plan: Obtain the most recent CT scan of the head and neck at [facility] follow up in the next [...] on file Legal Sex Female 4:57 PM GRAVEL ROOFER Gender Identity Female 10/31/2023 12:45 PM CDT Sexual Orientation Not on file Last Filed Vital Signs Vital Sign Reading Time Taken Comments Blood Pressure 106/60 12/15/2024 2:16 PM CDT Pulse 95 12/15/2024 2:16 PM CDT Temperature - - Respiratory Rate - - Oxygen Saturation 94% 12/15/2024 2:16 PM CDT Inhaled Oxygen Concentration - - Weight 49 kg (108 lb) 12/15/2024 2:16 PM CDT Height 149.9 cm (4' 11) 12/15/2024 2:16 PM CDT Body Mass Index 21.81 12/15/2024 2:16 PM CDT Plan of Treatment Not on file Procedures Procedure Name Priority Date/Time Associated Diagnosis Comments SCAN - LABS 12/09/2024 CARDIOLOGY DOCUMENT SCAN 12/06/2024 COMPREHENSIVE METABOLIC PANEL Routine 06/17/2021 10:31 AM GRAVEL ROOFER LIPID PANEL Routine 06/17/2021 10:31 AM GRAVEL ROOFER from Last 3 Months or Most Recently Relevant to Health Maintenance Results * SCAN - LABS (12/09/2024) us Provider Scanning Final Result * Cardiology Document Scan (12/06/2024) Anatomical Region Laterality Modality Other Provider Scanning [facility] CARDIAC SERVICES PROCEDURES Final Result * Lipid panel (06/17/2021 10:31 AM GRAVEL ROOFER) Cholesterol 164 100 - 199 mg/dL [facility] - 01 Triglycerides 69 0 - 149 mg/dL [facility] - 01 HDL Cholesterol 83 >39 mg/dL [facility] - 01 VLDL 13 5 - 40 mg/dL [facility] - 01 LDL, calculated 68 0 - 99 mg/dL [facility] - 01 06/17/2021 10:3 1 AM GRAVEL ROOFER 06/17/2021 Narrative [facility] - 06/19/2021 8:08 AM GRAVEL ROOFER Performed at: - [facility] [id number] Leading Firefighter: Barry Quintanilla PhD, Phone: [phone] us Autumn Egan MD LAB BLOOD ORDERABLES Final Result [facility] * (ABNORMAL) Comprehensive metabolic panel (06/17/2021 10:31 AM GRAVEL ROOFER) Glucose 91 65 - 99 mg/dL [facility] - 01 BUN 24 8 - 27 mg/dL [facility] - 01 Creatinine, Serum 1.10(H) 0.57 - 1.00 mg/dL [facility] - 01 eGFR If NonAfricn Am 46(L) >59 mL/min/1. 73 [facility] - 01 eGFR If Africn Am 53(L) >59 mL/min/1. 73 [facility] - 01 Comment: In accordance with recommendations from the NKF-ASN Task force, [facility] is in the process of updating [...] [facility] - 01 06/17/2021 10:3 1 AM GRAVEL ROOFER 06/17/2021 Narrative [facility] - 06/19/2021 8:08 AM GRAVEL ROOFER Performed at: 01 - [facility] [address] [id number] Leading Firefighter: Barry Quintanilla PhD, Phone: [phone] Specimen Comment: A courtesy copy of this report has been sent to Family Practice us Autumn Egan MD LAB BLOOD ORDERABLES Final Result [facility] - 01 from Last 3 Months or Most Recently Relevant to Health Maintenance [place] [address] [facility] MEDIC[facility] Address: [address] [place] [phone] [place] [address] [facility] MEDIC[facility] Address: [address] [place] [phone] [place] [address] [facility] MEDICARE ADVANTAGE Care Teams Broadloom Weaver Relationship Specialty Start Date End Date Easton Paulino MD [address] [facility] [address] [place] [address] PCP - General Family Medicine 04/15/19
--- OUTSIDE RECORDS SUMMARY | 2025-02-03 09:45 | XMS_ITS | Clinical Summary ---
Author Organization [facility] [address] Address [address] [place] [address] Care Team Providers Care Photographic Developer And Printer Name Role Phone Easton Paulino MD Primary [...] 8 (eight) hours as needed 5 Active flgleqyw-zwy-ll lic acid-biotin 66.7-1,000 mcg tablet Take by [...] the head and neck. Was seen at [facility] unsure what timeframe. Seen with Dr. Kip Ramos. Plan: Obtain the most recent CT scan of the head and neck at [facility] follow up in the next 2 [...] Description 12/15/2024 2:00 PM CDT Office Visit [facility] Cardiology [address] [place] [id number] Priscilla Plata NP History of chest pain (Primary Dx); H/O TIA (transient ischemic attack) and stroke; Stenosis of right carotid artery; Essential hypertension 12/06/2024 Orders Only [facility] [place] [facility] Information Management [address] [place] [address] Scanning, Provider 11/05/2024 Telephone [facility] Cardiology [address] [place] [address] Hugo Fan MD from Last [...] on file Legal Sex Female 4:57 PM 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 Gender Identity Female 10/31/2023 12:45 PM CDT [...] 12/15/2024 2:16 PM CDT Plan of Treatment Health Maintenance Due Date Last Done Comments Albumin Creatinine Ratio, Urine 1937 Depression Screening 1937 Fall Risk Assessment 1937 Hemoglobin A1C 1937 Osteoporosis Screening-Bone Density Scan 1937 Dilated Eye Exam 1937 Foot Exam 1937 DTaP/Tdap/Td Vaccine (1 - Tdap) 1948 Hepatitis B Screening 1955 Zoster Vaccine (1 of 2) 1987 Well Visit 65+ 2002 Pneumococcal vaccine 65+ (2 of 2 - PPSV23) 05/21/2018 03/26/2018, 04/01/2017, 03/13/2016 Lipid Panel 06/17/2022 06/17/2021, 07/27/2020 eGFR 06/17/2022 06/17/2021, 07/27/2020 Influenza Vaccine (#1) 2025 9, 03/26/2018, 04/01/2017, Additional history exists Procedures Procedure Name Priority Date/Time Associated Diagnosis Comments SCAN - LABS 12/09/2024 CARDIOLOGY DOCUMENT SCAN 12/06/2024 COMPREHENSIVE METABOLIC PANEL Routine 06/17/2021 10:31 AM SYSTEMS 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 LIPID PANEL Routine 06/17/2021 10:31 AM SYSTEMS 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 from Last 3 Months or Most Recently Relevant to Health Maintenance Results * SCAN - LABS (12/09/2024) us Provider Scanning Final Result * Cardiology Document Scan (12/06/2024) Anatomical Region Laterality Modality Other us Provider Scanning CV CARDIAC SERVICES PROCEDURES Final Result * Lipid panel (06/17/2021 10:31 AM SYSTEMS 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) Cholesterol 164 100 - 199 mg/dL [facility] - 01 Triglycerides 69 0 - 149 mg/dL [facility] - 01 HDL Cholesterol 83 >39 mg/dL [facility] - 01 VLDL 13 5 - 40 mg/dL [facility] - 01 LDL, calculated 68 0 - 99 mg/dL [facility] - 01 06/17/2021 10:3 1 AM SYSTEMS 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 06/17/2021 Narrative [facility] - 06/19/2021 8:08 AM SYSTEMS 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 Performed at: 01 - [facility] [id number] Finger Waver: Barry Quintanilla PhD, Phone: [phone] us Autumn Egan MD LAB BLOOD ORDERABLES Final Result [facility] - 01 * (ABNORMAL) Comprehensive metabolic panel (06/17/2021 10:31 AM SYSTEMS 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) Pathologist [facility] [place] Glucose 91 65 - 99 mg/dL [facility] - 01 BUN 24 8 - 27 mg/dL [facility] - 01 Creatinine, Serum 1.10(H) 0.57 - 1.00 mg/dL [facility] - 01 eGFR If NonAfricn Am 46(L) >59 mL/min/1. 73 [facility] - 01 eGFR If Africn Am 53(L) >59 mL/min/1. 73 [facility] - 01 Comment: In accordance with recommendations from the NKF-ASN Task force, [facility] is in the process of updating its [...] [facility] - 01 06/17/2021 10:3 1 AM SYSTEMS 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 06/17/2021 Narrative [facility] - 06/19/2021 8:08 AM SYSTEMS 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 Performed at: 01 - [address] [id number] Finger Waver: Barry Quintanilla PhD, Phone: [phone] Specimen Comment: A courtesy copy of this report has been sent to Family Practice us Autumn Egan MD LAB BLOOD ORDERABLES Final Result [facility] - 01 from Last 3 Months or Most Recently Relevant to Health Maintenance [place] [address] [facility] Address: [address] [address] [place] [address] [place] [address] [facility] Address: [address] [address] [place] [address] [place] [address] [facility] MEDIC[facility] ADVANTAGE Care Teams Photographic Developer And Printer Relationship Specialty Start Date End Date Easton Paulino MD [address] [facility] [address] [place] [address] PCP - General Family Medicine 04/15/19
== END 2025-02-03 09:30 | disposition home or self-care (01) ==
PROVIDERS: PCP Family Medicine; Visit Provider Nurse Practitioner
DX: K44.9 Diaphragmatic hernia without obstruction or gangrene (principal); K21.9 Gastro-esophageal reflux disease without esophagitis; R11.2 Nausea with vomiting, unspecified
CPT/HCPCS: 74246; 74248